=== PATIENT | female | born 1980 | race Two or more races ===

== ENCOUNTER 2020-08-10 14:00 | Outpatient (RCR) | payer MEDICAID, SELFPAY ==
--- NOTE | 2021-05-24 12:17 | MHC.PT.DC ---
[facility] [place] Office [place] Office [place] Office [address] [place] [address] [phone] F: [phone] F: [phone] F: [phone] F: [phone] Physical Therapy Discharge Report Diagnosis: SPONDYLOSIS WITH RADICULOPATHY, LUMBAR REGION, OA OF SPINE Date of Surgery: NA Date of Evaluation: 07/11/20 Date of Discharge: 05/24/21 Treatments to Date: 3 Cancellations to Date: 5 No Shows to Date: 3 Discharge Status: Visit Non-compliance Discharge Summary: Pt SEEN FOR INIT EVAL AND 2 VISITS THEN NO FURTHER APPTS MADE (COMBO OF CANCELS AND NO SHOWS). AT LAST SCHEDULED APPT WITH PASTORA STARKS PT Pt SUBJECTIVELY REPORTED NO SIGNIF CHANGE IN PAIN AND PER ASSESSMENT FROM THAT NOTE: 'pt challenged on rocker board. Issued written program in Khmer.' Electronically signed by: BERNADETTE DIAS PT Please sign and return to therapist. Thank you for your referral.
== END 2021-05-24 12:18 | disposition home or self-care (01) ==
LOC: HO.PT 14:00
PROVIDERS: PCP Internal Medicine; Visit Provider Internal Medicine
DX: M47.26 Other spondylosis with radiculopathy, lumbar region (principal); M46.1 Sacroiliitis, not elsewhere classified
CPT/HCPCS: 97110; 97161

== ENCOUNTER 2020-11-07 11:41 | Emergency (ER) | payer MEDICAID, SELFPAY ==
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
[2020-11-07 11:46] VITALS: BP 139/91; PULSE 82; RESP 18; TEMP 36.8; O2SAT 99; BMI 27.4
[2020-11-07] MEDS: 0.9 % Sodium Chloride 1,000 ML 999 ML IV (12:51)
--- NOTE | 2020-11-07 12:51 | PC.NURSE ---
IV STARTED AND LABS DRAWN. IV 1000ML NS HUNG. MED WOULD NOT SCAN.
[2020-11-07 12:54] LABS: MANUAL DIFF FLAG NO
[2020-11-07 12:56] LABS: Basophils Percent Auto 0.4 % (0-2); Eosinophils Percent Auto 0.3 % (0-4); Hematocrit 40.6 % (37-47); Hemoglobin 13.7 g/dl (12.0-16.0); Imm Gran Abs Auto 0.04 X10*3/uL (0.00-0.03); Imm Gran Pct Auto 0.6 % (0.0-0.4); Lymphocytes Absolute Auto 1.2 X10*3/uL (1.2-4.9); Lymphocytes Percent Auto 17.5 % (20-40); Mean Corpuscular HGB Conc 33.7 g/dl (31.0-35.0); Mean Corpuscular Hemoglobin 31.3 pg (27.0-33.0); Mean Corpuscular Volume 92.7 fL (80-98); Mean Platelet Volume 8.1 fL (9.4-12.3); Monocytes Absolute Auto 0.4 X10*3/uL (0.1-1.2); Monocytes Percent Auto 5.5 % (2-11); Neutrophils Absolute Auto 5.1 X10*3/uL (2.0-8.3); Neutrophils Percent Auto 75.7 % (45-73); Platelet Count 205 X10*3/uL (160-400); Red Blood Count 4.38 X10*6/uL (4.20-5.50); Red Cell Distribution Width 12.2 % (11.0-16.0); White Blood Count 6.8 X10*3/uL (4.8-10.8)
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
[2020-11-07 13:03] LABS: INTERNATIONAL NORM RATIO 0.9 (0.9-1.1); Prothrombin Time 10.9 SEC (10.8-13.0)
[2020-11-07 13:06] LABS: Partial Thromboplastin Time 30.1 SEC (24.1-38.0)
[2020-11-07 13:19] LABS: Alanine Aminotransferase 29 U/L (0-31); Alkaline Phosphatase 76 U/L (39-117); Anion Gap 14 (12-20); Aspartate Amino Transferase 31 U/L (5-31); Bilirubin Total 0.5 mg/dL (0.0-1.0); Blood Urea Nitrogen 9 mg/dL (9-16); Carbon Dioxide 26 mmol/L (22-29); Chloride 105 mmol/L (96-108); Creatinine Clr Calc Pharmacy 94.1; Estimated Glomerular Filt Rate > 60; Glucose Random 94 mg/dL (60-115); Potassium 3.8 mmol/L (3.3-5.1); Sodium 141 mmol/L (135-145); Total Protein 6.5 g/dL (6.5-8.0)
[2020-11-07 13:49] LABS: HCG Quantitative < 2 mIU/mL
[2020-11-07] MEDS: Morphine Sulfate 4 MG/ML CARTRIDGE IVPUSH (14:05)
[2020-11-07 14:11] VITALS: BP 138/87; PULSE 78; RESP 18; O2SAT 98
[2020-11-07] MEDS: iohexoL 350 MG/ML 100 ML INFUS..BTL IV (15:07)
[2020-11-07 15:51] VITALS: BP 125/67; PULSE 60; RESP 18; TEMP 36.4; O2SAT 98
[2020-11-07] MEDS: Ketorolac Tromethamine 30 MG/ML VIAL IVPUSH (16:14)
== END 2020-11-07 17:05 | disposition home or self-care (01) ==
PROVIDERS: Physician Assistant; Emergency Provider Emergency Medicine; PCP Internal Medicine
DX: S36.32XA Contusion of stomach, initial encounter (principal); R10.12 Left upper quadrant pain; Y04.8XXA Assault by other bodily force, initial encounter; Y93.9 Activity, unspecified; Y92.9 Unspecified place or not applicable; Y99.9 Unspecified external cause status; Z79.899 Other long term (current) drug therapy
CPT/HCPCS: 36415; 71046; 71100; 74177; 80053; 84702; 85025; 85610; 85730; 96365; 96375; 99284; 99285; J1885; J2270; Q9967

== ENCOUNTER 2020-11-11 11:54 | Emergency (ER) | payer MEDICAID, SELFPAY ==
[2020-11-11 12:23] VITALS: BP 161/89; PULSE 77; RESP 18; TEMP 37; O2SAT 98; BMI 27.4
== END 2020-11-11 15:20 | disposition left against medical advice (07) ==
PROVIDERS: Emergency Provider Emergency Medicine
DX: S29.9XXA Unspecified injury of thorax, initial encounter (principal); S59.901A Unspecified injury of right elbow, initial encounter; Y04.2XXA Assault by strike against or bumped into by another person, initial encounter; Y93.9 Activity, unspecified; Y92.9 Unspecified place or not applicable; Y99.9 Unspecified external cause status
CPT/HCPCS: 99281; 99282

== ENCOUNTER 2020-12-27 11:14 | Outpatient (REF) | payer MEDICAID, SELFPAY ==
--- NOTE | ~2020-12-27 | XR_ITS ---
EXAMINATION: XR FOOT, LEFT CLINICAL INFORMATION: Left foot pain. COMPARISON: Left lower leg 08/26/2014 TECHNIQUE: AP, lateral, and oblique views of the left foot. FINDINGS: An intramedullary jeremy is seen in the distal tibia. The bones and soft tissues are otherwise normal. No fracture. Alignment is anatomic. Joint spaces are maintained. XR/XR foot LT min 3V IMPRESSION: Normal left foot. Jeremy in distal tibia.
== END 2020-12-27 11:15 | disposition home or self-care (01) ==
LOC: HO.XRAY 11:14
PROVIDERS: PCP Internal Medicine; Visit Provider Internal Medicine
DX: M79.672 Pain in left foot (principal)
CPT/HCPCS: 73630

== ENCOUNTER 2021-11-02 10:10 | Outpatient (REF) | payer MEDICAID, SELFPAY ==
--- NOTE | 2021-11-02 | EMG_ITS ---
Left median and ulnar motor and sensory studies were performed. Left radial sensory study was performed and paraspinal muscles were tested. IMPRESSION: This is an unremarkable study with no evidence of entrapment neuropathy or radiculopathy. MD SAMIRA Jaime/HUDSON / [id number]
== END 2021-11-02 10:11 | disposition home or self-care (01) ==
LOC: HO.NEURO 10:10
PROVIDERS: Visit Provider Internal Medicine
DX: G56.02 Carpal tunnel syndrome, left upper limb (principal)
CPT/HCPCS: 95886; 95910

== ENCOUNTER 2022-02-27 15:40 | Emergency (ER) | payer MEDICAID, SELFPAY ==
--- NOTE | ~2022-02-27 | CT_ITS ---
EXAMINATION: CT ABDOMEN AND PELVIS WITHOUT CONTRAST CLINICAL INFORMATION: Right lower quadrant pain COMPARISON: CT abdomen pelvis 11/07/2020 TECHNIQUE: Multidetector volumetric imaging was performed from the superior aspect of the liver through the pubic symphysis. Sagittal and coronal reformatted images were obtained on the technologist's workstation. This CT examination was performed using dose optimization techniques as appropriate, variously including the following: *Automated exposure control *Adjustment of mA and/or kV according to patient size (this includes techniques or standardized protocols for targeted exams where dose is matched to indication/reason for exam; i.e. extremities or head) *Use of iterative reconstruction technique DLP: 686 mGy-cm FINDINGS: LUNG BASES: The visualized lung bases are unremarkable. LIVER, GALLBLADDER, AND BILIARY TREE: The liver is normal in size, shape, and attenuation. No focal hepatic lesion or biliary ductal dilatation is present. The gallbladder is unremarkable with no evidence of radiopaque gallstones, gallbladder wall thickening, or obvious pericholecystic inflammatory changes. PANCREAS: Unremarkable. SPLEEN: Unremarkable. ADRENAL GLANDS: Unremarkable. KIDNEYS AND URETERS: The kidneys are normal in size, shape, and attenuation. No hydronephrosis, hydroureter, or calculi seen. No perinephric stranding. BLADDER: Unremarkable. GASTROINTESTINAL TRACT: The small and large bowel are unremarkable. Scattered colonic diverticula are present. The appendix is unremarkable. ABDOMINAL WALL: No significant hernia is appreciated. LYMPH NODES: No retroperitoneal lymphadenopathy VASCULAR: Unremarkable. PELVIC VISCERA: Retroflexed uterus is present. An abnormal pelvic mass or free intraperitoneal fluid is not seen. OSSEOUS STRUCTURES: Unremarkable. CT/CT abdomen pelvis wo con IMPRESSION: A cause for the patient's right lower quadrant pain has not been found. The appendix is normal. Fleischner guidelines were followed.
[2022-02-27 17:19] VITALS: BP 129/81; PULSE 58; RESP 16; TEMP 36.6; O2SAT 100; BMI 28.1
[2022-02-27 17:37] LABS: MANUAL DIFF FLAG NO
[2022-02-27 17:44] LABS: Basophils Percent Auto 0.5 % (0-2); Eosinophils Absolute Auto 0.1 X10*3/uL (0.0-0.4); Eosinophils Percent Auto 0.9 % (0-4); Hematocrit 38.8 % (37.0-47.0); Hemoglobin 13.4 g/dl (12.0-16.0); Imm Gran Abs Auto 0.02 X10*3/uL (0.00-0.03); Imm Gran Pct Auto 0.4 % (0.0-0.4); Lymphocytes Absolute Auto 2.7 X10*3/uL (1.2-4.9); Lymphocytes Percent Auto 48.1 % (20-40); Mean Corpuscular HGB Conc 34.5 g/dl (31.0-35.0); Mean Corpuscular Hemoglobin 30.9 pg (27.0-33.0); Mean Corpuscular Volume 89.4 fL (80.0-98.0); Mean Platelet Volume 8.3 fL (9.4-12.3); Monocytes Absolute Auto 0.4 X10*3/uL (0.1-1.2); Neutrophils Absolute Auto 2.4 x10*3/uL (2.0-8.3); Neutrophils Percent Auto 43.1 % (45-73); Platelet Count 195 X10*3/uL (160-400); Red Blood Count 4.34 X10*6/uL (4.20-5.50); Red Cell Distribution Width 12.2 % (11.0-16.0); White Blood Count 5.6 X10*3/uL (4.8-10.8)
[2022-02-27 17:51] LABS: Appearance Urine CLOUDY; Color Urine YELLOW; Glucose Urine UA NEG (NEG); Leukocyte Esterase Urine NEG (NEG); Nitrite Urine NEG (NEG); Urine Blood NEG (NEG); Urine Ketones NEG (NEG); Urine Protein NEG (NEG-TRACE)
[2022-02-27 17:54] LABS: COVID-19 Test Negative (Negative); IDNOW Serial# 16C4AD1C
[2022-02-27 18:01] LABS: Anion Gap 13 (12-20); Blood Urea Nitrogen 5 mg/dL (9-16); Calcium 8.6 mg/dL (8.4-10.2); Carbon Dioxide 26 mmol/L (22-29); Chloride 104 mmol/L (96-108); Creatinine Clr Calc Pharmacy 102.3; Estimated Glomerular Filt Rate > 60; Glucose Random 87 mg/dL (60-115); Potassium 3.6 mmol/L (3.3-5.1); Sodium 139 mmol/L (135-145)
--- NOTE | 2022-02-27 21:39 | ED.ABDPAIN ---
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 Patient's symptoms started since last night after eating ice cream, partner ate the same food but he is not feeling sick. Came in today for persistent of lower abdominal pain mostly on the right lower quadrant and epigastric area, feeling nauseous, no fever or chills, Related Data Previous Rx's Medication Instructions Recorded naproxen 500 mg tablet 500 mg PO BID PRN pain #20 tabs 11/07/20 omeprazole magnesium 20 mg 20 mg PO BID #20 tabs 02/27/22 tablet,delayed release (Prilosec OTC) Allergies Allergy/AdvReac Type Severity Reaction Status Date / Time No Known Allergies Allergy Verified 02/27/22 17:19 Review of Systems Review of Systems All other systems are reviewed and are negative Constitutional: Reports as per HPI and Reports no additional constitutional complaints Eyes: Reports as per HPI and Reports no additional eye complaints Reports system reviewed and no additional complaints, except as documented Cardiovascular: Reports as per HPI and Reports no additional cardiovascular complaints Respiratory: Reports as per HPI and Reports no additional respiratory complaints Gastrointestinal: Reports as per HPI and Reports no additional gastrointestinal complaints Genitourinary: Reports no additional female genitourinary complaints Musculoskeletal: Reports no additional musculoskeletal complaints Skin/Breast: Reports system reviewed and no additional complaints, except as docu Psychiatric: Reports no additional psychiatric complaints Endocrine: Reports no additional endocrine complaints Hematologic/Lymphatic: Reports no additional hematologic/lymphatic complaints Allergic/Immunologic: Reports no additional allergic/immunologic complaints Reports system reviewed and no additional complaints, except as documented and Reports Abnormal speech present [facility] Past Medical History Medical History Anxiety Asthma Chronic back pain Social History Social History Advance Directives: No Advance Directives Information Provided: No Physical Exam ED Vital Signs: Vital Signs - 24 hr 02/27/22 17:19 02/27/22 22:00 02/27/22 22:50 Temperature 97.9 F Pulse Rate 58 59 68 Respiratory Rate 16 18 16 Blood Pressure 129/81 154/74 H Pulse Oximetry 100 99 Oxygen Delivery Method Room Air Room Air 02/27/22 23:30 Temperature Pulse Rate 88 Respiratory Rate 18 Blood Pressure 136/79 Pulse Oximetry 100 Oxygen Delivery Method Room Air BMI result Body Mass Index 28.1 Vital signs have been reviewed as appeared to be correct. Blood pressure normal. Heart rate normal. Respiration rate normal. Temperature normal. Oxygen saturation normal. Appearance: Alert. Oriented X3. No acute distress. Head: Normal external exam. Normocephalic. Atraumatic. No Duke signs noted. No raccoon eyes noted Eyes: PERRLA. EOMI. Conjunctiva and sclera normal. Eyelids normal. ENT: TM's Normal. Pharynx normal. Uvula midline. Moist mucous membranes. No trismus noted. No drooling noted. No muffled voice noted. Neck: Normal inspection. Neck supple. FROM. No adenopathy. Thyroid Normal. No meningeal signs. No neck mass noted. CVS: Normal heart rate and rhythm. Heart sound normal. No murmurs noted. Pulses normal throughout. Respiratory: No respiratory distress. Painless inspiration. Breath sounds normal. Mild diffuse expiratory wheezing with prolonged expiration. Chest nontender. No accessory muscle usage noted or decreased air movement noted. Abdomen: Soft, right lower quadrant tenderness. Bowel sounds normal in all 4 quadrants. No distention noted. No organomegaly noted. No visible injury noted. Back: No CVA tenderness. Full range of motion noted. Skin: Skin warm and dry. Normal skin color. Normal skin turgor. No rashes/lesions/lacerations noted. Extremities: No lower extremity edema. Extremities exhibit normal range of motion. Extremities nontender. Neuro: Oriented X 3. Cranial nerve exam: II-XII are grossly intact No motor deficit. No sensory deficit. Reflexes normal. Course Course Course Narrative: 41-year-old female came in for evaluation of nausea, vomiting, nonbloody watery diarrhea after eating bad food, patient received IV hydration, Maalox, Pepcid in the ED patient now feels better, able to tolerate p.o. intake with no nausea or vomiting, mild epigastric tenderness with no rebound or guarding. Patient is able to tolerate saltine and drink michelle nehemias in the ED. Patient is with known history of of asthma, patient had albuterol in the ED patient now feeling better and repeat lung exam shows no wheezing. MDM - Abdominal Pain Medical Records Attestation: I reviewed the patient's medical records. Lab Data Attestation: I reviewed the patient's lab results. Result diagrams: 02/27/22 17:25 02/27/22 17:25 Labs: Lab Results 02/27/22 02/27/22 02/27/22 Range/Units 17:25 17:25 17:25 WBC 5.6 (4.8-10.8) X10*3/uL RBC 4.34 (4.20-5.50) X10*6/uL Hgb 13.4 (12.0-16.0) g/dl Hct 38.8 (37.0-47.0) % MCV 89.4 (80.0-98.0) fL MCH 30.9 (27.0-33.0) pg MCHC 34.5 (31.0-35.0) g/dl RDW 12.2 (11.0-16.0) % Plt Count 195 (160-400) X10*3/uL MPV 8.3 L (9.4-12.3) fL Immature Gran % (Auto) 0.4 (0.0-0.4) % Neut % (Auto) 43.1 L (45-73) % Lymph % (Auto) 48.1 H (20-40) % [place] % (Auto) 7.0 (2-11) % Eos % (Auto) 0.9 (0-4) % Baso % (Auto) 0.5 (0-2) % Lymph # (Auto) 2.7 (1.2-4.9) X10*3/uL [place] # (Auto) 0.4 (0.1-1.2) X10*3/uL Eos # (Auto) 0.1 (0.0-0.4) X10*3/uL Baso # (Auto) 0.0 (0.0-0.2) X10*3/uL Abs Immat Gran (auto) 0.02 (0.00-0.03) X10*3/uL Absolute Neuts (auto) 2.4 (2.0-8.3) x10*3/uL Absolute Nucleated RBC 0.000 (0.0-0.012) X10*3/uL Nucleated RBC % (auto) 0.0 (0.0-0.2) /100WBC Sodium 139 (135-145) mmol/L Potassium 3.6 (3.3-5.1) mmol/L Chloride 104 (96-108) mmol/L Carbon Dioxide 26 (22-29) mmol/L Anion Gap 13 (12-20) BUN 5 L (9-16) mg/dL Creatinine 0.70 (0.5-1.4) mg/dL Estim Creat Clear Calc 102.3 Estimated GFR > 60 Random Glucose 87 (60-115) mg/dL Calcium 8.6 (8.4-10.2) mg/dL Total Bilirubin 0.3 (0.0-1.0) mg/dL Direct Bilirubin < 0.2 (0.0-0.5) mg/dL AST 20 (5-31) U/L ALT 19 (0-31) U/L Alkaline Phosphatase 83 (39-117) U/L Total Protein 6.8 (6.5-8.0) g/dL Albumin 4.1 (3.5-5.0) g/dL Urine Color Urine Appearance Urine pH (5.0-8.0) Ur Specific [place] (1.005-1.025) Urine Protein (NEG-TRACE) MG/DL Urine Glucose (UA) (NEG) MG/DL Urine Ketones (NEG) MG/DL Urine Blood (NEG) Urine Nitrite (NEG) Ur Leukocyte Esterase (NEG) Urine Test (NEGATIVE) COVID-19 (AKUA) Negative (Negative) COVID-19 Clin Com See Note 02/27/22 02/27/22 Range/Units 17:31 17:31 WBC (4.8-10.8) X10*3/uL RBC (4.20-5.50) X10*6/uL Hgb (12.0-16.0) g/dl Hct (37.0-47.0) % MCV (80.0-98.0) fL MCH (27.0-33.0) pg MCHC (31.0-35.0) g/dl RDW (11.0-16.0) % Plt Count (160-400) X10*3/uL MPV (9.4-12.3) fL Immature Gran % (Auto) (0.0-0.4) % Neut % (Auto) (45-73) % Lymph % (Auto) (20-40) % [place] % (Auto) (2-11) % Eos % (Auto) (0-4) % Baso % (Auto) (0-2) % Lymph # (Auto) (1.2-4.9) X10*3/uL [place] # (Auto) (0.1-1.2) X10*3/uL Eos # (Auto) (0.0-0.4) X10*3/uL Baso # (Auto) (0.0-0.2) X10*3/uL Abs Immat Gran (auto) (0.00-0.03) X10*3/uL Absolute Neuts (auto) (2.0-8.3) x10*3/uL Absolute Nucleated RBC (0.0-0.012) X10*3/uL Nucleated RBC % (auto) (0.0-0.2) /100WBC Sodium (135-145) mmol/L Potassium (3.3-5.1) mmol/L Chloride (96-108) mmol/L Carbon Dioxide (22-29) mmol/L Anion Gap (12-20) BUN (9-16) mg/dL Creatinine (0.5-1.4) mg/dL Estim Creat Clear Calc Estimated GFR Random Glucose (60-115) mg/dL Calcium (8.4-10.2) mg/dL Total Bilirubin (0.0-1.0) mg/dL Direct Bilirubin (0.0-0.5) mg/dL AST (5-31) U/L ALT (0-31) U/L Alkaline Phosphatase (39-117) U/L Total Protein (6.5-8.0) g/dL Albumin (3.5-5.0) g/dL Urine Color YELLOW Urine Appearance CLOUDY Urine pH 6.0 (5.0-8.0) Ur Specific [place] 1.020 (1.005-1.025) Urine Protein NEG (NEG-TRACE) MG/DL Urine Glucose (UA) NEG (NEG) MG/DL Urine Ketones NEG (NEG) MG/DL Urine Blood NEG (NEG) Urine Nitrite NEG (NEG) Ur Leukocyte Esterase NEG (NEG) Urine Test NEGATIVE (NEGATIVE) COVID-19 (AKUA) (Negative) COVID-19 Clin Com Imaging Data CT scan - abdomen: Attestation: I personally reviewed and interpreted this imaging study as follows: Radiologist's impression: A cause for the patient's right lower quadrant pain has not been found. The appendix is normal.? ? Discharge Plan Discharge Clinical Impression: Food poisoning, Gastritis, Acute asthma exacerbation Patient Disposition: Home, Self-Care Instructions: Gastritis (ED), Food Poisoning (ED) Prescriptions: New omeprazole magnesium [Prilosec OTC] 20 mg tablet,delayed release (DR/EC) 20 mg PO BID Qty: 20 0RF No Action naproxen 500 mg tablet 500 mg PO BID PRN (Reason: pain) Qty: 20 0RF Referrals: Rachel Eden MD [Primary Care Provider] -
[2022-02-27] MEDS: 0.9 % Sodium Chloride 1,000 ML 999 ML IV (21:55)
[2022-02-27] MEDS: Magnesium Hydrox/Alum Hydrox 30 ML ORAL.SUSP PO (21:57)
[2022-02-27] MEDS: ondansetron HCL 4 MG/2 ML VIAL IVPUSH (21:57)
[2022-02-27] MEDS: Famotidine/PF 20 MG/2 ML VIAL IVPUSH (21:57)
[2022-02-27 22:00] VITALS: BP 154/74; PULSE 59; RESP 18; O2SAT 99
--- NOTE | 2022-02-27 22:04 | PC.NURSE ---
pt a&ox3, vss, reporting 7/10 abd pain, 20G IV placed left hand, NaCl running, medicated per provider order.
[2022-02-27 22:19] LABS: UPreg QC Valid YES; Urine Pregnancy NEGATIVE (NEGATIVE)
[2022-02-27 22:26] LABS: Alanine Aminotransferase 19 U/L (0-31); Albumin Level 4.1 g/dL (3.5-5.0); Alkaline Phosphatase 83 U/L (39-117); Aspartate Amino Transferase 20 U/L (5-31); Bilirubin Direct < 0.2 mg/dL (0.0-0.5); Bilirubin Total 0.3 mg/dL (0.0-1.0); Total Protein 6.8 g/dL (6.5-8.0)
--- NOTE | 2022-02-27 22:47 | PC.NURSE ---
pt reporting some chest tightness/sob, pt uses albuterol inhaler at night. provider and resp notified.
[2022-02-27] MEDS: Albuterol/Iprat 2.5/0.5MG 3 ML AMPUL.NEB INHALE (22:49)
[2022-02-27] MEDS: Albuterol Sulfate (0.083%) 2.5 MG/3 ML VIAL.NEB INHALE (22:49)
[2022-02-27 22:50] VITALS: PULSE 68; RESP 16; O2SAT 100
[2022-02-27 23:30] VITALS: BP 136/79; PULSE 88; RESP 18; O2SAT 100
--- NOTE | 2022-02-27 23:39 | PC.NURSE ---
pt a&ox3, vss, chest tightness resolved w breathing treatment, pt continues to report 7/10 abd pain, pending CT results.
[2022-02-27 23:56] VITALS: BP 134/83; PULSE 60; RESP 17; TEMP 36.7; O2SAT 100
== END 2022-02-28 00:14 | disposition home or self-care (01) ==
PROVIDERS: Emergency Provider Emergency Medicine; PCP Internal Medicine
DX: A05.9 Bacterial foodborne intoxication, unspecified (principal); K29.70 Gastritis, unspecified, without bleeding; J45.901 Unspecified asthma with (acute) exacerbation; Z20.822 Contact with and (suspected) exposure to COVID-19; R10.9 Unspecified abdominal pain
CPT/HCPCS: 74176; 80048; 80076; 81003; 81025; 85025; 87635; 94640; 96361; 96374; 96375; 99284; J2405

== ENCOUNTER 2022-03-03 11:50 | Emergency (ER) | payer MEDICAID, SELFPAY ==
[2022-03-03 12:17] VITALS: BP 140/86; PULSE 67; RESP 20; TEMP 36.7; O2SAT 100; BMI 28.1
[2022-03-03] MEDS: Ondansetron ODT 4 MG TAB.RAPDIS TRANSLINGU (12:20)
== END 2022-03-03 18:37 | disposition left against medical advice (07) ==
PROVIDERS: Emergency Provider Emergency Medicine; PCP Internal Medicine
DX: R10.9 Unspecified abdominal pain (principal); R11.2 Nausea with vomiting, unspecified
CPT/HCPCS: 99281

== ENCOUNTER 2022-03-05 14:24 | Outpatient (REF) | payer MEDICAID, SELFPAY ==
--- NOTE | ~2022-03-05 | XR_ITS ---
EXAMINATION: XR TIBIA AND FIBULA, LEFT CLINICAL INFORMATION: Fracture COMPARISON: Left lower leg x-ray August 2014 TECHNIQUE: AP and lateral views of the left tibia and fibula were obtained. FINDINGS: There is an intramedullary alisia seen in the tibia. There are old healed left mid tibial and fibular shaft fractures. This is similar to August 2014 exam. The joint spaces are normal. There are soft tissue calcifications or ossifications adjacent to the medial tibial shaft that appear unchanged. XR/XR tibia fibula LT 2V IMPRESSION: Old healed tibial and fibular shaft fractures and intramedullary alisia in the tibia unchanged from previous x-ray August 2014.
== END 2022-03-05 14:25 | disposition home or self-care (01) ==
LOC: HO.HOSX 14:24
PROVIDERS: Visit Provider Orthopaedic Surgery
DX: S82.202A Unspecified fracture of shaft of left tibia, initial encounter for closed fracture (principal); Q79.9 Congenital malformation of musculoskeletal system, unspecified
CPT/HCPCS: 73590; 99202

== ENCOUNTER 2022-03-21 05:50 | Day surgery (SDC) | payer MEDICAID, SELFPAY ==
[2022-03-15 15:43] VITALS: BMI 28.1
--- NOTE | 2022-03-20 13:37 | P.CONAN_ITS ---
Documented by User: Bronwyn Rodríguez NP 03/20/22 13:39 HPI - Anesthesia Eval Consult details Narrative: 41yo F for Left Tibial Ostectomy PMFSH Active Problems Active Problems: All Active Problems (Updated 03/07/22 @ 09:54 by Juvenal Mims MD) Abnormal diaphysis of bone (Acute) Left tibial fracture (Acute) Past Medical History Medical History Anxiety Asthma Chronic back pain Social History Social History Patient Tobacco Use Status: Never used Tobacco Meds Allergies Allergy/AdvReac Type Severity Reaction Status Date / Time No Known Allergies Allergy Verified 02/27/22 17:19 Exam Exam Date and Time: March 20, 2022 1337 Height,Weight and Vital Signs: Height 5 ft 4 in Weight 74.389 kg Pertinent Lab Results Pertinent Lab Results: Laboratory Tests 02/27/22 02/27/22 17:25 17:25 WBC 5.6 Hgb 13.4 Hct 38.8 Plt Count 195 Sodium 139 Potassium 3.6 Chloride 104 Carbon Dioxide 26 BUN 5 L Creatinine 0.70 Assessment and Plan Assessment Anesthesia Assessment: Chart Reviewed Documented by User: Aren Iyer MD 03/21/22 14:48 [facility] Past Medical History Medical History Anxiety Asthma Chronic back pain Functional capacity: independent ambulation Family History Family history of problems with anesthesia: No Surgical History History of Problems with Anesthesia: No Social History Social History Patient Tobacco Use Status: Never used Tobacco Meds Allergies Allergy/AdvReac Type Severity Reaction Status Date / Time No Known Allergies Allergy Verified 02/27/22 17:19 Exam Airway Mallampati Class: III TM Dist: >3cm Neck ROM: Full Loose/Missing/Broken Teeth: Yes (Multiple chipped ) Heart: S1,S2 Lungs: b/l breath sounds Assessment and Plan Assessment Anesthesia Assessment: Anesthesia Plan Discussed Final Anesthetic Review Family History of Problems with Anesthesia: No History of Problems with Anesthesia: No NPO: Yes ASA Class: II Final Preanesthetic Review: Meds/Allgs Chart Reviewed, Consent Obtained/Reviewed and Anes Risks/Benef Reviewed Patient Risk: Intermediate Procedure Risk: Intermediate Anesthetic Plan Anesthetic Plan: MAC: (GA backup ) Disposition: Standard PACU
[2022-03-21] VITALS (7 sets, daily range): BP systolic 114–127; BP diastolic 59–81; PULSE 58–76; RESP 16; TEMP 36.1–36.8; O2SAT 96–100; BMI 29.8
[2022-03-21 06:12] LABS: UPreg QC Valid YES; Urine Pregnancy NEGATIVE (NEGATIVE)
[2022-03-21] MEDS: Lactated Ringers 1,000 ML 100 ML IVCONT (06:36)
--- NOTE | 2022-03-21 08:08 | P.BOP_ITS ---
Brief Operative Note Date of Service: 03/21/22 Pre-op diagnosis: Left tibial bony excrescence Post-op diagnosis: same Procedure: Tibial ostectomy, left Surgeon: Juvenal Mims MD Anesthesia: GETA and local Was an Guest Attendant used for this Procedure?: No Estimated blood loss (mL): 5 IV fluids (mL): 250 Pathology: other Condition: stable Disposition: PACU
--- NOTE | 2022-03-21 08:08 | MHC.SHP ---
Pre-Procedural Eval Section A Date of Service: 03/21/22 The patient is an INPATIENT: No Changes since office visit: Yes Patient answered all questions; No Cold of Flu in the past 2 weeks, No New Medical Problems and No Changes in Medication The History & Physical has been completed within 30 days and I have reviewed it.: Yes Section B Chief Complaint: tibia fx Allergies: Allergies Allergy/AdvReac Type Severity Reaction Status Date / Time No Known Allergies Allergy Verified 02/27/22 17:19 Plan I have reviewed the history and physical and performed a pertinent physical examination on my patient. No changes have occurred unless specified.
--- NOTE | 2022-03-21 12:15 | W.PM.OPN ---
Operative Note Operative Note Date of Service: 03/21/22 Narrative: Date of Service: 03/21/22 Pre-op diagnosis: Left tibial bony excrescence Post-op diagnosis: same Procedure: Tibial ostectomy, left Surgeon: Juvenal Mims MD Anesthesia: GETA and local Was an Special Education Aide used for this Procedure?: No Estimated blood loss (mL): 5 IV fluids (mL): 250 Pathology: other Condition: stable Disposition: PACU Patient was brought to the operating room and placed supine on the surgical table. She was prepped and draped in standard sterile fashion and a time out was called to indentify proper site, proper procedure and IV antibiotics per weight were administered. I began by making 10-12 mm inc over the medial tibial shaft 10 cm proximal to the malleolus. Full thickness flaps were developed the remove the osseus excrescence. This was easily removed with a rongeur. This was sent for pathology and irrigated copiously. It was closed with absorbable suture and skin glue. Sterile dressings were applied. Local anesthetic was administered to the region. She was placed in sterile conditions, extubated and brought to the recovery room in stable condition.
== END 2022-03-21 09:14 | disposition home or self-care (01) ==
PROVIDERS: Nurse Practitioner; PCP Internal Medicine; Visit Provider Orthopaedic Surgery
PROC: (CPT 27705; principal; 2022-03-21 07:30)
DX: M89.8X6 Other specified disorders of bone, lower leg (principal); Q79.9 Congenital malformation of musculoskeletal system, unspecified; G89.29 Other chronic pain; M54.9 Dorsalgia, unspecified; Z96.698 Presence of other orthopedic joint implants; Z87.81 Personal history of (healed) traumatic fracture; F41.1 Generalized anxiety disorder; J45.909 Unspecified asthma, uncomplicated
CPT/HCPCS: 27705; 81025; 88304; 88305; 88311; J0690; J1100; J1170; J2250; J2405; J2795; J3010

== ENCOUNTER 2022-04-02 13:38 | Outpatient (REF) | payer MEDICAID, SELFPAY ==
--- NOTE | ~2022-04-02 | XR_ITS ---
EXAMINATION: XR TIBIA AND FIBULA, LEFT CLINICAL INFORMATION: Congenital malformation COMPARISON: Previous x-ray February 2022 TECHNIQUE: AP and lateral views of the left tibia and fibula were obtained. FINDINGS: There is an intramedullary alisia seen in the left femoral shaft. There are healed midshaft tibial and fibular fractures or osteotomies. No acute fracture or dislocation. No evidence of hardware fracture or loosening. Knee and ankle joint unremarkable. XR/XR tibia fibula LT 2V IMPRESSION: Intramedullary alisia in healing mid tibial and fibular shaft fractures or osteotomies. Appearance is unchanged from old exams.
== END 2022-04-02 13:39 | disposition home or self-care (01) ==
LOC: HO.HOSX 13:38
PROVIDERS: Visit Provider Physician Assistant
DX: Q79.9 Congenital malformation of musculoskeletal system, unspecified (principal); S82.202A Unspecified fracture of shaft of left tibia, initial encounter for closed fracture
CPT/HCPCS: 73590

== ENCOUNTER 2022-05-16 17:08 | Emergency (ER) | payer MEDICAID, SELFPAY ==
--- NOTE | ~2022-05-16 | CT_ITS ---
EXAMINATION: CT head/brain wo IV con CLINICAL INFORMATION: Reason for Exam r/o bleed COMPARISON: None. TECHNIQUE: Contiguous axial imaging was performed from the skull base to vertex without intravenous contrast. Sagittal and coronal reformatted images were obtained. This CT examination was performed using dose optimization techniques as appropriate, variously including the following: * Automated exposure control * Adjustment of mA and/or kV according to patient size (this includes techniques or standardized protocols for targeted exams where dose is matched to indication/reason for exam; i.e. extremities or head) Use of iterative reconstruction technique DLP: 760 mGy-cm FINDINGS: No acute osseous or soft tissue abnormality. The mastoid air cells and visualized portions of the paranasal sinuses are well aerated. There is no evidence of acute intracranial hemorrhage or territorial infarction. No abnormal mass effect or midline shift is seen. Gates to white matter differentiation is well preserved. No extra-axial fluid collections are identified. No hydrocephalus. No significant volume loss. There is no abnormal attenuation within the brain parenchyma. CT/CT head/brain wo IV con IMPRESSION: No acute intracranial abnormality including hemorrhage, mass effect, hydrocephalus, or acute territorial edematous infarction.
--- NOTE | ~2022-05-16 | MR_ITS ---
EXAMINATION: MR BRAIN WITHOUT CONTRAST CLINICAL INFORMATION: Right facial weakness COMPARISON: Same day CT head without contrast TECHNIQUE: Multiplanar multisequence MR imaging of the brain was obtained without intravenous contrast. FINDINGS: Motion degraded examination. There is no acute infarct on diffusion-weighted imaging. There is no intracranial hemorrhage on iron-sensitive imaging. No extra-axial collection or mass effect/herniation. Mild scattered supratentorial white matter T2/flair hyperintensities, predominantly involving the frontal lobes. No hydrocephalus. The ventricles are normal in morphology and size. The major flow voids at the skull base are preserved. Partially empty sella. The cerebellar tonsils are normally positioned. The craniocervical junction is normal. Marrow signal is within normal limits. The visualized soft tissues are without significant abnormality. No signal abnormality within the paranasal sinuses or within the mastoid air cells. MR/MR head/brain wo con IMPRESSION: Motion degraded examination. 1. Within the limitations of motion, no acute infarct or other acute intracranial abnormality. 2. Mild scattered supratentorial white matter T2/FLAIR hyperintensities, predominantly involving the frontal lobes, are nonspecific but can be seen in the setting of migraine headache. 3. Partially empty sella. As an isolated finding, this is nonspecific and may be incidental and of no clinical significance. Correlate for symptoms of idiopathic intracranial hypertension.
[2022-05-16 17:20] VITALS: BP 147/87; PULSE 85; RESP 19; TEMP 36.6; O2SAT 98; BMI 28.8
--- NOTE | 2022-05-16 17:25 | ECG_ITS ---
Test Reason : chest pain Blood Pressure : / mmHG Vent. Rate : 060 BPM Atrial Rate : 060 BPM P-R Int : 136 ms QRS Dur : 088 ms QT Int : 398 ms P-R-T Axes : 044 006 -01 degrees QTc Int : 398 ms Normal sinus rhythm Normal ECG No previous ECGs available Referred By: Generic ED Physician Electronically Signed By:RAMU BILLS MD
[2022-05-16 17:42] LABS: MANUAL DIFF FLAG NO
[2022-05-16 17:44] LABS: Basophils Percent Auto 0.6 % (0-2); Eosinophils Absolute Auto 0.1 X10*3/uL (0.0-0.4); Eosinophils Percent Auto 0.9 % (0-4); Hematocrit 38.9 % (37.0-47.0); Hemoglobin 13.2 g/dl (12.0-16.0); Imm Gran Abs Auto 0.02 X10*3/uL (0.00-0.03); Imm Gran Pct Auto 0.3 % (0.0-0.4); Lymphocytes Absolute Auto 2.3 X10*3/uL (1.2-4.9); Lymphocytes Percent Auto 33.3 % (20-40); Mean Corpuscular HGB Conc 33.9 g/dl (31.0-35.0); Mean Corpuscular Hemoglobin 30.6 pg (27.0-33.0); Mean Corpuscular Volume 90.3 fL (80.0-98.0); Mean Platelet Volume 7.9 fL (9.4-12.3); Monocytes Absolute Auto 0.5 X10*3/uL (0.1-1.2); Monocytes Percent Auto 6.6 % (2-11); Neutrophils Absolute Auto 4.1 x10*3/uL (2.0-8.3); Neutrophils Percent Auto 58.3 % (45-73); Platelet Count 199 X10*3/uL (160-400); Red Blood Count 4.31 X10*6/uL (4.20-5.50); Red Cell Distribution Width 11.9 % (11.0-16.0)
[2022-05-16 17:57] LABS: Appearance Urine Cloudy; Color Urine Yellow; Glucose Urine UA Negative (Negative); Leukocyte Esterase Urine Negative (Negative); Nitrite Urine Negative (Negative); PH 5.5 (5.0-9.0); Specific Gravity - Urine 1.025 (1.005-1.025); UPreg QC Valid YES; Urine Blood Negative (Negative); Urine Ketones Negative (Negative); Urine Pregnancy NEGATIVE (NEGATIVE); Urine Protein Negative (Neg-Trace)
[2022-05-16 18:00] LABS: Anion Gap 14 (12-20); Blood Urea Nitrogen 12 mg/dL (9-16); Calcium 9.3 mg/dL (8.4-10.2); Carbon Dioxide 29 mmol/L (22-29); Chloride 103 mmol/L (96-108); Creatinine Clr Calc Pharmacy 109.8; Estimated Glomerular Filt Rate > 60; Glucose Random 64 mg/dL (60-115); Potassium 4.2 mmol/L (3.3-5.1); Sodium 142 mmol/L (135-145)
[2022-05-16 18:07] LABS: Troponin-I High Sensitivity < 3.5 ng/L (<3.5-17.0)
--- NOTE | 2022-05-16 19:51 | ED.GENADULT ---
HPI - General Adult General Chief complaint: General Medical Stated complaint: possible stroke/chest pains Time Seen by Provider: 05/16/22 19:35 History of Present Illness HPI narrative: Patient is a 41-year-old female presented today with having pain to the right side of her neck. Question droopiness in the face. Patient claims that there is some itchiness in the eye. There is no gross change in vision. Feels that when she smiled is uneven. Patient does not go out in the mus[place]. No history of Lyme disease in the past. No history of diabetes, hypertension, high cholesterol Or previous history of AR in the past. Positive history of smoking in the past. Denies any weakness in the upper or lower extremity. No difficulties with ambulation. No nausea no vomiting. No fever no chills. No no loss of current coordinations in the upper and lower extremity. Patient from home. Related Data Previous Rx's Medication Instructions Recorded omeprazole magnesium 20 mg 20 mg PO BID #20 tabs 02/27/22 tablet,delayed release (Prilosec OTC) cyclobenzaprine 10 mg tablet 10 mg PO TID PRN pain #14 tabs 05/16/22 ibuprofen 400 mg tablet 400 mg PO Q6H PRN pain #20 tabs 05/16/22 Allergies Allergy/AdvReac Type Severity Reaction Status Date / Time No Known Allergies Allergy Verified 04/02/22 13:34 Review of Systems Review of Systems: No P fever no chills no cough no congestion or upper respiratory symptoms. Yes all other systems are reviewed and are negative PMFSH Past Medical History Attestation statement: The following information was validated with the patient. Medical History Anxiety Asthma Chronic back pain Social History Social History Patient Tobacco Use Status: Never used Tobacco Advance Directives: No Advance Directives Information Provided: No Physical Exam ED Vital Signs: Vital Signs - 24 hr 05/16/22 17:20 Temperature 98 F Pulse Rate 85 Respiratory Rate 19 Blood Pressure 147/87 H Pulse Oximetry 98 Oxygen Delivery Method Room Air BMI result Body Mass Index 28.8 Appearance: Alert. Oriented X3. No acute distress. Eyes: Pupils equal, round and reactive to light. ENT: Pharynx normal. Neck: Normal inspection. Neck supple. No lymph nodes noted. No crepitus CVS: Normal heart rate and rhythm. Pulses normal. Normal S1 and S2 Respiratory: No respiratory distress. Breath sounds normal. No Wheezing. No rales Abdomen: Soft and nontender. No rigidity. No distention. good BS x4 Skin: Skin warm and dry. Normal skin color. Normal skin turgor. Extremities: No lower extremity edema. Neurovascular intact to all extremities. No Lacerations. No Rash . Neuro: Oriented X 3. No motor deficit. No sensory deficit. Moving all extermities. No slurred speech . Upper extremity 5/5 bilaterally fine motor movement intact. Ambulates with normal gait. Face seems symmetrical. Cranial nerve 2-12 grossly intact. Patient feels a subjective numbness over the lips. He had no difficulty keeping her eyes closed. Able to wrinkle her forehead without any difficulties. Medical Decision Making MDM Narrative Medical decision making narrative: patient noted to have a questionable numbness to the right face. CT the head was grossly negative. MRI negative for any acute evidence of infarction. Neurologically patient otherwise intact. Able to close her eyes well able to wrinkle her forehead well the smile appears equal. Patient has pain to the shoulder more likely does secondary to torticollis. Electrolytes are unremarkable. Sugar was normal. Aligned was added. Patient is to follow up on an Outpatient basis. Patient's urine showed no signs of infection. She is well appearing. EKG showed a sinus pattern heart rate is 60 NV QRS QT within normal limits there is no acute ST segment elevation noted. Lab Data Lab results reviewed: Yes I reviewed the patient's lab results. Result diagrams: 05/16/22 17:39 05/16/22 17:39 Labs: Lab Results 05/16/22 05/16/22 05/16/22 Range/Units 17:39 17:39 17:39 WBC 7.0 (4.8-10.8) X10*3/uL RBC 4.31 (4.20-5.50) X10*6/uL Hgb 13.2 (12.0-16.0) g/dl Hct 38.9 (37.0-47.0) % MCV 90.3 (80.0-98.0) fL MCH 30.6 (27.0-33.0) pg MCHC 33.9 (31.0-35.0) g/dl RDW 11.9 (11.0-16.0) % Plt Count 199 (160-400) X10*3/uL MPV 7.9 L (9.4-12.3) fL Immature Gran % (Auto) 0.3 (0.0-0.4) % Neut % (Auto) 58.3 (45-73) % Lymph % (Auto) 33.3 (20-40) % [place] % (Auto) 6.6 (2-11) % Eos % (Auto) 0.9 (0-4) % Baso % (Auto) 0.6 (0-2) % Lymph # (Auto) 2.3 (1.2-4.9) X10*3/uL [place] # (Auto) 0.5 (0.1-1.2) X10*3/uL Eos # (Auto) 0.1 (0.0-0.4) X10*3/uL Baso # (Auto) 0.0 (0.0-0.2) X10*3/uL Abs Immat Gran (auto) 0.02 (0.00-0.03) X10*3/uL Absolute Neuts (auto) 4.1 (2.0-8.3) x10*3/uL Absolute Nucleated RBC 0.000 (0.0-0.012) X10*3/uL Nucleated RBC % (auto) 0.0 (0.0-0.2) /100WBC Sodium 142 (135-145) mmol/L Potassium 4.2 (3.3-5.1) mmol/L Chloride 103 (96-108) mmol/L Carbon Dioxide 29 (22-29) mmol/L Anion Gap 14 (12-20) BUN 12 D (9-16) mg/dL Creatinine 0.66 (0.5-1.4) mg/dL Estim Creat Clear Calc 109.8 Estimated GFR > 60 Random Glucose 64 (60-115) mg/dL Calcium 9.3 D (8.4-10.2) mg/dL Troponin I High Sens < 3.5 (<3.5-17.0) ng/L Urine Color Urine Appearance Urine pH (5.0-9.0) Ur Specific [place] (1.005-1.025) Urine Protein (Neg-Trace) mg/dL Urine Glucose (UA) (Negative) mg/dL Urine Ketones (Negative) mg/dL Urine Blood (Negative) Urine Nitrite (Negative) Ur Leukocyte Esterase (Negative) Urine Test (NEGATIVE) 05/16/22 05/16/22 Range/Units 17:43 17:43 WBC (4.8-10.8) X10*3/uL RBC (4.20-5.50) X10*6/uL Hgb (12.0-16.0) g/dl Hct (37.0-47.0) % MCV (80.0-98.0) fL MCH (27.0-33.0) pg MCHC (31.0-35.0) g/dl RDW (11.0-16.0) % Plt Count (160-400) X10*3/uL MPV (9.4-12.3) fL Immature Gran % (Auto) (0.0-0.4) % Neut % (Auto) (45-73) % Lymph % (Auto) (20-40) % [place] % (Auto) (2-11) % Eos % (Auto) (0-4) % Baso % (Auto) (0-2) % Lymph # (Auto) (1.2-4.9) X10*3/uL [place] # (Auto) (0.1-1.2) X10*3/uL Eos # (Auto) (0.0-0.4) X10*3/uL Baso # (Auto) (0.0-0.2) X10*3/uL Abs Immat Gran (auto) (0.00-0.03) X10*3/uL Absolute Neuts (auto) (2.0-8.3) x10*3/uL Absolute Nucleated RBC (0.0-0.012) X10*3/uL Nucleated RBC % (auto) (0.0-0.2) /100WBC Sodium (135-145) mmol/L Potassium (3.3-5.1) mmol/L Chloride (96-108) mmol/L Carbon Dioxide (22-29) mmol/L Anion Gap (12-20) BUN (9-16) mg/dL Creatinine (0.5-1.4) mg/dL Estim Creat Clear Calc Estimated GFR Random Glucose (60-115) mg/dL Calcium (8.4-10.2) mg/dL Troponin I High Sens (<3.5-17.0) ng/L Urine Color Yellow Urine Appearance Cloudy Urine pH 5.5 (5.0-9.0) Ur Specific [place] 1.025 (1.005-1.025) Urine Protein Negative (Neg-Trace) mg/dL Urine Glucose (UA) Negative (Negative) mg/dL Urine Ketones Negative (Negative) mg/dL Urine Blood Negative (Negative) Urine Nitrite Negative (Negative) Ur Leukocyte Esterase Negative (Negative) Urine Test NEGATIVE (NEGATIVE) Discharge Plan Discharge Clinical Impression: Torticollis Patient Disposition: Home, Self-Care Instructions: Neck Pain (ED) Prescriptions: New cyclobenzaprine 10 mg tablet 10 mg PO TID PRN (Reason: pain) Qty: 14 0RF ibuprofen 400 mg tablet 400 mg PO Q6H PRN (Reason: pain) Qty: 20 0RF No Action omeprazole magnesium [Prilosec OTC] 20 mg tablet,delayed release (DR/EC) 20 mg PO BID Qty: 20 0RF Referrals: Rachel Eden MD [Primary Care Provider] -
--- NOTE | 2022-05-16 22:41 | PC.NURSE ---
The patients' sister and HCP fortino Hernandez lives in [place], can be reached at: [phone]
--- NOTE | 2022-05-16 22:43 | PC.NURSE ---
I assumed care of this Melania at 1900. At that time she was sitting upright in bed, at bedside, without complaints - no AG, no anusea or vomiting, no CP or SOB. At that time, with assistance of Ronald marble supervisor, an MRi screening form was completed and the pt was brought to MRI. She was returned from MRI by MRI staff without incident. At that time she used the bathroom in bed 7 independently and voided without difficulty. She was discharged shortly after. The pt and her verbalized an understanding of all DC orders and the pt ambulated out of the ED independently and with steady gait.
[2022-05-19 06:32] LABS: Lyme Abs Screen <0.90 index
== END 2022-05-16 22:45 | disposition home or self-care (01) ==
PROVIDERS: Emergency Provider Emergency Medicine Emergency Medical Services; PCP Internal Medicine
DX: M43.6 Torticollis (principal); R07.89 Other chest pain; M54.2 Cervicalgia; R51.9 Headache, unspecified; Z79.899 Other long term (current) drug therapy; Z87.891 Personal history of nicotine dependence
CPT/HCPCS: 36415; 70450; 70551; 80048; 81003; 81025; 84484; 85025; 86617; 86618; 93005; 99283; 99285

== ENCOUNTER 2022-05-24 12:22 | Outpatient (REF) | payer MEDICAID, SELFPAY ==
--- NOTE | ~2022-05-24 | US_ITS ---
EXAMINATION: US ABDOMEN COMPLETE CLINICAL INFORMATION: Epigastric pain. COMPARISON: CT abdomen pelvis 02/27/2022. TECHNIQUE: Real-time imaging of the abdominal viscera. FINDINGS: PANCREAS: Not well visualized due to bowel gas. ABDOMINAL AORTA: The proximal and mid abdominal aorta is not well visualized. The distal abdominal aorta is normal. INFERIOR VENA CAVA: Visualized portions are normal. LIVER: The liver is normal in size. The liver contour is normal. Liver echotexture is slightly increased. No focal hepatic lesion. There is no intrahepatic biliary duct dilatation seen. GALLBLADDER: Gallbladder is slightly contracted. Patient has recently eaten. No gallstones are seen. The gallbladder wall does not appear thickened. COMMON BILE DUCT: Normal in caliber measuring 0.5 cm in diameter. RIGHT KIDNEY: Normal. No hydronephrosis. No renal calculi or focal parenchymal lesions. The kidney measures 11.5 cm in maximum dimension. LEFT KIDNEY: Normal. No hydronephrosis. No renal calculi or focal parenchymal lesions. The kidney measures 11.2 cm in maximum dimension. SPLEEN: Normal. The spleen measures 10.4 cm in maximum dimension. FREE FLUID: None. US/US abdomen complete IMPRESSION: Slightly echogenic liver. Limited visualization of the proximal and mid abdominal aorta and pancreas.
--- NOTE | ~2022-05-24 | US_ITS ---
EXAMINATION: US PELVIS CLINICAL INFORMATION: Abnormal uterine and vaginal bleeding COMPARISON: Previous CT of the abdomen and pelvis February 2022 TECHNIQUE: Ultrasound of the pelvis is performed using both transabdominal and transvaginal transducers along with Doppler. Transvaginal imaging is performed due to inadequate visualization transabdominally. FINDINGS: The uterus is retroverted and retroflexed and measures 9 x 5.5 x 6.7 cm in dimension. No focal uterine lesion. Endometrial thickness is normal measuring 0.9 cm. There is trace fluid seen in the endometrial cavity. The right ovary measures 3 x 2.5 x 1.7 cm. There is a small echogenic focus in the right ovary questionable for calcification. The left ovary measures 4.1 x 2 x 3.2 cm. There is a 2.3 x 1.8 x 2.1 cm complex left ovarian cyst with thickened wall and septation. There is a small amount of fluid in the pelvis. US/US pelvic and transvaginal IMPRESSION: Normal appearing endometrium. Small 2.3 x 1.8 x 2.1 cm complex left ovarian cyst probably representing a physiologic cyst.
== END 2022-05-24 12:23 | disposition home or self-care (01) ==
LOC: HO.US 12:22
PROVIDERS: Absent Provider Registered Nurse; Visit Provider Advanced Practice Midwife
DX: R10.13 Epigastric pain (principal); N93.9 Abnormal uterine and vaginal bleeding, unspecified
CPT/HCPCS: 76700; 76830; 76856

== ENCOUNTER 2022-08-21 05:55 | Emergency (ER) | payer MEDICAID, SELFPAY ==
--- NOTE | ~2022-08-21 | CT_ITS ---
EXAMINATION: CT ABDOMEN AND PELVIS WITH CONTRAST CLINICAL INFORMATION: Left lower quadrant and lower abdominal pain. Nausea and vomiting. COMPARISON: 02/27/2022 TECHNIQUE: Multidetector volumetric images were obtained from the superior aspect of the liver through the pubic symphysis following administration 85 mL of Omnipaque 350 intravenous contrast. Sagittal and coronal reformatted images were obtained on the technologist's workstation. Oral contrast: No This CT examination was performed using dose optimization techniques as appropriate, variously including the following: *Automated exposure control *Adjustment of mA and/or kV according to patient size (this includes techniques or standardized protocols for targeted exams where dose is matched to indication/reason for exam; i.e. extremities or head) *Use of iterative reconstruction technique DLP: 729 mGy-cm FINDINGS: LUNG BASES: The visualized lung bases are unremarkable. LIVER, GALLBLADDER, AND BILIARY TREE: The liver is normal in size, shape, and attenuation. No focal hepatic lesion or biliary ductal dilatation is present. The gallbladder is unremarkable with no evidence of radiopaque gallstones, gallbladder wall thickening, or obvious pericholecystic inflammatory changes. PANCREAS: Unremarkable. SPLEEN: Unremarkable. ADRENAL GLANDS: Unremarkable. KIDNEYS AND URETERS: The kidneys are normal in size, shape, and attenuation. No hydronephrosis, hydroureter, or calculi seen. No perinephric stranding. BLADDER: Unremarkable. GASTROINTESTINAL TRACT: The small and large bowel are unremarkable. The appendix is unremarkable. ABDOMINAL WALL: No significant hernia is appreciated. LYMPH NODES: Normal. VASCULAR: Unremarkable. PELVIC VISCERA: Uterus and adnexa unremarkable. OSSEOUS STRUCTURES: Unremarkable. CT/CT abdomen pelvis w IV con IMPRESSION: No potential etiology is identified for the patient's symptomatology.
[2022-08-21 06:35] VITALS: BP 134/80; PULSE 76; RESP 16; TEMP 36.6; O2SAT 97
[2022-08-21 07:26] LABS: MANUAL DIFF FLAG NO
[2022-08-21 07:30] LABS: Appearance Urine Clear; Color Urine Yellow; Glucose Urine UA Negative (Negative); Leukocyte Esterase Urine Negative (Negative); Nitrite Urine Negative (Negative); PH 5.5 (5.0-9.0); Specific Gravity - Urine 1.015 (1.005-1.025); Urine Blood Negative (Negative); Urine Ketones Negative (Negative); Urine Protein Negative (Neg-Trace)
[2022-08-21 07:31] LABS: Basophils Percent Auto 0.5 % (0-2); Eosinophils Absolute Auto 0.1 X10*3/uL (0.0-0.4); Eosinophils Percent Auto 1.1 % (0-4); Hematocrit 36.7 % (37.0-47.0); Hemoglobin 12.6 g/dl (12.0-16.0); Imm Gran Abs Auto 0.03 X10*3/uL (0.00-0.03); Imm Gran Pct Auto 0.5 % (0.0-0.4); Lymphocytes Absolute Auto 2.1 X10*3/uL (1.2-4.9); Lymphocytes Percent Auto 37.1 % (20-40); Mean Corpuscular HGB Conc 34.3 g/dl (31.0-35.0); Mean Corpuscular Hemoglobin 30.5 pg (27.0-33.0); Mean Corpuscular Volume 88.9 fL (80.0-98.0); Mean Platelet Volume 7.9 fL (9.4-12.3); Monocytes Absolute Auto 0.5 X10*3/uL (0.1-1.2); Monocytes Percent Auto 8.5 % (2-11); Neutrophils Absolute Auto 2.9 x10*3/uL (2.0-8.3); Neutrophils Percent Auto 52.3 % (45-73); Platelet Count 191 X10*3/uL (160-400); Red Blood Count 4.13 X10*6/uL (4.20-5.50); Red Cell Distribution Width 12.1 % (11.0-16.0); White Blood Count 5.5 X10*3/uL (4.8-10.8)
[2022-08-21 07:31] LABS: UPreg QC Valid YES; Urine Pregnancy NEGATIVE (NEGATIVE)
[2022-08-21 07:42] LABS: Anion Gap 12 (12-20); Blood Urea Nitrogen 9 mg/dL (9-16); Calcium 8.9 mg/dL (8.4-10.2); Carbon Dioxide 28 mmol/L (22-29); Chloride 105 mmol/L (96-108); Creatinine Clr Calc Pharmacy 115.5; Estimated Glomerular Filt Rate > 60; Glucose Random 95 mg/dL (60-115); Sodium 141 mmol/L (135-145)
[2022-08-21 08:00] VITALS: BP 91/59; PULSE 61; RESP 18; TEMP 36.7; O2SAT 100
--- NOTE | 2022-08-21 08:22 | ED.ABDPAIN ---
HPI - Abdominal Pain General Chief Complaint: Abdominal Pain Stated Complaint: abdominal pain Time Seen by Provider: 08/21/22 08:09 Source: patient Mode of arrival: ambulatory Limitations: language barrier ( Maltese-speaking channel marketing coordinator utilized) History of Present Illness HPI narrative: patient is a 41-year-old female who presents to emergency department for evaluation of abdominal pain. She reports onset 3 days ago. With left lower quadrant pain, that is radiating to the mid lower abdomen, but also diffusely across the lower back. Pain has progressively worsened since last night. She reports multiple episodes of vomiting over the past 2 days, has not had any vomiting today, but she also has not had any oral intake. She does endorse nausea at this time. Denies fevers, chills, upper abdominal pain, chest pain, shortness of breath, dysuria, urinary frequency/ urgency / hesitancy, pelvic pain, abnormal vaginal bleeding/vaginal discharge, Diarrhea, constipation, bloody or dark stools. Related Data Previous Rx's Medication Instructions Recorded omeprazole magnesium 20 mg 20 mg PO BID #20 tabs 02/27/22 tablet,delayed release (Prilosec OTC) cyclobenzaprine 10 mg tablet 10 mg PO TID PRN pain #14 tabs 05/16/22 ibuprofen 400 mg tablet 400 mg PO Q6H PRN pain #20 tabs 05/16/22 ondansetron 4 mg disintegrating 4 mg PO Q8H PRN nausea and 08/21/22 tablet vomiting #7 tabs Allergies Allergy/AdvReac Type Severity Reaction Status Date / Time No Known Allergies Allergy Verified 04/02/22 13:34 Review of Systems Review of Systems Constitutional : No Weight loss, No Fever, No Chills ENT/Mouth :? No sore throat, No Rhinorrhea Eyes: No Swelling, No Redness Cardiovascular : No Chest Pain, No SOB, No Edema Respiratory : No Cough, No Sputum, No Wheezing Gastrointestinal : Positive Nausea, Positive Vomiting, No Diarrhea, positive abdominal pain, No Hematochezia, No Melena Genitourinary : No Dysuria, No Urinary Frequency, No Hematuria, No Urgency? Musculoskeletal : No joint pain, No Myalgias, No Joint Swelling Skin : No Skin Lesions, No rash Neuro : No Weakness, No Numbness, No Dizziness, No Headache Psych : No Anxiety/Panic, No Depression Heme/Lymph: No Bruising, No Lymphadenopathy Endocrine : No Polyuria, No Polydipsia Yes all other systems are reviewed and are negative [facility] Past Medical History Attestation statement: The following information was validated with the patient. Source: old records reviewed Medical History Anxiety Asthma Chronic back pain Social History Social History Patient Tobacco Use Status: Never used Tobacco Smoked in Last 30 Days: No Use of substances other than those prescribed or required for medical reasons: No Advance Directives: No Physical Exam ED Vital Signs: Vital Signs - 24 hr 08/21/22 06:35 08/21/22 08:00 08/21/22 11:12 Temperature 97.9 F 98.1 F Pulse Rate 76 61 68 Respiratory Rate 16 18 20 Blood Pressure 134/80 91/59 L 110/76 Pulse Oximetry 97 100 100 Oxygen Delivery Method Room Air Nasal Cannula Room Air BMI result Body Mass Index 30.0 Appearance: Alert.?Oriented to person, place and time. No acute distress.?Normal affect. Eyes: Pupils equal, round and reactive to light.? ENT: Pharynx normal.?? Neck: Normal inspection.? Neck supple.?? CVS: Heart sounds normal. Normal heart rate and rhythm.? Pulses normal.?? Respiratory: No respiratory distress.? Lung sounds clear to auscultation bilaterally?? Abdomen: Soft with left lower quadrant and midline left lower abdominal tenderness upon palpation. No rebound tenderness at McBurney's point, negative Rovsing sign, Negative psoas sign, negative obturator's sign. No rigidity. No guarding. No CVA tenderness.. Normoactive bowel sounds. No pulsatile mass.?? Skin: Skin warm and dry.? Normal skin color.? Extremities: No lower extremity edema.? Neuro: Moves all extremities spontaneously. Sensation intact bilaterally. CN II-XII intact. No focal neuro deficits. Ambulates with normal steady gait. Course Reevaluation(s) Reevaluation #1: CBC reveals no leukocytosis or significant anemia. BMP is unremarkable, lipase within normal limits, mildly elevated AST/ ALT, which may be reactive from nausea and vomiting, and physical examination no right upper quadrant /epigastric tenderness, negative Magdaleno sign, low suspicion for acute hepatic /biliary process. Urinalysis without evidence of infection, or microscopic hematuria. Urine test is negative. CT of the abdomen and pelvis without acute intra-abdominal pathology. PO trial Time: 11:26 Reevaluation #2: Patient able to tolerate oral liquids and solids without complication. At this time, feel that she is stable for discharge home. Advised outpatient follow-up with her primary care provider, prescription for Zofran edwinto patient's pharmacy, advised acetaminophen/ ibuprofen for pain, bland diet, worrisome signs and symptoms that would warrant re-evaluation in the emergency department. Patient verbalizes understanding. Agreeable with plan of care. Time: 12:22 Medical Decision Making Medical Decision Making [facility] Narrative: patient is a 41-year-old female with past medical history of anxiety, asthma, presenting to emergency department for evaluation of abdominal pain as noted in HPI. At the time of examination she is overall well appearing. Afebrile without tachycardia, tachypnea, or hypoxia. abdominal pain with tenderness as noted in physical examination, at this time low suspicion for acute abdomen based on examination. Will obtain CBC to evaluate for leukocytosis/ anemia, CMP and lipase to evaluate for abnormal electrolytes /abnormal renal function/ abnormal hepatic/biliary function, CT abdomen and pelvis, urine and Urinalysis. will trial 1 L normal saline IV fluid, ondansetron IV for nausea, ketorolac IV for pain. Differential Diagnosis Differential Diagnoses: The differential diagnosis associated with the presentation includes ( Appendicitis, diverticulitis, colitis, bowel obstruction, urinary tract infection, pyelonephritis, nephrolithiasis, musculoskeletal pain, ovarian cyst, ovarian torsion, ectopic ) Lab Data [facility] Lab Attestation statement: I reviewed the patient's lab results. 08/21/22 07:15 08/21/22 07:15 Labs: Lab Results 08/21/22 08/21/22 08/21/22 Range/Units 07:15 07:15 07:20 WBC 5.5 (4.8-10.8) X10*3/uL RBC 4.13 L (4.20-5.50) X10*6/uL Hgb 12.6 (12.0-16.0) g/dl Hct 36.7 L (37.0-47.0) % MCV 88.9 (80.0-98.0) fL MCH 30.5 (27.0-33.0) pg MCHC 34.3 (31.0-35.0) g/dl RDW 12.1 (11.0-16.0) % Plt Count 191 (160-400) X10*3/uL MPV 7.9 L (9.4-12.3) fL Immature Gran % (Auto) 0.5 H (0.0-0.4) % Neut % (Auto) 52.3 (45-73) % Lymph % (Auto) 37.1 (20-40) % [place] % (Auto) 8.5 (2-11) % Eos % (Auto) 1.1 (0-4) % Baso % (Auto) 0.5 (0-2) % Lymph # (Auto) 2.1 (1.2-4.9) X10*3/uL [place] # (Auto) 0.5 (0.1-1.2) X10*3/uL Eos # (Auto) 0.1 (0.0-0.4) X10*3/uL Baso # (Auto) 0.0 (0.0-0.2) X10*3/uL Abs Immat Gran (auto) 0.03 (0.00-0.03) X10*3/uL Absolute Neuts (auto) 2.9 (2.0-8.3) x10*3/uL Absolute Nucleated RBC 0.000 (0.0-0.012) X10*3/uL Nucleated RBC % (auto) 0.0 (0.0-0.2) /100WBC Sodium 141 (135-145) mmol/L Potassium 4.0 (3.3-5.1) mmol/L Chloride 105 (96-108) mmol/L Carbon Dioxide 28 (22-29) mmol/L Anion Gap 12 (12-20) BUN 9 (9-16) mg/dL Creatinine 0.64 (0.5-1.4) mg/dL Estim Creat Clear Calc 115.5 Estimated GFR > 60 Random Glucose 95 (60-115) mg/dL Calcium 8.9 (8.4-10.2) mg/dL Total Bilirubin 0.3 (0.0-1.0) mg/dL Direct Bilirubin < 0.2 (0.0-0.5) mg/dL AST 36 H (5-31) U/L ALT 61 H (0-31) U/L Alkaline Phosphatase 70 (39-117) U/L Total Protein 6.0 L (6.5-8.0) g/dL Albumin 3.7 (3.5-5.0) g/dL Lipase 29 (8-78) U/L Urine Color Urine Appearance Urine pH (5.0-9.0) Ur Specific [place] (1.005-1.025) Urine Protein (Neg-Trace) mg/dL Urine Glucose (UA) (Negative) mg/dL Urine Ketones (Negative) mg/dL Urine Blood (Negative) Urine Nitrite (Negative) Ur Leukocyte Esterase (Negative) Urine Test NEGATIVE (NEGATIVE) 08/21/22 Range/Units 07:21 WBC (4.8-10.8) X10*3/uL RBC (4.20-5.50) X10*6/uL Hgb (12.0-16.0) g/dl Hct (37.0-47.0) % MCV (80.0-98.0) fL MCH (27.0-33.0) pg MCHC (31.0-35.0) g/dl RDW (11.0-16.0) % Plt Count (160-400) X10*3/uL MPV (9.4-12.3) fL Immature Gran % (Auto) (0.0-0.4) % Neut % (Auto) (45-73) % Lymph % (Auto) (20-40) % [place] % (Auto) (2-11) % Eos % (Auto) (0-4) % Baso % (Auto) (0-2) % Lymph # (Auto) (1.2-4.9) X10*3/uL [place] # (Auto) (0.1-1.2) X10*3/uL Eos # (Auto) (0.0-0.4) X10*3/uL Baso # (Auto) (0.0-0.2) X10*3/uL Abs Immat Gran (auto) (0.00-0.03) X10*3/uL Absolute Neuts (auto) (2.0-8.3) x10*3/uL Absolute Nucleated RBC (0.0-0.012) X10*3/uL Nucleated RBC % (auto) (0.0-0.2) /100WBC Sodium (135-145) mmol/L Potassium (3.3-5.1) mmol/L Chloride (96-108) mmol/L Carbon Dioxide (22-29) mmol/L Anion Gap (12-20) BUN (9-16) mg/dL Creatinine (0.5-1.4) mg/dL Estim Creat Clear Calc Estimated GFR Random Glucose (60-115) mg/dL Calcium (8.4-10.2) mg/dL Total Bilirubin (0.0-1.0) mg/dL Direct Bilirubin (0.0-0.5) mg/dL AST (5-31) U/L ALT (0-31) U/L Alkaline Phosphatase (39-117) U/L Total Protein (6.5-8.0) g/dL Albumin (3.5-5.0) g/dL Lipase (8-78) U/L Urine Color Yellow Urine Appearance Clear Urine pH 5.5 (5.0-9.0) Ur Specific [place] 1.015 (1.005-1.025) Urine Protein Negative (Neg-Trace) mg/dL Urine Glucose (UA) Negative (Negative) mg/dL Urine Ketones Negative (Negative) mg/dL Urine Blood Negative (Negative) Urine Nitrite Negative (Negative) Ur Leukocyte Esterase Negative (Negative) Urine Test (NEGATIVE) Radiology Impression Discussion of test interpretation with radiology: I have reviewed the radiologist's reading. Radiologist Impression: CT/CT abdomen pelvis w IV con IMPRESSION: No potential etiology is identified for the patient's symptomatology. ? Independent Historian Clinical information obtained from an independent historian. History obtained from or confirmed by: Spouse ( significant other present at bedside who confirms history.) Prescription Management I considered prescription management with: Pain Medication and Other ( Zofran) Medications Administered Discontinued Medications Generic Name Dose Route Start Last Admin Trade Name Freq PRN Reason Stop Dose Admin Sodium Chloride 1,000 mls @ 999 mls/hr 08/21/22 08:15 08/21/22 08:53 Ns IV 08/21/22 09:15 999 mls/hr .Q1H1M RAJIV Administration Iohexol 85 ml 08/21/22 09:33 08/21/22 09:34 Iohexol 350 Mg/Ml 100 Ml Infus..Btl IV 08/21/22 09:34 85 ml ONCE ONE Administration Ketorolac Tromethamine 30 mg 08/21/22 08:08 08/21/22 08:48 Ketorolac Tromethamine 30 Mg/Ml Vial IVPUSH 08/21/22 08:09 30 mg ONCE ONE Administration Ondansetron HCl 4 mg 08/21/22 08:08 08/21/22 08:48 Ondansetron Hcl 4 Mg/2 Ml Vial IVPUSH 08/21/22 08:09 4 mg ONCE ONE Administration Discharge Plan Discharge Clinical Impression: Gastroenteritis, Abdominal pain Patient Disposition: Home, Self-Care Instructions: Gastroenteritis (ED), Abdominal Pain (ED) Additional Instructions: Introduce a bland diet including crackers, bananas, rice, soup, toast, and boiled vegetables. This may progress to plain baked or boiled chicken or turkey. Avoid dairy products or foods high in fat or grease. be sure to stay well hydrated A prescription for Zofran was sent to the pharmacy to use as needed for nausea. You can take ibuprofen 200 mg, 3 tablets (600mg) every 6-8 hours as needed for pain, in addition to Tylenol 500 mg, 2 tablets (1,000mg) every 4-6 hours as needed for pain, but not to exceed 3 doses daily (3,000mg).? Contact your primary care provider and arrange for a follow-up visit within 3 days. You may return back to emergency department any new or worsening symptoms or concerns. Prescriptions: New ondansetron 4 mg tablet,disintegrating 4 mg PO Q8H PRN (Reason: nausea and vomiting) Qty: 7 0RF No Action omeprazole magnesium [Prilosec OTC] 20 mg tablet,delayed release (DR/EC) 20 mg PO BID Qty: 20 0RF cyclobenzaprine 10 mg tablet 10 mg PO TID PRN (Reason: pain) Qty: 14 0RF ibuprofen 400 mg tablet 400 mg PO Q6H PRN (Reason: pain) Qty: 20 0RF Referrals: Rachel Eden MD [Primary Care Provider] - Interventions: ED Discharge Assessment Last Done: 08/21/22 12:57 Discharge Date/Time: 08/21/22 12:58
[2022-08-21 08:42] LABS: Alanine Aminotransferase 61 U/L (0-31); Albumin Level 3.7 g/dL (3.5-5.0); Alkaline Phosphatase 70 U/L (39-117); Aspartate Amino Transferase 36 U/L (5-31); Bilirubin Total 0.3 mg/dL (0.0-1.0); Lipase 29 U/L (8-78)
[2022-08-21 08:44] LABS: Bilirubin Direct < 0.2 mg/dL (0.0-0.5)
[2022-08-21] MEDS: Ketorolac Tromethamine 30 MG/ML VIAL IVPUSH (08:48)
[2022-08-21] MEDS: ondansetron HCL 4 MG/2 ML VIAL IVPUSH (08:48)
[2022-08-21] MEDS: 0.9 % Sodium Chloride 1,000 ML 999 ML IV (08:53)
[2022-08-21] MEDS: iohexoL 350 MG/ML 100 ML INFUS..BTL 85 ML IV (09:34)
[2022-08-21 11:12] VITALS: BP 110/76; PULSE 68; RESP 20; O2SAT 100
== END 2022-08-21 12:58 | disposition home or self-care (01) ==
PROVIDERS: Nurse Practitioner Family; Emergency Provider Emergency Medicine; PCP Internal Medicine
DX: K52.9 Noninfective gastroenteritis and colitis, unspecified (principal); R11.2 Nausea with vomiting, unspecified; R10.32 Left lower quadrant pain; Z79.899 Other long term (current) drug therapy
CPT/HCPCS: 36415; 74177; 80048; 80076; 81003; 81025; 83690; 85025; 96374; 96375; 99284; J1885; J2405; Q9967

== ENCOUNTER 2022-09-06 05:55 | Emergency (ER) | payer MEDICAID, SELFPAY ==
--- NOTE | ~2022-09-06 | CT_ITS ---
EXAMINATION: CT ABDOMEN AND PELVIS WITH CONTRAST CLINICAL INFORMATION: Acute severe generalized abdominal pain. COMPARISON: CT scan of the abdomen and pelvis dated 08/21/2022 as well as dating back to 11/07/2020. Pelvic ultrasound dated 05/24/2022 TECHNIQUE: Multidetector volumetric images were obtained from the superior aspect of the liver through the pubic symphysis following administration 85 mL of Omnipaque 350 intravenous contrast. Sagittal and coronal reformatted images were obtained on the technologist's workstation. Mild respiratory motion artifact limits evaluation. Oral contrast: No This CT examination was performed using dose optimization techniques as appropriate, variously including the following: *Automated exposure control *Adjustment of mA and/or kV according to patient size (this includes techniques or standardized protocols for targeted exams where dose is matched to indication/reason for exam; i.e. extremities or head) *Use of iterative reconstruction technique DLP: 610 mGy-cm FINDINGS: LUNG BASES: The visualized lung bases are unremarkable. LIVER, GALLBLADDER, AND BILIARY TREE: Unremarkable. PANCREAS: Unremarkable. SPLEEN: Unremarkable. ADRENAL GLANDS: Unremarkable. KIDNEYS AND URETERS: The kidneys are normal in size, shape, and attenuation. No hydronephrosis, hydroureter, or calculi seen. No perinephric stranding. BLADDER: Unremarkable. GASTROINTESTINAL TRACT: The stomach, small bowel and appendix are unremarkable. The colon and rectum are unremarkable. ABDOMINAL WALL: No significant hernia is appreciated. LYMPH NODES: Mildly prominent inferior retroperitoneal, pelvic and inguinal lymph nodes are seen. A fraud representative right common iliac lymph node measures 1.2 cm in short axis (image 37, series 4). The right lateral pelvic lymph node measures 1.3 cm (image 41, series 4). A right iliac lymph node measures 1.1 cm in short axis (image 28, series 4). A left external iliac lymph node measures 1.4 cm in short axis (image 31, series 4). VASCULAR: Unremarkable. PELVIC VISCERA: Retroverted/retroflexed uterus with homogeneous low attenuation in the fundus. No adnexal abnormality. OSSEOUS STRUCTURES: Unremarkable. CT/CT abdomen pelvis w IV con IMPRESSION: 1. No acute intra-abdominal/pelvic abnormality to explain the patient's pain. 2. Mildly prominent inferior retroperitoneal, pelvic and inguinal lymph nodes are nonspecific. These could be reactive to an underlying infectious/inflammatory process. A causative abnormality is not identified. Clinical correlation is recommended. If clinically indicated, inguinal lymph node biopsy should be considered.
[2022-09-06 05:59] VITALS: BP 146/93; PULSE 82; RESP 18; TEMP 36.3; O2SAT 100; BMI 30.9
[2022-09-06 06:18] LABS: MANUAL DIFF FLAG NO
[2022-09-06 06:22] LABS: Basophils Percent Auto 0.6 % (0-2); Eosinophils Absolute Auto 0.1 X10*3/uL (0.0-0.4); Eosinophils Percent Auto 1.4 % (0-4); Hematocrit 39.2 % (37.0-47.0); Hemoglobin 13.4 g/dl (12.0-16.0); Imm Gran Abs Auto 0.01 X10*3/uL (0.00-0.03); Imm Gran Pct Auto 0.2 % (0.0-0.4); Lymphocytes Percent Auto 40.6 % (20-40); Mean Corpuscular HGB Conc 34.2 g/dl (31.0-35.0); Mean Corpuscular Hemoglobin 30.5 pg (27.0-33.0); Mean Corpuscular Volume 89.3 fL (80.0-98.0); Mean Platelet Volume 8.1 fL (9.4-12.3); Monocytes Absolute Auto 0.3 X10*3/uL (0.1-1.2); Monocytes Percent Auto 6.9 % (2-11); Neutrophils Absolute Auto 2.5 x10*3/uL (2.0-8.3); Neutrophils Percent Auto 50.3 % (45-73); Platelet Count 236 X10*3/uL (160-400); Red Blood Count 4.39 X10*6/uL (4.20-5.50); Red Cell Distribution Width 12.2 % (11.0-16.0)
[2022-09-06 06:24] LABS: Appearance Urine Clear; Color Urine Yellow; Glucose Urine UA Negative (Negative); Leukocyte Esterase Urine Negative (Negative); Nitrite Urine Negative (Negative); Urine Blood Negative (Negative); Urine Ketones Negative (Negative); Urine Protein Negative (Neg-Trace)
[2022-09-06 06:35] LABS: UPreg QC Valid YES; Urine Pregnancy NEGATIVE (NEGATIVE)
[2022-09-06 06:40] LABS: Alanine Aminotransferase 29 U/L (0-31); Albumin Level 3.9 g/dL (3.5-5.0); Alkaline Phosphatase 78 U/L (39-117); Anion Gap 12 (12-20); Aspartate Amino Transferase 21 U/L (5-31); Bilirubin Total 0.3 mg/dL (0.0-1.0); Blood Urea Nitrogen 9 mg/dL (9-16); Calcium 8.8 mg/dL (8.4-10.2); Carbon Dioxide 24 mmol/L (22-29); Chloride 109 mmol/L (96-108); Creatinine Clr Calc Pharmacy 111.9; Estimated Glomerular Filt Rate > 60; Glucose Random 120 mg/dL (60-115); Potassium 3.9 mmol/L (3.3-5.1); Sodium 141 mmol/L (135-145); Total Protein 6.4 g/dL (6.5-8.0)
[2022-09-06 07:14] VITALS: BP 119/70; PULSE 68; RESP 17; TEMP 36.9; O2SAT 100
--- NOTE | 2022-09-06 07:32 | ED_ITS ---
HPI - Abdominal Pain General Chief Complaint: Abdominal Pain Stated Complaint: abd/stomach pain, n/v, migraine Time Seen by Provider: 09/06/22 07:25 Source: patient Mode of arrival: ambulatory Limitations: no limitations History of Present Illness HPI narrative: 41-year-old female presents with abdominal pain. Patient reports location is in the epigastric area. It occasionally radiates to the lower part of her abdomen. Symptoms started approximately 2-3 weeks ago. The symptoms are intermittent. She describes the pain as crampy and burning in nature. Symptoms are described as severe. There are no clear relieving or exacerbating features. She reports a decreased appetite. She denies any diarrhea or constipation. She has had nausea but no vomiting. She has had no fevers or chills. Symptoms are new in onset reports no previous history of such symptoms. Related Data Previous Rx's Medication Instructions Recorded omeprazole magnesium 20 mg 20 mg PO BID #20 tabs 02/27/22 tablet,delayed release (Prilosec OTC) cyclobenzaprine 10 mg tablet 10 mg PO TID PRN pain #14 tabs 05/16/22 ibuprofen 400 mg tablet 400 mg PO Q6H PRN pain #20 tabs 05/16/22 ondansetron 4 mg disintegrating 4 mg PO Q8H PRN nausea and 08/21/22 tablet vomiting #7 tabs dicyclomine 20 mg tablet 20 mg PO TID PRN abdominal pain 09/06/22 #14 tabs omeprazole 20 mg capsule,delayed 20 mg PO DAILY #20 caps 09/06/22 release ondansetron 4 mg disintegrating 4 mg PO Q8H PRN nausea and 09/06/22 tablet vomiting #14 tabs Allergies Allergy/AdvReac Type Severity Reaction Status Date / Time No Known Allergies Allergy Verified 09/06/22 06:04 Review of Systems Review of Systems CONSTITUTIONAL: Denies weight loss, fever and chills. HEENT: Denies changes in vision and hearing. RESPIRATORY: Denies SOB and cough. CV: Denies palpitations no CP. GI: + abdominal pain, nausea, no vomiting and diarrhea. : Denies dysuria and urinary frequency. MSK: Denies myalgia and joint pain. SKIN: Denies rash and pruritus. NEUROLOGICAL: Denies headache and syncope. PSYCHIATRIC: Denies recent changes in mood. Denies anxiety and depression. All other ROS are negative unless in HPI [facility] Past Medical History Medical History Anxiety Asthma Chronic back pain Social History Social History Patient Tobacco Use Status: Never used Tobacco Advance Directives: No Advance Directives Information Provided: No Physical Exam ED Vital Signs: Vital Signs - 24 hr 09/06/22 05:59 09/06/22 07:14 Temperature 97.4 F 98.4 F Pulse Rate 82 68 Respiratory Rate 18 17 Blood Pressure 146/93 H 119/70 Pulse Oximetry 100 100 Oxygen Delivery Method Room Air Room Air BMI result Body Mass Index 30.9 GEN: Well developed, no acute distress, alert, oriented HEENT: Normocephalic, atraumatic, normal external ears, nose appears normal, no oropharyngeal edema or exudates Eyes: Normal to appearance Neck: Supple, no lymphadenopathy Respiratory: Talks in complete sentences, no respiratory distress, clear to auscultation bilaterally Cardiovascular: Regular rate and rhythm, no murmurs rubs or gallops Abdomen: Soft, generally tender with particular tenderness in the epigastric area left lower quadrant. No pelvic tenderness, no masses no pulsatile masses, no hepatosplenomegaly, negative Magdaleno sign, negative McBurney's point tenderness Back: No CVA tenderness Extremities: No clubbing cyanosis or edema Neurologic: No focal neurologic deficits, cranial nerves 2-12 intact, strength is 5/5 bilaterally, gait normal Skin: No rash Course Course Course Narrative: 41-year-old female presents with abdominal pain. The symptoms seem to be most pronounced in the epigastric area as well as a little bit in the lower abdominal area. There is no rebound or guarding suggesting acute abdomen. Patient's lab work is currently completely occluding his CBC, it comprehensive metabolic panel which showed no abnormalities. I have added on a lipase at this time. Symptoms could be most consistent with pancreatitis, gastritis, GERD. Less likely symptoms are biliary in nature. Doubt AAA or dissection. She has no CVA tenderness no urinary complaints to suggest acute pyelonephritis or urete rolithiasis. Patient will receive IV fluids, antiemetics, H2 gonzalo, imaging studies to further evaluate the etiology of her symptoms. Reevaluation(s) Reevaluation #1: It is almost 10:00 a.m. this morning. The workup is complete. Imaging identified lymphadenopathy of unclear etiology. There is no other indication for the etiology of her symptoms. Lab work denied identify UTI, pancreatitis or other obvious etiology for symptoms. However, she certainly is feeling better at this time. We discussed all results and discharge plan. I recommended follow-up with her primary care provider for her generalized symptoms. I have additionally recommended she follow-up with her communication studies professor regarding her missed period. She is currently not and therefore an ectopic is unlikely to be the cause of her symptoms. Time: 09:57 Medical Decision Making Medical Decision Making [facility] Narrative: 41-year-old female presents with abdominal pain. The symptoms seem to be most pronounced in the epigastric area as well as a little bit in the lower abdominal area. There is no rebound or guarding suggesting acute abdomen. Patient's lab work is currently completely occluding his CBC, it comprehensive metabolic panel which showed no abnormalities. I have added on a lipase at this time. Symptoms could be most consistent with pancreatitis, gastritis, GERD. Less likely symptoms are biliary in nature. Doubt AAA or dissection. She has no CVA tenderness no urinary complaints to suggest acute pyelonephritis or ureterolithiasis. Patient will receive IV fluids, antiemetics, H2 gonzalo, imaging studies to further evaluate the etiology of her symptoms. Differential Diagnosis Differential Diagnoses: The differential diagnosis associated with the presentation includes (Gastritis, GERD, biliary colic, choledocholithiasis, IBS, IBD, diverticulitis, appendicitis, ectopic ) Admission/Observation Consideration of admission/observation: Escalation of care including ad mission/observation considered Lab Data [facility] Lab Attestation statement: I reviewed the patient's lab results. 09/06/22 06:12 09/06/22 06:12 Labs: Lab Results 09/06/22 09/06/22 09/06/22 Range/Units 06:12 06:12 06:12 WBC 5.0 (4.8-10.8) X10*3/uL RBC 4.39 (4.20-5.50) X10*6/uL Hgb 13.4 (12.0-16.0) g/dl Hct 39.2 (37.0-47.0) % MCV 89.3 (80.0-98.0) fL MCH 30.5 (27.0-33.0) pg MCHC 34.2 (31.0-35.0) g/dl RDW 12.2 (11.0-16.0) % Plt Count 236 (160-400) X10*3/uL MPV 8.1 L (9.4-12.3) fL Immature Gran % (Auto) 0.2 (0.0-0.4) % Neut % (Auto) 50.3 (45-73) % Lymph % (Auto) 40.6 H (20-40) % [place] % (Auto) 6.9 (2-11) % Eos % (Auto) 1.4 (0-4) % Baso % (Auto) 0.6 (0-2) % Lymph # (Auto) 2.0 (1.2-4.9) X10*3/uL [place] # (Auto) 0.3 (0.1-1.2) X10*3/uL Eos # (Auto) 0.1 (0.0-0.4) X10*3/uL Baso # (Auto) 0.0 (0.0-0.2) X10*3/uL Abs Immat Gran (auto) 0.01 (0.00-0.03) X10*3/uL Absolute Neuts (auto) 2.5 (2.0-8.3) x10*3/uL Absolute Nucleated RBC 0.000 (0.0-0.012) X10*3/uL Nucleated RBC % (auto) 0.0 (0.0-0.2) /100WBC Sodium 141 (135-145) mmol/L Potassium 3.9 (3.3-5.1) mmol/L Chloride 109 H (96-108) mmol/L Carbon Dioxide 24 (22-29) mmol/L Anion Gap 12 (12-20) BUN 9 (9-16) mg/dL Creatinine 0.67 (0.5-1.4) mg/dL Estim Creat Clear Calc 111.9 Estimated GFR > 60 Random Glucose 120 H (60-115) mg/dL Calcium 8.8 (8.4-10.2) mg/dL Total Bilirubin 0.3 (0.0-1.0) mg/dL AST 21 (5-31) U/L ALT 29 (0-31) U/L Alkaline Phosphatase 78 (39-117) U/L Total Protein 6.4 L (6.5-8.0) g/dL Albumin 3.9 (3.5-5.0) g/dL Urine Color Yellow Urine Appearance Clear Urine pH 5.0 (5.0-9.0) Ur Specific [place] 1.020 (1.005-1.025) Urine Protein Negative (Neg-Trace) mg/dL Urine Glucose (UA) Negative (Negative) mg/dL Urine Ketones Negative (Negative) mg/dL Urine Blood Negative (Negative) Urine Nitrite Negative (Negative) Ur Leukocyte Esterase Negative (Negative) Urine Test (NEGATIVE) 09/06/22 Range/Units 06:12 WBC (4.8-10.8) X10*3/uL RBC (4.20-5.50) X10*6/uL Hgb (12.0-16.0) g/dl Hct (37.0-47.0) % MCV (80.0-98.0) fL MCH (27.0-33.0) pg MCHC (31.0-35.0) g/dl RDW (11.0-16.0) % Plt Count (160-400) X10*3/uL MPV (9.4-12.3) fL Immature Gran % (Auto) (0.0-0.4) % Neut % (Auto) (45-73) % Lymph % (Auto) (20-40) % [place] % (Auto) (2-11) % Eos % (Auto) (0-4) % Baso % (Auto) (0-2) % Lymph # (Auto) (1.2-4.9) X10*3/uL [place] # (Auto) (0.1-1.2) X10*3/uL Eos # (Auto) (0.0-0.4) X10*3/uL Baso # (Auto) (0.0-0.2) X10*3/uL Abs Immat Gran (auto) (0.00-0.03) X10*3/uL Absolute Neuts (auto) (2.0-8.3) x10*3/uL Absolute Nucleated RBC (0.0-0.012) X10*3/uL Nucleated RBC % (auto) (0.0-0.2) /100WBC Sodium (135-145) mmol/L Potassium (3.3-5.1) mmol/L Chloride (96-108) mmol/L Carbon Dioxide (22-29) mmol/L Anion Gap (12-20) BUN (9-16) mg/dL Creatinine (0.5-1.4) mg/dL Estim Creat Clear Calc Estimated GFR Random Glucose (60-115) mg/dL Calcium (8.4-10.2) mg/dL Total Bilirubin (0.0-1.0) mg/dL AST (5-31) U/L ALT (0-31) U/L Alkaline Phosphatase (39-117) U/L Total Protein (6.5-8.0) g/dL Albumin (3.5-5.0) g/dL Urine Color Urine Appearance Urine pH (5.0-9.0) Ur Specific [place] (1.005-1.025) Urine Protein (Neg-Trace) mg/dL Urine Glucose (UA) (Negative) mg/dL Urine Ketones (Negative) mg/dL Urine Blood (Negative) Urine Nitrite (Negative) Ur Leukocyte Esterase (Negative) Urine Test NEGATIVE (NEGATIVE) Independent Interpretation I performed an independent interpretation of an: CT Scan (No acute intra- abdominal process) Radiology Impression Discussion of test interpretation with radiology: I have reviewed the radiologist's reading. (IMPRESSION: 1. No acute intra-abdominal/pelvic abnormality to explain the patient's pain. 2. Mildly prominent inferior retroperitoneal, pelvic and inguinal lymph nodes are nonspecific. These could be reactive to an underlying infectious/inflammatory process. A causative abnormality is not identifi) External Record Review External record reviewed: Other (Orthopedic in Anesthesiology notes) Tests considered The following testing was considered but not selected: Ultrasound Prescription Management I considered prescription management with: Pain Medication Medications Administered Discontinued Medications Generic Name Dose Route Start Last Admin Trade Name Freq PRN Reason Stop Dose Admin Famotidine 20 mg 09/06/22 07:29 09/06/22 07:55 Famotidine/Pf 20 Mg/2 Ml Vial IVPUSH 09/06/22 07:30 20 mg ONCE ONE Administration Sodium Chloride 1,000 mls @ 999 mls/hr 09/06/22 07:30 09/06/22 08:56 Ns IV 02/16/23 08:30 Infused .Q1H1M RAJIV Infusion Iohexol 85 ml 09/06/22 08:13 09/06/22 08:15 Iohexol 350 Mg/Ml 100 Ml Infus..Btl IV 09/06/22 08:14 85 ml ONCE ONE Administration Ondansetron HCl 4 mg 09/06/22 07:29 09/06/22 07:56 Ondansetron Hcl 4 Mg/2 Ml Vial IVPUSH 09/06/22 07:30 4 mg ONCE ONE Administration Discharge Plan Discharge Clinical Impression: Abdominal pain, Missed period Patient Disposition: Home, Self-Care Instructions: Abdominal Pain (ED) Additional Instructions: With and recommend close follow-up with her primary care provider regarding her abdominal discomfort. In the meantime, start a bland diet and advance as tolerated. Regarding your alteration in her periods, I am recommending follow- up with her communication studies professor. For more severe symptoms, please do not hesitate to return to the emergency department for re-evaluation. Prescriptions: New omeprazole 20 mg capsule,delayed release(DR/EC) 20 mg PO DAILY Qty: 20 0RF ondansetron 4 mg tablet,disintegrating 4 mg PO Q8H PRN (Reason: nausea and vomiting) Qty: 14 0RF dicyclomine 20 mg tablet 20 mg PO TID PRN (Reason: abdominal pain) Qty: 14 0RF No Action omeprazole magnesium [Prilosec OTC] 20 mg tablet,delayed release (DR/EC) 20 mg PO BID Qty: 20 0RF cyclobenzaprine 10 mg tablet 10 mg PO TID PRN (Reason: pain) Qty: 14 0RF ibuprofen 400 mg tablet 400 mg PO Q6H PRN (Reason: pain) Qty: 20 0RF ondansetron 4 mg tablet,disintegrating 4 mg PO Q8H PRN (Reason: nausea and vomiting) Qty: 7 0RF Referrals: Rachel Eden MD [Primary Care Provider] - 3 days
[2022-09-06] MEDS: Famotidine/PF 20 MG/2 ML VIAL IVPUSH (07:55)
[2022-09-06] MEDS: 0.9 % Sodium Chloride 1,000 ML 999 ML IV (07:55)
[2022-09-06] MEDS: ondansetron HCL 4 MG/2 ML VIAL IVPUSH (07:56)
[2022-09-06] MEDS: iohexoL 350 MG/ML 100 ML INFUS..BTL 85 ML IV (08:15)
== END 2022-09-06 10:13 | disposition home or self-care (01) ==
PROVIDERS: Emergency Provider Emergency Medicine; PCP Internal Medicine
DX: G43.909 Migraine, unspecified, not intractable, without status migrainosus (principal); R10.2 Pelvic and perineal pain; N92.6 Irregular menstruation, unspecified; Z79.899 Other long term (current) drug therapy
CPT/HCPCS: 36415; 74177; 80053; 81003; 81025; 85025; 96361; 96374; 96375; 99283; 99284; J2405; Q9967

== ENCOUNTER 2023-04-16 18:23 | Emergency (ER) | payer MEDICAID, SELFPAY ==
[2023-04-16 18:36] VITALS: BP 147/88; PULSE 110; RESP 18; TEMP 36.7; O2SAT 98; BMI 32.6
--- NOTE | 2023-04-16 18:36 | ED.GENADULT ---
HPI - General Adult General Chief complaint: Upper Respiratory Symptoms Stated complaint: back pain/ congestion Time Seen by Provider: 04/16/23 21:26 Source: patient Mode of arrival: ambulatory Limitations: no limitations History of Present Illness HPI narrative: Patient is a 42-year-old female who presents emergency department for evaluation of body aches, diffuse lower back pain, nasal congestion and cough. She reports multiple family members who have tested COVID-19 positive. She has taken 2 at home test both of which were negative. Her symptoms began today. The currently she denies known fever, chest pain, shortness of breath, nausea, vomiting, abdominal pain, genitourinary symptoms, numbness or tingling of the extremities. Related Data Previous Rx's Medication Instructions Recorded omeprazole magnesium 20 mg 20 mg PO BID #20 tabs 02/27/22 tablet,delayed release (Prilosec OTC) cyclobenzaprine 10 mg tablet 10 mg PO TID PRN pain #14 tabs 05/16/22 ibuprofen 400 mg tablet 400 mg PO Q6H PRN pain #20 tabs 05/16/22 ondansetron 4 mg disintegrating 4 mg PO Q8H PRN nausea and 08/21/22 tablet vomiting #7 tabs dicyclomine 20 mg tablet 20 mg PO TID PRN abdominal pain 09/06/22 #14 tabs omeprazole 20 mg capsule,delayed 20 mg PO DAILY #20 caps 09/06/22 release ondansetron 4 mg disintegrating 4 mg PO Q8H PRN nausea and 09/06/22 tablet vomiting #14 tabs Allergies Allergy/AdvReac Type Severity Reaction Status Date / Time No Known Allergies Allergy Verified 09/06/22 06:04 Review of Systems Review of Systems: Yes all other systems are reviewed and are negative [facility] Past Medical History Attestation statement: The following information was validated with the patient. Source: old records reviewed Medical History Anxiety Chronic back pain Asthma Social History Social History Patient Tobacco Use Status: Never used Tobacco Advance Directives: No Advance Directives Information Provided: No Physical Exam ED Vital Signs: Vital Signs - 24 hr 04/16/23 18:36 Temperature 98.1 F Pulse Rate 110 H Respiratory Rate 18 Blood Pressure 147/88 H Pulse Oximetry 98 Oxygen Delivery Method Room Air BMI result Body Mass Index 32.6 Appearance: Alert.?Oriented to person, place and time. No acute distress.?Normal affect. Eyes: Pupils equal, round and reactive to light.? ENT: Pharynx normal.?? Neck: Normal inspection.? Neck supple.?? CVS: Heart sounds normal. Normal heart rate and rhythm.? Pulses normal.?? Respiratory: No respiratory distress.? Lung sounds clear to auscultation bilaterally?? Abdomen: Soft and non-tender. Normoactive bowel sounds. Skin: Skin warm and dry.? Normal skin color.? Extremities: No lower extremity edema.? No calf ttp? Neuro: Moves all extremities spontaneously. Sensation intact bilaterally. No focal neuro deficits. Ambulates with normal steady gait. Course Course Course Narrative: This is an RME: Additional HPI, ROS, PE not included below will be deferred to primary provider. 42 y o female presenting for evaluation of headache, congestion and back pain x2 days. Radiating pain to legs b/l. Tested covid negative x2 yesterday and today but positive sick contacts. Denies fever, chills, chest pain, shortness of breath, abdominal pain, nausea and vomiting. Plan -- viral testing Medical Decision Making Medical Decision Making [facility] Narrative: Patient is a 42-year-old female who presents to the emergency department for viral type symptoms. Her COVID-19 testing today is positive, in the setting of recent sick contacts. She appears uncomfortable at the time of my examination however she is afebrile without hypoxia or tachypnea. She is mildly tachycardic, although I suspect this is secondary to pain. She has a history of chronic back pain, likely exacerbated during COVID-19 illness. She denies any genitourinary symptoms, less likely to be attributed to urinary tract infection/pyelonephritis. Discussed indications for Paxlovid, side effects, possible medication reactions and used shared decision making, at this time declined treatment with Paxlovid. She is stable for discharge home, conservative treatment as discussed, and outpatient follow-up with primary care provider. Reviewed strict return precautions. All questions answered. Differential Diagnosis Differential Diagnoses: The differential diagnosis associated with the presentation includes (As noted above) Lab Data [facility] Lab Attestation statement: I reviewed the patient's lab results. (As noted above) Labs: Lab Results 04/16/23 Range/Units 19:10 COVID-19 (AKUA) Positive A (Negative) COVID-19 Clin Com See Note Independent Historian Clinical information obtained from an independent historian. History obtained from or confirmed by: Spouse (Present at bedside who confirms history) External Record Review External record reviewed: Prior outpatient labs Prescription Management I considered prescription management with: Pain Medication (Acetaminophen/ibuprofen) and Antiviral (As noted above) Discharge Plan Discharge Clinical Impression: COVID-19 Patient Disposition: Home, Self-Care Instructions: COVID-19 (Coronavirus Disease 2019) (ED) Additional Instructions: Be sure to rest, stay well hydrated drinking plenty of fluids, eat small frequent meals. You can take ibuprofen 200 mg, 3 tablets (600mg) every 6-8 hours as needed for pain, in addition to Tylenol 500 mg, 2 tablets (1,000mg) every 4-6 hours as needed for pain, but not to exceed 3 doses daily (3,000mg).? [id number] cold medications may be helpful as well for symptoms. Saline nasal spray, humidifier may be helpful for nasal congestion. You may return to the emergency department with any new or worsening symptoms or concerns. Follow-up with your primary care provider as needed. Per the CDC you may end your isolation is Saturday given that you are having improvement in your symptoms, have been without a fever for 24 hours without the use of Tylenol/ibuprofen. Prescriptions: No Action omeprazole magnesium [Prilosec OTC] 20 mg tablet,delayed release (DR/EC) 20 mg PO BID Qty: 20 0RF cyclobenzaprine 10 mg tablet 10 mg PO TID PRN (Reason: pain) Qty: 14 0RF ibuprofen 400 mg tablet 400 mg PO Q6H PRN (Reason: pain) Qty: 20 0RF ondansetron 4 mg tablet,disintegrating 4 mg PO Q8H PRN (Reason: nausea and vomiting) Qty: 7 0RF omeprazole 20 mg capsule,delayed release(DR/EC) 20 mg PO DAILY Qty: 20 0RF ondansetron 4 mg tablet,disintegrating 4 mg PO Q8H PRN (Reason: nausea and vomiting) Qty: 14 0RF dicyclomine 20 mg tablet 20 mg PO TID PRN (Reason: abdominal pain) Qty: 14 0RF Referrals: Rachel Eden MD [Primary Care Provider] - Print Language: Yakut
[2023-04-16 19:44] LABS: COVID-19 Test Positive (Negative); IDNOW Serial# BCCEAD1C
== END 2023-04-16 22:30 | disposition home or self-care (01) ==
PROVIDERS: Emergency Provider Emergency Medicine Emergency Medical Services; PCP Internal Medicine
DX: U07.1 COVID-19 (principal); M54.50 Low back pain, unspecified; M79.10 Myalgia, unspecified site
CPT/HCPCS: 87635; 99282; 99283

== ENCOUNTER 2023-05-08 14:35 | Outpatient (REF) | payer MEDICAID, SELFPAY ==
--- NOTE | ~2023-05-08 | MM_ITS ---
EXAMINATION: MM SCREENING DIGITAL BREAST TOMOSYNTHESIS, BILATERAL CLINICAL INFORMATION: Screening. Asymptomatic. COMPARISON: Mammography: This study is compared with prior exams dating back to 2016. TECHNIQUE: Digital breast tomosynthesis is performed in both the craniocaudal and mediolateral oblique views along with computer-aided detection (CAD). Synthesized 2D images are generated from the tomosynthesis. FINDINGS: The breasts are heterogeneously dense, which may obscure small masses (ACR BI-RADS breast composition Category c). There are no significant masses, abnormal calcifications, or other abnormalities. MM/MM tomosynthesis screening BI IMPRESSION: No mammographic evidence of malignancy. ASSESSMENT: BI-RADS BI-RADS 1 - Negative RECOMMENDATION: Routine annual mammography screening. 1 year F/U This examination should not preclude the clinical evaluation of a suspicious palpable abnormality. This patient's information was entered into a reminder system with a target due date for their next mammogram.
== END 2023-05-08 14:36 | disposition home or self-care (01) ==
LOC: HO.MAMMO 14:35
PROVIDERS: PCP Internal Medicine; Visit Provider Internal Medicine
DX: Z12.31 Encounter for screening mammogram for malignant neoplasm of breast (principal)
CPT/HCPCS: 77063; 77067

== ENCOUNTER → 2023-05-08 14:45 | Outpatient (BNV) | payer MEDICAID, SELFPAY | PROVIDERS: PCP Internal Medicine; Visit Provider Radiology Diagnostic Radiology | DX: Z12.31 Encounter for screening mammogram for malignant neoplasm of breast (principal) | CPT/HCPCS: 77063; 77067 ==

== ENCOUNTER 2023-05-16 16:13 | Outpatient (REF) | payer MEDICAID, SELFPAY ==
[2023-05-21 18:18] LABS: HPV mRNA E6/E7 rflx Not Detected (Not Detected)
== END 2023-05-16 16:14 | disposition home or self-care (01) ==
LOC: HO.HHCLNP 16:13
PROVIDERS: Visit Provider Advanced Practice Midwife
DX: Z12.4 Encounter for screening for malignant neoplasm of cervix (principal); Z11.51 Encounter for screening for human papillomavirus (HPV)
CPT/HCPCS: 87624; 88142

== ENCOUNTER 2023-05-24 10:27 | Outpatient (REF) | payer MEDICAID, SELFPAY ==
[2023-05-24 13:36] LABS: Estimated Average Glucose 88 mg/dL; Hemoglobin A1c % 4.7 % (<6.0)
[2023-05-24 13:51] LABS: Cholesterol 168 mg/dL (<200); HDL Cholesterol 55 mg/dL (>40); LDL Cholesterol Calculated 80 mg/dL (<100); Triglycerides 165 mg/dL (<150)
[2023-05-24 14:48] LABS: Reflex LDLD? No
[2023-05-24 18:18] LABS: Alanine Aminotransferase 63 U/L (0-31); Albumin Level 4.4 g/dL (3.5-5.0); Alkaline Phosphatase 79 U/L (39-117); Anion Gap 13 (12-20); Aspartate Amino Transferase 39 U/L (5-31); Bilirubin Total 0.4 mg/dL (0.0-1.0); Blood Urea Nitrogen 8 mg/dL (9-16); Calcium 9.5 mg/dL (8.4-10.2); Carbon Dioxide 28 mmol/L (22-29); Chloride 103 mmol/L (96-108); Estimated Glomerular Filt Rate > 60; Glucose Random 95 mg/dL (60-115); Potassium 4.4 mmol/L (3.3-5.1); Sodium 140 mmol/L (135-145); Total Protein 7.2 g/dL (6.5-8.0)
[2023-05-24 18:32] LABS: TSH reflex Free T4 3.12 uIU/mL (0.32-4.0)
[2023-05-26 18:18] LABS: TS Negative Control Passed; TS Panel A 1; TS Panel B 0; TS Positive Control Passed; TSpotTB Negative (Negative)
[2023-05-27 04:05] LABS: Syphilis Screen Nonreactive (Nonreactive)
[2023-05-27 05:45] LABS: HBc Num1 0.04 S/CO (0.00-0.79); HBsAGNum1 0.32 S/CO (0.00-0.99); HIV AB/AG Nonreactive (Nonreactive); HIV Num 1 0.05 S/CO (0.00-0.99); Hepatitis A Antibody IgM 0.24 Index (0-0.79); Hepatitis B Core Antibody Nonreactive (Nonreactive); Hepatitis B Surface Antigen Negative (Negative); ~HepC Num1 0.06 S/CO (0.00-0.79); ~Hepatitis A Antibody IgM Nonreactive (Nonreactive); ~Hepatitis B Surface Antibody NONREACTIVE (Nonreactive); ~Hepatitis C Antibody Nonreactive (Nonreactive)
== END 2023-05-24 10:28 | disposition home or self-care (01) ==
LOC: HO.HHCL 10:27
PROVIDERS: Visit Provider Internal Medicine
DX: Z00.00 Encounter for general adult medical examination without abnormal findings (principal); Z11.4 Encounter for screening for human immunodeficiency virus [HIV]; Z11.1 Encounter for screening for respiratory tuberculosis; R73.01 Impaired fasting glucose; R74.01 Elevation of levels of liver transaminase levels
CPT/HCPCS: 36415; 80053; 80061; 83036; 84443; 86481; 86704; 86706; 86709; 86780; 86803; 87340; 87389

== ENCOUNTER 2023-10-09 11:41 | Outpatient (REF) | payer MEDICAID, SELFPAY ==
--- NOTE | ~2023-10-09 | XR_ITS ---
EXAMINATION: XR LUMBAR SPINE XR LEFT HIP XR LEFT KNEE CLINICAL INFORMATION: Order states: Low back pain radiating to left lower extremity, left hip pain and left knee pain. Patient states knee pain for years, hip pain for months. Patient states she has sciatica . COMPARISON: CT abdomen and pelvis 09/06/2022, lumbar spine radiographs 03/11/2020, left knee 08/26/2014. TECHNIQUE: 3 views lumbosacral spine, 2 views left hip, 3 views left knee. FINDINGS: LUMBAR SPINE: Again seen are very mild degenerative changes in the lumbar spine with mild endplate changes and some minimal disc space narrowing, most marked at L4-L5. No bony destructive lesions are seen. Some mild degenerative changes are also seen in the lower thoracic spine. LEFT HIP: No significant bone, joint or soft tissue abnormalities seen surrounding the left hip. LEFT KNEE: Left knee shows mild tricompartmental narrowing, most marked medially. Some small tibial plateau osteophytes are present. There is some mild irregularity of the superoposterior surface of the patella. No joint effusion is seen. An intramedullary alisia is present throughout the tibia with old healed mid diaphyseal tibial and fibular fractures. XR/XR lumbar spine 2-3V IMPRESSION: 1. Mild degenerative changes in the lumbar spine, most marked at L4/L5. 2. No significant abnormality in the left hip. 3. Mild tricompartmental degenerative changes in the left knee. 4. Intramedullary alisia through the tibia with old healed fractures as described above.
--- NOTE | ~2023-10-09 | XR_ITS ---
EXAMINATION: XR LUMBAR SPINE XR LEFT HIP XR LEFT KNEE CLINICAL INFORMATION: Order states: Low back pain radiating to left lower extremity, left hip pain and left knee pain. Patient states knee pain for years, hip pain for months. Patient states she has sciatica . COMPARISON: CT abdomen and pelvis 09/06/2022, lumbar spine radiographs 03/11/2020, left knee 08/26/2014. TECHNIQUE: 3 views lumbosacral spine, 2 views left hip, 3 views left knee. FINDINGS: LUMBAR SPINE: Again seen are very mild degenerative changes in the lumbar spine with mild endplate changes and some minimal disc space narrowing, most marked at L4-L5. No bony destructive lesions are seen. Some mild degenerative changes are also seen in the lower thoracic spine. LEFT HIP: No significant bone, joint or soft tissue abnormalities seen surrounding the left hip. LEFT KNEE: Left knee shows mild tricompartmental narrowing, most marked medially. Some small tibial plateau osteophytes are present. There is some mild irregularity of the superoposterior surface of the patella. No joint effusion is seen. An intramedullary alisia is present throughout the tibia with old healed mid diaphyseal tibial and fibular fractures. XR/XR knee LT 2V IMPRESSION: 1. Mild degenerative changes in the lumbar spine, most marked at L4/L5. 2. No significant abnormality in the left hip. 3. Mild tricompartmental degenerative changes in the left knee. 4. Intramedullary alisia through the tibia with old healed fractures as described above.
--- NOTE | ~2023-10-09 | XR_ITS ---
EXAMINATION: XR LUMBAR SPINE XR LEFT HIP XR LEFT KNEE CLINICAL INFORMATION: Order states: Low back pain radiating to left lower extremity, left hip pain and left knee pain. Patient states knee pain for years, hip pain for months. Patient states she has sciatica . COMPARISON: CT abdomen and pelvis 09/06/2022, lumbar spine radiographs 03/11/2020, left knee 08/26/2014. TECHNIQUE: 3 views lumbosacral spine, 2 views left hip, 3 views left knee. FINDINGS: LUMBAR SPINE: Again seen are very mild degenerative changes in the lumbar spine with mild endplate changes and some minimal disc space narrowing, most marked at L4-L5. No bony destructive lesions are seen. Some mild degenerative changes are also seen in the lower thoracic spine. LEFT HIP: No significant bone, joint or soft tissue abnormalities seen surrounding the left hip. LEFT KNEE: Left knee shows mild tricompartmental narrowing, most marked medially. Some small tibial plateau osteophytes are present. There is some mild irregularity of the superoposterior surface of the patella. No joint effusion is seen. An intramedullary alisia is present throughout the tibia with old healed mid diaphyseal tibial and fibular fractures. XR/XR hip LT min 2V IMPRESSION: 1. Mild degenerative changes in the lumbar spine, most marked at L4/L5. 2. No significant abnormality in the left hip. 3. Mild tricompartmental degenerative changes in the left knee. 4. Intramedullary alisia through the tibia with old healed fractures as described above.
== END 2023-10-09 11:42 | disposition home or self-care (01) ==
LOC: HO.HHCX 11:41
PROVIDERS: Visit Provider Internal Medicine
DX: M54.50 Low back pain, unspecified (principal); M79.605 Pain in left leg
CPT/HCPCS: 72100; 73502; 73560

== ENCOUNTER 2023-12-03 09:59 | Outpatient (REF) | payer MEDICAID, SELFPAY ==
--- NOTE | ~2023-12-03 | US_ITS ---
EXAMINATION: US ABDOMEN COMPLETE CLINICAL INFORMATION: Elevated LFTs. COMPARISON: CT abdomen and pelvis 09/06/2022. Ultrasound abdomen complete 05/24/2022. TECHNIQUE: Real-time imaging of the abdominal viscera. Limited visualization due to bowel gas. FINDINGS: PANCREAS: Limited visualization of pancreatic tail and head. Imaged portion of pancreatic body is unremarkable. ABDOMINAL AORTA: Limited visualization. INFERIOR VENA CAVA: Visualized portions are normal. LIVER: Hepatomegaly, 22.1 cm. Increased hepatic parenchymal heterogeneity and echogenicity could be associated with hepatocellular disease/hepatic steatosis and severely limits visualization. Correlation with liver function tests and clinical exam recommended to determine further management. GALLBLADDER: Borderline gallbladder wall thickening of 3 mm, gallbladder wall difficult to visualize. No gallstones. COMMON BILE DUCT: Normal in caliber measuring 0.3 cm in diameter. RIGHT KIDNEY: No hydronephrosis. No renal calculi. Limited visualization. The kidney measures 10.1 cm in maximum dimension. LEFT KIDNEY: No hydronephrosis. No renal calculi. Limited visualization. The kidney measures 11.7 cm in maximum dimension. SPLEEN: Normal. The spleen measures 11.7 cm in maximum dimension. FREE FLUID: None. US/US abdomen complete IMPRESSION: 1. Hepatomegaly, 22.1 cm. Increased hepatic parenchymal heterogeneity and echogenicity could be associated with hepatocellular disease/hepatic steatosis and severely limits visualization. Correlation with liver function tests and clinical exam recommended to determine further management. 2. Borderline gallbladder wall thickening of 3 mm, common gallbladder wall difficult to visualize. No gallstones.
--- NOTE | ~2023-12-03 | US_ITS ---
EXAMINATION: US PELVIS CLINICAL INFORMATION: Abnormal uterine bleeding, last menstrual period 2 months ago. COMPARISON: None available. TECHNIQUE: Ultrasound of the pelvis is performed using both transabdominal and transvaginal transducers along with Doppler. Transvaginal imaging is performed due to inadequate visualization transabdominally. FINDINGS: The uterus is retroverted and measures 8.9 x 4.9 x 7.5 cm. No significant free fluid. Right ovary measures 2.8 x 1.8 x 1.2 cm, volume 3.2 mL and is unremarkable. Left ovary measures 4.6 x 3.6 x 3.8 cm, volume 33.0 mL. Endometrium appears abnormal and is echogenic and heterogeneous with small cystic spaces and thickness of 24 mm. Small amount of fluid within the endometrial cavity. A 3.5 x 3.0 x 3.1 cm left ovarian cyst appears simple. There is no specific indication for additional imaging at this time. US/US pelvic and transvaginal IMPRESSION: Abnormal appearing endometrium with thickness of 24 mm. Correlation with clinical exam and gynecologic consultation recommended to determine further management including possible biopsy. Endometrial thickness was 9 mm on ultrasound of 05/24/2022.
== END 2023-12-03 10:00 | disposition home or self-care (01) ==
LOC: HO.US 09:59
PROVIDERS: PCP Internal Medicine; Visit Provider Advanced Practice Midwife
DX: R74.01 Elevation of levels of liver transaminase levels (principal); N93.9 Abnormal uterine and vaginal bleeding, unspecified
CPT/HCPCS: 76700; 76830; 76856

== ENCOUNTER 2023-12-07 16:05 | Emergency (ER) | payer MEDICAID, SELFPAY ==
[2023-12-07 16:15] VITALS: BP 157/90; PULSE 77; RESP 18; TEMP 36.1; O2SAT 100; BMI 32.7
--- NOTE | 2023-12-07 16:16 | ED.GENADULT ---
HPI - General Adult General Chief complaint: Extremity Injury, Lower Stated complaint: Bilateral leg swelling/pain Time Seen by Provider: 12/07/23 18:32 Source: patient and interpreter and translator Mode of arrival: ambulatory Limitations: language barrier History of Present Illness ED Provider: Garry HERNANDEZ narrative: 43 y female with history of asthma here with bilateral lower extremity swelling x 3 months with pain. Reports she has seen her PCP who did blood work and referred her for PT but she does not feel this is helpful. Also reports rash to LE. Patient reports pain in her hips, knees, ankles and feet. She denies any muscle pain. She denies any redness or warmth. No fevers or chills. No numbness or tingling. No injury or trauma. No shortness of breath or chest pain. No recent travel, recent surgeries, OCP use. Related Data Previous Rx's ?Medication ?Instructions ?Recorded omeprazole magnesium 20 mg 20 mg PO BID #20 tabs 02/27/22 tablet,delayed release (Prilosec OTC) cyclobenzaprine 10 mg tablet 10 mg PO TID PRN pain #14 tabs 05/16/22 ibuprofen 400 mg tablet 400 mg PO Q6H PRN pain #20 tabs 05/16/22 ondansetron 4 mg disintegrating 4 mg PO Q8H PRN nausea and 08/21/22 tablet vomiting #7 tabs dicyclomine 20 mg tablet 20 mg PO TID PRN abdominal pain 09/06/22 #14 tabs omeprazole 20 mg capsule,delayed 20 mg PO DAILY #20 caps 09/06/22 release ondansetron 4 mg disintegrating 4 mg PO Q8H PRN nausea and 09/06/22 tablet vomiting #14 tabs cyclobenzaprine 10 mg tablet 10 mg PO TID PRN muscle spasm #15 12/07/23 tabs diclofenac sodium 1 % topical gel 2 g topical QID #100 grams 12/07/23 (Voltaren Arthritis Pain) naproxen 500 mg tablet 500 mg PO BID PRN pain #30 tabs 12/07/23 prednisone 20 mg tablet 40 mg (2 x 20 mg) PO DAILY #10 tabs 12/07/23 Allergies Allergy/AdvReac Type Severity Reaction Status Date / Time No Known Allergies Allergy Verified 12/07/23 16:18 Review of Systems Review of Systems: Yes all other systems are reviewed and are negative Constitutional: Constitutional: Reports no additional constitutional complaints, Denies body ache(s), Denies chills, Denies fever(s), Denies headache(s) and Denies weakness Eyes: Eyes: Reports no additional eye complaints and Denies change in vision ENT: Reports system reviewed and no additional complaints, except as documented, Denies dizziness, Denies headache(s), Denies nasal congestion, Denies nasal discharge and Denies neck pain Cardiovascular: Cardiovascular: Reports no additional cardiovascular complaints, Denies chest pain, Denies leg edema and Denies dyspnea Respiratory: Respiratory: Reports no additional respiratory complaints, Denies cough and Denies dyspnea Gastrointestinal: Gastrointestinal: Reports no additional gastrointestinal complaints, Denies abdominal pain, Denies diarrhea, Denies nausea and Denies vomiting Genitourinary: Genitourinary: Reports no additional female genitourinary complaints and Denies urinary incontinence Musculoskeletal: Musculoskeletal: Reports no additional musculoskeletal complaints, Denies back pain, Reports arthralgias, Denies joint swelling, Denies neck pain, Denies numbness and Denies tingling Integumentary/Breasts: Skin/Breast: Reports system reviewed and no additional complaints, except as docu and Denies rash Neurologic: Reports system reviewed and no additional complaints, except as documented, Denies Abnormal speech present, Denies dizziness, Denies headache(s), Denies numbness, Denies tingling and Denies weakness PMFSH Past Medical History Attestation statement: The following information was validated with the patient. Source: old records reviewed and nursing notes reviewed Medical History Anxiety Chronic back pain Asthma Social History Social History Patient Tobacco Use Status: Never used Tobacco Advance Directives: No Advance Directives Information Provided: No Do you have a plan to hurt others: No Plan Physical Exam ED Vital Signs: Vital Signs - 24 hr 12/07/23 16:15 Temperature 96.9 F Pulse Rate 77 Respiratory Rate 18 Blood Pressure 157/90 H Pulse Oximetry 100 Oxygen Delivery Method Room Air BMI result Body Mass Index 32.7 Const General: cooperative, healthy appearing, comfortable and no acute distress Orientation/consciousness: patient oriented x3 Limitations: no limitations HENMT Head: Yes normal to inspection Ears: hearing grossly normal bilaterally General nose exam: Normal external nose present Face and sinus: Yes normal facial exam Mouth: Normal oral and palatal mucosa present Throat: Yes posterior oropharynx normal Eyes General: appearance normal, both eyes and all related structures Pupils: Equal, round and reactive pupils present Neck Neck: Yes normal visual inspection Chest Chest palpation & inspection: normal inspection of the chest Resp Effort & Inspection: normal respiratory effort Auscultation: clear to auscultation bilaterally Cardio Rate: regular rate Rhythm: regular rhythm Peripheral pulses: Peripheral pulses 2+ throughout GI Inspection: Yes normal to inspection Palpation (GI): Soft to palpation and nontender Auscultation: normal bowel sounds Back/Spine/Pelvis Thoracic/Lumbar Spine: thoracic and lumbar spine normal to inspection Skin Other: There is a very fine petechial rash noted over the lower extremities. General skin exam: no rashes or lesions noted Neuro General: patient oriented x3, no focal motor deficits and normal sensation to monofilament Cranial nerves: Yes Equal, round and reactive pupils present Cognition (Neuro): normal cognition Speech: No Abnormal speech present Gait exam (Neuro): Normal gait present Motor exam (neuro): 5/5 motor strength present throughout Extrem Other: There is no calf swelling or tenderness. There is no appreciable warmth or redness. There are normal DP and PT pulses distally. Normal distal sensation. There is full active and passive range of motion of all lower extremity joints with no difficulty. There is some pain during passive range of motion of the bilateral ankles, knees and hips but patient is able. General: Yes normal to inspection, Yes no pedal edema and Yes no calf tenderness Course Course Course Narrative: This is a rapid medical exam. deferred additional HPI, ROS and PE to primary provider. 43 y female with history of asthma here with bilateral lower extremity swelling x 3 months with pain. Reports she has seen her PCP who did blood work and referred her for PT but she does not feel this is helpful. Will obtain labs JANIA Castañeda APRN Reevaluation(s) Reevaluation #1: Labs are unremarkable. Patient reports she takes Percocet 5 mg twice daily for pain. I will add prednisone, naproxen, Voltaren topical and Flexeril for pain at home. Patient may have underlying inflammatory condition and so I do recommend that she follow-up with her primary care doctor and she may even requested rheumatology referral. Reviewed worrisome signs and symptoms when to return to the emergency room. Comfortable plan for discharge home Medical Decision Making Medical Decision Making [facility] Narrative: 43 y female with history of asthma here with bilateral lower extremity swelling x 3 months with pain. Reports she has seen her PCP who did blood work and referred her for PT but she does not feel this is helpful. Also reports rash to LE. Patient reports pain in her hips, knees, ankles and feet. She denies any muscle pain. She denies any redness or warmth. No fevers or chills. No numbness or tingling. No injury or trauma. No shortness of breath or chest pain. No recent travel, recent surgeries, OCP use. There is no calf swelling or tenderness. There is no appreciable warmth or redness. There are normal DP and PT pulses distally. Normal distal sensation. There is full active and passive range of motion of all lower extremity joints with no difficulty. There is some pain during passive range of motion of the bilateral ankles, knees and hips but patient is able. Patient here with complaints of multiple joint pain. No reports of injury or trauma to suggest need for x-ray imaging. There is no swelling, redness, fevers or chills concerning for septic joint. There is a very fine petechial rash noted over the lower extremities. The rash is blanchable and is not sloughing. There is no calf pain or swelling or risk factors for DVT requiring imaging Will obtain labs, provide analgesia Differential Diagnosis Differential Diagnoses: The differential diagnosis associated with the presentation includes Arthralgia See discussion above Admission/Observation Consideration of admission/observation: Escalation of care including admission/observation considered See discussion above Lab Data [facility] Lab Attestation statement: I reviewed the patient's lab results. 12/07/23 16:56 12/07/23 16:56 Labs: Lab Results 12/07/23 Range/Units 16:56 WBC 5.5 (4.8-10.8) X10*3/uL RBC 4.04 L (4.20-5.50) X10*6/uL Hgb 12.4 (12.0-16.0) g/dl Hct 35.4 L (37.0-47.0) % MCV 87.6 (80.0-98.0) fL MCH 30.7 (27.0-33.0) pg MCHC 35.0 (31.0-35.0) g/dl RDW 12.8 (11.0-16.0) % Plt Count 166 D (160-400) X10*3/uL MPV 7.9 L (9.4-12.3) fL Immature Gran % (Auto) 0.4 (0.0-0.4) % Neut % (Auto) 60.7 (45-73) % Lymph % (Auto) 29.7 (20-40) % [place] % (Auto) 8.0 (2-11) % Eos % (Auto) 0.7 (0-4) % Baso % (Auto) 0.5 (0-2) % Lymph # (Auto) 1.6 (1.2-4.9) X10*3/uL [place] # (Auto) 0.4 (0.1-1.2) X10*3/uL Eos # (Auto) 0.0 (0.0-0.4) X10*3/uL Baso # (Auto) 0.0 (0.0-0.2) X10*3/uL Abs Immat Gran (auto) 0.02 (0.00-0.03) X10*3/uL Absolute Neuts (auto) 3.3 (2.0-8.3) x10*3/uL Absolute Nucleated RBC 0.000 (0.0-0.012) X10*3/uL Nucleated RBC % (auto) 0.0 (0.0-0.2) /100WBC Sodium 139 (135-145) mmol/L Potassium 3.9 (3.3-5.1) mmol/L Chloride 104 (96-108) mmol/L Carbon Dioxide 27 (22-29) mmol/L Anion Gap 12 (12-20) BUN 13 (9-16) mg/dL Creatinine 0.77 (0.5-1.4) mg/dL Estim Creat Clear Calc 112.6 Estimated GFR > 60 Random Glucose 106 (60-115) mg/dL Calcium 9.1 (8.4-10.2) mg/dL Magnesium 1.7 (1.6-2.6) mg/dL Total Bilirubin 0.3 (0.0-1.0) mg/dL Direct Bilirubin 0.1 (0.0-0.5) mg/dL AST 50 H (5-31) U/L ALT 60 H (0-31) U/L Alkaline Phosphatase 79 (39-117) U/L Total Creatine Kinase 60 (26-140) U/L B-Natriuretic Peptide 40 (<100) pg/mL Total Protein 6.9 (6.5-8.0) g/dL Albumin 3.9 (3.5-5.0) g/dL Tests considered The following testing was considered but not selected: See discussion above Prescription Management I considered prescription management with: Pain Medication Discharge Plan Discharge Clinical Impression: Arthralgia Patient Disposition: Home, Self-Care Instructions: Arthralgia (ED) Additional Instructions: Your blood work is reassuring. Due to your complaints of multiple joint pain which has been ongoing I do recommend that you speak to your primary care doctor about getting a rheumatology referral to be seen and worked up for underlying rheumatology conditions. You did receive an anti-inflammatory injection while here in the emergency room. We are discharging home with medications for pain. Please return for any worsening symptoms. Apply heat or ice to the area, apply gentle massage Prescriptions: New prednisone 20 mg tablet 40 mg PO DAILY Qty: 10 0RF cyclobenzaprine 10 mg tablet 10 mg PO TID PRN (Reason: muscle spasm) Qty: 15 0RF diclofenac sodium [Voltaren Arthritis Pain] 1 % gel 2 g topical QID Qty: 100 0RF Rx Instructions: apply to single elbow, wrist or hand; for hand includes palm/fingers/back of hand naproxen 500 mg tablet 500 mg PO BID PRN (Reason: pain) Qty: 30 0RF No Action omeprazole magnesium [Prilosec OTC] 20 mg tablet,delayed release (DR/EC) 20 mg PO BID Qty: 20 0RF cyclobenzaprine 10 mg tablet 10 mg PO TID PRN (Reason: pain) Qty: 14 0RF ibuprofen 400 mg tablet 400 mg PO Q6H PRN (Reason: pain) Qty: 20 0RF ondansetron 4 mg tablet,disintegrating 4 mg PO Q8H PRN (Reason: nausea and vomiting) Qty: 7 0RF omeprazole 20 mg capsule,delayed release(DR/EC) 20 mg PO DAILY Qty: 20 0RF ondansetron 4 mg tablet,disintegrating 4 mg PO Q8H PRN (Reason: nausea and vomiting) Qty: 14 0RF dicyclomine 20 mg tablet 20 mg PO TID PRN (Reason: abdominal pain) Qty: 14 0RF Referrals: Rachel Eden MD [Primary Care Provider] - 1 week Print Language: Mauritian
[2023-12-07 17:01] LABS: MANUAL DIFF FLAG NO
[2023-12-07 17:12] LABS: Basophils Percent Auto 0.5 % (0-2); Eosinophils Percent Auto 0.7 % (0-4); Hematocrit 35.4 % (37.0-47.0); Hemoglobin 12.4 g/dl (12.0-16.0); Imm Gran Abs Auto 0.02 X10*3/uL (0.00-0.03); Imm Gran Pct Auto 0.4 % (0.0-0.4); Lymphocytes Absolute Auto 1.6 X10*3/uL (1.2-4.9); Lymphocytes Percent Auto 29.7 % (20-40); Mean Corpuscular Hemoglobin 30.7 pg (27.0-33.0); Mean Corpuscular Volume 87.6 fL (80.0-98.0); Mean Platelet Volume 7.9 fL (9.4-12.3); Monocytes Absolute Auto 0.4 X10*3/uL (0.1-1.2); Neutrophils Absolute Auto 3.3 x10*3/uL (2.0-8.3); Neutrophils Percent Auto 60.7 % (45-73); Platelet Count 166 X10*3/uL (160-400); Red Blood Count 4.04 X10*6/uL (4.20-5.50); Red Cell Distribution Width 12.8 % (11.0-16.0); White Blood Count 5.5 X10*3/uL (4.8-10.8)
[2023-12-07 17:21] LABS: Alanine Aminotransferase 60 U/L (0-31); Albumin Level 3.9 g/dL (3.5-5.0); Alkaline Phosphatase 79 U/L (39-117); Anion Gap 12 (12-20); Aspartate Amino Transferase 50 U/L (5-31); Bilirubin Direct 0.1 mg/dL (0.0-0.5); Bilirubin Total 0.3 mg/dL (0.0-1.0); Blood Urea Nitrogen 13 mg/dL (9-16); Calcium 9.1 mg/dL (8.4-10.2); Carbon Dioxide 27 mmol/L (22-29); Chloride 104 mmol/L (96-108); Creatinine Clr Calc Pharmacy 112.6; Estimated Glomerular Filt Rate > 60; Glucose Random 106 mg/dL (60-115); Magnesium 1.7 mg/dL (1.6-2.6); Potassium 3.9 mmol/L (3.3-5.1); Sodium 139 mmol/L (135-145); Total Protein 6.9 g/dL (6.5-8.0)
[2023-12-07 17:24] LABS: B Type Natriuretic Peptide 40 pg/mL (<100)
[2023-12-07] MEDS: Ketorolac Tromethamine 60 MG/2 ML VIAL IM (19:46)
[2023-12-07 19:48] VITALS: BP 148/90; PULSE 80; RESP 18; TEMP 36.9; O2SAT 100
== END 2023-12-07 19:50 | disposition home or self-care (01) ==
PROVIDERS: Nurse Practitioner Family; Emergency Provider Internal Medicine; PCP Internal Medicine
DX: M25.50 Pain in unspecified joint (principal); M79.605 Pain in left leg; M79.604 Pain in right leg; J45.909 Unspecified asthma, uncomplicated
CPT/HCPCS: 36415; 80048; 80076; 82550; 83735; 83880; 85025; 96372; 99283; 99284; J1885

== ENCOUNTER 2023-12-09 13:30 | Outpatient (REF) | payer MEDICAID, SELFPAY ==
[2023-12-09 15:24] LABS: Hematocrit 36.2 % (37.0-47.0); Mean Corpuscular HGB Conc 35.9 g/dl (31.0-35.0); Mean Corpuscular Volume 86.4 fL (80.0-98.0); Mean Platelet Volume 8.1 fL (9.4-12.3); Platelet Count 215 X10*3/uL (160-400); Red Blood Count 4.19 X10*6/uL (4.20-5.50); Red Cell Distribution Width 12.7 % (11.0-16.0); White Blood Count 7.2 X10*3/uL (4.8-10.8)
[2023-12-09 15:31] LABS: INTERNATIONAL NORM RATIO 0.8 (0.9-1.1)
[2023-12-09 16:22] LABS: Alanine Aminotransferase 52 U/L (0-31); Alkaline Phosphatase 82 U/L (39-117); Anion Gap 15 (12-20); Aspartate Amino Transferase 36 U/L (5-31); Bilirubin Total 0.2 mg/dL (0.0-1.0); Blood Urea Nitrogen 12 mg/dL (9-16); Calcium 9.4 mg/dL (8.4-10.2); Carbon Dioxide 23 mmol/L (22-29); Chloride 105 mmol/L (96-108); Estimated Glomerular Filt Rate > 60; Glucose Random 112 mg/dL (60-115); Potassium 3.6 mmol/L (3.3-5.1); Sodium 139 mmol/L (135-145); Total Protein 7.3 g/dL (6.5-8.0)
[2023-12-09 16:37] LABS: Ferritin 22 ng/mL (10-250)
[2023-12-10 11:58] LABS: Alpha 1 Anti-trypsin 192 mg/dL (83-199); Ceruloplasmin 42 mg/dL (14-48)
[2023-12-10 14:54] LABS: Immunoglobulin A 273 mg/dL (47-310); Immunoglobulin G 976 mg/dL (600-1640)
[2023-12-10 16:58] LABS: Transglutaminase IgA <1.0 U/mL
[2023-12-12 13:39] LABS: Mitochondrial Antibodies NEGATIVE (NEGATIVE)
[2023-12-12 14:33] LABS: Smooth Muscle Antibody <20 U (<20)
[2023-12-12 16:08] LABS: Anti Nuclear Antibody Screen NEGATIVE (NEGATIVE)
== END 2023-12-09 13:31 | disposition home or self-care (01) ==
LOC: HO.LAB 13:30
PROVIDERS: PCP Internal Medicine; Visit Provider Internal Medicine
DX: K21.9 Gastro-esophageal reflux disease without esophagitis (principal); K76.0 Fatty (change of) liver, not elsewhere classified; K29.70 Gastritis, unspecified, without bleeding; R79.89 Other specified abnormal findings of blood chemistry; R10.13 Epigastric pain; R11.2 Nausea with vomiting, unspecified; R16.0 Hepatomegaly, not elsewhere classified
CPT/HCPCS: 36415; 80053; 82103; 82390; 82728; 82784; 85027; 85610; 86015; 86038; 86364; 86381; 99202

== ENCOUNTER 2023-12-09 13:30 | Outpatient (AMB) | payer MEDICAID, SELFPAY ==
[2023-12-09 13:31] VITALS: BP 138/52; PULSE 86; BMI 32.0
--- NOTE | 2023-12-09 13:31 | A.OFFVIS_ITS ---
Vital Signs 12/09/23 13:31 Height 5 ft 8 in Weight 210 lb 5.136 oz BMI 32.0 BP 138/52 L Blood Pressure Location Rt brachial Position Sitting Pulse 86 Intake Visit Reasons: Elevated LFTs Intake Note: Melania presents to in office visit today for elevated LFTs. CC: Patient c/o epigastric pain, nausea, vomiting about 4-5 times, heartburn, and acid reflux. She states she takes Prilosec and that helps with symptoms. 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 Reports found out about elevated lfts almost a year ago. At that time was also having upper GI sx. Reports significant heartburn with retrosternal chest pain and nausea. Frequently eats fried and spicy foods. Also goes to bed within 1-2 hours of eating her meals. Takes naproxen occasionally. Does not smoke. Alcohol use rarely. Recent labs and ultrasound reviewed. Has hepatomegaly with the liver measuring almost 21 cm. FORMERLY [facility], [facility] Medical History (Updated 12/09/23 @ 14:39 by Madison Hyatt MD) Anxiety Chronic back pain Asthma Surgical History (Updated 12/09/23 @ 13:39 by ELYSE Menchaca) History of surgery on arm History of surgery on lower extremity Family History (Updated 12/09/23 @ 13:40 by ELYSE Menchaca) Mother HTN (hypertension) Maternal Grandmother Diabetes Social History (Updated 12/09/23 @ 13:42 by ELYSE Menchaca) Alcohol intake: former Patient Tobacco Use Status: Former Tobacco user Quit Date: 2021 Use of substances other than those prescribed or required for medical reasons: No Review of Systems Const All systems reviewed & are unremarkable except as noted in HPI and below Physical Exam Vital Signs: Last Vital Signs Pulse 86 12/09/23 13:31 BP 138/52 L 12/09/23 13:31 BMI result Body Mass Index 32.0 No acute distress Nonicteric Abdomen soft, nontender, palpable hepatomegaly Alert and oriented x3, normal gait Assessment & Plan Assessment & Plan (1) GERD (gastroesophageal reflux disease): Code(s): K21.9 - Gastro-esophageal reflux disease without esophagitis Category: Medical (2) Elevated LFTs: Code(s): R79.89 - Other specified abnormal findings of blood chemistry Category: Medical (3) Hepatomegaly: Code(s): R16.0 - Hepatomegaly, not elsewhere classified Category: Medical (4) Fatty liver: Code(s): K76.0 - Fatty (change of) liver, not elsewhere classified Category: Medical (5) Encounter for colorectal cancer screening: Code(s): Z12.11 - Encounter for screening for malignant neoplasm of colon; Z12.12 - Enc ounter for screening for malignant neoplasm of rectum Category: Medical Plan 1. Elevated transaminases Pattern and ultrasound imaging suggestive of fatty liver, likely nonalcoholic. Will check for other causes of chronic liver disease, labs ordered as below. Fib 4 is 1.75 i.e in adams zone for advanced fibrosis and therefore an elastography will also be ordered. 2. GERD Advise lifestyle and dietary changes for GERD. Patient understands to avoid food triggers as well as NSAIDs. Okay to take Tylenol for pain management. She was also educated on proper way of taking omeprazole, i.e on empty stomach. This is also being refilled today. Barium swallow EGD for luminal evaluation and for biopsies to rule out EoE. 3. Screening At average risk. Prefers colonoscopy. This will be booked at the same time as an upper endoscopy. PEG prep instructions reviewed with the patient and Rx sent to the pharmacy. Not on blood thinners or diabetes medications. No med clearance needed based on current review of PMH. Follow-up after endoscopic procedures. Orders: Orders Comprehensive Met. Panel Today R7. - Other specified abnormal findings of blood chemistry Ceruloplasmin Today R7.89 - Other specified abnormal findings of blood chemistry Transglutaminase IgA Today R79.89 - Other specified abnormal findings of blood chemistry Mitochondrial Antibody Today R79.89 - Other specified abnormal findings of blood chemistry Smooth Muscle Antibody Today R79.89 - Other specified abnormal findings of blood chemistry US abdomen michael w elastography Today R79.89 - Other specified abnormal findings of blood chemistry Complete Blood Count no Diff Today R7.89 - Other specified abnormal findings of blood chemistry Prothrombin Time INR Today R79.89 - Other specified abnormal findings of blood chemistry ANDRAE Reflex Titer and Pattern Today R79.89 - Other specified abnormal findings of blood chemistry Ferritin Today R79.89 - Other specified abnormal findings of blood chemistry Alpha 1 Anti-trypsin Today R79.89 - Other specified abnormal findings of blood chemistry Immunoglobulin A Today R79.89 - Other specified abnormal findings of blood chemistry Immunoglobulin G Today R79.89 - Other specified abnormal findings of blood chemistry FL barium swallow Today K21.9 - Gastro-esophageal reflux disease without esophagitis Medications: New peg 3350-electrolytes 236-22.74-6.74 -5.86 gram (Golytely) as per split prep instructions, until fecal effluent is clear 240 mL PO Q10M 4,000 mL 0RF colonoscopy omeprazole 20 mg PO BID 90 days 180 caps 0RF K29.70 - Gastritis, unspecified, without bleeding Coding Level of Care Code New Pt Level 5 (96045) Diagnoses GERD (gastroesophageal reflux disease) K21.9 Elevated LFTs R79.89 Hepatomegaly R16.0 Fatty liver K76.0 Encounter for colorectal cancer screening Z12.11; Z12.12
== END 2023-12-09 15:16 | disposition home or self-care (01) ==
PROVIDERS: PCP Internal Medicine; Visit Provider Internal Medicine
DX: K21.9 Gastro-esophageal reflux disease without esophagitis (principal); R74.01 Elevation of levels of liver transaminase levels; R16.0 Hepatomegaly, not elsewhere classified; K76.0 Fatty (change of) liver, not elsewhere classified
CPT/HCPCS: 99204

== ENCOUNTER 2023-12-20 11:53 | Outpatient (REF) | payer MEDICAID, SELFPAY ==
[2023-12-20 14:17] LABS: C Reactive Protein 0.97 mg/dL (< or = 0.50)
[2023-12-20 14:22] LABS: Vitamin D 25-OH Total 23.4 ng/mL (>30)
[2023-12-20 14:39] LABS: Erythrocyte Sedimentation Rate 5 MM/HR (0-20)
== END 2023-12-20 11:54 | disposition home or self-care (01) ==
LOC: HO.HHCL 11:53
PROVIDERS: Visit Provider Internal Medicine
DX: M25.571 Pain in right ankle and joints of right foot (principal); M25.572 Pain in left ankle and joints of left foot; G89.29 Other chronic pain
CPT/HCPCS: 36415; 82306; 85652; 86140

== ENCOUNTER → 2024-01-06 19:30 | Outpatient (REF) | payer MEDICAID, SELFPAY | LOC: HO.SL 19:30 | PROVIDERS: PCP Internal Medicine; Visit Provider Internal Medicine | DX: G47.33 Obstructive sleep apnea (adult) (pediatric) (principal); G25.9 Extrapyramidal and movement disorder, unspecified | CPT/HCPCS: 95810 ==

== ENCOUNTER → 2024-01-06 19:30 | Outpatient (BNV) | payer MEDICAID, SELFPAY | PROVIDERS: PCP Internal Medicine; Visit Provider Psychiatry & Neurology Neurology | DX: G47.33 Obstructive sleep apnea (adult) (pediatric) (principal) | CPT/HCPCS: 95810 ==

== ENCOUNTER 2024-01-09 16:01 | Outpatient (REF) | payer MEDICAID, SELFPAY ==
[2024-01-09 17:43] LABS: Bacterial Vaginosis PCR NEGATIVE (Negative); Candida Group PCR NOT DETECTED (Not Detect); Candida glab krusei PCR NOT DETECTED (Not Detect); Trichomonas vaginalis PCR NOT DETECTED (Not Detect)
[2024-01-09 18:38] LABS: CT PCR NOT DETECTED (Not Detect.); NG PCR NOT DETECTED (Not Detect.)
== END 2024-01-09 16:02 | disposition home or self-care (01) ==
LOC: HO.HHCLNP 16:01
PROVIDERS: Visit Provider Internal Medicine
DX: N93.8 Other specified abnormal uterine and vaginal bleeding (principal)
CPT/HCPCS: 0352U; 0353U

== ENCOUNTER 2024-03-20 08:21 | Outpatient (REF) | payer MEDICAID, SELFPAY ==
--- NOTE | ~2024-03-20 | FL_ITS ---
EXAMINATION: XR FLUOROSCOPY UPPER GI WITH AIR CLINICAL INFORMATION: Reflux COMPARISON: None TECHNIQUE: Fluoroscopic air contrast upper GI examination was performed utilizing standard techniques with thin and thick barium and effervescent granules. Numerous spot images were obtained. FINDINGS: Dual and single contrast images of the esophagus demonstrate normal caliber, contour, and mucosal pattern. No evidence of stricture, mass, or ulcerations identified. Esophageal peristalsis was normal. No evidence of hiatus hernia identified. Gastroesophageal reflux is seen up to the thoracic inlet. Dual contrast and single contrast images of the stomach demonstrated a normal contour. Normal mucosal pattern. No masses or ulcerations are seen. Contrast freely passed into the gastric antrum and duodenal bulb without delay. Single and air-contrast images of the duodenal bulb demonstrate no abnormality. The duodenal sweep has a normal appearance, course, and mucosal fold appearance. The imaged proximal jejunum has a normal fold pattern and caliber. FLUOROSCOPY TIME: 3 minutes 25 seconds Number of Spot Images: 12 Number of Cine: 13 DOSE AREA PRODUCT: 2384 uGy-m2 (microgray-meter squared) FL/FL barium swallow with air IMPRESSION: 1. Moderate to severe gastroesophageal reflux. 2. Otherwise normal exam. This procedure was performed by Aguila Cornell PA-C, and supervised by Dr. Anne Electronically signed by: Sarbjit Anne MD 03/20/2024 03:49 PM EDT
== END 2024-03-20 08:22 | disposition home or self-care (01) ==
LOC: HO.XRAY 08:21
PROVIDERS: Visit Provider Internal Medicine
DX: K21.9 Gastro-esophageal reflux disease without esophagitis (principal)
CPT/HCPCS: 74221

== ENCOUNTER → 2024-03-20 08:22 | Outpatient (BNV) | payer MEDICAID, SELFPAY | PROVIDERS: Visit Provider Radiology Diagnostic Radiology | DX: K21.9 Gastro-esophageal reflux disease without esophagitis (principal) | CPT/HCPCS: 74221 ==

== ENCOUNTER 2024-04-16 11:18 | Outpatient (AMB) | payer MEDICAID, SELFPAY ==
--- NOTE | 2024-04-16 11:19 | A.OFFVIS_ITS ---
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 No significant free fluid. Right ovary measures 2.8 x 1.8 x 1.2 cm, volume 3.2 mL and is unremarkable. Left ovary measures 4.6 x 3.6 x 3.8 cm, volume 33.0 mL. Endometrium appears abnormal and is echogenic and heterogeneous with small cystic spaces and thickness of 24 mm. Small amount of fluid within the endometrial cavity. A 3.5 x 3.0 x 3.1 cm left ovarian cyst appears simple. There is no specific indication for additional imaging at this time [facility] Medical History Anxiety Chronic back pain Asthma Surgical History Hx of tubal ligation History of surgery on arm History of surgery on lower extremity Family History Mother HTN (hypertension) Maternal Grandmother Diabetes Social History Household Members: Spouse and Children Housing: Apartment Alcohol intake: former Patient Tobacco Use Status: Former Tobacco user Years Smoked: 8 years Current occupational status: disabled Sexual orientation: Straight/Heterosexual Gender identity: Female Female Reproductive History Menstrual Date of last menstrual period: 03/17/24 Total pregnancies: 4 Full term: 4 Number of Living Children: 4 Date of last pap smear: 05/17/23 History of abnormal pap smear: No Date of Mammogram: 05/08/23 Review of Systems Const All systems reviewed & are unremarkable except as noted in HPI and below Card Reports as per HPI Resp Reports as per HPI GI Reports as per HPI and Reports no additional complaints Reports as per HPI Physical Exam Vital Signs: Last Vital Signs BP 126/80 04/16/24 11:20 BMI result Body Mass Index 31.9 Const General: cooperative, healthy appearing and comfortable Chest Chest palpation & inspection: normal inspection of the chest and normal palpation of entire chest wall Breast/axilla inspection: normal inspection of the breasts and normal inspection of the axillae Breast/axilla palpation: normal palpation of the breasts, normal palpation of the axillae and no axillary lymphadenopathy Resp Effort & Inspection: normal respiratory effort Auscultation: clear to auscultation bilaterally Percussion: percussion normal Cardio Palpation: normal PMI Rate: regular rate Rhythm: regular rhythm Heart sounds: no murmurs and no rubs Peripheral pulses: Peripheral pulses 2+ throughout GI Inspection: Yes normal to inspection Palpation (GI): Soft to palpation, nontender, no guarding, not rigid and No hepatosplenomegaly present Percussion: Yes normal to percussion Auscultation: normal bowel sounds Rectal Exam - Female: deferred General: Yes bladder normal to palpation External Female Exam: No lesion Speculum Exam - Vagina: normal appearance of the vagina, normal palpation, normal vaginal discharge and not erythematous Speculum Exam - Cervix: normal appearance of the cervix and normal palpation Bimanual exam- vagina & uterus: normal bimanual exam, normal palpation, uterine size normal, bladder normal to palpation, consistency normal and normal palpation Bimanual Exam- Adnexa, other: normal adnexae, no masses and no tenderness Assessment & Plan Assessment & Plan (1) Abnormal uterine bleeding (AUB): Comment: Abnormal endometrium by ultrasound Code(s): N93.9 - Abnormal uterine and vaginal bleeding, unspecified Category: Medical Plan: Co testing up-to-date, GC and chlamydia taken , pelvic ultrasound done in 12/12 CBC, TSH, prolactin, HCG, aordered. Discussed with the patient the different causes of abnormal bleeding including thyroid disorders, uterine and ovarian pathology, endometrial hyperplasia, carcinoma and other potential causes. Discussed with the patient the work up including CBC (to r/o anemia), TSH, prolactin, pelvic Ultrasound, endometrial sampling to r/o endometrial pathology. Recommended to the patient that the next step is an endometrial sampling via hysteroscopy D&C possible polypectomy versus endometrial biopsy to r/o endometrial pathology including hyperplasia or cancer. All the pros and cons risks and benefits of each approach were discussed with the patient, endometrial biopsy being less invasive, office procedure with less sensitivity and inability diagnose a polyp and removal versus hysteroscopy done under anesthesia more invasive more sensitive to endometrial cancer and possibility of diagnosing and endometrial polyp with the possibility of polypectomy. All questions were answered pt verbalized understanding and decided to proceed with hysteroscopy D&C possible polypectomy/myomectomy. Discussed with the patient the procedure , all benefits and risks including but not limited to inability to complete the procedure , insufficient endometrial tissue for a complete evaluation of the endometrial cavity , bleeding, infection, possible need for blood transfusion with all its risk ( HIV,syphilis, Hepatitis, anaphylaxis shock, others..), injury to bladder, rectum, possible need for laparoscopy/laparotomy or hysterectomy. The patient verbalized understanding and signed the consent. Instructions given the patient to stay NPO after midnight the day prior to the procedure and to take only the specific medication (s) discussed the morning of the surgical procedure and to schedule a 2 week postoperative appointment Orders: Orders TSH reflex Free T4 Today N93.9 - Abnormal uterine and vaginal bleeding, unspecified HCG Quantitative Today N93.9 - Abnormal uterine and vaginal bleeding, unspecified Prolactin Today N93.9 - Abnormal uterine and vaginal bleeding, unspecified Follicle Stimulating Hormone Today N93.9 - Abnormal uterine and vaginal bleeding, unspecified Complete Blood Count no Diff Today N93.9 - Abnormal uterine and vaginal bleeding, unspecified Lutenizing Hormone Today N93.9 - Abnormal uterine and vaginal bleeding, unspecified Coding Level of Care Code New Pt Level 3 (13794) Diagnoses Abnormal uterine bleeding (AUB) N93.9
[2024-04-16 11:20] VITALS: BP 126/80; BMI 31.9
== END 2024-04-16 13:04 | disposition home or self-care (01) ==
PROVIDERS: PCP Internal Medicine; Visit Provider Obstetrics & Gynecology
DX: N93.9 Abnormal uterine and vaginal bleeding, unspecified (principal)
CPT/HCPCS: 99203

== ENCOUNTER 2024-04-16 11:18 | Outpatient (REF) | payer MEDICAID, SELFPAY | END 2024-04-16 11:19 | disposition home or self-care (01) | LOC: HO.LNP 11:18 | PROVIDERS: PCP Internal Medicine; Visit Provider Obstetrics & Gynecology | DX: N93.9 Abnormal uterine and vaginal bleeding, unspecified (principal) | CPT/HCPCS: 99202 ==

== ENCOUNTER 2024-04-16 12:09 | Outpatient (REF) | payer MEDICAID, SELFPAY ==
[2024-04-16 14:00] LABS: Hematocrit 38.5 % (37.0-47.0); Hemoglobin 12.8 g/dl (12.0-16.0); Mean Corpuscular HGB Conc 33.2 g/dl (31.0-35.0); Mean Corpuscular Hemoglobin 28.1 pg (27.0-33.0); Mean Corpuscular Volume 84.6 fL (80.0-98.0); Mean Platelet Volume 8.2 fL (9.4-12.3); Platelet Count 206 X10*3/uL (160-400); Red Blood Count 4.55 X10*6/uL (4.20-5.50); Red Cell Distribution Width 13.5 % (11.0-16.0)
[2024-04-16 14:55] LABS: HCG Quantitative < 2 mIU/mL; TSH reflex Free T4 1.84 uIU/mL (0.32-4.0)
[2024-04-17 05:45] LABS: CT PCR NOT DETECTED (Not Detect.); NG PCR NOT DETECTED (Not Detect.)
[2024-04-17 07:18] LABS: Follicle Stimulating Hormone 12.1 mIU/mL; Lutenizing Hormone 16.3 mIU/mL; Prolactin 19.6 ng/mL
== END 2024-04-16 12:10 | disposition home or self-care (01) ==
LOC: HO.LAB 12:09
PROVIDERS: PCP Internal Medicine; Visit Provider Obstetrics & Gynecology
DX: N93.9 Abnormal uterine and vaginal bleeding, unspecified (principal)
CPT/HCPCS: 83001; 83002; 84146; 84443; 84702; 85027; 87491; 87591; 99202

== ENCOUNTER 2024-04-23 14:04 | Outpatient (AMB) | payer MEDICAID, SELFPAY ==
[2024-04-23 14:22] VITALS: BP 155/68; PULSE 75; O2SAT 96
--- NOTE | 2024-04-23 14:22 | MHC.OFFVIS ---
Vital Signs 04/23/24 14:22 BP 155/68 H Blood Pressure Location Lt brachial Position Sitting Pulse 75 Pulse Source Pulse Oximeter Pulse Oximetry (%) 96 Oxygen Delivery Method Room Air Intake Visit Reasons: Low back pain left side Allergies No Known Allergies Allergy (Verified 04/23/24 14:22) Medication List - Last Reconciled 04/23/24 by Ivette Fritz albuterol sulfate 90 mcg/actuation (Ventolin HFA) 2 puffs inhalation Q4-6H PRN duloxetine 60 mg PO DAILY ergocalciferol (vitamin D2) 1,250 mcg PO QWEEK fluticasone furoate 100 mcg/actuation (Arnuity Ellipta) 1 inh inhalation DAILY loratadine 10 mg PO QAM magnesium oxide 400 mg PO DAILY naproxen 500 mg PO BID PRN omeprazole 20 mg PO BID oxycodone-acetaminophen 5-325 mg 1 tab PO Q12H PRN peg 3350-electrolytes 236-22.74-6.74 -5.86 gram (Golytely) 240 mL PO Q10M HPI Comments Details: Melania is a very pleasant 43-year-old female who presents to the office today for evaluation and management of her chronic lower back pain. Patient states she has been suffering with this approximately 4 years, has been worse over the last 6-8 months Pain started after a fall 4 years ago. She is unsure why it suddenly became worse over the last 8 months Endorses midline lower back pain with radiation down the right leg to the foot; worse with activity, standing, bending, twisting, lifting Also endorses pain over bilateral PSIS worse with sitting, standing a long time, climbing stairs. Pain today is rated it as 10, constant worse in the night Denies red flag symptoms including new loss of bowel, bladder or saddle anesthesia. Patient has not attempted physical therapy, chiropractor, acupuncture, massage or injections Currently taking duloxetine, naproxen, oxycodone with minimal improvement. She was taking gabapentin but they recently stopped in his it was not helping. Recent x-ray reviewed, results as per below In terms damage condition is described as stabbing, tingling, pinching, dull, sore, cramping, crushing, hurting, aching Pain is negatively impacting patient's enjoyment of life, general activity sleep social activities, ability to perform activities of daily living Denies implantable devices, pacemaker or defibrillator Denies current use of nicotine, tobacco, alcohol or illicit substances PFSH Medical History Anxiety Chronic back pain Asthma Surgical History Hx of tubal ligation History of surgery on arm History of surgery on lower extremity Family History Mother HTN (hypertension) Maternal Grandmother Diabetes Social History Household Members: Spouse and Children Housing: Apartment Alcohol intake: former Patient Tobacco Use Status: Former Tobacco user Years Smoked: 8 years Current occupational status: disabled Sexual orientation: Straight/Heterosexual Gender identity: Female Review of Systems Const All systems reviewed & are unremarkable except as noted in HPI and below Physical Exam Vital Signs: Last Vital Signs Pulse 75 04/23/24 14:22 BP 155/68 H 04/23/24 14:22 Pulse Ox 96 04/23/24 14:22 Oxygen Delivery Method Room Air 04/23/24 14:22 General: awake, alert, oriented. Answers questions appropriately. Fully engaged in examination. Skin: warm, dry, intact HEENT: Normocephalic. Hearing intact. Cardiac: External chest normal in appearance. Respiratory: No cough, audible wheezing or stridor. Abdomen: without gross distension. MS: No obvious swelling or deformities. Able to stand on bilateral tiptoes and bilateral heels.? Able to transition from sit to stand unassisted. Ambulates with bilaterally normal heel strike and toe off Bilateral lower extremity strength 5/5 Tender to midline lumbar vertebrae and lumbar paraspinal muscle SLR positive on the right Tenderness over bilateral PSIS Thigh thrust positive bilaterally Gaenslen positive bilaterally SI compression positive bilaterally Facet loading positive bilaterally Neurological: Oriented to person, place, time and situation. Thought process intact. No gait abnormalities appreciated. Psychiatric: Appropriate mood and affect. Good judgment and insight. Results Reviewed Results Reviewed: 10/09/23 XR/XR lumbar spine 2-3V IMPRESSION: 1. Mild degenerative changes in the lumbar spine, most marked at L4/L5. 2. No significant abnormality in the left hip. 3. Mild tricompartmental degenerative changes in the left knee. 4. Intramedullary alisia through the tibia with old healed fractures as described above. Assessment & Plan Assessment & Plan (1) Sacroiliac joint dysfunction of both sides: Code(s): M53.3 - Sacrococcygeal disorders, not elsewhere classified Category: Medical (2) Lumbar radiculopathy: Code(s): M54.16 - Radiculopathy, lumbar region Category: Medical (3) Lumbar spondylosis: Code(s): M47.816 - Spondylosis without myelopathy or radiculopathy, lumbar region Category: Medical Plan Patient presented to the office today for evaluation and management of her chronic lower back pain. History, physical exam and provocative testing consistent with right lumbar radiculopathy, lumbar spondylosis and bilateral sacroiliac joint dysfunction MRI lumbar spine ordered to evaluate for neural integrity. Order placed for PT eval and treat for bilateral sacroiliac joint dysfunction Prescriptions for amitriptyline 10 mg p.o. daily at bedtime, after one-week may increase to 20 mg daily at bedtime All questions and concerns were answered, patient agrees with the plan. Follow up after MRI/PT, sooner if needed Medications: New amitriptyline 10 mg daily at bedtime for 1 week, then may increase to 20 mg daily at bedtime 20 mg (2 x 10 mg) PO BEDTIME 60 tabs 0RF Coding Level of Care Code New Pt Level 4 (52321) Complex EM visit Add On G2211 Diagnoses Sacroiliac joint dysfunction of both sides M53.3 Lumbar radiculopathy M54.16 Lumbar spondylosis M47.816
== END 2024-04-23 15:05 | disposition home or self-care (01) ==
PROVIDERS: PCP Internal Medicine; Visit Provider Registered Nurse Emergency
DX: M53.3 Sacrococcygeal disorders, not elsewhere classified (principal); M54.16 Radiculopathy, lumbar region; M47.816 Spondylosis without myelopathy or radiculopathy, lumbar region
CPT/HCPCS: 99204

== ENCOUNTER → 2024-04-23 14:04 | Outpatient (BNVA) | payer MEDICAID, SELFPAY | PROVIDERS: PCP Internal Medicine; Visit Provider Registered Nurse Emergency | DX: M53.3 Sacrococcygeal disorders, not elsewhere classified (principal); M47.26 Other spondylosis with radiculopathy, lumbar region | CPT/HCPCS: 99212 ==

== ENCOUNTER 2024-05-05 08:51 | Day surgery (SDC) | payer MEDICAID, SELFPAY ==
--- NOTE | 2024-04-30 13:44 | P.CONAN_ITS ---
HPI - Anesthesia Eval Consult details Narrative: 43yo F for Upper Endoscopy and Colonoscopy PMF Active Problems Active Problems: All Active Problems Lumbar spondylosis (Acute) Lumbar radiculopathy (Acute) Sacroiliac joint dysfunction of both sides (Acute) Abnormal uterine bleeding (AUB) (Acute) Fatty liver (Acute) Hepatomegaly (Acute) Encounter for colorectal cancer screening (Acute) GERD (gastroesophageal reflux disease) (Acute) Elevated LFTs (Acute) COVID-19 (Acute) Abnormal diaphysis of bone (Acute) Left tibial fracture (Acute) Past Medical History Medical History GERD (gastroesophageal reflux disease) Fatty liver Anxiety Chronic back pain Asthma Family History Family History Mother HTN (hypertension) Maternal Grandmother Diabetes Family history of problems with anesthesia: No Surgical History Surgical History History of esophagogastroduodenoscopy (EGD) H/O colonoscopy Hx of tubal ligation History of surgery on arm History of surgery on lower extremity History of Problems with Anesthesia: No Social History Social History Household Members: Spouse and Children Household Members Other:: and grandchild Housing: Apartment Are you a primary career based intervention coordinator to a significant other at home: No Do you presently have visiting nurse or other home services: No Alcohol intake: former Patient Tobacco Use Status: Former Tobacco user Years Smoked: 8 years Current occupational status: disabled Sexual orientation: Straight/Heterosexual Gender identity: Female Meds Allergies Allergy/AdvReac Type Severity Reaction Status Date / Time No Known Allergies Allergy Verified 05/05/24 09:26 Home Medications ?Medication ?Instructions ?Recorded ?Confirmed ?Last Taken ?Type albuterol sulfate 90 mcg/actuation 2 puff inhalation Q4-6H PRN 12/09/23 05/13/24 Unknown History aerosol inhaler (Ventolin HFA) Respiratory Distress duloxetine 60 mg capsule,delayed 60 mg PO DAILY 12/09/23 05/13/24 Unknown History release fluticasone furoate 100 1 inh inhalation DAILY 12/09/23 05/13/24 Unknown History mcg/actuation blister powder for inhalation (Arnuity Ellipta) loratadine 10 mg tablet 10 mg PO QAM 12/09/23 05/13/24 Unknown History oxycodone-acetaminophen 5 mg-325 1 tab PO Q12H PRN severe pain 12/09/23 05/05/24 Unknown History mg tablet ergocalciferol (vitamin D2) 1,250 1,250 mcg PO QWEEK 04/16/24 05/13/24 Unknown History mcg (50,000 unit) capsule magnesium oxide 400 mg (241.3 mg 400 mg PO DAILY 04/16/24 05/13/24 Unknown History magnesium) tablet Assessment and Plan Assessment Anesthesia Assessment: Chart Reviewed Final Anesthetic Review Family History of Problems with Anesthesia: No History of Problems with Anesthesia: No
--- NOTE | 2024-05-05 08:55 | MHC.SHP ---
Pre-Procedural Eval Section A - 24 Hr Update-Section A only Date of Service: 05/05/24 Section B - Complete if H&P > 30 days Chief Complaint: gerd,screening Details of Present Illness: Anxiety Chronic back pain Asthma Surgical History (Updated 12/09/23 @ 13:39 by Beck Lee [facility] History of surgery on arm History of surgery on lower extremity Present Medications: see Short Stay Collaborative assessment Allergies: Allergies Allergy/AdvReac Type Severity Reaction Status Date / Time No Known Allergies Allergy Verified 04/23/24 14:22 Review of Systems Review of Systems Comment: Ten point ROS negative Exam Exam Comment: Gen appear: No acute distress HEENT: no icterus Chest: No overt resp distress Abd: soft, nontender, nondistended Psych: Stable affect, answering questions appropriately Neuro: A/Ox3 noted to move all extremities spontaneously Ext: no peripheral edema Plan Diagnosis/Plan: Unchanged I have reviewed the history and physical and performed a pertinent physical examination on my patient. No changes have occurred unless specified. Time Spent With Patient Time: Total time managing care of this patient today ____ minutes.
[2024-05-05] MEDS: Lactated Ringers 1,000 ML 100 ML IVCONT (09:13)
[2024-05-05 09:22] VITALS: BP 136/83; PULSE 74; RESP 18; TEMP 36.7; O2SAT 97
[2024-05-05 09:23] VITALS: BMI 35.2
--- NOTE | 2024-05-05 09:31 | HO.ANESPROP2 ---
FORM[facility]LY [facility], LATER [facility] Active Problems Active Problems: All Active Problems Lumbar spondylosis (Acute) Lumbar radiculopathy (Acute) Sacroiliac joint dysfunction of both sides (Acute) Abnormal uterine bleeding (AUB) (Acute) Fatty liver (Acute) Hepatomegaly (Acute) Encounter for colorectal cancer screening (Acute) GERD (gastroesophageal reflux disease) (Acute) Elevated LFTs (Acute) COVID-19 (Acute) Abnormal diaphysis of bone (Acute) Left tibial fracture (Acute) Past Medical History Medical History Anxiety Chronic back pain Asthma Functional capacity: independent ambulation Patient : No Family History Family History Mother HTN (hypertension) Maternal Grandmother Diabetes Family history of problems with anesthesia: No Surgical History Surgical History Hx of tubal ligation History of surgery on arm History of surgery on lower extremity History of Problems with Anesthesia: No Social History Social History Household Members: Spouse and Children Household Members Other:: and grandchild Housing: Apartment Are you a primary primary health care nurse to a significant other at home: No Do you presently have visiting nurse or other home services: No Alcohol intake: former Patient Tobacco Use Status: Former Tobacco user Years Smoked: 8 years Have you been hit, kicked, punched, or otherwise hurt by someone within the past year? If so, by whom?: No Are you DNR?: No Advance Directives: No Advance Directives Information Provided: Yes Recently lost weight without trying: No Nutrition Risks: No Nutritional Risk Current occupational status: disabled Sexual orientation: Straight/Heterosexual Gender identity: Female Meds Allergies Allergy/AdvReac Type Severity Reaction Status Date / Time No Known Allergies Allergy Verified 05/05/24 09:26 Active Medications: Current Medications Albuterol Sulfate (Albuterol Sulfate (0.083%) 2.5 Mg/3 Ml Vial.Neb) 2.5 mg INHALE ONCE PRN PRN Reason: Shortness of Breath/Wheezing Lactated Ringer's (Lr) 1,000 mls @ 100 mls/hr IVCONT .Q10H RAJIV Last Admin: 05/05/24 09:13 Dose: 100 mls/hr Home Medications ?Medication ?Instructions ?Recorded ?Confirmed ?Last Taken ?Type albuterol sulfate 90 mcg/actuation 2 puff inhalation Q4-6H PRN 12/09/23 05/05/24 Unknown History aerosol inhaler (Ventolin HFA) Respiratory Distress duloxetine 60 mg capsule,delayed 60 mg PO DAILY 12/09/23 05/05/24 Unknown History release fluticasone furoate 100 1 inh inhalation DAILY 12/09/23 05/05/24 Unknown History mcg/actuation blister powder for inhalation (Arnuity Ellipta) loratadine 10 mg tablet 10 mg PO QAM 12/09/23 05/05/24 Unknown History oxycodone-acetaminophen 5 mg-325 1 tab PO Q12H PRN severe pain 12/09/23 05/05/24 Unknown History mg tablet ergocalciferol (vitamin D2) 1,250 1,250 mcg PO QWEEK 04/16/24 05/05/24 Unknown History mcg (50,000 unit) capsule magnesium oxide 400 mg (241.3 mg 400 mg PO DAILY 04/16/24 05/05/24 Unknown History magnesium) tablet Exam Height,Weight and Vital Signs: Height 5 ft 4 in Weight 92.986 kg Last Vital Signs Temp 98.1 F 05/05/24 09:22 Pulse 74 05/05/24 09:22 Resp 18 05/05/24 09:22 BP 136/83 05/05/24 09:22 Pulse Ox 97 05/05/24 09:22 O2 Del Method Room Air 05/05/24 09:22 Airway Mallampati Class: II TM Dist: >3cm Neck ROM: Full Heart: RRR Lungs: CTA Assessment and Plan Assessment Anesthesia Assessment: Anesthesia Plan Discussed and Chart Reviewed Final Anesthetic Review Family History of Problems with Anesthesia: No History of Problems with Anesthesia: No NPO: Yes ASA Class: II Final Preanesthetic Review: Meds/Allgs Chart Reviewed, Consent Obtained/Reviewed and Anes Risks/Benef Reviewed Patient Risk: Intermediate Procedure Risk: Low Anesthetic Plan Anesthetic Plan: MAC: Disposition: Standard PACU
--- NOTE | 2024-05-05 09:57 | P.OPN-COLO_ITS ---
Colonoscopy Operative Note Operative Note Date of Service: 05/05/24 Narrative: Procedure: Upper endoscopy and colonoscopy Indication: GERD, screening Endoscopist: Madison Hyatt MD Anesthesia Provider: Dr Galilea Camarillo Anesthesia type: MAC Instrument: [id number] and [id number] EGD Procedure:?? The procedure, indications, preparation and potential complications were reviewed with the patient, who indicated understanding and gave written informed consent to proceed. The endoscope was introduced through the mouth, and advanced to the 2nd part of the duodenum. The mucosa was carefully examined on slow withdrawal of the endoscope. The patient tolerated the procedure well. There were no immediate complications.? EGD Findings:? * Esophagus:? Normal esophageal mucosa was noted. The Z-line was at 32 cm. There was a moderate sized hiatal hernia with the diaphragmatic pinch at 36 cm. Cold forceps biopsies were taken from lower and middle esophagus to rule out EoE * Stomach:? Erythema and erosions in the antrum with scant heme. Retroflexion was performed in the cardia that showed Hill Grade III hiatal hernia. Random cold forceps biopsies were taken from the stomach. * Duodenum:? Erythema and edema of the duodenum. Cold forceps biopsies were taken from the duodenal bulb and 2nd portion of the duodenum to rule out celiac sprue. Colonoscopy Procedure:? The patient was then turned for the colonoscopy. A digital rectal exam was performed which was normal.? A distal attachment cap was affixed to the tip of the scope and the colonoscope was then inserted through the anus and advanced through the colon and advanced to the cecum at 70 cm and terminal ileum.? Appendiceal orifice and ileocecal valve were identified. Mucosa was carefully examined under high definition white light as the instrument was slowly withdrawn in a retrograde panoramic fashion. Retroflexion was performed in ascending colon and rectum. The procedure was not difficult. The quality of the prep was BBPS: 2+3+2 = adequate Withdrawal time 7 minutes Limitations: No limitations Findings: Mucosa: Patchy erythema in the sigmoid colon at 30-35 cm from anal verge consistent with acute injury from prep. Cold forceps biopsies were taken for histology. Remaining mucosa was normal to cecum and terminal ileum. Protruding lesions: * Small internal hemorrhoids without stigmata of recent bleeding. Impression: 1. Normal esophagus (biopsy) 2. Hiatal hernia 3. Gastritis (biopsy) 4. Duodenitis (biopsy) 5. Abnormal sigmoid mucosa likely prep artifact (biopsy) 5. Internal hemorrhoids Recommendations:?? * Follow-up path results * Avoid NSAIDs * H Pylori treatment if biopsies + * Repeat colonoscopy for CRC screening in 10 years.
[2024-05-05 10:29] VITALS: BP 139/87; PULSE 86; RESP 16; TEMP 36.1; O2SAT 100
[2024-05-05 10:44] VITALS: BP 145/94; PULSE 81; RESP 16; TEMP 36.3; O2SAT 95
== END 2024-05-05 10:51 | disposition home or self-care (01) ==
PROVIDERS: PCP Internal Medicine; Visit Provider Internal Medicine
PROC: (CPT 45380; principal; 2024-05-05 10:10)
DX: Z12.11 Encounter for screening for malignant neoplasm of colon (principal); K64.8 Other hemorrhoids; K63.89 Other specified diseases of intestine; K21.9 Gastro-esophageal reflux disease without esophagitis; K29.50 Unspecified chronic gastritis without bleeding; K29.70 Gastritis, unspecified, without bleeding; K44.9 Diaphragmatic hernia without obstruction or gangrene; K29.80 Duodenitis without bleeding; K76.0 Fatty (change of) liver, not elsewhere classified; J45.909 Unspecified asthma, uncomplicated; G89.29 Other chronic pain; M54.9 Dorsalgia, unspecified; F41.9 Anxiety disorder, unspecified; R79.89 Other specified abnormal findings of blood chemistry; Z98.890 Other specified postprocedural states; Z87.891 Personal history of nicotine dependence
CPT/HCPCS: 45380; 43239; 88305; 88313; 88342; J2003; J2704

== ENCOUNTER → 2024-05-05 08:51 | Outpatient (BNV) | payer MEDICAID, SELFPAY | PROVIDERS: PCP Internal Medicine; Visit Provider Internal Medicine | DX: Z12.11 Encounter for screening for malignant neoplasm of colon (principal); K64.0 First degree hemorrhoids; K63.89 Other specified diseases of intestine; K21.00 Gastro-esophageal reflux disease with esophagitis, without bleeding; K29.70 Gastritis, unspecified, without bleeding; K29.80 Duodenitis without bleeding | CPT/HCPCS: 43239; 45380 ==

== ENCOUNTER 2024-05-12 14:06 | Outpatient (REF) | payer MEDICAID, SELFPAY ==
--- NOTE | ~2024-05-12 | MM_ITS ---
EXAMINATION: MM SCREENING DIGITAL BREAST TOMOSYNTHESIS, BILATERAL CLINICAL INFORMATION: Screening. Asymptomatic. COMPARISON: Mammography: Comparison is made with available priors TECHNIQUE: Digital breast mammography with tomosynthesis is performed in both the craniocaudal and mediolateral oblique views along with computer-aided detection (CAD). FINDINGS: The breasts are heterogeneously dense, which may obscure small masses (ACR BI-RADS breast composition Category c). There are no significant masses, abnormal calcifications, or other abnormalities. MM/MM tomosynthesis screening BI IMPRESSION: No mammographic evidence of malignancy. ASSESSMENT: BI-RADS BI-RADS 1 - Negative RECOMMENDATION: Routine annual mammography screening. 1 year F/U This examination should not preclude the clinical evaluation of a suspicious palpable abnormality. This patient's information was entered into a reminder system with a target due date for their next mammogram. Electronically signed by: Funmilayo Diallo DO 05/25/2024 03:46 PM ASHLIE
== END 2024-05-12 14:07 | disposition home or self-care (01) ==
LOC: HO.MAMMO 14:06
PROVIDERS: PCP Internal Medicine; Visit Provider Internal Medicine
DX: Z12.31 Encounter for screening mammogram for malignant neoplasm of breast (principal)
CPT/HCPCS: 77063; 77067

== ENCOUNTER → 2024-05-12 14:30 | Outpatient (BNV) | payer MEDICAID, SELFPAY | PROVIDERS: PCP Internal Medicine; Visit Provider Internal Medicine | DX: Z12.31 Encounter for screening mammogram for malignant neoplasm of breast (principal) | CPT/HCPCS: 77063; 77067 ==

== ENCOUNTER 2024-05-15 07:24 | Day surgery (SDC) | payer MEDICAID, SELFPAY ==
[2024-05-13 09:24] VITALS: BMI 35.2
--- NOTE | 2024-05-14 10:11 | P.CONAN_ITS ---
Documented by User: Bronwyn Rodríguez NP 05/14/24 10:11 HPI - Anesthesia Eval Consult details Narrative: 43yo F for D&C Hysteroscopy,possible myomectomy,possible polypectomy PMFSH Active Problems Active Problems: All Active Problems Gastritis and duodenitis (Acute) Lumbar spondylosis (Acute) Lumbar radiculopathy (Acute) Sacroiliac joint dysfunction of both sides (Acute) Abnormal uterine bleeding (AUB) (Acute) Fatty liver (Acute) Hepatomegaly (Acute) Encounter for colorectal cancer screening (Acute) GERD (gastroesophageal reflux disease) (Acute) Elevated LFTs (Acute) COVID-19 (Acute) Abnormal diaphysis of bone (Acute) Left tibial fracture (Acute) Past Medical History Medical History GERD (gastroesophageal reflux disease) Fatty liver Anxiety Chronic back pain Asthma Family History Family History Mother HTN (hypertension) Maternal Grandmother Diabetes Family history of problems with anesthesia: No Surgical History Surgical History History of esophagogastroduodenoscopy (EGD) H/O colonoscopy Hx of tubal ligation History of surgery on arm History of surgery on lower extremity History of Problems with Anesthesia: No Social History Social History Household Members: Spouse and Children Household Members Other:: and grandchild Housing: Apartment Are you a primary care administrative tech to a significant other at home: No Do you presently have visiting nurse or other home services: No Alcohol intake: former Patient Tobacco Use Status: Former Tobacco user Years Smoked: 8 years Use of substances other than those prescribed or required for medical reasons: No Advance Directives: No Advance Directives Information Provided: Yes Current occupational status: disabled Sexual orientation: Straight/Heterosexual Gender identity: Female Meds Allergies Allergy/AdvReac Type Severity Reaction Status Date / Time No Known Allergies Allergy Verified 05/05/24 09:26 Home Medications ?Medication ?Instructions ?Recorded ?Confirmed ?Last Taken ?Type albuterol sulfate 90 mcg/actuation 2 puff inhalation Q4-6H PRN 12/09/23 05/13/24 Unknown History aerosol inhaler (Ventolin HFA) Respiratory Distress duloxetine 60 mg capsule,delayed 60 mg PO DAILY 12/09/23 05/13/24 Unknown History release fluticasone furoate 100 1 inh inhalation DAILY 12/09/23 05/13/24 Unknown History mcg/actuation blister powder for inhalation (Arnuity Ellipta) loratadine 10 mg tablet 10 mg PO QAM 12/09/23 05/13/24 Unknown History oxycodone-acetaminophen 5 mg-325 1 tab PO Q12H PRN severe pain 12/09/23 05/05/24 Unknown History mg tablet ergocalciferol (vitamin D2) 1,250 1,250 mcg PO QWEEK 04/16/24 05/13/24 Unknown History mcg (50,000 unit) capsule magnesium oxide 400 mg (241.3 mg 400 mg PO DAILY 04/16/24 05/13/24 Unknown History magnesium) tablet Exam Height,Weight and Vital Signs: Height 5 ft 4 in Weight 92.986 kg Assessment and Plan Assessment Anesthesia Assessment: Chart Reviewed Final Anesthetic Review Family History of Problems with Anesthesia: No History of Problems with Anesthesia: No Documented by User: More Barker MD 05/15/24 08:34 PMFSH Active Problems Active Problems: All Active Problems Gastritis and duodenitis (Acute) Lumbar spondylosis (Acute) Lumbar radiculopathy (Acute) Sacroiliac joint dysfunction of both sides (Acute) Abnormal uterine bleeding (AUB) (Acute) Fatty liver (Acute) Hepatomegaly (Acute) Encounter for colorectal cancer screening (Acute) GERD (gastroesophageal reflux disease) (Acute) Elevated LFTs (Acute) COVID-19 (Acute) Abnormal diaphysis of bone (Acute) Left tibial fracture (Acute) Increased BMI Asthma - controlled. Inhaler prn Past Medical History Medical History GERD (gastroesophageal reflux disease) Fatty liver Anxiety Chronic back pain Asthma Family History Family History Mother HTN (hypertension) Maternal Grandmother Diabetes Family history of problems with anesthesia: No Surgical History Surgical History History of esophagogastroduodenoscopy (EGD) H/O colonoscopy Hx of tubal ligation History of surgery on arm History of surgery on lower extremity History of Problems with Anesthesia: No Social History Social History Household Members: Spouse and Children Household Members Other:: and grandchild Housing: Apartment Are you a primary care administrative tech to a significant other at home: No Do you presently have visiting nurse or other home services: No Alcohol intake: former Patient Tobacco Use Status: Former Tobacco user Years Smoked: 8 years Use of substances other than those prescribed or required for medical reasons: No Advance Directives: No Advance Directives Information Provided: Yes Current occupational status: disabled Sexual orientation: Straight/Heterosexual Gender identity: Female Meds Allergies Allergy/AdvReac Type Severity Reaction Status Date / Time No Known Allergies Allergy Verified 05/05/24 09:26 Home Medications ?Medication ?Instructions ?Recorded ?Confirmed ?Last Taken ?Type albuterol sulfate 90 mcg/actuation 2 puff inhalation Q4-6H PRN 12/09/23 05/13/24 Unknown History aerosol inhaler (Ventolin HFA) Respiratory Distress duloxetine 60 mg capsule,delayed 60 mg PO DAILY 12/09/23 05/13/24 Unknown History release fluticasone furoate 100 1 inh inhalation DAILY 12/09/23 05/13/24 Unknown History mcg/actuation blister powder for inhalation (Arnuity Ellipta) loratadine 10 mg tablet 10 mg PO QAM 12/09/23 05/13/24 Unknown History oxycodone-acetaminophen 5 mg-325 1 tab PO Q12H PRN severe pain 12/09/23 05/05/24 Unknown History mg tablet ergocalciferol (vitamin D2) 1,250 1,250 mcg PO QWEEK 04/16/24 05/13/24 Unknown History mcg (50,000 unit) capsule magnesium oxide 400 mg (241.3 mg 400 mg PO DAILY 04/16/24 05/13/24 Unknown History magnesium) tablet Exam Height,Weight and Vital Signs: Height 5 ft 4 in Weight 92.986 kg Vital Signs Temp Pulse Resp BP Pulse Ox O2 Del Method 05/15/24 08:03 98.2 F 72 16 135/84 98 Room Air Pertinent Lab Results Pertinent Lab Results: Lab Results 05/15/24 Range/Units 07:33 Urine Test NEGATIVE (NEGATIVE) Airway Mallampati Class: II TM Dist: >3cm Neck ROM: Full Loose/Missing/Broken Teeth: No Heart: RRR Lungs: CTAB Assessment and Plan Assessment Anesthesia Assessment: Anesthesia Plan Discussed and Chart Reviewed Final Anesthetic Review Family History of Problems with Anesthesia: No History of Problems with Anesthesia: No NPO: Yes ASA Class: II Final Preanesthetic Review: No Changes in Pt Med Stat, Meds/Allgs Chart Reviewed, Consent Obtained/Reviewed and Anes Risks/Benef Reviewed Patient Risk: Low Procedure Risk: Low Assessment/Block/Sedation in SS: Assess/Block/Sedation-SS Anesthetic Plan Anesthetic Plan: GA Disposition: Standard PACU
[2024-05-15 07:36] VITALS: BMI 34.7
[2024-05-15 08:03] VITALS: BP 135/84; PULSE 72; RESP 16; TEMP 36.8; O2SAT 98
[2024-05-15] MEDS: Lactated Ringers 1,000 ML 100 ML IVCONT (08:04)
[2024-05-15 08:11] LABS: UPreg QC Valid YES
[2024-05-15 08:12] LABS: Urine Pregnancy NEGATIVE (NEGATIVE)
--- NOTE | 2024-05-15 08:55 | MHC.SHP ---
Pre-Procedural Eval Section A - 24 Hr Update-Section A only Date of Service: 05/15/24 The patient is an INPATIENT: No Changes since office visit: No Cold of Flu in the past 2 weeks, No New Medical Problems, No Changes in Medication and No Patient answered all questions The patient has been examined within 24 hours of the surgical procedure. The History & Physical has been completed within 30 days and I have reviewed it.: Yes Section B - Complete if H&P > 30 days Chief Complaint: Abnormal uterine and vaginal bleeding, unspecified Allergies: Allergies Allergy/AdvReac Type Severity Reaction Status Date / Time No Known Allergies Allergy Verified 05/05/24 09:26 Plan Diagnosis/Plan: Unchanged I have reviewed the history and physical and performed a pertinent physical examination on my patient. No changes have occurred unless specified. Time Spent With Patient Time: Total time managing care of this patient today ____ minutes.
--- NOTE | 2024-05-15 09:47 | PM.OP ---
Brief Operative Note Date of Service: 05/15/24 Pre-op diagnosis: Abnormal uterine bleeding, abnormal endometrium by ultrasound Post-op diagnosis: same (Normal endometrial cavity) Procedure: Hysteroscopy D&C Surgeon: Medardo Beckman MD Anesthesia: GLMA Was an Retail Supervisor used for this Procedure?: No Estimated blood loss (mL): 0 Pathology: other (Endometrial Scrapping.) Condition: stable Disposition: PACU
--- NOTE | 2024-05-15 09:48 | P.OP_ITS ---
Operative Note Operative Note Date of Service: 05/15/24 Narrative: Preop Diagnosis: Abnormal uterine bleeding, abnormal endometrium by ultrasound Operation: Diagnostic Hysteroscopy, Dilataion & Curettage Post Op Diagnosis: Normal endometrial and endocervical cavity, no evidence of pathology QBL: Minimal Anesthesia: GLMA Surgeon: Medardo Beckman MD Monument Mason: None Complication: None Pathology: Endometrial Scrapings Procedure: The patient was put in the dorsal lithotomy position, scrubbed, and draped in the usual manner. A sterile speculum was inserted in the patient's vagina. The anterior lip of the cervix was grasped with a single tooth tenaculum. The cervix was dilated up to 5 mm, then the scope was inserted in the patient's uterus. Inspection revealed normal endocervical & endometrial cavity with no evidence of pathology. The scope was taken out of the uterine cavity , then sharp curetting was carried on with no complications. At the end of the procedure, all instruments were taken out of the patient uterine and vaginal cavity. The single tooth tenaculum was removed and homeostasis was assured using pressure. The patient tolerated the procedure well and was transferred to the PACU in a stable condition.
[2024-05-15 10:02] VITALS: BP 120/73; PULSE 79; RESP 16; TEMP 36.6; O2SAT 100
[2024-05-15 10:07] VITALS: BP 129/74; PULSE 76; RESP 16; O2SAT 96
[2024-05-15] MEDS: oxyCODONE HCl Immed Release 5 MG TABLET PO (10:10)
[2024-05-15 10:12] VITALS: BP 127/70; PULSE 79; RESP 16; O2SAT 97
[2024-05-15 10:17] VITALS: BP 114/77; PULSE 74; RESP 16; O2SAT 97
[2024-05-15 10:32] VITALS: BP 126/73; PULSE 75; RESP 16; TEMP 36.6; O2SAT 98
== END 2024-05-15 10:57 | disposition home or self-care (01) ==
PROVIDERS: PCP Internal Medicine; Visit Provider Obstetrics & Gynecology
PROC: 0UDB8ZZ Extraction of Endometrium, Via Natural or Artificial Opening Endoscopic (ICD-10-PCS; CPT 58558; principal; 2024-05-15 09:50)
DX: N93.9 Abnormal uterine and vaginal bleeding, unspecified (principal); F41.9 Anxiety disorder, unspecified; J45.909 Unspecified asthma, uncomplicated; M54.9 Dorsalgia, unspecified; G89.29 Other chronic pain; Z98.51 Tubal ligation status; Z87.891 Personal history of nicotine dependence
CPT/HCPCS: 58558; 81025; 88305; J0131; J1100; J1885; J2003; J2250; J2310; J2405; J2704; J3010

== ENCOUNTER → 2024-05-15 07:24 | Outpatient (BNV) | payer MEDICAID, SELFPAY | PROVIDERS: PCP Internal Medicine; Visit Provider Obstetrics & Gynecology | DX: N93.9 Abnormal uterine and vaginal bleeding, unspecified (principal) | CPT/HCPCS: 58558 ==

== ENCOUNTER 2024-05-29 14:14 | Outpatient (AMB) | payer MEDICAID, SELFPAY ==
--- NOTE | 2024-05-29 14:16 | A.OFFVIS_ITS ---
Vital Signs 05/29/24 14:44 Height 5 ft 4 in Weight 211 lb 10.3 oz BMI 36.3 BP 116/67 Blood Pressure Location Lt brachial Position Sitting Pulse 81 Intake Visit Reasons: f/u BS results Intake Note: Melania presents in the office as a BA Swallow results. CC: She states that she is here today for the results of the testing. No other concerns today. Scrap Drop Engineer Required: Yes Scrap Drop Engineer Name: [id number] Allergies No Known Allergies Allergy (Verified 05/29/24 14:17) HPI Comments Details: 43 y.o F who is here for elevated lfts. Reports found out about elevated lfts almost a year ago. At that time was also having upper GI sx. Reports significant heartburn with retrosternal chest pain and nausea. Frequently eats fried and spicy foods. Also goes to bed within 1-2 hours of eating her meals. Takes naproxen occasionally. Does not smoke. Alcohol use rarely. Recent labs and ultrasound reviewed. Has hepatomegaly with the liver measuring almost 21 cm. Barium Swallow 1. Moderate to severe gastroesophageal reflux. 2. Otherwise normal exam. 05/05/24: EGD/colo 1. Normal esophagus (biopsy) 2. Hiatal hernia 3. Gastritis (biopsy) 4. Duodenitis (biopsy) 5. Abnormal sigmoid mucosa likely prep artifact (biopsy) 5. Internal hemorrhoids Recommendations:?? * Follow-up path results * Avoid NSAIDs * H Pylori treatment if biopsies + * Repeat colonoscopy for CRC screening in 10 years. Path: A. Duodenum, biopsy: Duodenal mucosa within normal limits. B. Stomach, random, biopsy: Antral-type and oxyntic mucosa with mild chronic inactive inflammation; no Helicobacter organisms seen. C. Esophagus, lower, biopsy: - Cardiac-type mucosa with moderate chronic inactive inflammation; no intestinal metaplasia seen. - Squamous mucosa within normal limits. D. Esophagus, middle, biopsy: Squamous epithelium within normal limits; no inflammation seen. E. Colon, sigmoid, biopsy: Colonic mucosa with mild lamina propria congestion; otherwise within normal limits 05/29/24: Here for postprocedure follow-up. As results of the procedure reviewed. Has good response to Nexium, as evidenced by her clinical symptoms as well as histological response on biopsies. Reviewed with the patient that will likely need lifelong due to hiatal hernia related reflux. No H pylori on biopsies. In terms of fatty liver, this appears to be a combination of alcohol use in the past, as well as ongoing metabolic steatohepatitis. Reviewed with the patient that we will screen her for diabetes and hyperlipidemia. She was also counseled on weight loss of at least 10% over the next 6 months. Other chronic liver disease workup thus far negative. [facility] Medical History GERD (gastroesophageal reflux disease) Fatty liver Anxiety Chronic back pain Asthma Surgical History History of esophagogastroduodenoscopy (EGD) H/O colonoscopy Hx of tubal ligation History of surgery on arm History of surgery on lower extremity Family History Mother HTN (hypertension) Maternal Grandmother Diabetes Social History Household Members: Spouse and Children Household Members Other:: and grandchild Housing: Apartment Are you a primary home visit field care manager to a significant other at home: No Do you presently have visiting nurse or other home services: No Alcohol intake: former Patient Tobacco Use Status: Former Tobacco user Years Smoked: 8 years Current occupational status: disabled Sexual orientation: Straight/Heterosexual Gender identity: Female Review of Systems Const All systems reviewed & are unremarkable except as noted in HPI and below Physical Exam Vital Signs: Last Vital Signs Pulse 81 05/29/24 14:44 BP 116/67 05/29/24 14:44 BMI result Body Mass Index 36.3 No apparent distress Nonicteric Abdomen soft, nondistended Alert and oriented x3, normal gait Assessment & Plan Assessment & Plan (1) Fatty liver: Code(s): K76.0 - Fatty (change of) liver, not elsewhere classified Category: Medical Plan: From [facility]. Hx of heavy etOH use >3y ago. BMI 36. A1c normal 2022. Will recheck. Evolution prognosis of metALD reviewed with the patient. Based on fib 4 score of 1.04, no advanced fibrosis. If lipid profile and A1c normal, will be discharged back to PCP's care. Plan: - Updated CBC, CMP and INR - Lipid profile, A1c - Ice Cream Vault Worker referral - Weight loss of 10% of TBW in 6 months (2) Hiatal hernia with gastroesophageal reflux: Code(s): K44.9 - Diaphragmatic hernia without obstruction or gangrene; K21.9 - Gastro- esophageal reflux disease without esophagitis Category: Medical Plan: Patient is aware that she needs to continue PPI therapy lifelong. Reviewed that weight loss and normal BMI will also help with regaining physiological anti-reflux mechanics. Plan Follow up 6 months Orders: Orders Hemoglobin A1c Today K76.0 - Fatty (change of) liver, not elsewhere classified Lipid Panel Today K76.0 - Fatty (change of) liver, not elsewhere classified Complete Blood Count no Diff Today K76.0 - Fatty (change of) liver, not elsewhere classified Comprehensive Met. Panel Today K76.0 - Fatty (change of) liver, not elsewhere classified Prothrombin Time INR Today K76.0 - Fatty (change of) liver, not elsewhere classified Referrals State Wildlife Officer Nutrition Referral E66.9 - Obesity, unspecified, K76.0 - Fatty (change of) liver, not elsewhere classified Coding Level of Care Code Est Pt Level 4 (43530) Complex EM visit Add On G2211 Diagnoses Fatty liver K76.0 Hiatal hernia with gastroesophageal reflux K44.9; K21.9
[2024-05-29 14:44] VITALS: BP 116/67; PULSE 81; BMI 36.3
== END 2024-05-29 15:12 | disposition home or self-care (01) ==
PROVIDERS: PCP Internal Medicine; Visit Provider Internal Medicine
DX: K76.0 Fatty (change of) liver, not elsewhere classified (principal); K44.9 Diaphragmatic hernia without obstruction or gangrene; K21.9 Gastro-esophageal reflux disease without esophagitis
CPT/HCPCS: 99214

== ENCOUNTER 2024-05-29 14:14 | Outpatient (REF) | payer MEDICAID, SELFPAY ==
[2024-05-29 17:13] LABS: Hematocrit 35.2 % (37.0-47.0); Hemoglobin 12.1 g/dl (12.0-16.0); Mean Corpuscular HGB Conc 34.4 g/dl (31.0-35.0); Mean Corpuscular Hemoglobin 28.7 pg (27.0-33.0); Mean Corpuscular Volume 83.6 fL (80.0-98.0); Mean Platelet Volume 8.5 fL (9.4-12.3); Platelet Count 201 X10*3/uL (160-400); Red Blood Count 4.21 X10*6/uL (4.20-5.50); White Blood Count 7.2 X10*3/uL (4.8-10.8)
[2024-05-29 17:25] LABS: INTERNATIONAL NORM RATIO 0.9 (0.9-1.1); Prothrombin Time 10.3 SEC (10.9-12.4)
[2024-05-29 17:36] LABS: Alanine Aminotransferase 71 U/L (0-31); Albumin Level 4.1 g/dL (3.5-5.0); Alkaline Phosphatase 73 U/L (39-117); Anion Gap 13 (12-20); Aspartate Amino Transferase 56 U/L (5-31); Bilirubin Total 0.3 mg/dL (0.0-1.0); Blood Urea Nitrogen 12 mg/dL (9-16); Calcium 9.1 mg/dL (8.4-10.2); Carbon Dioxide 24 mmol/L (22-29); Chloride 107 mmol/L (96-108); Cholesterol 188 mg/dL (<200); Estimated Glomerular Filt Rate > 60; Glucose Random 110 mg/dL (60-115); HDL Cholesterol 55 mg/dL (>40); LDL Cholesterol Calculated 90 mg/dL (<100); Sodium 140 mmol/L (135-145); Total Protein 7.1 g/dL (6.5-8.0); Triglycerides 216 mg/dL (<150)
[2024-05-30 03:20] LABS: Estimated Average Glucose 100 mg/dL; Hemoglobin A1C 104.3248 umol/L; Hemoglobin A1c % 5.1 % (<6.0); Total Hemoglobin (HGBA1C) 3242.0412 umol/L
== END 2024-05-29 14:15 | disposition home or self-care (01) ==
LOC: HO.LAB 14:14
PROVIDERS: PCP Internal Medicine; Visit Provider Internal Medicine
DX: K76.0 Fatty (change of) liver, not elsewhere classified (principal); K44.9 Diaphragmatic hernia without obstruction or gangrene; K21.9 Gastro-esophageal reflux disease without esophagitis
CPT/HCPCS: 36415; 80053; 80061; 83036; 85027; 85610; 99212

== ENCOUNTER 2024-06-04 11:17 | Outpatient (AMB) | payer MEDICAID, SELFPAY ==
--- NOTE | 2024-06-04 11:20 | MHC.OFFVIS ---
Vital Signs 06/04/24 11:22 Height 5 ft 4 in Weight 211 lb BMI 36.2 BP 118/74 Intake Visit Reasons: post op Car Retarder Operator Required: Yes Car Retarder Operator Language: Training Development Specialist Services: Car Retarder Operator Present (In person) Car Retarder Operator Name: DEVI Webb Information Interpreted: non-clinical & clinical Rn Post Partum: Rn Post Partum Present (Caryl MilliganGrace) Accompanied by: Spouse Allergies No Known Allergies Allergy (Verified 06/04/24 11:25) HPI Comments Details: The patient is presenting post hysteroscopy D&C no complaints minimal vaginal bleeding no feverishness chills or abdominal pain. Intraoperative finding: Normal endometrial cavity with no evidence of abnormality The pathology showed the following: Disordered weakly proliferative endometrium; no atypia or hyperplasia identified The following workup was done.: H&H= 12.1/35.2 TSH, prolactin, hCG, GC and chlamydia were negative. 05/13 Co testing was done was negative. 05/14 Mammogram was BI-RADS 1. Pelvic ultrasound showed the following: IMPRESSION: Abnormal appearing endometrium with thickness of 24 mm. Correlation with clinical exam and gynecologic consultation recommended to determine further management including possible biopsy. Endometrial thickness was 9 mm on ultrasound of 05/24/2022 [facility] Medical History GERD (gastroesophageal reflux disease) Fatty liver Anxiety Chronic back pain Asthma Surgical History History of esophagogastroduodenoscopy (EGD) H/O colonoscopy Hx of tubal ligation History of surgery on arm History of surgery on lower extremity Family History Mother HTN (hypertension) Maternal Grandmother Diabetes Social History Household Members: Spouse and Children Household Members Other:: and grandchild Housing: Apartment Are you a primary child day care center worker to a significant other at home: No Do you presently have visiting nurse or other home services: No Alcohol intake: former Patient Tobacco Use Status: Former Tobacco user Years Smoked: 8 years Current occupational status: disabled Sexual orientation: Straight/Heterosexual Gender identity: Female Review of Systems Const All systems reviewed & are unremarkable except as noted in HPI and below Reports as per HPI and Reports no additional complaints GI Reports no additional complaints Reports no additional complaints Physical Exam Vital Signs: Last Vital Signs BP 118/74 06/04/24 11:22 BMI result Body Mass Index 36.2 Assessment & Plan Assessment & Plan (1) Abnormal uterine bleeding (AUB): Comment: Abnormal endometrium by ultrasound Code(s): N93.9 - Abnormal uterine and vaginal bleeding, unspecified Category: Medical Plan: Discussed with the patient the results of the work up done and options of treatment including but not limited to BCP's, cyclic Progesterone, Mirena IUD, endometrial ablation and hysterectomy. All pros, cons, risks and benefits of each option were discussed with the patient and the patient decided to go ahead with cyclic Provera, so a more detailed discussion re: Progesterone treatment including mechanism of action, benefits (regular menses, endometrial protection form unopposed estrogen and reduction in the risk of endometrial hyperplasia and/or cancer ...), risks (Thrombosis, mood changes, weight gain, breast soreness, ? increased breast ca, others). Instructions were given to use a back- up method for contraception since this is not a method control, take the medication 1 tablet daily starting day 15-24 and to schedule a 3 months follow-up appointment; patient verbalized understanding and agreed with the plan. Medications: New medroxyprogesterone (Provera) start Provera 1 tablet daily from day 15-24 cyclically every months, day 1 being 1st day of menses 10 mg PO DAILY 30 tabs 0RF 10 days Coding Level of Care Code Est Pt Level 3 (16821) Diagnoses Abnormal uterine bleeding (AUB) N93.9
[2024-06-04 11:22] VITALS: BP 118/74; BMI 36.2
== END 2024-06-04 11:51 | disposition home or self-care (01) ==
LOC: HO.HWS 11:17
PROVIDERS: PCP Internal Medicine; Visit Provider Obstetrics & Gynecology
DX: N93.9 Abnormal uterine and vaginal bleeding, unspecified (principal)
CPT/HCPCS: 99213

== ENCOUNTER → 2024-06-04 11:17 | Outpatient (BNVA) | payer MEDICAID, SELFPAY | PROVIDERS: PCP Internal Medicine; Visit Provider Obstetrics & Gynecology | DX: N93.9 Abnormal uterine and vaginal bleeding, unspecified (principal); Z98.51 Tubal ligation status | CPT/HCPCS: 99212 ==

== ENCOUNTER 2024-06-26 11:36 | Outpatient (AMB) | payer MEDICAID, SELFPAY ==
[2024-06-26 11:52] VITALS: BMI 35.5
--- NOTE | 2024-06-26 11:52 | A.OFFVIS_ITS ---
Vital Signs 06/26/24 11:52 Height 5 ft 4 in Weight 207 lb BMI 35.5 Intake Visit Reasons: vaginal bleeding Traffic Control Flagger Required: Yes Traffic Control Flagger Language: Weigher Bulker Services: Traffic Control Flagger Present (in person) Information Interpreted: non-clinical & clinical Insurance Actuary: Insurance Actuary Present (Caryl QUINONEZ) Accompanied by: Spouse Allergies No Known Allergies Allergy (Verified 06/26/24 11:53) HPI Comments Details: Presenting complaining of irregular menstrual cycles. The patient had a recent hysteroscopy D&C Intraoperative finding: Normal endometrial cavity with no evidence of abno rmality The pathology showed the following: Disordered weakly proliferative endometrium; no atypia or hyperplasia identified The following workup was done.: H&H= 12.1/35.2 TSH, prolactin, hCG, GC and chlamydia were negative. 05/13 Co testing was done was negative. 05/14 Mammogram was BI-RADS 1. Pelvic ultrasound showed the following: IMPRESSION: Abnormal appearing endometrium with thickness of 24 mm. Correlation with clinical exam and gynecologic consultation recommended to determine further management including possible biopsy. Endometrial thickness was 9 mm on ultrasound of 05/24/2022 The patient was recently counseled about options of treatment and was prescribed cyclic Provera 10 mg p.o. q.d. day 15-24, after 2-3 months of amenorrhea, the Provera was started for 10 days the patient had a menstrual cycle 3 days after her last menstrual cycle, she was concerned about whether this was normal . [facility] Medical History GERD (gastroesophageal reflux disease) Fatty liver Anxiety Chronic back pain Asthma Surgical History History of esophagogastroduodenoscopy (EGD) H/O colonoscopy Hx of tubal ligation History of surgery on arm History of surgery on lower extremity Family History Mother HTN (hypertension) Maternal Grandmother Diabetes Social History Household Members: Spouse and Children Household Members Other:: and grandchild Housing: Apartment Are you a primary day care provider to a significant other at home: No Do you presently have visiting nurse or other home services: No Alcohol intake: former Patient Tobacco Use Status: Former Tobacco user Years Smoked: 8 years Current occupational status: disabled Sexual orientation: Straight/Heterosexual Gender identity: Female Review of Systems Const All systems reviewed & are unremarkable except as noted in HPI and below Physical Exam Vital Signs: BMI result Body Mass Index 35.5 General: Yes no CVA tenderness External Female Exam: normal external appearance and normal appearance of the urethra Speculum Exam - Vagina: normal appearance of the vagina, normal palpation, no lesions and no masses Speculum Exam - Cervix: normal appearance of the cervix, normal palpation, no lesions, no masses and nontender Bimanual exam- vagina & uterus: normal bimanual exam, normal palpation, uterine size normal, normal palpation, uterine shape normal, No Cervical tenderness present and non-tender Bimanual Exam- Adnexa, other: normal adnexae Back/Spine/Pelvis Back: no CVA tenderness Results AMB Test Urine AMB Test Urine Negative Last Edit by Caryl Milligan CMA on 11:57 Results Reviewed Results Reviewed: Laboratory Last Values Tst Clinic Negative 06/26/24 11:57 Assessment & Plan Assessment & Plan (1) Abnormal uterine bleeding (AUB): Code(s): N93.9 - Abnormal uterine and vaginal bleeding, unspecified Category: Medical Plan: Urine test done was negative. Recommended to continue cyclic Provera 10 mg p.o. q.d. day 15-24 to call with any abnormal bleeding or any other concerns. All questions answered, the patient verbalized understood Orders: Orders AMB HCG Urine Test Today Z32.02 - Encounter for test, result negative Coding Level of Care Code Est Pt Level 3 (69103) Diagnoses Abnormal uterine bleeding (AUB) N93.9
== END 2024-06-26 12:20 | disposition home or self-care (01) ==
LOC: HO.HWS 11:36
PROVIDERS: PCP Internal Medicine; Visit Provider Obstetrics & Gynecology
DX: N93.9 Abnormal uterine and vaginal bleeding, unspecified (principal); Z32.02 Encounter for pregnancy test, result negative
CPT/HCPCS: 99213

== ENCOUNTER → 2024-06-26 11:36 | Outpatient (BNVA) | payer MEDICAID, SELFPAY | PROVIDERS: PCP Internal Medicine; Visit Provider Obstetrics & Gynecology | DX: N93.9 Abnormal uterine and vaginal bleeding, unspecified (principal) | CPT/HCPCS: 81025; 99212 ==

== ENCOUNTER 2024-08-14 16:27 | Outpatient (REF) | payer MEDICAID, SELFPAY ==
--- NOTE | ~2024-08-14 | MR_ITS ---
EXAMINATION: MR LUMBAR SPINE WITHOUT IV CONTRAST History: M54.16 - Radiculopathy, lumbar region Technique: Sagittal T1, T2 and STIR, and axial T1 and T2 weighted images of the lumbar spine were obtained per departmental protocol. Comparison: Correlation is made to plain films of the lumbar spine dated 10/09/2023. Findings: The examination is limited by patient motion. The vertebral bodies maintain normal height, alignment, and marrow signal intensity. There is mild degenerative change at the L3-4 and L4-5 levels with disc desiccation and slight loss of disc height. At T12-L1,there is no evidence of disc herniation, central spinal stenosis, or neural foraminal narrowing. At L1-2, there is no evidence of disc herniation, central spinal stenosis, or neural foraminal narrowing. At L2-3, there is no evidence of disc herniation, central spinal stenosis, or neural foraminal narrowing. At L3-4, there is no evidence of disc herniation, central spinal stenosis, or neural foraminal narrowing. At L4-5, there is no evidence of disc herniation, central spinal stenosis, or neural foraminal narrowing. At L5-S1, there is no evidence of disc herniation, central spinal stenosis, or neural foraminal narrowing. The conus terminates at the T12-L1 level and demonstrates normal signal intensity. Evaluation of the paraspinal soft tissues demonstrates enlarged common iliac lymph nodes measuring up to 1.5 cm on the right and 1.8 cm on the left. Enlarged external iliac lymph nodes measure up to 3.2 cm on the right and 1.9 cm on the left. MR/MR lumbar spine wo con Impression: 1. Minimal degenerative changes at L3-4 and L4-5. 2. Bilateral common and external iliac lymphadenopathy as described. Clinical correlation is recommended. CT of the abdomen and pelvis should be considered. Electronically signed by: Jaden Torres MD 08/17/2024 10:17 AM ASHLIE
--- OUTSIDE RECORDS SUMMARY | 2024-08-14 16:45 | XMS_ITS | Encounter Summary ---
Author Organization [employer] Address [address] [facility] [address] [place] [address] Care Team Providers Care County Commissioner Name Role Phone Rachel Eden MD Primary Care Provider + Encounter Details Date Type Department Care Team ([facility] st Contact Info) Description 08/04/2024 11:00 AM EST Office Visit [facility] [address] [place] [address] Fiona Church, LESVIA [address] [place] [address] Chronic low back pain with right-sided sciatica, unspecified back pain laterality (Primary Dx); jail current use of opiate analgesic Social History Tobacco Use Types Packs/Day Years Used Date Smoking Tobacco: Former Cigarettes Q uit: 01/03/2022 Passive Smoke Exposure: Past Smokeless Tobacco: Never Alcohol Use Standard Drinks/Week Comments Never 0 (1 standard drink = 0.6 oz pur e alcohol) Alcohol Answer Date Recorded Frequency of Alcohol Consumption Not on file 04/11/2023 Average Number of Drinks Not on file 023 Frequency of Binge Drinking Not on file 03/23 Score 0 04/11/2023 Depression Answer Date Recorded Patient Health Questionnaire-9 Score 6 04/11/2023 Housing Stability Answer Date Recorded What is your housing situation today? I have housing today, but I am worried about losing housing in the future 12/12/[address] you li ve. Do you have problems with any of the following? Mold 12/12/2023 Food Insecurity Answer Date Recorded Within the past 12 months, y ou worried that your food would run out before you got money to buy more: Sometimes True 2023 Within the past 12 months,th e food you bought just didn't last and you didn't have enough money to get more: Sometimes True 12/12/2023 Transportation Answer Date Recorded In the past 12 months, has l ack of transportation kept you from medical appts, meetings, work or from getting things needed for daily living? No 12/12/2023 Utilities Answer Date Recorded In the past 12 months, has t he [employer], gas, oil or water company threatened to shut off services in your home? Yes 12/12/2023 Depression Answer Date Recorded Patient Health Questionnaire-2 Score 2 04/11/2023 Comments No Sex and Gender Information Value Date Recorded Sex Assigned at Female 05/21/2022 10:29 AM EDT Legal Sex Female 10:29 AM EDT Gender Identity Female 05/21/2022 10:29 AM EDT Sexual Orientation Straight 05/21/2022 10 :29 AM EDT documented as of this encounter Progress Notes * Fiona Church, FILLER ROOM ATTENDANT - 08/04/2024 11:00 AM EST Subjective: Melania Villalpando is a 43 y.o. female w/ PMH mod persistent asthma, ZACKERY, chronic low back pain, and adjustment disorder, who presents to the office for - Chronic Pain Clinic Group visits. Initial Group visit: 12/17/23 Group Visit Number: 6 Last PCP visit: Dr. Eden, 04/01/24 Group Confidentiality last signed: 12/17/23 Group Topic: Functional Goal Setting Chronic Pain History: Associated Diagnosis: Chronic ankle pain, neck pain, carpal tunnel syndrome Relevant Imaging: XR Lumbar spine, left hip, left knee in September 2023: IMPRESSION: 1. Mild degenerative changes in the lumbar spine, most marked at L4/L5. 2. No significant abnormality in the left hip. 3. Mild tricompartmental degenerative changes in the left knee. 4. Intramedullary alisia through the tibia with old healed fractures as described above. Current pharm tx: Percocet 5-325 Q12H PRN, Duloxetine 60mg daily Medication: States taking medication as prescribed. Non-pharm tx: topical treatments, purchases OTC lidocaine patches Related Specialists: Referred to Pain Medicine on 04/07/24 [facility] -referred November 2023 Physical therapy Other substance use: Tobacco: quit 2021 Marijuana: denies Alcohol: denies Illicit substances: denies Review of Systems Constitutional: Negative. Respiratory: Negative. Cardiovascular: Negative. Gastrointestinal: Negative. Musculoskeletal: Positive for arthralgias. Psychiatric/Behavioral: Negative. Physical Exam Constitutional: Appearance: Normal appearance. Pulmonary: Effort: Pulmonary effort is normal. Neurological: Mental Status: She is alert and oriented to person, place, and time. Psychiatric: Mood and Affect: Mood normal. Behavior: Behavior normal. 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 No bony destructive lesions are seen. Some mild degenerative changes are also seen in the lower thoracic spine. Current Assessment & Plan -Good engagement and participation with Group Medical Visit model -Encouraged multifactorial approach to pain control including pharm and non- pharm modalities Relevant Orders POCT PARAMJIT-14 Urine Drug Screen (Completed) Follow up: 1-3 months for Group Chronic Pain Clinic. Follow up as scheduled with PCP, sooner as needed. * Malgorzata Thomas RN - 08/04/2024 11:00 AM EST .DISTANCE LEARNING TECHNICIAN technician automatic: PDMP reviewed today. Last fill date: 07/08/24 (Percocet 5-325mg bid) count was (2), anticipated (1) to be remaining. .UTOX completed. Positive for (OXY, TCA, THC), Negative for AMP, BAR, BUP, BZO, MARGARITO, FTY, MDMA, MET, MOP, MTD, PCP. UTOX as expected. documented in this encounter Miscellaneous Notes * Assessment & Plan Note - LESVIA Jeffrey - 08/04/2024 6:24 PM ESTAssociated Problem(s): jail current use of opiate analgesic Timeline: - 08/04/24: Group - utox/pill count as expected * Assessment & Plan Note - LESVIA Jeffrey - 08/04/2024 6:23 PM ESTAssociated Problem(s): Chronic back pain -Good engagement and participation with Group Medical Visit model -Encouraged multifactorial approach to pain control including pharm and non- pharm modalities documented in this encounter Plan of Treatment Upcoming Encounters Date Type Department Care Team (Late st Contact Info) Description 08/20/2024 2:00 PM EST Office Visit [facility] [address] [place] [address] Larry, Gloria, OD [address] [place] [address] 09/04/2024 10:00 AM EST Office Visit [facility] [address] [place] [address] Rachel Eden MD [address] [place] [address] 09/29/2024 11:00 AM EDT Office Visit [facility] [address] [place] [address] documented as of this encounter Procedures Procedure Name Priority Date/Time Associated Diagnosis Comments POCT PARAMJIT-14 URINE DRUG SCREEN Routine 08/04/2024 1:37 PM EST Chronic low back pain with right-sided sciatica, unspecified back pain laterality director 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 care current use of opiate analgesic documented in this encounter Results * POCT PARAMJIT-14 Urine Drug Screen (08/04/2024 1:37 PM EST) THC Positive TCA, Urine Positive Oxycodone Screen, Urine Positive Urine Urine specimen obtained by clean catch procedure / Unknown 08/04/2024 1:37 PM EST Fiona Church FILLER ROOM ATTENDANT POINT OF CARE TEST ENTER/EDIT ORDERABLES Final Result documented in this encounter Visit Diagnoses Diagnosis Chronic low back pain with right-sided sciatica, unspecified back pain laterality- Primary director long term care current use of opiate analgesic documented in this encounter Additional Health Concerns Assessment Noted Time PHQ-9 Depression Total Score: 6 04/11/20 23 9:59 AM EDT documented as of this encounter Care Teams County Commissioner Relationship Specialty Start Date End Date Rachel Eden MD [address] [place] [address] PCP - General Family Medicine 02/10/20 Jurgen Graham Department Store General ManagerPolice Liaison 04/16/24 documented as of this encounter
--- OUTSIDE RECORDS SUMMARY | 2024-08-14 16:45 | XMS_ITS | Encounter Summary ---
Author Organization [employer] Address [address] [facility] 7[address] [place] [address] Care Team Providers Care Eligibility Services Representative Name Role Phone Rachel Eden MD Primary Care Provider + Reason for Visit * Reason Onset Date Comments Durable Medical Equipment 07/24/2024 Encounter Details Date Type Department Care Team ([facility] st Contact Info) Description 07/24/2024 Telephone [facility] [address] [place] [address] Rachel Eden MD [address] [place] [address] Durable Medical Equipment Social History Tobacco Use Types Packs/Day Years [...] the past 12 months, has t he electric, gas, oil or water company threatened to [...] AM EDT documented as of this encounter Miscellaneous Notes * Telephone Encounter - Melissa Ortiz MA - 07/24/2024 9:57 AM EST Script for CPAP machine submitted through [employer] for processing. Supplier should contact patient. documented in this encounter Plan of Treatment Upcoming Encounters Date Type Department Care Team ([facility] st Contact Info) Description 08/20/2024 2:00 PM EST Office Visit [facility] [address] [place] [address] Gloria Juarez, OD [address] [place] [address] 09/04/2024 10:00 AM EST Office Visit [facility] [address] [place] [address] Rachel Eden MD [address] [place] [address] 09/29/2024 11:00 AM EDT Office Visit [facility] [address] [place] [phone] documented as of this encounter Visit Diagnoses Not on filedocumented in this encounter Additional Health Concerns Assessment Noted Time PHQ-9 Depression Total Score: 6 04/11/20 23 9:59 AM EDT documented as of this encounter Care Teams Eligibility Services Representative Relationship Specialty Start Date End Date Rachel Eden MD [address] [place] [id number] PCP - General Family Medicine 02/10/20 Jurgen Graham Supply Chain AssistantFilm Archivist 04/16/24 documented as of this encounter
--- OUTSIDE RECORDS SUMMARY | 2024-08-14 16:45 | XMS_ITS | Encounter Summary ---
Author Organization [employer] Address [address] [address] [place] [address] Care Team Providers Care Kicking Machine Operator Name Role Phone Rachel Eden MD Primary Care Provider + Reason for Visit * Reason Onset Date Comments Durable Medical Equipment 05/11/2024 Encounter Details Date Type Department Care Team ([facility] st Contact Info) Description 05/11/2024 Telephone [facility] [address] [place] [address] Rachel Eden MD [address] [place] [address] Durable Medical Equipment Social History Tobacco Use [...] encounter Miscellaneous Notes * Telephone Encounter - Ashutosh Douglas - 05/11/2024 4:16 PM EDT TC from pt requesting Cpap machine to be sent to [facility] [place] . [facility] also requesting sleep study notes documented in this encounter Plan of Treatment Upcoming Encounters Date Type Department Care Team (Late st Contact Info) Description 08/20/2024 2:00 PM EST Office Visit [facility] OPT[facility] [address] [place] [address] Gloria Juarez, OD [address] [place] [address] 09/04/2024 10:00 AM EST Office Visit [facility] [address] [place] [address] Rachel Eden MD [address] [place] [address] 09/29/2024 11:00 AM EDT Office Visit [facility] [address] [place] [phone] documented as of this encounter Visit Diagnoses Not on filedocumented in this encounter Additional Health Concerns Assessment Noted Time PHQ-9 Depression Total Score: 6 04/11/20 23 9:59 AM EDT documented as of this encounter Care Teams Kicking Machine Operator Relationship Specialty Start Date End Date Rachel Eden MD [address] [place] [phone] PCP - General Family Medicine 02/10/20 Jurgen Graham Retail Shift ManagerMechanical Manufacturing Technician 04/16/24 documented as of this encounter
--- OUTSIDE RECORDS SUMMARY | 2024-08-14 16:45 | XMS_ITS | Encounter Summary ---
Author Organization [employer] Address [address] [facility] [address] [place] [address] Care Team Providers Care Career Development Coordinator/Teacher Name Role Phone Rachel Eden MD Primary Care Provider + Bela Pugh Unavailable Unavailable Rebeka Schultz RN Unavailable [phone] Reason for Visit * Reason Onset Date Comments Med Refill 01/22/2024 Encounter Details Date Type Department Care Team (Late st Contact Info) Description 01/22/2024 Telephone [facility] [address] [place] [address] Rachel Eden MD [address] [place] [address] Med Refill Social History Tobacco Use Types Packs/Day Years [...] encounter Miscellaneous Notes * Telephone Encounter - Yazmin Naranjo - 01/22/2024 10:16 AM EDT TC from pt requesting medication refill. Medications needing refill : oxyCODONE-acetaminophen (Percocet) 5-325 MG tablet To be sent to: [facility] - [place], [place] - [address] [place] [address] documented in this encounter Plan of Treatment Upcoming Encounters Date Type Department Care Team (Late st Contact Info) Description 08/20/2024 2:00 PM EST Office Visit [facility] OPT[facility] [address] [place] [address] Gloria Juarez OD [address] [place] [address] 09/04/2024 10:00 AM EST Office Visit [facility] [address] [place] [address] Rachel Eden MD [address] [place] [address] 09/29/2024 11:00 AM EDT Office Visit [facility] [address] [facility] [place] [address] documented as of this encounter Visit Diagnoses Not on filedocumented in this encounter Additional Health Concerns Assessment Noted Time PHQ-9 Depression Total Score: 6 04/11/20 23 9:59 AM EDT documented as of this encounter Care Teams Career Development Coordinator/Teacher Relationship Specialty Start Date End Date Rachel Eden MD [address] [facility] [place] [address] PCP - General Family Medicine 02/10/20 Bela Pugh Community Health Worker 12/12/23 02/17/24 Rebeka Schultz, SHASHA [address] [place] [address] Gas Producer 12/24/23 02/17/24 Jurgen Graham Design CoordinatorSpecification Consultant 04/16/24 documented as of this encounter
--- OUTSIDE RECORDS SUMMARY | 2024-08-14 16:45 | XMS_ITS | Encounter Summary ---
Author Organization [facility] Address [address] [place] [address] 7t [place] [address] Care Team Providers Care Mechanic General Operational Test Name Role Phone Rachel Eden MD Primary Care Provider + Bela Pugh Unavailable Unavailable Rebeka Schultz RN Unavailable [phone] Reason for Visit * Reason Comments Med Refill Encounter Details Date Type Department Care Team ([facility] Contact Info) Description 11/27/2022 Refill [facility] MEDICINE [address] [place] [address] Rachel Eden MD [address] [place] [address] Pain in left foot Social History Tobacco Use Types Packs/Day Years Used Date Smoking Tobacco: Never Smokeless Tobacco: Never Alcohol Use Standard Drinks/Week Comments Never 0 (1 standard drink = 0.6 oz pur e alcohol) Comments Unknown Sex and Gender Information Value Date Recorded Sex Assigned at Female 05/21/2022 10:29 AM EDT Legal Sex Female 10:29 AM EDT Gender Identity Female 05/21/2022 10:29 AM EDT Sexual Orientation Straight 05/21/2022 10 :29 AM EDT COVID-19 Exposure Response Date Recorded In the last 10 days, have yo u been in contact with someone who was confirmed or suspected to have Coronavirus/COVID-19? No / Unsure 11/23/2022 11:07 AM EDT documented as of this encounter Plan of Treatment Upcoming Encounters Date Type Department Care Team ([facility] Contact Info) Description 08/20/2024 2:00 PM EST Office Visit [facility] OPTOMETRY [address] [place] [address] Larry, Gloria OD [address] [place] [address] 09/04/2024 10:00 AM EST Office Visit [facility] MEDICINE [address] [place] [address] Rachel Eden MD [address] [place] [address] 09/29/2024 11:00 AM EDT Office Visit [facility] MEDICINE [address] [place] [address] documented as of this encounter Visit Diagnoses Diagnosis Pain in left foot Pain in soft tissues of limb documented in this encounter Care Teams Mechanic General Operational Test Relationship Specialty Start Date End Date Rachel Eden MD [address] [place] [address] PCP - General Family Medicine 02/10/20 Bela Pugh Community Health Worker 12/12/23 02/17/24 Rebeka Schultz, SHASHA [address] [place] [phone] Commercial Account Executive 12/24/23 02/17/24 Jurgen Graham Branch Lending OfficerDirector Ship 04/16/24 documented as of this encounter
--- OUTSIDE RECORDS SUMMARY | 2024-08-14 16:45 | XMS_ITS | Encounter Summary ---
Author Organization [employer] Address [address] [facility] 7t [place] [address] Care Team Providers Care Brakeshoe Repairer Name Role Phone Rachel Eden MD Primary Care Provider + Reason for Visit * Reason Comments Med Refill Encounter Details Date Type Department Care Team ([facility] st Contact Info) Description 07/29/2024 Refill [facility]INE [address] [place] [address] Rachel Eden MD [address] [place] [address] Social History Tobacco Use Types Packs/Day Years [...] Description 08/20/2024 2:00 PM EST Office Visit [facility] OPTOMETRY [address] [place] [address] Larry, Gloria, OD [address] [place] [address] 09/04/2024 10:00 AM EST Office Visit [facility] MEDICINE [address] [place] [address] Rachel Eden MD [address] [place] [address] 09/29/2024 11:00 AM EDT Office Visit [facility] [address] [place] [address] documented as of this encounter Visit Diagnoses Not on filedocumented in this encounter Additional Health Concerns Assessment Noted Time PHQ-9 Depression Total Score: 6 04/11/20 23 9:59 AM EDT documented as of this encounter Care Teams Brakeshoe Repairer Relationship Specialty Start Date End Date Rachel Eden MD [address] [place] [phone] PCP - General Family Medicine 02/10/20 Jurgen Graham Electrical Hardware EngineerOil Field Pumper 04/16/24 documented as of this encounter
--- OUTSIDE RECORDS SUMMARY | 2024-08-14 16:45 | XMS_ITS | Encounter Summary ---
Demographics Address [address] [facility] [place] [address] [place] [address] Home Phone Work Phone Mobile Phone Email Address Preferred Language es Marital Status Unknown Restorationist Affiliation Unknown Race White Ethnic Group or Author Organization [employer] Address [address] [facility] 7t [place] [address] Care Team Providers Care Lithograph Press Operator Name Role Phone Rachel Eden MD Primary Care Provider + Bela Pugh Unavailable Unavailable Rebeka Schultz RN Unavailable [phone] Reason for Visit * Reason Comments Med Refill Encounter Details Date Type Department Care Team (Late st Contact Info) Description 06/11/2023 Refill [facility]ED[facility] [address] [place] [address] Rachel Eden MD [address] [place] [address] Pain in left foot Social History Tobacco Use Types Packs/Day Years Used Date Smoking Tobacco: Former Cigarettes Q uit: 01/03/2022 Smokeless Tobacco: Never Alcohol Use Standard Drinks/Week [...] is your housing situation today? I have shamir melton 05/08/[address] you li ve. Do you have problems with any of the following? None of the above 05/08/2023 Food Insecurity Answer Date Recorded Within the past 12 months, y ou worried that your food would run out before you got money to buy more: Never True 05/08/2023 Within the past 12 months,th e food you bought just didn't last and you didn't have enough money to get more: Never True Transportation Answer Date Recorded In the past 12 months, has l ack of transportation kept you from medical appts, meetings, work or from getting things needed for daily living? Yes, it has kept me from medical appointments or getting medications. 05/02/2023 Utilities Answer Date Recorded In the past 12 months, has t he electric, gas, oil or water company threatened to shut off services in your home? No 05/08/2023 Depression Answer Date Recorded Patient Health Questionnaire-2 [...] Description 08/20/2024 2:00 PM EST Office Visit [facility] OPTOMETRY [address] [place] [address] Gloria Juarez, OD [address] [place] [address] 09/04/2024 10:00 AM EST Office Visit [facility] MEDICINE [address] [place] [phone] Rachel Eden MD [address] [place] [address] 09/29/2024 11:00 AM EDT Office Visit [facility] MED[facility]INE [address] [place] [address] documented as of this encounter Visit Diagnoses Diagnosis Pain in left foot Pain in soft tissues of limb documented in this encounter Additional Health Concerns Assessment Noted Time PHQ-9 Depression Total Score: 6 04/11/20 23 9:59 AM EDT documented as of this encounter Care Teams Lithograph Press Operator Relationship Specialty Start Date End Date Rachel Eden MD [address] [place] [address] PCP - General Family Medicine 02/10/20 Bela Pugh Community Health Worker 12/12/23 02/17/24 Rebeka Schultz RN [address] [place] [phone] Statue Maker 12/24/23 02/17/24 Jurgen Graham Slicing Machine OperatorForeign Exchange Student Coordinator 04/16/24 documented as of this encounter
--- OUTSIDE RECORDS SUMMARY | 2024-08-14 16:45 | XMS_ITS | Encounter Summary ---
Author Organization [employer] Address [address] [place] [address] [address] [place] [address] Care Team Providers Care Nurseryman Assistant Name Role Phone Rachel Eden MD Primary Care Provider + Bela Pugh Unavailable Unavailable Rebeka Schultz RN Unavailable [phone] Encounter Details Date Type Department Care Team (Late Contact Info) Description 08/01/2022 Orders Only [facility] [address] [place] [address] Poppy Pendleton LPN Social History Tobacco Use Types Packs/Day Years Used Date Smoking Tobacco: Never Assessed Comments Unknown Sex and Gender Information Value Date Recorded Sex Assigned at Female 05/21/2022 10:29 AM EDT Legal Sex Female 10:29 AM EDT Gender Identity Female 05/21/2022 10:29 AM EDT Sexual Orientation Straight 05/21/2022 10 :29 AM EDT documented as of this encounter Miscellaneous Notes * Result Encounter Note - Raquel Whelan CNM - 08/01/2022 1:21 PM EST Please let Melania know her pap was normal. HPV neg. Repeat 3y. Thanks! documented in this encounter Plan of Treatment Upcoming Encounters Date Type Department Care Team (Late Contact Info) Description 08/20/2024 2:00 PM EST Office Visit [facility] OPT[facility]ET[facility] [address] [place], [place] [phone] Gloria Juarez OD [address] [place] [address] 09/04/2024 10:00 AM EST Office Visit [facility] MED[facility] [address] [place] [phone] Rachel Eden MD [address] [place], [place] [phone] 09/29/2024 11:00 AM EDT Office Visit [facility] [address] [place] [phone] documented as of this encounter Procedures Procedure Name Priority Date/Time Associated Diagnosis Comments SYPHILIS SCREEN Routine 05/24/2023 10:30 AM EDT HPV MRNA E6/E7 REFLEX TO HPV 16, 18/45 Routine 05/16/2023 10:48 AM EDT PAP SMEAR Routine 05/16/2023 10:48 AM EDT COVID-19 ID NOW (RUIZ) Routine 04/16/2023 7:10 PM EDT URINALYSIS WITH REFLEX MICROSCOPIC Routine 08/21/2022 7:21 AM EST HCG, QL, URINE Routine 08/21/2022 7:20 AM EST CBC WITH AUTO DIFFERENTIAL Routine 08/21/2022 7:15 AM EST LIPASE Routine 08/21/2022 7:15 AM EST HEPATIC FUNCTION PANEL Routine 08/21/2022 7:15 AM EST BASIC METABOLIC PANEL Routine 08/21/2022 7:15 AM EST documented in this encounter Results * Syphilis Screen (05/24/2023 10:30 AM EDT) Syphilis Screen Nonreactive Nonreactive [facility] 05/24/2023 10:3 0 AM EDT 05/24/2023 1:03 PM EDT us Rachel Eden MD LAB BLOOD ORDERABLES Fin al Result [facility] [address] [place] [phone] * Pap Smear (05/16/2023 10:48 AM EDT) 05/16/2023 10:4 8 AM EDT 05/17/2023 6:30 AM EDT Narrative [facility] - 05/22/2023 12:50 PM EDT ----- ------- Name: Melania Ryan ?Age/Sex: 42/F ? : 1980 Unit#: [id number] ?? Attend Dr: RAQUEL WHELAN CNM ?Re05/16/23 ?Status: DEP REF ? Location: HO.HHCLNP ? Disch: ? ----- ------- SPEC : [id number] ?RECD: 05/17/23 ? STATUS: ??SOUT ? REQ NUM: [id number] ? CHRISTOPHER: 05/16/23 ? SUBM DR: RAQUEL WHELAN CNBetzy ? ENTERED: ??05/17/23 ?SP TYPE: Pap Smr ?OTHR DR: ? ORDERED: ??Pap Smear ? Interpretation ?? Satisfactory for evaluation. ?? Negative for intraepithelial lesion or malignancy. ?HPV mRNA E6/E7: ?NOT DETECTED ? This assay detects E6/E7 viral messenger RNA (mRNA) from 14 high-risk HPV types (16, 18, ?? 31, 33, 35, 39, 45, 51, 52, 56, 58, 59, 66, 68) ?? HPV testing performed by [facility], [place], [place]. ??See reference laboratory ?? pion of the EMR for entire report. ?Clinical Information LMP: Unknown date Previous PAP test: Unknown date, WNL Other history: Previous pap preceded by ASCUS/HPV positive ? Material Received ?? ThinPrep-Cervical ----- ------- Signed (signature on file) JOVITA Huff (ASC) 05/22/23 1250 ? ----- ------- ? END OF REPORT ? Raquel Whelan [facility] CYTOLOGY ORDERABLES F inal Result [facility] [address] [place] [phone] * HPV mRNA E6/E7 w/Reflex to HPV Genotypes 16, 18/45 (05/16/2023 10:48 AM EDT) HPV nRNA E6/E7 Not Detected Not Detected [facility] Comment:Methodology: Transcr iption-Mediated AmplificationThis assay detects E6/E7 viral messenger RNA (mRNA) from 14high-risk HPV types (16,18,31,33,35,39,45,51,52,56,58,59,66,68).Cervical sources are required for HPV testing.If a vaginal source from a patient who has had atotal hysterectomy with removal of cervix wassubmitted, please contact the testing laboratoryfor alternative testing options.For additional information, please refer tohttp://education.Glomera/faq/KKK430l9(This link if provided for information/educational purposes only.)THIS TEST WAS PERFORMED AT:[employer] [place] [phone] ARROYO MD HPV mRNA E6/E7 TNP [facility] HPV 16 RNA TNP [facility] HPV 18/45 RNA TNP [facility] 05/16/2023 10:4 8 AM EDT 05/17/2023 6:30 AM EDT Raquel Whelan [facility] CYTOLOGY ORDERABLES F inal Result [facility] [address] [place] [address] [phone] * (ABNORMAL) COVID-19 ID NOW ([employer]) (04/16/2023 7:10 PM EDT) IDNOW SERIAL# [id number] [facility] COVID-19 TEST Positive (A) Negative [facility] COVID-19 NOTE See Note [facility] Comment: Results are for the identification of SARS-CoV2 RNA. TheSARS-CoV2 RNA is generally detectable in respiratory samplesduring the acute phase of infection. Positive results areindicative of the presence of SARS-CoV-2 RNA; clinicalcorrelation with patient history and other diagnosticinformation is necessary to determine patient infectionstatus. Positive results do not rule out bacterial infectionor co- infection with other viruses.Testing facilities within the [facility] and [facility] are required to report all positive results tothe appropriate public health authorities.Negative results should be treated as presumptive and, ifinconsistent with clinical signs and symptoms or necessaryfor patient management, should be tested with differentauthorized or cleared molecular tests. Negative results donot preclude SARS-CoV2 RNA infection and should not be usedas the sole basis for patient management decisions. Negativeresults should be considered in the context of a patient'srecent exposures, history and the presence of clinical signsand symptoms consistent with COVID-19.This test has been authorized by the FDA under an EmergencyUse Authorization (EUA) for use by authorized laboratories.Testing performed on the [employer] ID NOW utilizing [employer]. 04/16/2023 7:10 PM EDT 04/16/2023 7:34 PM EDT [facility] Exter nal Provider LAB MOLECULAR DIAGNOSTICS ORDERABLES Final Result Performing Organization Address [facility] Co de Phone Number [facility] [address] [place] [address] [phone] * Urinalysis with reflex microscopic (08/21/2022 7:21 AM EST) Color Urine Yellow [facility] Appearance Urine Clear [facility] PH 5.5 5.0 - 9.0 [facility] Glucose Urine UA Negative Negative mg/dL [facility] Urine Blood Negative Negative [facility] Specific [place] - Urine 1.015 1.005 - 1.025 [facility] Urine Protein Negative Neg-Trace mg/dL [facility] Urine Ketones Negative Negative mg/dL [facility] Nitrite Urine Negative Negative [facility] Leukocyte Esterase Urine Negative Negative [facility] 08/21/2022 7:21 AM EST 08/21/2022 7:24 AM EST Narrative [facility] - 08/21/2022 7:31 AM EST [id number], Clean Catch [facility] External Provider LAB URI NE ORDERABLES Final Result Performing Organization Address [facility] Co de Phone Number [facility] [address] [place] [phone] * HCG, Qualitative, Urine (08/21/2022 7:20 AM EST) Urine NEGATIVE NEGATIVE [facility] Comment:This test was develo ped to detect early . Falsenegative results may occur after the 5th - 7th week ofpregnancy when using this test method. If clinicallyindicated, consider a serum hCG. 08/21/2022 7:20 AM EST 08/21/2022 7:24 AM EST [facility] External Provider LAB URI NE ORDERABLES Final Result Performing Organization Address [facility] Co de Phone Number [facility] [address] [place] [phone] * Lipase (08/21/2022 7:15 AM EST) Lipase 29 8 - 78 U/L [facility] 08/21/2022 7:15 AM EST 08/21/2022 7:24 AM EST [facility] External Provider LAB BLO OD ORDERABLES Final Result Performing Organization Address [facility] Co de Phone Number [facility] [address] [place] [phone] * (ABNORMAL) Hepatic Function Panel (08/21/2022 7:15 AM EST) Bilirubin, Total 0.3 0.0 - 1.0 mg/dL [facility] Bilirubin, Direct <0.2 0.0 - 0.5 mg/dL [facility] Aspartate Amino Transferase 36(H) 5 - 31 U/L [facility] Alanine Aminotransferase 61(H) 0 - 31 U/L [facility] Total Protein 6.0(L) 6.5 - 8.0 g/dL [facility] Albumin Level 3.7 3.5 - 5.0 g/dL [facility] Alkaline Phosphatase 70 39 - 117 U/L [facility] 08/21/2022 7:15 AM EST 08/21/2022 7:24 AM EST [facility] External Provider LAB BLO OD ORDERABLES Final Result Performing Organization Address [facility] Co de Phone Number [facility] [address] [place] [phone] * Basic Metabolic Panel (08/21/2022 7:15 AM EST) Sodium 141 135 - 145 mmol/L [facility] Potassium 4.0 3.3 - 5.1 mmol/L [facility] Chloride 105 96 - 108 mmol/L [facility] Carbon Dioxide 28 22 - 29 mmol/L [facility] Anion Gap 12 12 - 20 [facility] Urea Nitrogen (BUN) 9 9 - 16 mg/dL [facility] Creatinine, Serum 0.64 0.5 - 1.4 mg/dL [facility] Creatinine Clr Calc Pharmacy 115.5 [facility] Comment:Provided height and weight: 162.56 cm,79.379 kg.eGFR (calculated from the MDRD study equation) and eCrCl(calculated from the Cockcroft-Gault equation) are based ondifferent parameters and may not yield comparable results.If eCrCl result is absurd, please check patient'sheight/weight. Estimated Glomerular Filt Rate >60 [facility] Comment:NOTE: For -Am erican individuals, multiply the result by 1.210.Chronic Kidney Disease: Estimated GFR < 60 mL/min/[id number] Kidney Disease: Estimated GFR < 15 mL/min/1.73m2 Glucose 95 60 - 115 mg/dL [facility] Calcium 8.9 8.4 - 10.2 mg/dL [facility] 08/21/2022 7:15 AM EST 08/21/2022 7:24 AM EST us [facility] External Provider LAB BLO OD ORDERABLES Final Result [facility] [address] [place], [place] [phone] * (ABNORMAL) CBC auto differential (08/21/2022 7:15 AM EST) White Blood Count 5.5 4.8 - 10.8 X10*3/uL [facility] Red Blood Count 4.13(L) 4.20 - 5.50 X10*6/uL [facility] Hemoglobin 12.6 12.0 - 16.0 g/dl [facility] Hematocrit 36.7(L) 37.0 - 47.0 % [facility] Mean Corpuscular Volume 88.9 80.0 - 98.0 fL [facility] Mean Corpuscular Hemoglobin 30.5 27.0 - 33.0 pg [facility] Mean Corpuscular HGB Conc 34.3 31.0 - 35.0 g/dl [facility] Red Cell Distribution Width 12.1 11.0 - 16.0 % [facility] Platelet Count 191 160 - 400 X10*3/uL [facility] Mean Platelet Volume 7.9(L) 9.4 - 12.3 fL [facility] Neutrophils Percent Auto 52.3 45 - 73 % [facility] Imm Gran Pct Auto 0.5(H) 0.0 - 0.4 % [facility] Lymphocytes Percent Auto 37.1 20 - 40 % [facility] Monocytes Percent Auto 8.5 2 - 11 % [facility] Eosinophils Percent Auto 1.1 0 - 4 % [facility] Basophils Percent Auto 0.5 0 - 2 % [facility] NRBC Pct Auto 0.0 0.0 - 0.2 /100WBC [facility] Neutrophils Absolute Auto 2.9 2.0 - 8.3 x10*3/uL [facility] Imm Gran Abs Auto 0.03 0.00 - 0.03 X10*3/uL [facility] Lymphocytes Absolute Auto 2.1 1.2 - 4.9 X10*3/uL [facility] Monocytes Absolute Auto 0.5 0.1 - 1.2 X10*3/uL [facility] Eosinophils Absolute Auto 0.1 0.0 - 0.4 X10*3/uL [facility] Basophils Absolute Auto 0.0 0.0 - 0.2 X10*3/uL [facility] NRBC Abs Auto 0.000 0.0 - 0.012 X10*3/uL [facility] 08/21/2022 7:15 AM EST 08/21/2022 7:24 AM EST [facility] External Provider LAB BLO OD ORDERABLES Final Result [facility] [address] [place] [phone] documented in this encounter Visit Diagnoses Not on filedocumented in this encounter Care Teams Nurseryman Assistant Relationship Specialty Start Date End Date Rachel Eden MD [address] [place] [address] PCP - General Family Medicine 02/10/20 Bela Pugh Community Health Worker 12/12/23 02/17/24 Rebeka Schultz RN [address] [place] [address] Department Coordinator 12/24/23 02/17/24 Jurgen Graham Cue WorkerSolar Energy Systems Designer 04/16/24 documented as of this encounter
--- OUTSIDE RECORDS SUMMARY | 2024-08-14 16:45 | XMS_ITS | Encounter Summary ---
Author Organization [employer] Address [address] [facility] 7t [place] [address] Care Team Providers Care Asset Protection Specialist Name Role Phone Rachel Eden MD Primary Care Provider + Reason for Visit * Reason Comments Med Refill Encounter Details Date Type Department Care Team ([facility] st Contact Info) Description 03/07/[address] [facility] MEDICINE [address] [place] [address] Rachel Eden MD [address] [place] [address] Social History Tobacco Use Types Packs/Day Years [...] Description 08/20/2024 2:00 PM EST Office Visit [facility] OPTOMETRY [address] [place] [address] Larry, Gloria, OD [address] [place] [address] 09/04/2024 10:00 AM EST Office Visit [facility] MEDICINE [address] [place] [address] Rachel Eden MD [address] [place] [address] 09/29/2024 11:00 AM EDT Office Visit [facility] MEDICINE [address] [place] [address] documented as of this encounter Visit Diagnoses Not on filedocumented in this encounter Additional Health Concerns Assessment Noted Time PHQ-9 Depression Total Score: 6 04/11/20 23 9:59 AM EDT documented as of this encounter Care Teams Asset Protection Specialist Relationship Specialty Start Date End Date Rachel Eden MD [address] [place] [id number] PCP - General Family Medicine 02/10/20 Jurgen Graham Social Sciences ProfessorPickle Solution Maker 04/16/24 documented as of this encounter
--- OUTSIDE RECORDS SUMMARY | 2024-08-14 16:45 | XMS_ITS | Encounter Summary ---
Demographics Address [address] [place] [address] [address] [place] [address] Home Phone Work Phone Mobile Phone Email Address Preferred Language es Marital Status Unknown Yazdanism Affiliation Unknown Race White Ethnic Group or Author Organization [employer] Address [address] [place] [address] 7t [place] [address] Care Team Providers Care Certified Executive Chef Name Role Phone Rachel Eden MD Primary Care Provider + Reason for Visit * Reason Onset Date Comments Med Refill 08/07/2024 Encounter Details Date Type Department Care Team (Late st Contact Info) Description 08/07/2024 Refill [facility] MEDICINE [address] [place] [address] Rachel Eden MD [address] [place] [address] Chronic bilateral low back pain without sciatica Social History Tobacco Use Types Packs/Day Years [...] the past 12 months, has t he [employer], gas, oil or water [employer] threatened to shut off services in your [...] * Telephone Encounter - Yazmin Naranjo - 08/07/2024 9:47 AM EST TC from pt requesting medication refill. Medications needing refill : gabapentin (Neurontin) 400 MG capsule To be sent to: [facility] - [place], [place] - [address] [place] [address] documented in this encounter Plan of Treatment Upcoming Encounters Date Type Department Care Team ([facility] st Contact Info) Description 08/20/2024 2:00 PM EST Office Visit [facility] OPTOMETRY [address] [place] [address] Gloria Juarez, OD [address] [place] [address] 09/04/2024 10:00 AM EST Office Visit [facility] MEDICINE [address] [place] [address] Rachel Eden MD [address] [place] [address] 09/29/2024 11:00 AM EDT Office Visit [facility] MEDICINE [address] [place] [address] documented as of this encounter Visit Diagnoses Diagnosis Chronic bilateral low back pain without sciatica documented in this encounter Additional Health Concerns Assessment Noted Time PHQ-9 Depression Total Score: 6 04/11/20 23 9:59 AM EDT documented as of this encounter Care Teams Certified Executive Chef Relationship Specialty Start Date End Date Rachel Eden MD [address] [place] [address] PCP - General Family Medicine 02/10/20 Jurgen Graham Fireman HelperSet Key Driver 04/16/24 documented as of this encounter
--- OUTSIDE RECORDS SUMMARY | 2024-08-14 16:45 | XMS_ITS | Encounter Summary ---
Author Organization [employer] Address [address] [facility] 7t [place] [address] Care Team Providers Care General Operator Name Role Phone Rachel Eden MD Primary Care Provider + Reason for Visit * Reason Onset Date Comments Med Refill 08/06/2024 Encounter Details Date Type Department Care Team (Late st Contact Info) Description 08/06/2024 Refill [facility] MED & PEDS [address] [place] [address] Rachel Eden MD [address] [place] [address] Pain in left foot Social History Tobacco [...] the past 12 months, has t he [employer], gas, oil or water [employer] threatened to shut off services in your [...] as of this encounter Miscellaneous Notes * Addendum Note - Diane Snyder RN - 08/06/2024 11:49 AM ESTAddended by: DIANE SNYDER on: 08/06/2024 11:49 AM Modules accepted: Orders * Telephone Encounter - Poppy Pendleton LPN - 08/06/2024 10:25 AM EST Received request on oxyCODONE-acetaminophen (Percocet) 5-325 MG tablet documented in this encounter Plan of Treatment Upcoming Encounters Date Type Department Care Team (Late st Contact Info) Description 08/20/2024 2:00 PM EST Office Visit [facility] OPTOMETRY [address] [place], [place] [phone] Gloria Juarez, OD [address] [place] [address] 09/04/2024 10:00 AM EST Office Visit [facility] MEDICINE [address] [place], [place] [phone] Rachel Eden MD [address] [place] [address] 09/29/2024 11:00 AM EDT Office Visit [facility] MEDICINE [address] [place] [address] documented as of this encounter Visit Diagnoses Diagnosis Pain in left foot Pain in soft tissues of limb documented in this encounter Additional Health Concerns Assessment Noted Time PHQ-9 Depression Total Score: 6 04/11/20 23 9:59 AM EDT documented as of this encounter Care Teams General Operator Relationship Specialty Start Date End Date Rachel Eden MD [address] [place] [address] PCP - General Family Medicine 02/10/20 Jurgen Graham Stations SuperintendentFinancial Systems Manager 04/16/24 documented as of this encounter
--- OUTSIDE RECORDS SUMMARY | 2024-08-14 16:45 | XMS_ITS | Encounter Summary ---
Author Organization [facility] Address [address] [place] [address] [address] [place] [address] Care Team Providers Care Reclaimer Name Role Phone Rachel Eden MD Primary Care Provider + Bela Pugh Unavailable Unavailable Rebeka Schultz RN Unavailable [phone] Reason for Visit * Reason Comments Pre-visit Planning SDOH tobacco screeni ng complete Encounter Details Date Type Department Care Team (Late Contact Info) Description 03/08/2023 Abstract [facility] MEDICINE [address] [place] [address] Rachel Eden MD [address] [place] [address] Social History Tobacco Use Types Packs/Day Years [...] Description 08/20/2024 2:00 PM EST Office Visit [facility] OPTOMETRY [address] [place] [address] Gloria Juarez, OD [address] [place] [address] 09/04/2024 10:00 AM EST Office Visit [address] [phone] Rachel Eden MD [address] [place] [address] 09/29/2024 11:00 AM EDT Office Visit [address] [address] documented as of this encounter Visit Diagnoses Not on filedocumented in this encounter Care Teams Reclaimer Relationship Specialty Start Date End Date Rachel Eden MD [address] [place] [address] PCP - General Family Medicine 02/10/20 Bela Pugh Community Health Worker 12/12/23 02/17/24 Rebeka Schultz, SHASHA [address] [place] [address] Streaming Media Specialist 12/24/23 02/17/24 Jurgen Graham Diazo TechnicianLaser Printing Operator 04/16/24 documented as of this encounter
--- OUTSIDE RECORDS SUMMARY | 2024-08-14 16:45 | XMS_ITS | Encounter Summary ---
Author Organization [employer] Address [address] [facility] 7 [place] [address] Care Team Providers Care Oracle Technical Architect Name Role Phone Rachel Eden MD Primary Care Provider + Reason for Visit * Reason Onset Date Comments September recall 07/24/2024 Encounter Details Date Type Department Care Team ([facility] st Contact Info) Description 07/24/2024 Telephone [facility] MEDICINE [address] [place] [address] Rachel Eden MD [address] [place] [address] September recall Social History Tobacco Use Types Packs/Day Years [...] Encounter - Melissa Ortiz MA - 07/24/2024 9:31 AM EST Tc to pt to schedule PE recall appt. Appt has been scheduled for 09/04/24 at 10:00 am. Pt stated [facility] has not delivered CPAP machine, and pt received letter stating [facility] cancelled CPAP has we didn't send document over. I called [facility] to f/u on CPAP rx, Lvm with call back number. Per FISH accounts manager, OK to process new script through [employer]. documented in this encounter Plan of Treatment Upcoming Encounters Date Type Department Care Team (Late st Contact Info) Description 08/20/2024 2:00 PM EST Office Visit [facility] OPTOMETRY [address] [place] [address] Gloria Juarez, OD [address] [place] [address] 09/04/2024 10:00 AM EST Office Visit [facility] MEDICINE [address] [place] [address] Rachel Eden MD [address] [place] [address] 09/29/2024 11:00 AM EDT Office Visit [facility] MEDICINE [address] [place] [address] documented as of this encounter Visit Diagnoses Not on filedocumented in this encounter Additional Health Concerns Assessment Noted Time PHQ-9 Depression Total Score: 6 04/11/20 23 9:59 AM EDT documented as of this encounter Care Teams Oracle Technical Architect Relationship Specialty Start Date End Date Rachel Eden MD [address] [place] [address] PCP - General Family Medicine 02/10/20 Jurgen Graham Woods WardenWrapper Opener 04/16/24 documented as of this encounter
--- OUTSIDE RECORDS SUMMARY | 2024-08-14 16:45 | XMS_ITS | Encounter Summary ---
Author Organization [employer] Address [address] [facility] 7t [place] [address] Care Team Providers Care Dough Raiser Name Role Phone Rachel Eden MD Primary Care Provider + Encounter Details Date Type Department Care Team (Latest Contact Info) Description 08/04/2024 Travel Social History Tobacco Use Types Packs/Day Years [...] Description 08/20/2024 2:00 PM EST Office Visit [facility] OPTOMETRY [address] [place] [address] Larry, Gloria, OD [address] [place] [address] 09/04/2024 10:00 AM EST Office Visit [facility] MEDICINE [address] [place] [address] Rachel Eden MD [address] [place] [address] 09/29/2024 11:00 AM EDT Office Visit [facility] MEDICINE [address] [place] [address] documented as of this encounter Visit Diagnoses Not on filedocumented in this encounter Additional Health Concerns Assessment Noted Time PHQ-9 Depression Total Score: 6 04/11/20 23 9:59 AM EDT documented as of this encounter Care Teams Dough Raiser Relationship Specialty Start Date End Date Rachel Eden MD [address] [place] [address] PCP - General Family Medicine 02/10/20 Jurgen Graham End PolisherPublic Message Service Supervisor 04/16/24 documented as of this encounter
--- OUTSIDE RECORDS SUMMARY | 2024-08-14 16:45 | XMS_ITS | Encounter Summary ---
Author Organization [employer] Address [address] [place] [address] 7t [place] [address] Care Team Providers Care Electric Locomotive Crane Operator Name Role Phone Rachel Eden MD Primary Care Provider + Bela Pugh Unavailable Unavailable Rebeka Schultz RN Unavailable Reason for Visit * Reason Comments Med Refill Encounter Details Date Type Department Care Team ([facility] Contact Info) Description 10/03/2022 Refill [facility] MED & PEDS [address] [place] [address] Maria Teresa Hill MD [address] [place] [address] Pain in left foot Social History Tobacco [...] suspected to have Coronavirus/COVID-19? No / Unsure 10/03/2022 9:23 AM EDT documented as of this encounter Plan of Treatment Upcoming Encounters Date Type Department Care Team ([facility] Contact Info) Description 08/20/2024 2:00 PM EST Office Visit [facility] OPTOMETRY [address] [place] [address] Larry, Gloria, OD [address] [place] [address] 09/04/2024 10:00 AM EST Office Visit [facility] MEDICINE [address] [place] [address] Rachel Eden MD [address] [place] [address] 09/29/2024 11:00 AM EDT Office Visit [facility] MEDICINE [address] [place] [address] documented as of this encounter Visit Diagnoses Diagnosis Pain in left foot Pain in soft tissues of limb documented in this encounter Care Teams Electric Locomotive Crane Operator Relationship Specialty Start Date End Date Rachel Eden MD [address] [place] [address] PCP - General Family Medicine 02/10/20 Bela Pugh Community Health Worker 12/12/23 02/17/24 Rebeka Schultz, SHASHA [address] [place] [phone] Thread Winder Automatic 12/24/23 02/17/24 Jurgen Graham Mechanic ChiefCryptography Teacher 04/16/24 documented as of this encounter
--- OUTSIDE RECORDS SUMMARY | 2024-08-14 16:46 | XMS_ITS | Clinical Summary ---
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 023 Active DULoxetine (Cymbalta) [address] capsule Take 60 mg by mouth in the morning. 023 Active loratadine (Claritin) 10 MG tabletIndicatio ns:Chronic rhinitis TAKE 1 TABLET BY MOUTH EVERY MORNING 90 tablet 024 Active tiZANidine (Zanaflex) 2 MG tabletIndicatio ns:Low back pain radiating to left lower extremity TAKE 1 TABLET BY MOUTH EVERY 6 HOURS NEEDED FOR MUSCLE SPASMS 30 tablet 024 Active Additional Information Patient not taking.Reported on 04/07/2024 Diclofenac Sodium 1 % gelIndications: Low back pain radiating to left lower extremity APPLY 2 GRAMS TOPICALLY TO AFFECTED AREA(S) TWICE DAILY 100 g 1 024 Active Additional Information Patient not taking.Reported on 04/07/2024 GaviLyte-G 236 g solution MIX WITH WATER DIRECTED AND DRINK 240 ML (8 OUNCES) BY MOUTH EVERY 10 MINUTES UNTIL FECAL EFFLUENT IS CLEAR FOR COLONOSCOPY, FOLLOW INSTRUCTION SHEET GIVEN TO YOU AT YOUR DOCTOR'S OFFICE DIRECTED. Active topiramate (Topamax) 50 MG tablet Take 50 mg by mouth at bedtime. DC gabapentin 90 tablet 3 Active Magnesium 400 MG capsule Take 1 tablet by mouth Once per day. 30 capsule 2 Active Ventolin HFA 108 (90 Base) MCG/ACT inhaler INHALE 2 PUFFS BY MOUTH EVERY 4 TO 6 HOURS NEEDED 18 g 3 Active ergocalciferol (Vitamin D2) 1.25 MG (45560 UT) capsule TAKE 1 CAPSULE BY MOUTH EVERY WEEK 12 capsule 1 024 Active ferrous gluconate (Fergon) 324 (38 Fe) MG tablet TAKE 1 TABLET BY MOUTH EVERY DAY AT BEDTIME 90 tablet Active magnesium oxide (Mag-Ox) 400 MG tablet TAKE 1 TABLET BY MOUTH EVERY DAY 30 tablet 2 024 Active fluticasone furoate (Arnuity Ellipta) 100 MCG/ACT inhalerIndicati ons:Mild intermittent asthma without complication INHALE 1 PUFF EVERY DAY RINSE MOUTH AFTER USING. 30 each 5 024 Active lidocaine (Lidoderm) 5 % patch APPLY 1 PATCH TOPICALLY TO SKIN, LEAVE ON FOR 12 HOURS AND OFF FOR 12 HOURS DIRECTED 30 patch 3 Active oxyCODONE-aceta minophen (Percocet) 5-325 MG tabletIndicatio ns:Pain in left foot Take 1 tablet by mouth every 12 (twelve) hours if needed for severe pain for up to 28 days. 56 tablet 025 2024 Active gabapentin (Neurontin) 400 MG capsuleIndicati ons:Chronic bilateral low back pain without sciatica Take 1 capsule (400 mg) by mouth 2 times daily. 180 capsule 3 025 2025 Active gabapentin (Neurontin) 400 MG capsuleIndicati ons:Chronic bilateral low back pain without sciatica Take 1 capsule (400 mg) by mouth 2 times daily. 180 capsule 3 024 2024 Discontinued(R eorder (will not trigger notification to Pharmacy)) lidocaine (Lidoderm) 5 % patch APPLY 1 PATCH TOPICALLY TO SKIN, LEAVE ON FOR 12 HOURS AND OFF FOR 12 HOURS DIRECTED 30 patch 3 024 2024 Discontinued oxyCODONE-aceta minophen (Percocet) 5-325 MG tabletIndicatio ns:Pain in left foot Take 1 tablet by mouth every 12 (twelve) hours if needed for severe pain for up to 28 days. 56 tablet 024 2024 Discontinued(R eorder (will not trigger notification to Pharmacy)) Active Problems Problem Noted Date Diagnosed Date Chronic back pain 04/07/2024 Overview (04/14/2024): -XR lumbar 09/2023 : Again seen are very mild degenerative changes in the lumbar spine with mild endplate changes and some minimal disc space narrowing, most marked at L4-L5. No bony destructive lesions are seen. Some mild degenerative changes are also seen in the lower thoracic spine. Assessment & Plan (08/04/2024 6:23 PM EST): -Good engagement and participation with Group Medical Visit model -Encouraged multifactorial approach to pain control including pharm and non- pharm modalities Assessment & Plan (04/14/2024 8:28 PM EDT): -Good engagement and participation with Group Medical Visit model -Encouraged multifactorial approach to pain control including pharm and non- pharm modalities -UTOX as expected, pill count borderline. See solderer. Assessment & Plan (04/07/2024 8:26 PM EDT): -XR lumbar 09/2023 : Again seen are very mild degenerative changes in the lumbar spine with mild endplate changes and some minimal disc space narrowing, most marked at L4-L5. No bony destructive lesions are seen. Some mild degenerative changes are also seen in the lower thoracic spine. -naproxen BID prn and lidoderm patch -Pain management for chronicity of symptoms-referred today -advised to f w PT -- gave today information to pt to call for apt from previously referred by PCP this year -if no better w above tx will need to consider MRI back -hold now w no obvious neuro compromise on exam -acupunture for AG and lowe back advised Abnormal diaphysis of bone 03/18/2024 Acute asthma exacerbation 03/18/2024 Arthralgia 03/18/2024 Contusion 03/18/2024 GERD (gastroesophageal reflux disease) Fatty liver 03/18/2024 Hepatomegaly 03/18/2024 Left tibial fracture 03/18/2024 Encounter for colorectal cancer screening 2023 Migraine without aura and wi thout status migrainosus, not intractable 02/26/2024 Assessment & Plan (04/14/2024 8:25 PM EDT): -Cont Topirmate 50mg nightly -Cont magnesium 400mg nightly -Consider acupuncture -f/up with PCP as scheduled Assessment & Plan (04/07/2024 8:25 PM EDT): -Start PO mag to see if can help for migraine AG -F w PCP apt already schedule for 04/15/2024 to f up migraine AG -acupunture for AG and lowe back advised -apt w opthalmolgoist 08/20/2024 Assessment & Plan (02/26/2024 4:39 PM EDT): Exacerbated by worsening anxiety, see above. 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 I reminded her the importance of using CPAP every night, once she gets it, in order to decrease morbidity and mortality. Assessment & Plan (01/16/2024 2:36 PM EDT): In addition, her recent sleep study on 01/06/2024 showed ZACKERY,needs CPAP 5-20cm H2O. We discussed importance of using CPA every night, will also improve pain, headaches and cardiovascular morbidity. Vitamin D deficiency 01/09/2024 Assessment & Plan (01/09/2024 11:03 AM EDT): Take Vit D x 6 mo. Advised re outdoor activity daily Decreased vision in both eyes 12/18/2023 Photophobia of both eyes 12/18/2023 Assessment & Plan (12/18/2023 2:41 PM EDT): Advised to use sunglasses Refer to optometry. Abnormal movement of lower extremity 12/18/2023 Assessment & Plan (01/09/2024 11:10 AM EDT): Result sleep study pending Continue Iron for now Assessment & Plan (12/18/2023 2:43 PM EDT): Restless leg syndrome? Start Ferrous sulfate even though recent ferritin is normal. Refer to sleep medicine. High liver transaminase level 04/11/2023 Assessment & Plan (06/10/2023 5:24 PM EST): Most likely fatty liver Order liver ultrasound to rule out liver abnormality Refer to GI for further e-adria Real Estate Agent/Broker regarding weight reduction Real Estate Agent/Broker to avoid illicit drugs or alcohol Offer Hep B vaccine, she wants to wait until her next appt with me Assessment & Plan (04/11/2023 11:07 AM EDT): Repeat LFT's Skin tag 04/11/2023 Assessment & Plan (04/11/2023 11:06 AM EDT): Will resect next visit. Encounter for preventive health examination 03/23 Assessment & Plan (04/11/2023 11:08 AM EDT): Discussed with patient re increase fresh fruit and vegetable intake. Counseled re moderate exercise as tolerated, up to 20min/d Patient feels safe at home. PAP smear Up to date, next one due 2026 Mammogram To be ordered Eye exam Will refer Labs To be ordered Lipids/FBS To be ordered Vaccinations Will have PCV 20 today. Declining PNA or Covid IZ. Screening mammogram for breast cancer 04/11/2023 Assessment & Plan (04/11/2023 10:47 AM EDT): Will order mammogram FU next month Adjustment disorder with anxious mood 02/04/2023 Adjustment disorder with depressed mood 02/05/20 23 Assessment & Plan (04/11/2023 10:49 AM EDT): She says she's doing slightly better and able to deal with conflicted situation with daughter. No recent crisis events., Continue FU with mental health team (Galo MCNAIR) Pt feels safe at home and is able to reach out for help. Plantar callosity 02/04/2023 Non-allergic rhinitis 02/04/2023 Neck pain 02/04/2023 Moderate persistent asthma without complication 02/04/2023 Assessment & Plan (02/26/2024 4:31 PM EDT): Keep sxs dairy and fu next month Continue albuterol prn Consider adding inh steroid IFG (impaired fasting glucose) 02/04/2023 Assessment & Plan (04/11/2023 10:48 AM EDT): Will order A1c and FBS. Counseled re more frequent low calorie/carb meals. Encouraged physical activity as tolerated. FU in next months. Generalized anxiety disorder 02/04/2023 Assessment & Plan (02/26/2024 4:33 PM EDT): Continue close fu with therapist at psych, I told her to address with them issues re current situation with her daughter. Continue Duloxetine + Abilify She's able to reach out for safety, I told her to report threats to the police so that she can get a protection order or discuss it with her grand daughter's DCF worker. Disorder of joint of spine 02/04/2023 Assessment & Plan (06/10/2023 5:29 PM EST): Patient has DJD/DDD Takes oxycodone BID I told her to use other medications or measure to control different types of pain instead of increasing oxycodone. She is due for refills on 06/12, I will send refills after she comes for [facility]SD appt We have done [employer] education re opiate side effects including dizziness, somnolence, constipation, urinary retention, dependence, etc. Patient is aware of the importance of avoiding any activity that requires vigilance while taking these meds including driving. We have discussed re avoiding diversion of medication, including giving pills to relatives. Patient is to keep medications in a safe place and is aware that rx will not be replaced if lost or stolen. Foot pain 02/04/2023 Carpal tunnel syndrome 02/04/2023 Low back pain radiating to left lower extremity 02/04/2023 Assessment & Plan (04/01/2024 12:41 PM EDT): - she has DJD of the lumbar spine which is treated with chronic narcotics - pain is probably exacerbated at the time due to DUB and hip OA - continue percocet as prescribed, pt is aware medication will not be increased at the time - use Ibuprofen 200-400 mg in the morning for menouria and post coital pain and bleeding, she will f/u with ELEMENTARY SCHOOL MUSIC TEACHER - advised to restart Topamax 50 mg at bedtime and f/u with me next month - advised to f/u with rheumatology for hip injection Assessment & Plan (02/26/2024 4:35 PM EDT): DC gabapentin and start Topamax , which will also help with Migraine Continue percocet and chronic pain rx groups + Clinic for steroid injection D/w her the importance of MH rx to decrease pain as well, I recc'd her to come to acupuncture clinic. Fu with me in 4w, continue Percocet same dose Assessment & Plan (01/16/2024 2:41 PM EDT): Advised to continue at home exercises and medication. Will start Gabapentin 400 mG. Toradol injection today, it can be repeated daily. She agreed to have trigger point injections on SI area. She declined referral to pain clinic and will continue acupuncture. Continue same dose of Percocet, due for refill next week. Assessment & Plan (06/27/2023 10:53 AM EST): Patient here with acute on chronic low back pain, exam suggestive of sciatica. Hx of DDD, hs of receiving steroid injection in the past per her report on a COT contract with Dr Eden her PCP Plan: Add topical NSAIDS, Muscle relaxant and PT. Will obtain new plain films of her LS spine , left hip and left knee which is where she is most bothered today Follow up with PCP in 4 weeks, pending on initial work up further interventions might be needed Chronic ankle pain 02/04/2023 Assessment & Plan (12/20/2023 8:48 AM EDT): Patient participated in her first chronic pain group Utox as expected, pill count not obtained Diclofenac gel and lidocaine patches prescribed per pt request for trial as adjuvant pain modalities Continue supportive therapies Followup in 1-2 months for next chronic pain group Assessment & Plan (12/18/2023 2:43 PM EDT): ? Sarcoid vs other inflammatory arthritis as she had good response to PRD. Continue fu with chronic pain clinic. Refer to rheumatology. Tendinitis 02/04/2023 Suspected 2019-nCoV infection 02/04/2023 Pelvic pain 08/31/2022 Assessment & Plan (08/31/2022 1:15 PM EST): Most likely ovulation vs IBS. Recommended to take a symptom diary and take ibuprofen PRN or Bentyl. Increase water consumption, decrease fat and carbohydrate intake, increase post-prandial exercise. Order BV swab and Fu PRN. DUB (dysfunctional uterine bleeding) 08/13/2022 Assessment & Plan (04/01/2024 12:39 PM EDT): - recurrent, advised to f/u closely with Crotch Breaker, has appointment coming up Assessment & Plan (01/09/2024 2:17 PM EDT): Likely perimenopause, ro endometrial pathology. She will see ELEMENTARY SCHOOL MUSIC TEACHER on 01/2024. Order STI testing and treat prn. Assessment & Plan (12/18/2023 2:42 PM EDT): Amenorrhea x 3mo, likely perimenopause vs endometrial hyperplasia (abn think endometrium) She has been referred to ELEMENTARY SCHOOL MUSIC TEACHER Assessment & Plan (06/10/2023 5:21 PM EST): Seems to have normalized menstrual period Discussed to patient about PMS symptoms F/u PRN Assessment & Plan (04/11/2023 11:06 AM EDT): Pt will keep a menstrual calender FU with me next visit Assessment & Plan (08/13/2022 4:27 PM EST): r/o STI/vaginitis. -order vaginal swab and UA. Vaginal discharge 08/13/2022 Assessment & Plan (01/09/2024 2:34 PM EDT): It is most likely DUB. Order STI testing. Assessment & Plan (08/13/2022 4:28 PM EST): Most likely VB. -Flagyl x7 days. -Avoid vaginal douches and FU test results. Resolved Problems Problem Noted Date Diagnosed Date Resolved Date Nicotine dependence 02/04/2023 01/09/20 24 Assessment & Plan (04/11/2023 11:05 AM EDT): Pt quit a year ago, I congratulated her. Chill 02/04/2023 01/09/2024 Chronic lower back pain 08/13/202203/23 Assessment & Plan (02/11/2024 2:08 PM EDT): -Good engagement and participation with Group Medical Visit model -Encouraged multifactorial approach to pain control including pharm and non- pharm modalities -UTOX as expected, pill count OFF (RN sent message to PCP) Assessment & Plan (01/14/2024 2:23 PM EDT): -Good engagement and participation with Group Medical Visit model -Encouraged multifactorial approach to pain control including pharm and non- pharm modalities -UTOX as expected, pill count OFF (RN sent message to PCP) Assessment & Plan (01/09/2024 2:35 PM EDT): Continue chronic pain management clinic, very happy with it. Continue percocet same dose. Assessment & Plan (10/09/2023 3:12 PM EDT): - Pt has know DJD of the spine, likely has L4,5 nerve compromise. - Recommended stretching exercises at home and refer to PT. -Counseled to come to the walk-in accupuncture clinic. -Continue oxycodone same dose + Tizanidine. -Refer to in-house chronic pain management. -Follow up in 3 months. Assessment & Plan (08/31/2022 1:12 PM EST): Seems to be stable. Pt has underlying DJD of the spine. Takes Percocet 2-3 times per day, tolerates well. We have done [employer] education re opiate side effects including dizziness, somnolence, constipation, urinary retention, dependance, etc. Patient is aware of the importance of avoiding any activity that requires vigilance while taking these meds including driving. We have discussed re avoiding diversion of medication, including giving pills to relatives. Patient is to keep medications in a safe place and is aware that rx will not be replaced if lost or stolen. Assessment & Plan (08/13/2022 4:27 PM EST): Counseled pt to take tylenol only for pain, avoid increasing dose of percocet. -Pain is most likely related to acute pelvic issue at this time. Encounters Date Type Department Care Team Description 08/07/2024 Refill [facility] [address] [place] [address] Rachel Eden MD Chronic bilateral low back pain without sciatica 08/06/2024 Refill [facility] [address] [place] [address] Rachel Eden MD Pain in left foot 08/04/2024 11:00 AM EST Office Visit [facility] [address] [place] [address] Fiona Church, LESVIA Chronic low back pain with right-sided sciatica, unspecified back pain laterality (Primary Dx); penitentiary current use of opiate analgesic 08/04/2024 Travel 07/29/2024 Refill [facility] [address] [place] [address] Rachel Eden MD 07/24/2024 Telephone [facility] [address] [place] [phone] Rachel Eden MD Durable Medical Equipment 07/24/2024 Telephone [facility] [address] [place] [phone] Rachel Eden MD September07/07/2024 Refill [facility] [address] [place] [address] Rachel Eden MD Pain in left foot 07/01/2024 Refill [facility] [address] [place] [address] Rachel Eden MD Mild intermittent asthma without complication 07/01/2024 Refill [facility] [address] [place] [address] Saige Beasley MD Mild intermittent asthma without complication 06/30/2024 Telephone [facility] [address] [place] [address] Rachel Eden MD Durable Medical Equipment 06/30/[address] [address] Rachel Eden MD Durable Medical Equipment 06/23/[address] [address] ChapismicaelaMelissa FISH Chart prep 06/23/2024 Refill [facility] [address] [place] [phone] Rachel Eden MD 06/17/2024 Refill [facility] [address] [place] [phone] Rachel Eden MD 06/10/2024 Patient Outreach [address] [address] Rachel Eden MD Pre-visit Planning (SDOH screening completed on 12/12/2023) 06/10/[address] [address] Rachel Eden MD Durable Medical Equipment 06/08/[address] [address] Rachel Eden MD Pain in left foot 05/29/2024 Orders Only GENERIC EXTERNAL DATA DEPARTMENT Provider, Generic External Data 05/28/[address] [address] Rachel Eden MD Durable Medical Equipment (CPAP/RMV placard) 05/20/2024 Telephone [facility] [address] [place] [address] Rachel Eden MD Chronic pain group 05/20/2024 Travel 05/19/2024 Telephone [facility] [address] [place] [address] Rachel Eden MD Durable Medical Equipment 05/15/2024 Orders Only GENERIC EXTERNAL DATA DEPARTMENT Provider, Generic External Data 05/14/[address] [address] Rachel Eden MD 05/14/2024 Telephone [facility] [address] [place] [address] Rachel Eden MD 05/14/2024 Telephone [facility] [address] [place] [address] Rachel Eden MD No Show from Last 3 Months Immunizations Name Administration Dates Next Due Influenza injectable quadrivalent preservative f ree 05/03/2020 Pneumococcal Conjugate PCV 20 04/11/2023 TD (adult), 2 Lf tetanus tox oid, preservative free, adsorbed 09/22/2018 Social History Tobacco Use Types Packs/Day Years Used Date Smoking Tobacco: Former Cigarettes Q uit: 01/03/2022 Passive Smoke Exposure: Past Smokeless Tobacco: Never Tobacco Cessation:Counseling Given: Not Answered Alcohol Use Standard Drinks/Week Comments Never 0 [...] Orientation Straight 05/21/2022 10 :29 AM EDT Last Filed Vital Signs Vital Sign Reading Time Taken Comments Blood Pressure 110/70 04/07/2024 3:24 PM EDT Pulse 100 04/07/2024 3:24 PM EDT Temperature 36.2 ??C (97.1 ??F) 04/07/2024 3:24 PM ED T Respiratory Rate 20 04/07/2024 3:24 PM EDT Oxygen Saturation 98% 04/07/2024 3:24 PM EDT Inhaled Oxygen Concentration - - Weight 95 kg (209 lb 6.4 oz) 04/07/2024 3:24 PM EDT Height 162.6 cm (5' 4 ) 04/07/2024 3:24 PM EDT Body Mass Index 35.94 04/07/2024 3:24 PM EDT Plan of Treatment Upcoming Encounters Date Type Department Care Team (Late st Contact Info) Description 08/20/2024 2:00 PM EST Office Visit [facility] [address] [place] [address] Gloria Juarez, OD [address] [place] [address] 09/04/2024 10:00 AM EST Office Visit [facility] [address] [place] [phone] Rachel Eden MD [address] [place] [address] 09/29/2024 11:00 AM EDT Office Visit [facility] [address] [place] [phone] Health Maintenance Due Date Last Done Comments CT Colonography 1978 Colonoscopy 1978 Colorectal Cancer Screening 1978 FIT DNA/Cologuard 1978 FIT 1978 FOBT 1978 Sigmoidoscopy 1978 Alcohol/Substance Use Screening 1990 Family Planning (PISQ) 1993 Hepatitis A Vaccines (1 of 2 - Risk 2-dose series) 1997 Hepatitis B Vaccines (1 of 3 - 19+ 3-dose series) 1997 DTaP/Tdap/Td Vaccines (1 - Tdap) 09/23/2018 09/22/2018 COVID-19 Vaccine (1 - 2023-2 5 season) 2024 Influenza Vaccine (#1) 2024 05/03/2020 Depression Screening 04/11/2024 04/11/2023, 04/11/2023 SDOH Screening 12/11/2024 12/12/2023 Tobacco Screening 04/07/2025 04/07/2024 Mammogram 05/12/2025 05/12/2024, 05/08/2023, 02/10/2018 Cervical Cancer Screening 05/16/2026 HPV/Cotest 05/16/2026 05/16/2023, 04/09/2022, 01/29/2018 Pap Smear 05/16/2026 05/16/2023, 04/09/2022 Zoster Vaccines (1 of 2) 2028 RSV Patients and Patients Aged 60 years or older (1 - 1-dose 75+ series) 2053 Pneumococcal Vaccine: Pediatrics (0 to 5 Years) and At-Risk Patients (6 to 64 Years) Completed 04/11/2023 HIV Screening Completed 05/24/2023 Hepatitis C Screening Completed 05/24/2023 HIB Vaccines Aged Out No longer eligi ble based on patient's age to complete this topic HPV Vaccines Aged Out No longer eligi ble based on patient's age to complete this topic IPV Vaccines Aged Out No longer eligi ble based on patient's age to complete this topic Meningococcal Vaccine Aged Out No jennifer darek eligible based on patient's age to complete this topic RSV under 20 months Aged Out No longe r eligible based on patient's age to complete this topic Rotavirus Vaccines Aged Out No longer eligible based on patient's age to complete this topic Procedures Procedure Name Priority Date/Time Associated Diagnosis Comments POCT PARAMJIT-14 URINE DRUG SCREEN Routine 08/04/2024 1:37 PM EST Chronic low back pain with right-sided sciatica, unspecified back pain laterality penitentiary current use of opiate analgesic HEMOGLOBIN A1C Routine 05/29/2024 3:44 PM EST LIPID PANEL, STANDARD Routine 05/29/2024 3:44 PM EST COMPREHENSIVE METABOLIC PANEL Routine 05/29/2024 3:44 PM EST PROTHROMBIN TIME-INR Routine 05/29/2024 3:44 PM EST CBC Routine 05/29/2024 3:44 PM EST HEMATOXYLIN AND EOSIN STAIN Routine 05/15/2024 9:44 AM EDT HCG, QL, URINE Routine 05/15/2024 7:33 AM EDT BI MAMMOGRAM SCREENING TOMOSYNTHESIS BILATERAL Routine 05/12/2024 2:10 PM EDT HEPATITIS PANEL, GENERAL Routine 05/24/2023 10:30 AM EDT High liver transaminase level HIV 1/2 ANTIGEN/ANTIBODY, FOURTH GENERATION W/RFL Routine 05/24/2023 10:30 AM EDT High liver transaminase level HPV MRNA E6/E7 REFLEX TO HPV 16, 18/45 Routine 05/16/2023 10:48 AM EDT PAP SMEAR Routine 05/16/2023 10:48 AM EDT from Last 3 Months or Most Recently Relevant to Health Maintenance Results * POCT PARAMJIT-14 Urine Drug Screen (08/04/2024 1:37 PM EST) THC Positive TCA, Urine Positive Oxycodone Screen, Urine Positive Urine Urine specimen obtained by clean catch procedure / Unknown 08/04/2024 1:37 PM EST Fiona Church SHIPYARD HELPER POINT OF CARE TEST ENTER/EDIT ORDERABLES Final Result * (ABNORMAL) Prothrombin Time-INR (05/29/2024 3:44 PM EST) Pathologist [facility] Prothrombin Time 10.3(L) 10.9 - 12.4 SEC [facility] INTERNATIONAL NORM RATIO 0.9 0.9 - 1.1 [facility] Comment:INTERNATIONAL NORMAL IZED RATIO (INR) REFERENCE RANGES Reference RangeFor patients not on anticoagulant therapy: 0.9 - 1.1INR ranges for oral anticoagulanttherapy:For prevention and treatment of venous thrombosis and pulmonary embolism: 2.0 - 3.0For acute myocardial infarction with aspirin therapy: 2.0 - 3.0For acute myocardial infarction without aspirin therapy: 3.0 - 4.0For patients with mechanical prosthetic heart valves: 2.5 - 3.5 05/29/2024 3:44 PM EST 05/29/2024 3:44 PM EST Generic External Data Provider LAB BLOOD ORDERAB LES Final Result Performing Organization Address City/State/[facility] Co de Phone Number [facility] [address] [place] [phone] * (ABNORMAL) CBC (05/29/2024 3:44 PM EST) [facility] White Blood Count 7.2 4.8 - 10.8 X10*3/uL [facility] Red Blood Count 4.21 4.20 - 5.50 X10*6/uL [facility] Hemoglobin 12.1 12.0 - 16.0 g/dl [facility] Hematocrit 35.2(L) 37.0 - 47.0 % [facility] Mean Corpuscular Volume 83.6 80.0 - 98.0 fL [facility] Mean Corpuscular Hemoglobin 28.7 27.0 - 33.0 pg [facility] Mean Corpuscular HGB Conc 34.4 31.0 - 35.0 g/dl [facility] Red Cell Distribution Width 14.0 11.0 - 16.0 % [facility] Platelet Count 201 160 - 400 X10*3/uL [facility] Mean Platelet Volume 8.5(L) 9.4 - 12.3 fL [facility] NRBC Pct Auto 0.0 0.0 - 0.2 /100WBC [facility] NRBC Abs Auto 0.000 0.0 - 0.012 X10*3/uL [facility] 05/29/2024 3:44 PM EST 05/29/2024 3:44 PM EST Generic External Data Provider LAB BLOOD ORDERAB LES Final Result Performing Organization Address [facility] Co de Phone Number [facility] [address] [place] [address] [phone] * Hemoglobin A1c (05/29/2024 3:44 PM EST) Hemoglobin A1c 5.1 <6.0 % [facility] Comment:Hemoglobin A1C Refer ence Range Adults: 4.8 - 6.0 % Non diabetic: < 6.0 % Goal: < 7.0 %Additional Action Suggested: > 8.0 %Note: Hemoglobin A1c results are invalid for patients with abnormal amounts of HbF. Blood transfusions may impact the HbA1c concentration in the patient sample. Estimated Average Glucose 100 mg/dL [facility] Comment:eAG = Estimated ave rage glucose which is %A1C expressed asaverage glucose, using the formula of the V1L-AohikdfLosbrnr Glucose study (ADAG), Diabetes Care, Vol.31,#8,Feb. 2007 05/29/2024 3:44 PM EST 05/29/2024 3:44 PM EST Generic External Data Provider LAB BLOOD ORDERAB LES Final Result Performing Organization Address [facility] Co de Phone Number [facility] [address] [place] [phone] * (ABNORMAL) Lipid Panel, Standard (05/29/2024 3:44 PM EST) Triglycerides 216(H) <150 mg/dL [facility] Comment:Desirable Triglyceri de: less than 150 mg/dLBorderline High Triglyceride 150-199 mg/dLHigh Triglyceride: 200-499 mg/dLVery High Triglyceride: greater than or equal to 5OO mg/dL Cholesterol 188 <200 mg/dL [facility] Comment:Desirable Cholestero l: less than 200 mg/dLBorderline High Cholesterol: 200-239 mg/dLHigh Cholesterol: greater than 239 mg/dL LDL Cholesterol Calculated 90 <100 mg/dL [facility] Comment:Desirable LDL: less than 100 mg/dLNear Optimal/Above Optimal LDL: 110- 129 mg/dLBorderline High LDL: 130-159 mg/dLHigh LDL: 160-189 mg/dLVery High LDL: greater than or equal to 190 mg/dL HDL Cholesterol 55 >40 mg/dL [facility] Comment:Desirable HDL: great er than 40 mg/dL Note: This HDL assay may give artificially low results in patients with liver disease. 05/29/2024 3:44 PM EST 05/29/2024 3:44 PM EST us Generic External Data Provider LAB BLOOD ORDERAB LES Final Result [facility] [address] [place] [address] [phone] * (ABNORMAL) Comprehensive Metabolic Panel (05/29/2024 3:44 PM EST) Sodium 140 135 - 145 mmol/L [facility] Potassium 4.0 3.3 - 5.1 mmol/L [facility] Chloride 107 96 - 108 mmol/L [facility] Carbon Dioxide 24 22 - 29 mmol/L [facility] Anion Gap 13 12 - 20 [facility] Urea Nitrogen (BUN) 12 9 - 16 mg/dL [facility] Creatinine, Serum 0.76 0.5 - 1.4 mg/dL [facility] Estimated Glomerular Filt Rate >60 [facility] Comment:NOTE: For -Am erican individuals, multiply the result by 1.210.Chronic Kidney Disease: Estimated GFR < 60 mL/min/1.26m6Fgholl Kidney Disease: Estimated GFR < 15 mL/min/1.73m2 Glucose 110 60 - 115 mg/dL [facility] Calcium 9.1 8.4 - 10.2 mg/dL [facility] Bilirubin, Total 0.3 0.0 - 1.0 mg/dL [facility] Aspartate Amino Transferase 56(H) 5 - 31 U/L [facility] Alanine Aminotransferase 71(H) 0 - 31 U/L [facility] Total Protein 7.1 6.5 - 8.0 g/dL [facility] Albumin Level 4.1 3.5 - 5.0 g/dL [facility] Alkaline Phosphatase 73 39 - 117 U/L [facility] 05/29/2024 3:44 PM EST 05/29/2024 3:44 PM EST us Generic External Data Provider LAB BLOOD ORDERAB LES Final Result Performing Organization Address City/State/[facility] Co de Phone Number [facility] [address] [place] [address] [phone] * Hematoxylin and Eosin Stain (05/15/2024 9:44 AM EDT) 05/15/2024 9:44 AM EDT 05/15/2024 10:06 AM EDT Narrative [facility] - 05/19/2024 11:16 AM EDT ----- ------- Name: Melania Ryan ?Age/Sex: 43/F ? : 1980 Unit#: [id number] ?? Attend Dr: Medardo Becmkan MD ?Re05/15/24 ?Status: DEP SDC ? Location: HO.SSS ?Disch: ? ----- ------- SPEC : [id number] ? RECD: 05/15/24-1006 ? STATUS: ??SOUT ? REQ NUM: [id number] ? CHRISTOPHER: 05/15/24-0944 ? SUBM DR: Medardo Beckman MD ? ENTERED: ??05/15/24-1016 ?SP TYPE: Surgical ? OTHR DR: Rachel Eden MD ? ORDERED: ??HE Stain/2, Gross Micro L4 ? Diagnosis ?? Endometrium, curettage: ??Disordered weakly proliferative endometrium; no atypia or ?? hyperplasia identified. ?Clinical History Pre-Op Dx: ??Abnormal uterine and vaginal bleeding Post-Op Dx: Normal endometrial cavity ?Microscopic Description Microscopic sections reviewed. ? Material Received ?? EMC ? Gross Description Received in formalin labeled ?EMC? on blood-stained Telfa are multiple bhatia-pink and red- maroon irregular tissue fragments with scant mucus and blood aggregating 4.5 x 3.5 x 0.5-1.0 cm. the specimen is submitted in toto in cassettes A1-A5. CEDS Copies To: ?? Rachel Eden MD ?? [facility] ?? [address] ?? [place] [address] ?? [phone] ?? Medardo Beckman MD ?? [facility] ?? [address] ?? [place] [address] ?? [phone] ----- ------- Signed (signature on file) Theodore Anguiano MD 05/19/241115 ? ----- ------- ? END OF REPORT ? us Generic External Data Provider LAB BLOOD ORDERAB LES Final Result [facility] [address] [place], [place] [phone] * HCG, Qualitative, Urine (05/15/2024 7:33 AM EDT) Urine NEGATIVE NEGATIVE [facility] Comment:This test was develo ped to detect early . Falsenegative results may occur after the 5th - 7th week ofpregnancy when using this test method. If clinicallyindicated, consider a serum hCG. 05/15/2024 7:33 AM EDT 05/15/2024 8:07 AM EDT us Generic External Data Provider LAB URINE ORDERAB LES Final Result [facility] [address] [place] [phone] * BI Mammogram Screening Tomosynthesis Bilateral (05/12/2024 2:10 PM EDT) Anatomical Region Laterality Modality Breast Bilateral Mammography 05/12/2024 2:10 PM EDT Narrative 05/25/2024 3:50 PM EST ? [facility] [place] ? [address] ?[place] [address] ? Mammography Report ? Signed ? Patient: Melania Ryan ?MR#: ?? [id number] ? : 1980 ?Acct:[id number] ? Age/Sex: 43 / F ?ADM Date: 10//24 ? Loc: HO.MAMMO ? Attending Dr: Rachel Eden MD ? Ordering Physician: Rachel Eden MD ?Results: 1Ne ?? gative ? Date of Service: 05/12/24 ?Follow Up: 1 Year From Orig ?? inal Mammogram ? Procedure(s): MM tomosynthesis screening BI ?? Accession Number(s): [id number] ? cc: Rachel Eden MD ? EXAMINATION: ?? MM SCREENING DIGITAL BREAST TOMOSYNTHESIS, BILATERAL ? CLINICAL INFORMATION: ? Screening. Asymptomatic. ? COMPARISON: ?? Mammography: Comparison is made with available priors ? TECHNIQUE: ?? Digital breast mammography with tomosynthesis is performed in both the ?? craniocaudal and mediolateral oblique views along with computer-aided ?? detection (CAD). ? FINDINGS: ?? The breasts are heterogeneously dense, which may obscure small masses ?? (ACR BI-RADS breast composition Category c). ? There are no significant masses, abnormal calcifications, or other ?? abnormalities. ? MM/MM tomosynthesis screening BI ?? IMPRESSION: ?? No mammographic evidence of malignancy. ? ASSESSMENT: ? BI-RADS BI-RADS 1 - Negative ? RECOMMENDATION: ?? Routine annual mammography screening. ? 1 year F/U ? This examination should not preclude the clinical evaluation of a ?? suspicious palpable abnormality. ? This patient's information was entered into a reminder system with a ?? target due date for their next mammogram. ? Electronically signed by: ??Funmilayo Shannaamador DO ??05/25/2024 03:46 PM EST ?? RP ? Dictated By: ?Funmilayo Diallo DO ? Signed By: ?<Electronically signed by Funmilayo Diallo, DO in OV> ? 05/25/24 1546 ? DD/ 1410 ? TD/TT: 05/12/24 1430 ? Track Repair Laborer: ? Procedure Note Roberto, Image - 05/25/2024 [facility] [address] [place] [address] Dr. [place], [place] [address] Mammography Report Signed Patient: Melania RyanMR#: [id number] : 1980Acct:[id number] Age/Sex: 43 / FADM Date: 05/12/24 Loc: HO.MAMMO Attending Dr: Rachel Eden MD Ordering Physician: Rachel Eden MDResults: 1Ne gative Date of Service: 05/12/24Follow Up: 1 Year From Orig inal Mammogram Procedure(s): MM tomosynthesis screening BI Accession Number(s): [id number] cc: Rachel Eden MD EXAMINATION: MM SCREENING DIGITAL BREAST TOMOSYNTHESIS, BILATERAL CLINICAL INFORMATION: Screening. Asymptomatic. COMPARISON: Mammography: Comparison is made with available priors TECHNIQUE: Digital breast mammography with tomosynthesis is performed in both the craniocaudal and mediolateral oblique views along with computer-aided detection (CAD). FINDINGS: The breasts are heterogeneously dense, which may obscure small masses (ACR BI-RADS breast composition Category c). There are no significant masses, abnormal calcifications, or other abnormalities. MM/MM tomosynthesis screening BI IMPRESSION: No mammographic evidence of malignancy. ASSESSMENT: BI-RADS BI-RADS 1 - Negative RECOMMENDATION: Routine annual mammography screening. 1 year F/U This examination should not preclude the clinical evaluation of a suspicious palpable abnormality. This patient's information was entered into a reminder system with a target due date for their next mammogram. Electronically signed by: Funmilayo Diallo DO 05/25/2024 03:46 PM EST Dictated By: Funmilayo Diallo DO Signed By: <Electronically signed by Funmilayo Diallo DO in OV> 05/25/24 1546 DD/ 1410 TD/TT: 05/12/24 1430 Track Repair Laborer: Rachel Eden MD IMG BI PROCEDURES Edited Result - Final * Hepatitis Panel, General (05/24/2023 10:30 AM EDT) Hepatitis A IgM Nonreactive Nonreactive [facility] Comment:IgM antibodies to AG V not detected; does not exclude earlyacute or recovered HAV infection. ~Hepatitis B Surface Antibody NONREACTIVE Nonreactive [facility] Comment:Nonreactive: < 8.00 mIU/mL Hepatitis B Core Antibody Nonreactive Nonreactive [facility] Hepatitis C Antibody Nonreactive Nonreactive [facility] Comment:Antibodies to HCV no t detected; does not exclude early acuteHCV infection. Hepatitis B Surface Ag Negative Negative [facility] Blood 05/24/2023 10:3 0 AM EDT 05/24/2023 1:03 PM EDT us Rachel Eden MD LAB BLOOD ORDERABLES Fin al Result [facility] [address] [place] [phone] * HIV-1/2 Antigen and Antibodies, Fourth Generation, with Reflexes (05/24/2023 10:30 AM EDT) Pathologist [facility] HIV AB/AG Nonreactive Nonreactive [facility] Comment:HIV-1 p24 Ag and/or HIV-1/HIV-2 Ab not detected.A test result that is nonreactive does not exclude thepossibility of exposure to or infection with HIV-1 and/orHIV-2. Nonreactive results in this assay for individualswith prior exposure to HIV-1 and/or HIV-2 may be due toantigen and antibody levels that are below the limit ofdetection of this assay.The [employer] HIV Ag/Ab Combo assay result andsupplemental assay results should be interpreted inconjunction with the patient's clinical presentation,history and other laboratory results. If the results areinconsistent with clinical evidence, additional testing issuggested to confirm the result. Blood Venous blood specimen / Unknown 05/24/2023 10:30 AM EDT 05/24/2023 1:03 PM EDT us Rachel Eden MD LAB BLOOD ORDERABLES Fin al Result Performing Organization Address [facility]/ZIP Co de Phone Number [facility] [address] [place] [phone] * HPV mRNA E6/E7 w/Reflex to HPV Genotypes 16, 18/45 (05/16/2023 10:48 AM EDT) HPV nRNA E6/E7 Not Detected Not Detected [facility] Comment:Methodology: Transcr iption-Mediated AmplificationThis assay detects E6/E7 viral messenger RNA (mRNA) from 14high-risk HPV types (16,18,31,33,35,39,45,51,52,56,58,59,66,68).Cervical sources are required for HPV testing.If a vaginal source from a patient who has had atotal hysterectomy with removal of cervix wassubmitted, please contact the testing laboratoryfor alternative testing options.For additional information, please refer tohttp://education.[employer]/faq/OFB734m1(This link if provided for information/educational purposes only.)THIS TEST WAS PERFORMED AT:[facility] [place] [phone] ARROYO MD HPV mRNA E6/E7 [facility] HPV 16 RNA [facility] HPV 18/45 RNA [facility] 05/16/2023 10:4 8 AM EDT 05/17/2023 6:30 AM EDT Rodríg[facility] CYTOLOGY ORDERABLES F inal Result Performing Organization Address [facility]/ZIP Co de Phone Number [facility] [address] [place] [phone] * Pap Smear (05/16/2023 10:48 AM EDT) 05/16/2023 10:4 8 AM EDT 05/17/2023 6:30 AM EDT Narrative [facility] - 05/22/2023 12:50 PM EDT ----- ------- Name: Melania Ryan ?Age/Sex: 42/F ? : 1980 Unit#: [id number] ?? Attend : RODRÍGUEZ WHELAN CNM ?Re05/16/23 ?Status: DEP REF ? [facility] ? Disch: ? ----- ------- SPEC : [id number] ?RECD: 05/17/23 ? STATUS: ??SOUT ? REQ NUM: [id number] ? CHRISTOPHER: 05/16/23-3149 ? SUBM DR: RODRÍGUEZ WHELAN CNM ? ENTERED: ??05/17/235 ?SP TYPE: Pap Smr ?OTHR : ? ORDERED: ??Pap Smear ? Interpretation ?? Satisfactory for evaluation. ?? Negative for intraepithelial lesion or malignancy. ?HPV mRNA E6/E7: ?NOT DETECTED ? This assay detects E6/E7 viral messenger RNA (mRNA) from 14 high-risk HPV types (16, 18, ?? 31, 33, 35, 39, 45, 51, 52, 56, 58, 59, 66, 68) ?? HPV testing performed by [facility], [place], [place]. ??See reference laboratory ?? pion of the EMR for entire report. ?Clinical Information LMP: Unknown date Previous PAP test: Unknown date, WNL Other history: Previous pap preceded by ASCUS/HPV positive ? Material Received ?? ThinPrep-Cervical ----- ------- Signed (signature on file) JOVITA Huff (ASCP) 05/22/23 1250 ? ----- ------- ? END OF REPORT ? us Rodríguez Whelan CNM LAB CYTOLOGY ORDERABLES F inal Result [facility] [address] [place] [phone] from Last 3 Months or Most Recently Relevant to Health Maintenance Insurance [facility] DUAL COMPLETE Care Teams Photogrammetry Airplane Pilot Relationship Specialty Start Date End Date Rachel Eden MD [address] [place] [phone] PCP - General Family Medicine 02/10/20 Jurgen Graham Parts InspectorEmail Marketing Intern 04/16/24
== END 2024-08-14 16:28 | disposition home or self-care (01) ==
LOC: HO.MRI 16:27
PROVIDERS: PCP Internal Medicine; Visit Provider Registered Nurse Emergency
DX: M54.16 Radiculopathy, lumbar region (principal)
CPT/HCPCS: 72148

== ENCOUNTER → 2024-08-14 16:34 | Outpatient (BNV) | payer MEDICAID, SELFPAY | PROVIDERS: PCP Internal Medicine; Visit Provider Radiology Diagnostic Radiology | DX: R59.0 Localized enlarged lymph nodes (principal) | CPT/HCPCS: 72148 ==

== ENCOUNTER 2024-09-29 14:04 | Outpatient (REF) | payer MEDICAID, SELFPAY ==
[2024-09-29 15:43] LABS: Oxycodone Screen Urine Positive (Not Detect)
--- OUTSIDE RECORDS SUMMARY | 2024-09-29 17:14 | XMS_ITS | Encounter Summary ---
Author Organization [employer] Address [address] [facility] [address] [facility] [address] [place] [address] Care Team Providers Care Polarity Tester Name Role Phone Rachel Eden MD Primary Care Provider + Reason for Visit * Reason Onset Date Comments Med Refill 09/28/2024 Encounter Details Date Type Department Care Team (Late st Contact Info) Description 09/28/2024 Refill [facility] [address] [place] [address] Rachel Eden MD [address] [place] [address] Pain in left foot Social History Tobacco [...] housing situation today? I have shamir melton 08/25/[address] you li ve. Do you have problems with any of the following? None of the above 08/25/2024 Food Insecurity Answer Date Recorded Within the [...] Recorded Patient Health Questionnaire-2 Score 2 04/11/2023 Internet Access Answer Date Recorded Internet Access Q1 Yes 08/25/2024 Internet Access Q2 Not on file 08/25/2024 Comments No Sex and Gender Information Value Date Recorded Sex Assigned at Female 05/21/2022 10:29 AM EDT Legal Sex Female 10:29 AM EDT Gender Identity Female 05/21/2022 10:29 AM EDT Sexual Orientation Straight 05/21/2022 10 :29 AM EDT documented as of this encounter Miscellaneous Notes * Addendum Note - Diane Snyder RN - 09/28/2024 9:25 AM EDTAddended by: DIANE SNYDER on: 09/28/2024 09:25 AM Modules accepted: Orders * Telephone Encounter - Poppy Pendleton LPN - 09/28/2024 8:29 AM EDT Received request on oxyCODONE-acetaminophen (Percocet) 5-325 MG tablet documented in this encounter Plan of Treatment Upcoming Encounters Date Type Department Care Team (Late st Contact Info) Description 10/30/2024 10:45 AM EDT Office Visit [facility] [address] [place] [address] Rachel Eden MD [address] [place] [address] documented as of this encounter Visit Diagnoses Diagnosis Pain in left foot Pain in soft tissues of limb documented in this encounter Additional Health Concerns Assessment Noted Time PHQ-9 Depression Total Score: 6 04/11/20 23 9:59 AM EDT documented as of this encounter Care Teams Polarity Tester Relationship Specialty Start Date End Date Rachel Eden MD [address] [place] [phone] PCP - General Family Medicine 02/10/20 [employer] Spanish TeacherPilot Plant Supervisor 04/16/24 documented as of this encounter
--- OUTSIDE RECORDS SUMMARY | 2024-09-29 17:14 | XMS_ITS | Encounter Summary ---
Author Organization [facility] Address [address] [place] [address] [address] [place] [address] Care Team Providers Care Director Of Epidemiology Name Role Phone Rachel Eden MD Primary Care Provider + Bela Pugh Unavailable Unavailable Rebeka Schultz RN Unavailable [phone] Encounter Details Date Type Department Care Team (Late Contact Info) Description 08/01/2022 Orders Only [facility] [address] [place] [phone] Poppy Pendleton LPN Social History Tobacco Use [...] Department Care Team (Late Contact Info) Description 10/30/2024 10:45 AM EDT Office Visit [facility] [address] [place] [address] [phone] Rachel Eden MD [address] [place] [address] documented as of this encounter Procedures Procedure [...] 10:30 AM EDT) Syphilis Screen Nonreactive Nonreactive [facility] 05/24/2023 10:3 0 AM EDT 05/24/2023 1:03 PM EDT us Rachel Eden MD LAB BLOOD ORDERABLES Fin al Result [facility] [address] [place] [phone] * Pap Smear (05/16/2023 10:48 AM EDT) 05/16/2023 10:4 8 AM EDT 05/17/2023 6:30 AM EDT [facility] - 05/22/2023 12:50 PM EDT ----- ------- Name: Melania Ryan ?Age/Sex: 42/F ? : 1980 Unit#: [id number] ?? Attend Dr: RAQUEL WHELAN CNM ?Re05/16/23 ?Status: DEP REF ? Location: HO.HHCLNP ? Disch: ? ----- ------- SPEC : [id number] ?RECD: 05/17/23 ? STATUS: ??SOUT ? REQ NUM: [id number] ? CHRISTOPHER: 05/16/23-1047 ? SUBM DR: RAQUEL WHELANM ? ENTERED: ??05/17/23-5 ?SP TYPE: Pap Smr ?OTHR : ? ORDERED: ??Pap Smear ? Interpretation ?? Satisfactory for evaluation. ?? Negative for intraepithelial lesion or malignancy. ?HPV mRNA E6/E7: ?NOT DETECTED ? This assay detects E6/E7 viral messenger RNA (mRNA) from 14 high-risk HPV types (16, 18, ?? 31, 33, 35, 39, 45, 51, 52, 56, 58, 59, 66, 68) ?? HPV testing performed by [facility], [place], [place]. ??See reference laboratory ?? pion of the EMR for entire report. ?Clinical Information LMP: Unknown date Previous PAP test: Unknown date, WNL Other history: Previous pap preceded by ASCUS/HPV positive ? Material Received ?? ThinPrep-Cervical ----- ------- Signed (signature on file) JOVITA Huff (ASCP) 05/22/23 1250 ? ----- ------- ? END OF REPORT ? Raquel Whelan [facility] CYTOLOGY ORDERABLES F inal Result [facility] [address] [place] [address] [phone] * HPV mRNA E6/E7 w/Reflex to HPV Genotypes 16, 18/45 (05/16/2023 10:48 AM EDT) HPV nRNA E6/E7 Not Detected Not Detected [facility] Comment:Methodology: Transcr iption-Mediated AmplificationThis assay detects E6/E7 viral messenger RNA (mRNA) from 14high-risk HPV types (16,18,31,33,35,39,45,51,52,56,58,59,66,68).Cervical sources are required for HPV testing.If a vaginal source from a patient who has had atotal hysterectomy with removal of cervix wassubmitted, please contact the testing laboratoryfor alternative testing options.For additional information, please refer [email or web address]/HYJ800y8(This link if provided for information/educational purposes only.)THIS TEST WAS PERFORMED AT:[employer] [place] [id number] ARROYO MD HPV mRNA E6/E7 NMP [facility] HPV 16 RNA [facility] HPV 18/45 RNA [facility] 05/16/2023 10:4 8 AM EDT 05/17/2023 6:30 AM EDT us Raquel Jacinto CNM LAB CYTOLOGY ORDERABLES F inal Result Performing Organization Address [facility]/ZIP Co de Phone Number [facility] [address] [place] [address] [phone] * (ABNORMAL) COVID-19 ID NOW (RUIZ) (04/16/2023 7:10 PM EDT) IDNOW SERIAL# [id number] [facility] COVID-19 TEST Positive (A) Negative [facility] COVID-19 NOTE See Note [facility] Comment: Results are for the identification of SARS-CoV2 RNA. TheSARS-CoV2 RNA is generally detectable in respiratory samplesduring the acute phase of infection. Positive results areindicative of the presence of SARS-CoV-2 RNA; clinicalcorrelation with patient history and other diagnosticinformation is necessary to determine patient infectionstatus. Positive results do not rule out bacterial infectionor co- infection with other viruses.Testing facilities within the [facility] and itsterritories are required to report all positive results [...] use by authorized laboratories.Testing performed on the Ruiz ID NOW utilizing NAAT. 04/16/2023 7:10 PM EDT 04/16/2023 7:34 PM EDT [facility] Exter nal Provider LAB MOLECULAR DIAGNOSTICS ORDERABLES Final Result Performing Organization Address [facility]/ZIP Co de Phone Number [facility] [address] [place] [address] [phone] * Urinalysis with reflex microscopic (08/21/2022 7:21 AM EST) Pathologist [facility] Color Urine Yellow [facility] Appearance Urine Clear [facility] PH 5.5 5.0 - 9.0 [facility] Glucose Urine UA Negative Negative mg/dL [facility] Urine Blood Negative Negative [facility] Specific [place] - Urine 1.015 1.005 - 1.025 [facility] Urine Protein Negative Neg-Trace mg/dL [facility] Urine Ketones Negative Negative mg/dL [facility] Nitrite Urine Negative Negative [facility] Leukocyte Esterase Urine Negative Negative [facility] 08/21/2022 7:21 AM EST 08/21/2022 7:24 AM EST Narrative [facility] - 08/21/2022 7:31 AM EST [id number], Clean Catch [facility] External Provider LAB URI NE ORDERABLES Final Result Performing Organization Address [facility] Co de Phone Number [facility] [address] [place] [phone] * HCG, Qualitative, Urine (08/21/2022 7:20 AM EST) [facility] Urine NEGATIVE NEGATIVE [facility] Comment:This test was develo ped to detect early . Falsenegative results may occur after the 5th - 7th week ofpregnancy when using this test method. If clinicallyindicated, consider a serum hCG. 08/21/2022 7:20 AM EST 08/21/2022 7:24 AM EST [facility] External Provider LAB URI NE ORDERABLES Final Result Performing Organization Address [facility]/ZIP Co de Phone Number [facility] [address] [place] [phone] * Lipase (08/21/2022 7:15 AM EST) Lipase 29 8 - 78 U/L [facility] 08/21/2022 7:15 AM EST 08/21/2022 7:24 AM EST [facility] External Provider LAB BLO OD ORDERABLES Final Result Performing Organization Address City/[facility] Co de Phone Number [facility] [address] [place] [phone] * (ABNORMAL) Hepatic Function Panel (08/21/2022 7:15 AM EST) Pathologist [facility] Bilirubin, Total 0.3 0.0 - 1.0 mg/dL [facility] Bilirubin, Direct <0.2 0.0 - 0.5 mg/dL [facility] Aspartate Amino Transferase 36(H) 5 - 31 U/L [facility] Alanine Aminotransferase 61(H) 0 - 31 U/L [facility] Total Protein 6.0(L) 6.5 - 8.0 g/dL [facility] Albumin Level 3.7 3.5 - 5.0 g/dL [facility] Alkaline Phosphatase 70 39 - 117 U/L [facility] 08/21/2022 7:15 AM EST 08/21/2022 7:24 AM EST [facility] External Provider LAB BLO OD ORDERABLES Final Result Performing Organization Address City/[facility]/ZIP Co de Phone Number [facility] [address] [place] [phone] * Basic Metabolic Panel (08/21/2022 7:15 AM EST) Sodium 141 135 - 145 mmol/L [facility] Potassium 4.0 3.3 - 5.1 mmol/L [facility] Chloride 105 96 - 108 mmol/L [facility] Carbon Dioxide 28 22 - 29 mmol/L [facility] Anion Gap 12 12 - 20 [facility] Urea Nitrogen (BUN) 9 9 - 16 mg/dL [facility] Creatinine, Serum 0.64 0.5 - 1.4 mg/dL [facility] Creatinine Clr Calc Pharmacy 115.5 [facility] Comment:Provided height and weight: 162.56 cm,79.379 kg.eGFR (calculated from the MDRD study equation) and eCrCl(calculated from the Cockcroft-Gault equation) are based ondifferent parameters and may not yield comparable results.If eCrCl result is absurd, please check patient'sheight/weight. Estimated Glomerular Filt Rate >60 [facility] Comment:NOTE: For -Am erican individuals, multiply the result by 1.210.Chronic Kidney Disease: Estimated GFR < 60 mL/min/1.43g1Doqrrt Kidney Disease: Estimated GFR < 15 mL/min/1.73m2 Glucose 95 60 - 115 mg/dL [facility] Calcium 8.9 8.4 - 10.2 mg/dL [facility] 08/21/2022 7:15 AM EST 08/21/2022 7:24 AM EST us [facility] External Provider LAB BLO OD ORDERABLES Final Result [facility] [address] [place] [phone] * (ABNORMAL) CBC auto differential (08/21/2022 7:15 AM EST) White Blood Count 5.5 4.8 - 10.8 X10*3/uL [facility] Red Blood Count 4.13(L) 4.20 - 5.50 X10*6/uL [facility] Hemoglobin 12.6 12.0 - 16.0 g/dl [facility] Hematocrit 36.7(L) 37.0 - 47.0 % [facility] Mean Corpuscular Volume 88.9 80.0 - 98.0 fL [facility] Mean Corpuscular Hemoglobin 30.5 27.0 - 33.0 pg [facility] Mean Corpuscular HGB Conc 34.3 31.0 - 35.0 g/dl [facility] Red Cell Distribution Width 12.1 11.0 - 16.0 % [facility] Platelet Count 191 160 - 400 X10*3/uL [facility] Mean Platelet Volume 7.9(L) 9.4 - 12.3 fL [facility] Neutrophils Percent Auto 52.3 45 - 73 % [facility] Imm Gran Pct Auto 0.5(H) 0.0 - 0.4 % [facility] Lymphocytes Percent Auto 37.1 20 - 40 % [facility] Monocytes Percent Auto 8.5 2 - 11 % [facility] Eosinophils Percent Auto 1.1 0 - 4 % [facility] Basophils Percent Auto 0.5 0 - 2 % [facility] NRBC Pct Auto 0.0 0.0 - 0.2 /100WBC [facility] Neutrophils Absolute Auto 2.9 2.0 - 8.3 x10*3/uL [facility] Imm Gran Abs Auto 0.03 0.00 - 0.03 X10*3/uL [facility] Lymphocytes Absolute Auto 2.1 1.2 - 4.9 X10*3/uL [facility] Monocytes Absolute Auto 0.5 0.1 - 1.2 X10*3/uL [facility] Eosinophils Absolute Auto 0.1 0.0 - 0.4 X10*3/uL [facility] Basophils Absolute Auto 0.0 0.0 - 0.2 X10*3/uL [facility] NRBC Abs Auto 0.000 0.0 - 0.012 X10*3/uL [facility] 08/21/2022 7:15 AM EST 08/21/2022 7:24 AM EST us [facility] External Provider LAB BLO OD ORDERABLES Final Result [facility] [address] [place] [phone] documented in this encounter Visit Diagnoses Not on filedocumented in this encounter Care Teams Director Of Epidemiology Relationship Specialty Start Date End Date Rachel Eden MD [address] [place] [address] PCP - General Family Medicine 02/10/20 Bela Pugh Community Health Worker 12/12/23 02/17/24 Rebeka Schultz RN [address] [place] [address] Fur Finisher Tailor 12/24/23 02/17/24 Jurgen Graham Gutter Mouth CutterPattern Developer 04/16/24 documented as of this encounter
--- OUTSIDE RECORDS SUMMARY | 2024-09-29 17:14 | XMS_ITS | Encounter Summary ---
Author Organization [facility] Address [address] [place] [address] 7t [place] [address] Care Team Providers Care Hospital Receiving Clerk Name Role Phone Rachel Eden MD Primary Care Provider + Bela Pugh Unavailable Unavailable Rebeka Schultz RN Unavailable [phone] Reason for Visit * Reason Comments Med Refill Encounter Details Date Type Department Care Team ([facility] Contact Info) Description 11/27/[address] [facility] [address] [place] [address] Rachel Eden MD [address] [place] [address] Pain in left foot Social History Tobacco [...] ([facility] Contact Info) Description 10/30/2024 10:45 AM EDT Office Visit [facility] [address] [place] [address] Rachel Eden MD [address] [place], [place] [phone] documented as of this encounter Visit Diagnoses Diagnosis Pain in left foot Pain in soft tissues of limb documented in this encounter Care Teams Hospital Receiving Clerk Relationship Specialty Start Date End Date Rachel Eden MD [address] [place] [address] PCP - General Family Medicine 02/10/20 Bela Pugh Community Health Worker 12/12/23 02/17/24 Rebeka Schultz, SHASHA [address] [place] [phone] Manager Risk Management 12/24/23 02/17/24 Jurgen Graham Rn Maternal ChildFirewall Administrator 04/16/24 documented as of this encounter
--- OUTSIDE RECORDS SUMMARY | 2024-09-29 17:14 | XMS_ITS | Encounter Summary ---
Author Organization [employer] Address [address] [facility] 7t [place] [address] Care Team Providers Care Utility Aide Name Role Phone Rachel Eden MD Primary Care Provider + Bela Pugh Unavailable Unavailable Rebeka Schultz RN Unavailable [phone] Reason for Visit * Reason Onset Date Comments Med Refill 01/22/2024 Encounter Details Date Type Department Care Team (Late st Contact Info) Description 01/22/2024 Telephone [facility] [address] [place] [address] Rachel Eden MD [address] [place] [address] Med Refill Social History Tobacco Use Types [...] 5-325 MG tablet To be sent to: [facility] - [place], [place] - [address] [place] [address] documented in this encounter Plan of Treatment Upcoming Encounters Date Type Department Care Team (Late st Contact Info) Description 10/30/2024 10:45 AM EDT Office Visit [facility] [address] [place] [address] Rachel Eden MD [address] [place] [address] documented as of this encounter Visit Diagnoses Not on filedocumented in this encounter Additional Health Concerns Assessment Noted Time PHQ-9 Depression Total Score: 6 04/11/20 9:59 AM EDT documented as of this encounter Care Teams Utility Aide Relationship Specialty Start Date End Date Rachel Eden MD [address] [place] [address] PCP - General Family Medicine 02/10/20 Bela Pugh Community Health Worker 12/12/23 02/17/24 Rebeka Schultz RN [address] [place] [phone] Blender Laborer 12/24/23 02/17/24 Jurgen Graham Concrete Form SetterMagnetizer 04/16/24 documented as of this encounter
--- OUTSIDE RECORDS SUMMARY | 2024-09-29 17:14 | XMS_ITS | Encounter Summary ---
Author Organization [employer] Address [address] [facility] 7t [place] [address] Care Team Providers Care Human Resource Professional Name Role Phone Rachel Eden MD Primary Care Provider + Encounter Details Date Type Department Care Team (Latest Contact Info) Description 09/29/2024 Travel Social History Tobacco Use Types Packs/Day [...] Description 10/30/2024 10:45 AM EDT Office Visit [facility] [address] [place] [phone] Rachel Eden MD [address] [place] [address] documented as of this encounter Visit Diagnoses Not on filedocumented in this encounter Additional Health Concerns Assessment Noted Time PHQ-9 Depression Total Score: 6 04/11/20 23 9:59 AM EDT documented as of this encounter Care Teams Human Resource Professional Relationship Specialty Start Date End Date Rachel Eden MD [address] [place] [phone] PCP - General Family Medicine 02/10/20 Jurgen Graham Financial ExaminerAnimal Killer 04/16/24 documented as of this encounter
--- OUTSIDE RECORDS SUMMARY | 2024-09-29 17:14 | XMS_ITS | Encounter Summary ---
Author Organization [employer] Address [address] [facility] 7t [place] [address] Care Team Providers Care Procurement Consultant Name Role Phone Rachel Eden MD Primary Care Provider + Reason for Visit * Reason Comments Med Refill Encounter Details Date Type Department Care Team ([facility] st Contact Info) Description 09/25/2024 Refill [facility] [address] [place] [address] Rachel Eden MD [address] [place] [address] Social History Tobacco Use Types Packs/Day Years [...] encounter Miscellaneous Notes * Telephone Encounter - Jesenia Payan RN - 09/28/2024 10:33 AM EDT Pt. Presented in person, given message below and states there is no reason why she needs to continue on the magnesium at this time, agreeable to discontinuing it. Please discontinue in med list, thank you! * Telephone Encounter - Jesenia Payan RN - 09/28/2024 10:10 AM EDT TC returned to [phone], no answer, left another VM. Will reattempt in pm if no c/b * Telephone Encounter - Benton Davis - 09/28/2024 10:02 AM EDT Tc from pt returning call to message prior. Please return call [phone] * Telephone Encounter - Jesenia Payan RN - 09/28/2024 9:49 AM EDT TC placed to pt. At [phone], no answer, left VM requesting call back to Red Team RN upon receipt of message. Nobody on HIPAA 11/05/23. Will reattempt in pm if no c/b * Telephone Encounter - Rachel Eden MD - 09/25/2024 2:17 PM EST Please reach out to patient re Mag Ox rx. It is not meant to be taken regularly except in few circumstances that I don't see in her profile. Please ask why is she taking it? Her Mg is fine, is it forpan? Does it improve significantly her back pain? documented in this encounter Plan of Treatment Upcoming Encounters Date Type Department Care Team (Late st Contact Info) Description 10/30/2024 10:45 AM EDT Office Visit [facility] [address] [place] [address] Rachel Eden MD [address] [place] [address] documented as of this encounter Visit Diagnoses Not on filedocumented in this encounter Additional Health Concerns Assessment Noted Time PHQ-9 Depression Total Score: 6 04/11/20 23 9:59 AM EDT documented as of this encounter Care Teams Procurement Consultant Relationship Specialty Start Date End Date Rachel Eden MD [address] [place], [place] [phone] PCP - General Family Medicine 02/10/20 Jurgen Graham Pediatric AudiologistAssistant Account Executive 04/16/24 documented as of this encounter
--- OUTSIDE RECORDS SUMMARY | 2024-09-29 17:14 | XMS_ITS | Encounter Summary ---
Author Organization [employer] [facility] Address [address] [place] [address] [address] [place] [address] Care Team Providers Care Assisted Living Coordinator Name Role Phone Rachel Eden MD Primary Care Provider + Bela Pugh Unavailable Unavailable Rebeka Schultz RN Unavailable Reason for Visit * Reason Comments Pre-visit Planning SDOH tobacco screeni ng complete Encounter Details Date Type Department Care Team (Late st Contact Info) Description 03/08/2023 Abstract [facility] [address] [place] [phone] Rachel Eden MD [address] [place], [place] [phone] Social History Tobacco Use Types Packs/Day Years [...] Description 10/30/2024 10:45 AM EDT Office Visit [facility] [address] [place] [phone] Rachel Eden MD [address] [place] [address] documented as of this encounter Visit Diagnoses Not on filedocumented in this encounter Care Teams Assisted Living Coordinator Relationship Specialty Start Date End Date Rachel Eden MD [address] [place] [address] PCP - General Family Medicine 02/10/20 Bela Pugh Community Health Worker 12/12/23 02/17/24 Rebeka Schultz, SHASHA [address] [place] [address] Pumping Plant Operator 12/24/23 02/17/24 Jurgen Graham Branch MechanicLight Fixture Servicer 04/16/24 documented as of this encounter
--- OUTSIDE RECORDS SUMMARY | 2024-09-29 17:14 | XMS_ITS | Encounter Summary ---
Author Organization [employer] Address [address] [facility] 7t [place] [address] Care Team Providers Care Computer Security Manager Name Role Phone Rachel Eden MD Primary Care Provider + Reason for Visit * Reason Onset Date Comments Med Refill 09/15/2024 Encounter Details Date Type Department Care Team (Late st Contact Info) Description 09/15/2024 Refill [facility] [address] [place] [address] Rachel Eden MD [address] [place] [address] Chronic rhinitis Social History Tobacco Use Types Packs/Day Years [...] encounter Miscellaneous Notes * Telephone Encounter - Elsie Grimm - 09/15/2024 10:24 AM EST TC from pt requesting medication refill. Medications needing refill : loratadine (Claritin) 10 MG tablet To be sent to: [facility] documented in this encounter Plan of Treatment Upcoming Encounters Date Type Department Care Team (Late st Contact Info) Description 10/30/2024 10:45 AM EDT Office Visit [facility] [address] [place] [address] Rachel Eden MD [address] [place] [address] documented as of this encounter Visit Diagnoses Diagnosis Chronic rhinitis documented in this encounter Additional Health Concerns Assessment Noted Time PHQ-9 Depression Total Score: 6 04/11/20 23 9:59 AM EDT documented as of this encounter Care Teams Computer Security Manager Relationship Specialty Start Date End Date Rachel Eden MD [address] [place] [address], [place] [address] PCP - General Family Medicine 02/10/20 Jurgen Graham Technology Education InstructorBehavioral Therapist 04/16/24 documented as of this encounter
--- OUTSIDE RECORDS SUMMARY | 2024-09-29 17:14 | XMS_ITS | Encounter Summary ---
Author Organization [employer] Address [address] [facility] 7t [place] [address] Care Team Providers Care Marketing Director Assisted Living Name Role Phone Rachel Eden MD Primary Care Provider + Reason for Visit * Reason Onset Date Comments Durable Medical Equipment 05/11/2024 Encounter Details Date Type Department Care Team ([facility] st Contact Info) Description 05/11/2024 Telephone [facility] [address] [place] [address] Rachel Eden MD [address] [place] [address] Durable Medical Equipment Social History Tobacco Use [...] requesting Cpap machine to be sent to [place] . [facility] also requesting sleep study notes documented in this encounter Plan of Treatment Upcoming Encounters Date Type Department Care Team (Late st Contact Info) Description 10/30/2024 10:45 AM EDT Office Visit [facility] [address] [place] [address] Rachel Eden MD [address] [place] [address] documented as of this encounter Visit Diagnoses Not on filedocumented in this encounter Additional Health Concerns Assessment Noted Time PHQ-9 Depression Total Score: 6 04/11/20 23 9:59 AM EDT documented as of this encounter Care Teams Marketing Director Assisted Living Relationship Specialty Start Date End Date Rachel Eden MD [address] [place] [address] PCP - General Family Medicine 02/10/20 Jurgen Graham Compliance Review OfficerHourly Manager 04/16/24 documented as of this encounter
--- OUTSIDE RECORDS SUMMARY | 2024-09-29 17:14 | XMS_ITS | Encounter Summary ---
Demographics Address [address] [place] [address] [address] [place] [address] Home Phone Work Phone Mobile Phone Email Address Preferred Language es Marital Status Unknown Shinto Affiliation Unknown Race White Ethnic Group or Author Organization [employer] Address [address] [facility] 7t [place] [address] Care Team Providers Care Director Of Teaching And Learning Name Role Phone Rachel Eden MD Primary Care Provider + Encounter Details Date Type Department Care Team ([facility] st Contact Info) Description 09/24/2024 4:00 PM EST Office Visit [facility] OPTOMETRY [address] [place] [address] Presbyopia (Primary Dx) Social History Tobacco Use Types Packs/Day Years [...] as of this encounter Progress Notes * Gloria Juarez OD - 09/24/2024 4:00 PM EST MH glasses were dispensed. documented in this encounter Plan of Treatment Upcoming Encounters Date Type Department Care Team (Late st Contact Info) Description 10/30/2024 10:45 AM EDT Office Visit [facility] MEDICINE [address] [place] [address] Rachel Eden MD [address] [place] [address] documented as of this encounter Visit Diagnoses Diagnosis Presbyopia- Primary documented in this encounter Additional Health Concerns Assessment Noted Time PHQ-9 Depression Total Score: 6 04/11/20 23 9:59 AM EDT documented as of this encounter Care Teams Director Of Teaching And Learning Relationship Specialty Start Date End Date Rachel Eden MD [address] [place] [address] PCP - General Family Medicine 02/10/20 Jurgen Graham Professor Of Communication ArtsCrt 04/16/24 documented as of this encounter
--- OUTSIDE RECORDS SUMMARY | 2024-09-29 17:14 | XMS_ITS | Encounter Summary ---
Author Organization [employer] Address [address] [facility] 7t [place] [address] Care Team Providers Care Grader Green Meat Name Role Phone Rachel Eden MD Primary Care Provider + Bela Pugh Unavailable Unavailable Rebeka Schultz RN Unavailable [phone] Reason for Visit * Reason Comments Med Refill Encounter Details Date Type Department Care Team ([facility] Contact Info) Description 10/03/[address] [facility] [address] [place] [address] Maria Teresa Hill MD [address] [place] [address] Pain in left foot Social History Tobacco [...] Department Care Team ([facility] Contact Info) Description 10/30/2024 10:45 AM EDT Office Visit [facility] MEDICINE [address] [place] [address] Rachel Eden MD [address] [place], [place] [phone] documented as of this encounter Visit Diagnoses Diagnosis Pain in left foot Pain in soft tissues of limb documented in this encounter Care Teams Grader Green Meat Relationship Specialty Start Date End Date Rachel Eden MD [address] [place] [address] PCP - General Family Medicine 02/10/20 Bela Pugh Community Health Worker 12/12/23 02/17/24 Rebeka Schultz, SHASHA [address] [place] [phone] Mallet And Die Cutter 12/24/23 02/17/24 Jurgen Graham Hand Box FolderDrilling Inspector 04/16/24 documented as of this encounter
--- OUTSIDE RECORDS SUMMARY | 2024-09-29 17:14 | XMS_ITS | Encounter Summary ---
Author Organization [employer] Address [address] [facility] 7t [place] [address] Care Team Providers Care Transit Planner Name Role Phone Rachel Eden MD Primary Care Provider + Reason for Visit * Reason Onset Date Comments Medication Question 09/28/2024 Encounter Details Date Type Department Care Team ([facility] st Contact Info) Description 09/28/2024 Telephone [facility] MEDICINE [address] [place] [address] Rachel Eden MD [address] [place] [address] Medication Question Social History Tobacco Use Types Packs/Day Years [...] encounter Miscellaneous Notes * Telephone Encounter - Rachel Eden MD - 09/29/2024 3:38 PM EDT Re percocet use more than rx'd, please remind patient that she's to use percocet as rx only. If there are additional factors that exacerbate her pain (I.e menstrual period or weather), please educatere using other meds for it, not percocet, please remind her that opiates are NOT to be used for alltypes of pain or even for exacerbations of the same pain. Please educate that she can bundle up herself, use heat patches or take extra tylenol for pain related to other conditions. She can also cometo [facility] prn . I wilt continue CS refill as usual * Telephone Encounter - Diane Snyder RN - 09/28/2024 2:26 PM EDT Return TC to patient, translation provided by staff member Meli Davis, reviewed with patient shelast picked up her percocet 09/03/24. Pt states she is using 3 doses a day. Reviewed with her the Percocet order, reminded her she's only supposed to use it 1 tablet every 12 hours if she takes 3 doses in a day, she will run out before her refill. Pt stated she's been having her menstrual period andits cold outside so she needs to take more of her Percocet. Again explained that she's over using it and we can't do an early refill. Will send message to PCP. * Telephone Encounter - Yariel Whitehead - 09/28/2024 2:05 PM EDT Tc from pt Stating that she doesn't have any more med oxyCODONE-acetaminophen (Percocet) 5-325 MG tablet. Pt is three days Early and on the script it doesn't say to fill until the 10/01/24 Contact pt at [phone] documented in this encounter Plan of Treatment Upcoming Encounters Date Type Department Care Team (Late st Contact Info) Description 10/30/2024 10:45 AM EDT Office Visit [facility] MEDICINE [address] [place] [address] Rachel Eden MD [address] [place] [address] documented as of this encounter Visit Diagnoses Not on filedocumented in this encounter Additional Health Concerns Assessment Noted Time PHQ-9 Depression Total Score: 6 04/11/20 23 9:59 AM EDT documented as of this encounter Care Teams Transit Planner Relationship Specialty Start Date End Date Rachel Eden MD [address] [place] [address] PCP - General Family Medicine 02/10/20 Jurgen Graham Quality Control DirectorBrick Molder Hand 04/16/24 documented as of this encounter
--- OUTSIDE RECORDS SUMMARY | 2024-09-29 17:14 | XMS_ITS | Encounter Summary ---
Author Organization [employer] Address [address] [facility] 7t [place] [address] Care Team Providers Care Human Resources District Manager Name Role Phone Rachel Eden MD Primary Care Provider + Encounter Details Date Type Department Care Team ([facility] st Contact Info) Description 09/29/2024 11:00 AM EDT Office Visit [facility] MEDICINE [address] [place] [address] Fiona Church, LESVIA [address] [place] [address] Chronic low back pain with right-sided sciatica, unspecified back pain laterality (Primary Dx); long-term current use of opiate analgesic Social History [...] this encounter Progress Notes * Fiona Church, ACOUSTICS TEACHER - 09/29/2024 11:00 AM EDT Subjective: Melania Villalpando is a 43 y.o. female w/ PMH mod persistent asthma, ZACKERY, chronic low back pain, and adjustment disorder, who presents to the office for - Chronic Pain Clinic Group visits. Initial Group visit: 12/17/23 Last ENGINEHOUSE BRAKEMAN Agreement: 05/12/24 Group Topic: physical therapy -Melania had to leave early for appt to discuss supports for food security. Reports that she had been using Percocet more frequently than prescribed due to menstrual cramps and weather changes. Reviewed to only take medication as prescribed and call with any worsening of pain for further evaluation. See loan documentation specialist. Chronic Pain History: Associated Diagnosis: Chronic ankle [...] Percocet 5-325 Q12H PRN, Duloxetine 60mg daily Non-pharm tx: topical treatments, purchases OTC lidocaine patches Related Specialists: Referred to Pain Medicine on 04/07/24 [facility] Rheum -referred November 2023 Physical therapy Other [...] Problem List Items Addressed This Visit Other long-term current use of opiate analgesic Overview Medication: Percocet 5-325mg Q12H PRN Indication: chronic low back pain w/ degenerative changes Last ENGINEHOUSE BRAKEMAN Agreement: 05/12/24 Current Assessment & Plan Timeline: - 08/04/24: Group - utox/pill count as expected - 09/29/24: Group - pill count less than expected, utox neg all substances Chronic back pain - Primary Overview -XR lumbar 09/2023 : Again seen are very mild degenerative changes in the lumbar spine with mild endplate changes and some minimal disc space narrowing, most marked at L4-L5. No bony destructive lesions are seen. Some mild degenerative changes are also seen in the lower thoracic spine. Relevant Medications lidocaine (Xylocaine) 5 % ointment Other Relevant Orders POCT PARAMJIT-14 Urine Drug Screen (Completed) Oxycodone Screen, Urine Follow up: 2-4 weeks for ENGINEHOUSE BRAKEMAN visit. Follow up with PCP as scheduled, sooner as needed. * Diane Snyder RN - 09/29/2024 11:00 AM EDT ENGINEHOUSE BRAKEMAN drywall contractor: PDMP reviewed today. Last fill date: 09/03/24 Percocet 5mg count was 0, anticipated 3 to be remaining. Pt called [facility] yesterday lookng for early refill of her percocet. Stated she was taking 3 doses a day d/t menstrual cramps and cold weather, and ran out early. Explained to patient that she needs to use only as ordered and likely no early refill. Forwarded yesterdays message to PCP. UTOX completed. Negative for all substances: AMP, BAR, BUP, BZO, MARGARITO, FTY, MDMA, MET, MOP, MTD, OXY, PCP, TCA, THC. UTOX as expected. 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 Timeline: - 08/04/24: Group - utox/pill count as expected - 09/29/24: Group - pill count less than expected, utox neg all substances documented in this encounter Plan of Treatment Upcoming Encounters Date Type Department Care Team (Late st Contact Info) Description 10/30/2024 10:45 AM EDT Office Visit [facility] MEDICINE [address] [place] [address] Rachel Eden MD [address] [place] [address] documented as of this encounter Procedures Procedure Name Priority Date/Time Associated Diagnosis Comments POCT PARAMJIT-14 URINE DRUG SCREEN Routine 09/29/2024 12:01 PM EDT Chronic low back pain with right-sided sciatica, unspecified back pain laterality OXYCODONE SCREEN, URINE Routine 09/29/2024 11:00 AM EDT Chronic low back pain with right-sided sciatica, unspecified back pain laterality documented in this encounter Results * (ABNORMAL) POCT PARAMJIT-14 Urine Drug Screen (09/29/2024 12:01 PM EDT) Oxycodone Screen, Urine Negative Urine Urine specimen obtained by clean catch procedure / Unknown 09/29/2024 12:01 PM EDT Narrative Diane Snyder RN - 09/29/2024 12:01 PM EDT UTOX cup Lot#[id number] Exp. 03/10/26 Internal Pass Control us Fiona Church ACOUSTICS TEACHER POINT OF CARE TEST ENTER/EDIT ORDERABLES Final Result * (ABNORMAL) Oxycodone Screen, Urine (09/29/2024 11:00 AM EDT) Oxycodone Urine Screen Positive( A) Not Detect ng/mL [facility] Comment:Oxycodone cut-off is 100 ng/mL.Positive results are unconfirmed and should not be used fornon-medical purposes. 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
--- OUTSIDE RECORDS SUMMARY | 2024-09-29 17:14 | XMS_ITS | Encounter Summary ---
Author Organization [employer] Address [address] [facility] 7t [place] [address] Care Team Providers Care Slasher Tender Name Role Phone Rachel Eden MD Primary Care Provider + Reason for Visit * Reason Comments Med Refill Encounter Details Date Type Department Care Team ([facility] st Contact Info) Description 09/29/[address] [facility] MED[facility]INE [address] [place] [address] Rachel Eden MD [address] [place] [address] Social History Tobacco Use Types Packs/Day Years [...] Description 10/30/2024 10:45 AM EDT Office Visit [facility] MED[facility] [address] [place] [phone] Rachel Eden MD [address] [place] [address] documented as of this encounter Visit Diagnoses Not on filedocumented in this encounter Additional Health Concerns Assessment Noted Time PHQ-9 Depression Total Score: 6 04/11/20 23 9:59 AM EDT documented as of this encounter Care Teams Slasher Tender Relationship Specialty Start Date End Date Rachel Eden MD [address] [place] [phone] PCP - General Family Medicine 02/10/20 Jurgen Graham Binder ChainstitchSleeping Car Conductor 04/16/24 documented as of this encounter
--- OUTSIDE RECORDS SUMMARY | 2024-09-29 17:14 | XMS_ITS | Encounter Summary ---
Author Organization [employer] Address [address] [facility] 7t [place] [address] Care Team Providers Care Exterior Work Helper Name Role Phone Rachel Eden MD Primary Care Provider + Reason for Visit * Reason Comments Med Refill Encounter Details Date Type Department Care Team ([facility] st Contact Info) Description 03/07/2024 Refill [facility] [address] [place] [address] Rachel Eden MD [address] [place] [address] Social History Tobacco Use Types Packs/Day Years [...] Description 10/30/2024 10:45 AM EDT Office Visit [facility] [address] [place] [address] Rachel Eden MD [address] [place] [address] documented as of this encounter Visit Diagnoses Not on filedocumented in this encounter Additional Health Concerns Assessment Noted Time PHQ-9 Depression Total Score: 6 04/11/20 23 9:59 AM EDT documented as of this encounter Care Teams Exterior Work Helper Relationship Specialty Start Date End Date Rachel Eden MD [address] [place] [id number] PCP - General Family Medicine 02/10/20 Jurgen Graham In Home Baby SitterVice Provost 04/16/24 documented as of this encounter
--- OUTSIDE RECORDS SUMMARY | 2024-09-29 17:15 | XMS_ITS | Encounter Summary ---
Demographics Address [address] [facility] [address] [place] [address] Home Phone Work Phone Mobile Phone Email Address Preferred Language es Marital Status Unknown Tenriism Affiliation Unknown Race White Ethnic Group or Author Organization [employer] Address [address] [facility] 7t [place] [address] Care Team Providers Care Creative Technologist Name Role Phone Rachel Eden MD Primary Care Provider + Bela Pugh Unavailable Unavailable Rebeka Schultz RN Unavailable Reason for Visit * Reason Comments Med Refill Encounter Details Date Type Department Care Team (Late st Contact Info) Description 06/11/2023 Refill [facility] [address] [place] [address] Rachel Eden MD [address] [place] [address] Pain in left foot Social History Tobacco [...] EDT Office Visit [facility] MEDICINE [address] [place] [phone] Rachel Eden MD [address] [place] [phone] documented as of this encounter Visit Diagnoses Diagnosis Pain in left foot Pain in soft tissues of limb documented in this encounter Additional Health Concerns Assessment Noted Time PHQ-9 Depression Total Score: 6 04/11/20 23 9:59 AM EDT documented as of this encounter Care Teams Creative Technologist Relationship Specialty Start Date End Date Rachel Eden MD [address] [place] [phone] PCP - General Family Medicine 02/10/20 Bela Pugh Community Health Worker 12/12/23 02/17/24 Rebeka Schultz RN [address] [place] [phone] Traffic Lieutenant 12/24/23 02/17/24 uJrgen Graham Intake CounselorChildren'S Minister 04/16/24 documented as of this encounter
--- OUTSIDE RECORDS SUMMARY | 2024-09-29 17:15 | XMS_ITS | Clinical Summary ---
Author Organization [employer] Address [address] [place] [address] [address] [place] [address] Care Team Providers Care Coffee Shop Manager Name Role Phone Rachel Eden MD [...] by mouth in the morning. 023 Active tiZANidine (Zanaflex) 2 MG tabletIndicatio ns:Low [...] TO YOU AT YOUR DOCTOR'S OFFICE DIRECTED. 024 Active topiramate (Topamax) 50 MG tablet Take 50 mg by mouth at bedtime. DC gabapentin 90 tablet 3 024 Active Magnesium 400 MG capsule Take 1 tablet by mouth Once per day. 30 capsule 2 024 Active ergocalciferol (Vitamin D2) 1.25 MG (16999 UT) capsule TAKE 1 CAPSULE BY MOUTH EVERY WEEK 12 capsule 1 024 Active ferrous gluconate (Fergon) 324 (38 Fe) MG tablet TAKE 1 TABLET BY MOUTH EVERY DAY AT BEDTIME 90 tablet 024 Active magnesium oxide (Mag-Ox) 400 MG tablet [...] FOR 12 HOURS DIRECTED 30 patch 3 025 Active gabapentin (Neurontin) 400 MG capsuleIndicati ons:Chronic bilateral low back pain without sciatica Take 1 capsule (400 mg) by mouth 2 times daily. 180 capsule 3 025 2025 Active amitriptyline (Elavil) 25 MG tablet Take 25 mg by mouth at bedtime. 025 Active esomeprazole (NexIUM) [address] capsule Take 1 capsule by mouth Once per day. 025 Active hydrOXYzine pamoate (Vistaril) 50 MG capsule take 1 capsule by mouth every night at bedtime as needed 025 Active loratadine (Claritin) 10 MG tabletIndicatio ns:Chronic rhinitis Take 1 tablet (10 mg) by mouth in the morning. 90 tablet 025 Active oxyCODONE-aceta minophen (Percocet) 5-325 MG tabletIndicatio ns:Pain in left foot Take 1 tablet by mouth every 12 (twelve) hours if needed for severe pain for up to 28 days. Do not start before October 01, 2024. 56 tablet 025 2024 Active Ventolin HFA 108 (90 Base) MCG/ACT inhaler INHALE 2 PUFFS BY MOUTH EVERY 4 TO 6 HOURS NEEDED 18 g 3 Active lidocaine (Xylocaine) 5 % ointmentIndicat ions:Chronic low back pain with right-sided sciatica, unspecified back pain laterality Apply topically if needed in the morning, at noon, and at bedtime (pain). 30 g 3 025 2025 Active loratadine (Claritin) 10 MG tabletIndicatio ns:Chronic rhinitis TAKE 1 TABLET BY MOUTH EVERY MORNING 90 tablet 024 2024 Discontinued(R eorder (will not trigger notification to Pharmacy)) Ventolin HFA 108 (90 Base) MCG/ACT inhaler INHALE 2 PUFFS BY MOUTH EVERY 4 TO 6 HOURS NEEDED 18 g 3 024 2024 Discontinued oxyCODONE-aceta minophen (Percocet) 5-325 MG tabletIndicatio ns:Pain in left foot Take 1 tablet by mouth every 12 (twelve) hours if needed for severe pain for up to 28 days. 56 tablet 025 2024 Discontinued(R eorder (will not trigger notification to Pharmacy)) oxyCODONE-aceta minophen (Percocet) 5-325 MG tabletIndicatio ns:Pain in left foot Take 1 tablet by mouth every 12 (twelve) hours if needed for severe pain for up to 28 days. Do not start before September 03, 2024. 56 tablet 025 2024 Discontinued(R eorder (will not trigger notification [...] -UTOX as expected, pill count borderline. See meteorological aide. 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 Overview (08/03/2024): Medication: Percocet 5-325mg Q12H PRN Indication: chronic low back pain w/ degenerative changes Last RIBBON LAPPER TENDER Agreement: 05/12/24 Assessment & Plan (09/29/2024 2:20 PM EDT): Timeline: - 08/04/24: Group - utox/pill count as expected - 09/29/24: Group - pill count less than expected, utox neg all substances Assessment & Plan (08/04/2024 6:24 PM EST): [...] 4:30 PM EDT): CPAP rx sent to [facility] on 02/04/24, I gave her infor so [...] abnormality Refer to GI for further e-adria Scene And Lighting Design Lecturer regarding weight reduction Scene And Lighting Design Lecturer to avoid illicit drugs or alcohol Offer [...] smear Up to date, next one due 2027 Mammogram To be ordered Eye exam Will [...] pain and bleeding, she will f/u with PARTS AND SERVICE MANAGER - advised to restart Topamax 50 mg [...] - recurrent, advised to f/u closely with Gettering Operator, has appointment coming up Assessment & Plan (01/09/2024 2:17 PM EDT): Likely perimenopause, ro endometrial pathology. She will see PARTS AND SERVICE MANAGER on 01/2024. Order STI testing and treat prn. Assessment & Plan (12/18/2023 2:42 PM EDT): Amenorrhea x 3mo, likely perimenopause vs endometrial hyperplasia (abn think endometrium) She has been referred to PARTS AND SERVICE MANAGER Assessment & Plan (06/10/2023 5:21 PM EST): [...] Chill 02/04/2023 01/09/2024 Chronic lower back pain 08/13/2022 09/2 10/2023 Assessment & Plan (02/11/2024 2:08 PM EDT): [...] Encounters Date Type Department Care Team Description 09/29/2024 11:00 AM EDT Office Visit [facility] [address] [place] [phone] Fiona Church FNP Chronic low back pain with right-sided sciatica, unspecified back pain laterality (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); 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 09/29/2024 Travel 09/29/2024 Refill [facility] [address] [place] [address] Rachel Eden MD 09/28/2024 Telephone [facility] [address] [place] [address] Rachel Eden MD Medication Question 09/28/2024 Refill [facility] [address] [place] [address] Rachel Eden MD Pain in left foot 09/25/2024 Refill [facility] [address] [place] [address] Rachel Eden MD 09/24/2024 4:00 PM EST Office Visit [facility] [address] [place] [address] Presbyopia (Primary Dx) 09/15/2024 Refill [facility] [address] [place] [phone] Rachel Eden MD Chronic rhinitis 09/03/2024 Telephone [facility] [address] [place] [phone] Rachel Eden MD Chart prep 09/02/2024 Refill [facility] [address] [place] [address] Rachel Eden MD Pain in left foot 09/02/2024 Telephone [facility] [address] [place] [phone] Rachel Eden MD [facility] (tubing, humidifier chamber, full face mask, pap headgear, disposable filter, humidifier heated used w/ cpap, and continuous airway pressure.) 08/28/2024 Telephone [facility] [address] [place] [phone] Rachel Eden MD Durable Medical Equipment ([employer] [facility] [employer]: CPAP) 08/25/2024 Patient Outreach [facility] [address] [place] [phone] Rachel Eden MD Care Coordination (CHW outreach for SDOH PT-1 and food needs-referral completed /) 08/25/2024 Patient Outreach [facility] [address] [place] [phone] Rachel Eden MD Pre-visit Planning (SDOH screening positive and Tobacco screening negative) 08/20/2024 2:00 PM EST Office Visit [facility] [address] [place] [address] Larry, Gloria, OD Dry eyes, bilateral (Primary Dx); Nevus of eyelid; Presbyopia 08/20/2024 Travel 08/14/2024 Orders Only [facility] External Provider, [facility] 08/07/2024 Refill [facility] [address] [place] [address] Rachel Eden MD Chronic bilateral low back pain without sciatica 08/06/2024 Refill [facility] [address] [place] [address] Rachel Eden MD Pain in left foot 08/04/2024 11:00 AM EST Office Visit [facility] [address] [place] [address] Fiona Church, REVIEW TRAINER Chronic low back pain with right-sided sciatica, unspecified back pain laterality (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); 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 08/04/2024 Travel 07/29/2024 Refill [facility] [address] [place] [address] Rachel Eden MD 07/24/2024 Telephone [facility] [address] [place] [address] Rachel Eden MD Durable Medical Equipment 07/24/2024 Telephone [facility] [address] [place] [address] Rachel Eden MD September07/07/2024 Refill [facility] [address] [place] [address] Rachel Eden MD Pain in left foot 07/01/2024 Refill [facility] [address] [place] [address] Rachel Eden MD Mild intermittent asthma without complication 07/01/2024 Refill [facility] [address] [place] [address] Saige Beasley MD Mild intermittent asthma without complication from Last 3 Months Immunizations Name Administration [...] Description 10/30/2024 10:45 AM EDT Office Visit [facility] [address] [place] [address] Rachel Eden MD [address] [place] [address] Health Maintenance Due Date Last Done Comments [...] (1 - Tdap) 09/23/2018 09/22/2018 COVID-19 Vaccine ( - 2023-2 5 season) 2024 Influenza Vaccine (#1) 2024 05/03/2020 Depression Screening 04/11/2024 04/11/2023, 04/11/2023 Mammogram 05/12/2025 05/12/2024, 05/08/2023, 02/10/2018 SDOH Screening 08/25/2025 08/25/2024 Tobacco Screening 09/09/2025 09/09/2024 Cervical Cancer Screening 05/16/2026 HPV/Cotest 05/16/2026 05/16/2023, 04/09/2022, 01/29/2018 Pap Smear 05/16/2026 05/16/2023, 04/09/2022 Zoster Vaccines (1 of 2) 2028 RSV Patients and Patients Aged 60 years or older (1 - 1-dose 75+ series) 2053 Pneumococcal Vaccine: Pediatrics (0 to 5 Years) and At-Risk Patients (6 to 49) Years) Completed 04/11/2023 HIV Screening Completed 05/24/2023 [...] with right-sided sciatica, unspecified back pain laterality MR LUMBAR SPINE WO CONTRAST Routine 08/14/2024 4:35 PM EST POCT PARAMJIT-14 URINE DRUG SCREEN Routine 08/04/2024 1:37 PM EST Chronic low back pain with right-sided sciatica, unspecified back pain laterality senior living current use of opiate analgesic BI MAMMOGRAM SCREENING TOMOSYNTHESIS BILATERAL Routine 05/12/2024 [...] Recently Relevant to Health Maintenance Results * (ABNORMAL) POCT PARAMJIT-14 Urine Drug Screen (09/29/2024 12:01 PM EDT) Only the most recent of2 resultswithin the time period is included. Oxycodone Screen, Urine Negative Urine Urine specimen obtained by clean catch procedure / Unknown 09/29/2024 12:01 PM EDT Narrative Diane Snyder RN - 09/29/2024 12:01 PM EDT UTOX cup Lot#[id number] Exp. 03/10/26 Internal Pass Control us Fiona LAKHANI POINT OF CARE TEST ENTER/EDIT ORDERABLES Final Result * (ABNORMAL) Oxycodone Screen, Urine (09/29/2024 11:00 AM EDT) Oxycodone Urine Screen Positive( A) Not Detect ng/mL [facility] Comment:Oxycodone cut-off is 100 ng/mL.Positive results are unconfirmed and should not be used fornon-medical purposes. Urine 09/29/2024 11:0 0 AM EDT 09/29/2024 2:05 PM EDT us Rachel Eden MD LAB URINE ORDERABLES Fin al Result [facility] [address] [place] [address] [phone] * MR Lumbar Spine w/o Contrast (08/14/2024 4:35 PM EST) Anatomical Region Laterality Modality Spine, L-spine Magnetic Resonan ce 08/14/2024 4:35 PM EST Narrative 08/17/2024 10:21 AM EST ? [facility] ?[address] ?[place] [address] ? Magnetic Resonance Report ? Signed ? Patient: Sarah Villalpando,Melania ?MR#: ?? [id number] ? : 1980 ?Acct:[id number] ? Age/Sex: 43 / F ?ADM Date: 08/14/24 ? Loc: HO.MRI ? Attending Dr: Zaria Mauro APRN, CNP ? Ordering Physician: Zaria Mauro APRN, CNP ?? Date of Service: 08/14/24 ?? Procedure(s): MR lumbar spine wo con ?? Accession Number(s): [id number] ? cc: Rachel Eden MD; Zaria Mauro APRN, CNP ? Workstation: [email or web address] ? EXAMINATION: ??MR LUMBAR SPINE WITHOUT IV CONTRAST ? History: M54.16 - Radiculopathy, lumbar region ? Technique: Sagittal T1, T2 and STIR, and axial T1 and T2 weighted ?? images of the lumbar spine were obtained per departmental protocol. ? Comparison: Correlation is made to plain films of the lumbar spine ?? dated 10/09/2023. ? Findings: ?? The examination is limited by patient motion. The vertebral bodies ?? maintain normal height, alignment, and marrow signal intensity. There ?? is mild degenerative change at the L3-4 and L4-5 levels with disc ?? desiccation and slight loss of disc height. ? At T12-L1,there is no evidence of disc herniation, central spinal ?? stenosis, or neural foraminal narrowing. ? At L1-2, there is no evidence of disc herniation, central spinal ?? stenosis, or neural foraminal narrowing. ? At L2-3, there is no evidence of disc herniation, central spinal ?? stenosis, or neural foraminal narrowing. ? At L3-4, there is no evidence of disc herniation, central spinal ?? stenosis, or neural foraminal narrowing. ? At L4-5, there is no evidence of disc herniation, central spinal ?? stenosis, or neural foraminal narrowing. ? At L5-S1, there is no evidence of disc herniation, central spinal ?? stenosis, or neural foraminal narrowing. ? The conus terminates at the T12-L1 level and demonstrates normal signal ?? intensity. Evaluation of the paraspinal soft tissues demonstrates ?? enlarged common iliac lymph nodes measuring up to 1.5 cm on the right ?? and 1.8 cm on the left. Enlarged external iliac lymph nodes measure up ?? to 3.2 cm on the right and 1.9 cm on the left. ? MR/MR lumbar spine wo con ?? Impression: ? 1. Minimal degenerative changes at L3-4 and L4-5. ? 2. Bilateral common and external iliac lymphadenopathy as described. ?? Clinical correlation is recommended. CT of the abdomen and pelvis ?? should be considered. ? Electronically signed by: ??Jaden Torres MD ??08/17/2024 10:17 AM EST ?? RP ? Dictated By: ?Jaden Torres MD ? Signed By: ?<Electronically signed by Jaden Torres MD in OV> ?08/17/24 1017 ? DD/ 1635 ? TD/TT: 08/14/24 1700 ? Assault Amphibious Vehicle Officer: ? Procedure Note Roberto, Image - 08/17/[address] [address] Magnetic Resonance Report Signed Patient: Melania RyanMR#: [id number] : 1980Acct:[id number] Age/Sex: 43 / FADM Date: 08/14/24 Loc: HO.MRI Attending Dr: Zaria Mauro APRN, EXERCISE SCIENCE INSTRUCTOR Ordering Physician: Zaria Mauro APRN, MEMO Date of Service: 08/14/24 Procedure(s): MR lumbar spine wo con Accession Number(s): [id number] cc: Rachel Eden MD; Zaria Mauro APRN, EXERCISE SCIENCE INSTRUCTOR Workstation: [id number] EXAMINATION: MR LUMBAR SPINE WITHOUT IV CONTRAST History: M54.16 - Radiculopathy, lumbar region Technique: Sagittal T1, T2 and STIR, and axial T1 and T2 weighted images of the lumbar spine were obtained per departmental protocol. Comparison: Correlation is made to plain films of the lumbar spine dated 10/09/2023. Findings: The examination is limited by patient motion. The vertebral bodies maintain normal height, alignment, and marrow signal intensity. There is mild degenerative change at the L3-4 and L4-5 levels with disc desiccation and slight loss of disc height. At T12-L1,there is no evidence of disc herniation, central spinal stenosis, or neural foraminal narrowing. At L1-2, there is no evidence of disc herniation, central spinal stenosis, or neural foraminal narrowing. At L2-3, there is no evidence of disc herniation, central spinal stenosis, or neural foraminal narrowing. At L3-4, there is no evidence of disc herniation, central spinal stenosis, or neural foraminal narrowing. At L4-5, there is no evidence of disc herniation, central spinal stenosis, or neural foraminal narrowing. At L5-S1, there is no evidence of disc herniation, central spinal stenosis, or neural foraminal narrowing. The conus terminates at the T12-L1 level and demonstrates normal signal intensity. Evaluation of the paraspinal soft tissues demonstrates enlarged common iliac lymph nodes measuring up to 1.5 cm on the right and 1.8 cm on the left. Enlarged external iliac lymph nodes measure up to 3.2 cm on the right and 1.9 cm on the left. MR/MR lumbar spine wo con Impression: 1. Minimal degenerative changes at L3-4 and L4-5. 2. Bilateral common and external iliac lymphadenopathy as described. Clinical correlation is recommended. CT of the abdomen and pelvis should be considered. Electronically signed by: Jaden Torres MD 08/17/2024 10:17 AM EST Dictated By: Jaden Torres MD Signed By: <Electronically signed by Jaden Torres MD in OV> 08/17/24 1017 DD/ 1635 TD/TT: 08/14/24 1700 Assault Amphibious Vehicle Officer: us [facility] External Provider IMG MRI PROCEDURES Edited Result - Final * BI Mammogram Screening Tomosynthesis Bilateral (05/12/2024 2:10 PM EDT) Anatomical Region Laterality Modality Breast Bilateral Mammography 05/12/2024 2:10 PM EDT Narrative 05/25/2024 3:50 PM EST ? [facility] ? [address] ?[place] [address] ? Mammography Report ? Signed ? Patient: Melania Ryan ?MR#: ?? [id number] ? : 1980 ?Acct:[id number] ? Age/Sex: 43 / F ?ADM Date: 05/12/24 ? Loc: HO.MAMMO ? Attending Dr: Rachel Eden MD ? Ordering Physician: Rachel Eden MD ?Results: 1Ne ?? gative ? Date of Service: 05/12/24 ?Follow Up: 1 Year From Orig ?? inal Mammogram ? Procedure(s): MM tomosynthesis screening BI ?? Accession Number(s): [id number] ? cc: Rachel Eden MD ? EXAMINATION: [...] next mammogram. ? Electronically signed by: ??Funmilayo Diallo DO ??05/25/2024 03:46 PM EST ? Dictated By: ?Funmilayo Diallo DO ? Signed By: ?<Electronically signed by Funmilayo Diallo, DO in OV> ? 05/25/24 1546 ? DD/ 1410 ? TD/TT: 05/12/24 1430 ? Assault Amphibious Vehicle Officer: ? Procedure Note Donjpter, Image - 05/25/2024 [facility] [address] [place] [address] [place] [address] Mammography Report Signed Patient: Melania Ryan#: [id number] : 1980Acct:[id number] Age/Sex: 43 / FADM Date: 05/12/24 Loc: HO.TARAO Attending Dr: Rachel Eden MD Ordering Physician: Rachel Edenults: 1Ne gative Date of Service: 05/12/24Follow Up: 1 Year From Orig inal Mammogram Procedure(s): MM tomosynthesis screening BI Accession Number(s): [id number] cc: Rachel Eden MD EXAMINATION: MM SCREENING [...] by: Funmilayo Diallo DO 05/25/2024 03:46 PM [facility] Dictated By: Funmilayo Diallo DO Signed By: <Electronically signed by Funmilayo Diallo DO in OV> 05/25/24 1546 DD/ 1410 TD/TT: 05/12/24 1430 Assault Amphibious Vehicle Officer: Rachel Eden MD IM BI PROCEDURES Edited Result - Final * Hepatitis Panel, General (05/24/2023 10:30 AM EDT) Hepatitis A IgM Nonreactive Nonreactive [facility] Comment:IgM antibodies to AG V not detected; does not exclude earlyacute or recovered HAV infection. ~Hepatitis B Surface Antibody NONREACTIVE Nonreactive [facility] Comment:Nonreactive: < 8.00 mIU/mL Hepatitis B Core Antibody Nonreactive Nonreactive [facility] Hepatitis C Antibody Nonreactive Nonreactive [facility] Comment:Antibodies to HCV no t detected; does not exclude early acuteHCV infection. Hepatitis B Surface Ag Negative Negative [facility] Blood 05/24/2023 10:3 0 AM EDT 05/24/2023 1:03 PM EDT Rachel Eden MD LAB BLOOD ORDERABLES Fin al Result Performing Organization Address [facility] Co de Phone Number [facility] [address] [place] [phone] * HIV-1/2 Antigen and Antibodies, Fourth Generation, with Reflexes (05/24/2023 10:30 AM EDT) Pathologist [facility] HIV AB/AG Nonreactive Nonreactive [facility] Comment:HIV-1 p24 Ag and/or HIV-1/HIV-2 Ab not detected.A test result that is nonreactive does not exclude thepossibility of exposure to or infection with HIV-1 and/orHIV-2. Nonreactive results in this assay for individualswith prior exposure to HIV-1 and/or HIV-2 may be due toantigen and antibody levels that are below the limit ofdetection of this assay.The [employer] HIV Ag/Ab Combo assay result andsupplemental assay results should be interpreted inconjunction with the patient's clinical presentation,history and other laboratory results. If the results areinconsistent with clinical evidence, additional testing issuggested to confirm the result. Blood Venous blood specimen / Unknown 05/24/2023 10:30 AM EDT 05/24/2023 1:03 PM EDT Rachel Eden MD LAB BLOOD ORDERABLES Fin al Result Performing Organization Address [facility] Co de Phone Number [facility] [address] [place] [phone] * HPV mRNA E6/E7 w/Reflex to HPV Genotypes 16, 18/45 (05/16/2023 10:48 AM EDT) Pathologist [facility] HPV nRNA E6/E7 Not Detected Not Detected [facility] Comment:Methodology: Transcr iption-Mediated AmplificationThis assay detects E6/E7 viral messenger RNA (mRNA) from 14high-risk HPV types (16,18,31,33,35,39,45,51,52,56,58,59,66,68).Cervical sources are required for HPV testing.If a vaginal source from a patient who has had atotal hysterectomy with removal of cervix wassubmitted, please contact the testing laboratoryfor alternative testing options.For additional information, please refer tohttp://education.Envoy/faq/KKR693i5(This link if provided for information/educational purposes only.)THIS TEST WAS PERFORMED AT:[facility] [place] [phone] ARROYO MD HPV mRNA E6/E7 TNP [facility] HPV 16 RNA TNP [facility] HPV 18/45 RNA [facility] 05/16/2023 10:4 8 AM EDT 05/17/2023 6:30 AM EDT us Rodríguez Whelan [facility] CYTOLOGY ORDERABLES F inal Result [facility] [address] [place] [address] [phone] * Pap Smear (05/16/2023 10:48 AM EDT) 05/16/2023 10:4 8 AM EDT 05/17/2023 6:30 AM EDT Tamir [facility] - 05/22/2023 12:50 PM EDT ----- ------- Name: Melania Ryan ?Age/Sex: 42/F ? : 1980 Unit#: [id number] ?? Attend Dr: RODRÍGUEZ WHELAN CNM ?Re05/16/23 ?Status: DEP REF ? Location[facility] ? Disch: ? ----- ------- SPEC : [id number] ?RECD: 05/17/23 ? STATUS: ??SOUT ? REQ NUM: [id number] ? CHRISTOPHER: 05/16/238 ? SUBM DR: RODRÍGUEZ WHELAN CNM ? ENTERED: ??05/17/235 ?SP TYPE: Pap Smr ?OTHR DR: ? ORDERED: ??Pap Smear ? Interpretation ?? Satisfactory for evaluation. ?? Negative for intraepithelial lesion or malignancy. ?HPV mRNA E6/E7: ?NOT DETECTED ? This assay detects E6/E7 viral messenger RNA (mRNA) from 14 high-risk HPV types (16, 18, ?? 31, 33, 35, 39, 45, 51, 52, 56, 58, 59, 66, 68) ?? HPV testing performed by [employer] [place]. ??See reference laboratory ?? pion of the EMR for entire report. ?Clinical Information LMP: Unknown date Previous PAP test: Unknown date, WNL Other history: Previous pap preceded by ASCUS/HPV positive ? Material Received ?? ThinPrep-Cervical ----- ------- Signed (signature on file) JOVITA Huff (ASCP) 05/22/23 1250 ? ----- ------- ? END OF REPORT ? us Rodríguez Whelan [facility] CYTOLOGY ORDERABLES F inal Result [facility] [address] [place] [address] [phone] from Last 3 Months or Most Recently Relevant to Health Maintenance Insurance [facility] [address] [place] [phone] [place] [id number] Care Teams Coffee Shop Manager Relationship Specialty Start Date End Date Rachel Eden MD [address] [place] [phone] PCP - General Family Medicine 02/10/20 Jurgen Graham Machine Tool RebuilderAccount Director 04/16/24
--- OUTSIDE RECORDS SUMMARY | 2024-09-29 17:15 | XMS_ITS | Encounter Summary ---
Author Organization [employer] Address [address] [facility] [address] [place] [address] Care Team Providers Care Cage Maker Name Role Phone Rachel Eden MD Primary Care Provider + Reason for Visit * Reason Onset Date Comments [facility] 09/02/2024 tubing, humidifi er chamber, full face mask, pap headgear, disposable filter, humidifier heated used w/ cpap, and continuous airway pressure. Encounter Details Date Type Department Care Team (Late st Contact Info) Description 09/02/2024 Telephone [facility] MEDICINE [address] [place], [place] [phone] Rachel Eden MD [address] [place] [address] [facility] (tubing, humidifier chamber, full face mask, pap headgear, disposable filter, humidifier heated used w/ cpap, and continuous airway pressure.) Social History Tobacco Use Types Packs/Day Years [...] encounter Miscellaneous Notes * Telephone Encounter - Odilia Mcneal - 09/02/2024 2:30 PM EST Call received from [facility]. Machine Gunner consulted w/DME specialist Jeanine who confirmed order in progress with [facility]; [facility] to cancel rx received through . Message relayed to [facility]. * Telephone Encounter - Rocky Dominguez MA - 09/02/2024 10:09 AM EST Received medical necessity form from [facility] for tubing, humidifier chamber, full face mask, pap headgear, disposable filter, humidifier heated used w/ cpap, and continuous airway pressure. Form has been placed on PCP's desk for their signature. documented in this encounter Plan of Treatment Upcoming Encounters Date Type Department Care Team (Late st Contact Info) Description 10/30/2024 10:45 AM EDT Office Visit [facility] MEDICINE [address] [place] [address] Rachel Eden MD [address] [place] [address] documented as of this encounter Visit Diagnoses Not on filedocumented in this encounter Additional Health Concerns Assessment Noted Time PHQ-9 Depression Total Score: 6 04/11/20 23 9:59 AM EDT documented as of this encounter Care Teams Cage Maker Relationship Specialty Start Date End Date Rachel Eden MD [address] [place] [id number] PCP - General Family Medicine 02/10/20 Jurgen Graham Can ReconditionerWater Maintenance Supervisor 04/16/24 documented as of this encounter
--- OUTSIDE RECORDS SUMMARY | 2024-09-29 17:15 | XMS_ITS | Encounter Summary ---
Author Organization [employer] Address [address] [facility] [address] [place] [address] Care Team Providers Care Fruit Dryer Name Role Phone Rachel Eden MD Primary Care Provider + Reason for Visit * Reason Onset Date Comments Chart prep 09/03/2024 Encounter Details Date Type Department Care Team ([facility] st Contact Info) Description 09/03/2024 Telephone [facility] MEDICINE [address] [place] [address] Rachel Eden MD [address] [place] [address] Chart prep Social History Tobacco Use Types Packs/Day Years [...] Telephone Encounter - Melissa Ortiz MA - 09/03/2024 2:28 PM EST Chart Prep Labs: done Images: done Vaccines due: yes Referrals: pending appt Screenings: colonoscopy Overdue care gaps: PHQ-9 documented in this encounter Plan of Treatment Upcoming Encounters Date Type Department Care Team (Late st Contact Info) Description 10/30/2024 10:45 AM EDT Office Visit [facility] MEDICINE [address] [place] [address] Rachel Eden MD [address] [place] [address] documented as of this encounter Visit Diagnoses Not on filedocumented in this encounter Additional Health Concerns Assessment Noted Time PHQ-9 Depression Total Score: 6 04/11/20 23 9:59 AM EDT documented as of this encounter Care Teams Fruit Dryer Relationship Specialty Start Date End Date Rachel Eden MD [address] [place] [address] PCP - General Family Medicine 02/10/20 Jurgen Graham Manager DocumentationAuto Phone Installer 04/16/24 documented as of this encounter
--- OUTSIDE RECORDS SUMMARY | 2024-09-29 17:15 | XMS_ITS | Encounter Summary ---
Author Organization [employer] Address [address] [place] [address] [address] [place] [address] Care Team Providers Care Tube Former Operator Name Role Phone Rachel Eden MD Primary Care Provider + Reason for Visit * Reason Onset Date Comments Durable Medical Equipment 08/28/2024 [facility]: CPAP Encounter Details Date Type Department Care Team ([facility] st Contact Info) Description 08/28/2024 Telephone [facility] MEDICINE [address] [place] [address] Rachel Eden MD [address] [place] [address] Durable Medical Equipment ([facility]: CPAP) Social History Tobacco Use Types Packs/Day Years [...] encounter Miscellaneous Notes * Telephone Encounter - Jeanine Smyth - 09/03/2024 9:21 AM EST General prescription form for CPAP signed and faxed to [facility] . Confirmation received and sent to scan. If patient calls to check status on above, please advise them to contact [facility] at . * Telephone Encounter - Jeanine Smyth - 08/28/2024 3:23 PM EST Confirmation of order for CPAP from [facility] placed on PCP desk for signature. documented in this encounter Plan of Treatment Upcoming Encounters Date Type Department Care Team (Late st Contact Info) Description 10/30/2024 10:45 AM EDT Office Visit [facility] MEDICINE [address] [place] [address] Rachel Eden MD [address] [place], [place] [phone] documented as of this encounter Visit Diagnoses Not on filedocumented in this encounter Additional Health Concerns Assessment Noted Time PHQ-9 Depression Total Score: 6 04/11/20 23 9:59 AM EDT documented as of this encounter Care Teams Tube Former Operator Relationship Specialty Start Date End Date Rachel Eden MD [address] [place] [address] [place] [address] PCP - General Family Medicine 02/10/20 Jurgen Graham Modeling AnalystDry Cleaning Attendant 04/16/24 documented as of this encounter
--- OUTSIDE RECORDS SUMMARY | 2024-09-29 17:15 | XMS_ITS | Encounter Summary ---
Author Organization [employer] Address [address] [facility] 7t [place] [address] Care Team Providers Care Pharmaceutical Representative Name Role Phone Rachel Eden MD Primary Care Provider + Reason for Visit * Reason Onset Date Comments Med Refill 09/02/2024 Encounter Details Date Type Department Care Team (Late st Contact Info) Description 09/02/2024 Refill [facility] MED & PEDS [address] [place] [address] Rachel Eden MD [address] [place] [address] Pain in left foot Social History Tobacco [...] Addendum Note - Diane Snyder RN - 09/02/2024 2:59 PM ESTAddended by: DIANE SNYDER on: 09/02/2024 02:59 PM Modules accepted: Orders * Telephone Encounter - Poppy Pendleton LPN - 09/02/2024 2:46 PM EST Received request on oxyCODONE-acetaminophen (Percocet) 5-325 MG tablet documented in this encounter Plan of Treatment Upcoming Encounters Date Type Department Care Team (Late st Contact Info) Description 10/30/2024 10:45 AM EDT Office Visit [facility] MEDICINE [address] [place] [address] Rachel Eden MD [address] [place] [address] documented as of this encounter Visit Diagnoses Diagnosis Pain in left foot Pain in soft tissues of limb documented in this encounter Additional Health Concerns Assessment Noted Time PHQ-9 Depression Total Score: 6 04/11/20 23 9:59 AM EDT documented as of this encounter Care Teams Pharmaceutical Representative Relationship Specialty Start Date End Date Rachel Eden MD [address] [place] [address] PCP - General Family Medicine 02/10/20 Jurgen Graham Camp AssistantDialysis Social Worker 04/16/24 documented as of this encounter
== END 2024-09-29 14:05 | disposition home or self-care (01) ==
LOC: HO.HHCLNP 14:04
PROVIDERS: Visit Provider Internal Medicine
DX: M54.41 Lumbago with sciatica, right side (principal); G89.29 Other chronic pain
CPT/HCPCS: 80307

== ENCOUNTER 2024-10-19 15:09 | Outpatient (AMB) | payer MEDICAID, SELFPAY ==
--- NOTE | 2024-10-19 15:10 | MHC.OFFVIS ---
Intake Visit Reasons: Medication follow up Spaghetti Machine Operator Required: Yes Spaghetti Machine Operator Language: Healthcare Sales Representative Services: Spaghetti Machine Operator Present (in person) Spaghetti Machine Operator Name: Caryl QUINONEZ Information Interpreted: non-clinical & clinical Allergies No Known Allergies Allergy (Verified 10/19/24 15:11) HPI Comments Details: The patient scheduled a telehealth visit for follow-up regarding Provera. Has been taking Provera 10 mg p.o. q.d. day 15-24 cyclicly, menstrual cycles are regular and light. The patient is interested in a refill [facility] Medical History GERD (gastroesophageal reflux disease) Fatty liver Anxiety Chronic back pain Asthma Surgical History History of esophagogastroduodenoscopy (EGD) H/O colonoscopy Hx of tubal ligation History of surgery on arm History of surgery on lower extremity Family History Mother HTN (hypertension) Maternal Grandmother Diabetes Social History Household Members: Spouse and Children Household Members Other:: and grandchild Housing: Apartment Are you a primary day care home mother to a significant other at home: No Do you presently have visiting nurse or other home services: No Alcohol intake: former Patient Tobacco Use Status: Former Tobacco user Years Smoked: 8 years Current occupational status: disabled Sexual orientation: Straight/Heterosexual Gender identity: Female Review of Systems Const All systems reviewed & are unremarkable except as noted in HPI and below Reports as per HPI and Reports no additional complaints GI Reports no additional complaints Reports no additional complaints Telehealth Telehealth Telehealth Platform: Telephone Location of provider rendering services: practice address Location of patient: address on file Patient Identification confirmed using: Name, : Yes Telehealth method: video Patient verbally consented to treatment: Yes Patient verbally consented to billing insurance company: Yes Patient informed of any privacy concerns related to visit: Yes Minutes spent on Phone/Video with Pt.: 3 Assessment & Plan Assessment & Plan (1) Abnormal uterine bleeding (AUB): Code(s): N93.9 - Abnormal uterine and vaginal bleeding, unspecified Category: Medical Plan: Provera 10 mg p.o. q.d. day 15-24 refill sent to the patient's pharmacy. Instructions given the patient to schedule next mammogram in 05/15 and to call with any abnormal uterine bleeding. All questions answered, the patient verbalized understanding. I spent a total of 20 minutes reviewing the chart, talking to the patient via video and documenting in the medical record. Medications: Refilled medroxyprogesterone (Provera) start Provera 1 tablet daily from day 15-24 cyclically every months, day 1 being 1st day of menses 10 mg PO DAILY 10 days 30 tabs 3RF Coding Level of Care Code Tele Est Pt Level 3 (84861) Diagnoses Abnormal uterine bleeding (AUB) N93.9
--- OUTSIDE RECORDS SUMMARY | 2024-10-19 17:06 | XMS_ITS | Encounter Summary ---
Author Organization [employer] [facility] Address [address] [place] [address] [address] [place] [address] Care Team Providers Care Customer Experience Retail Clerk Name Role Phone Rachel Eden MD Primary Care Provider + Bela Pugh Unavailable Unavailable Rebeka Schultz RN Unavailable [phone] Reason for Visit * Reason Comments Pre-visit Planning SDOH tobacco screeni ng complete Encounter Details Date Type Department Care Team (Late st Contact Info) Description 03/08/2023 Abstract [facility] MEDICINE [address] [place] [phone] Rachel Eden MD [address] [place], [place] [phone] Social History Tobacco Use Types Packs/Day Years [...] 10/30/2024 10:45 AM EDT Office Visit [facility] MEDICINE [address] [place] [address] Rachel Eden MD [address] [place] [address] 11/10/2024 11:00 AM EDT Office Visit [facility] MEDICINE [address] [place] [address] documented as of this encounter Visit Diagnoses Not on filedocumented in this encounter Care Teams Customer Experience Retail Clerk Relationship Specialty Start Date End Date Rachel Eden MD [address] [place] [address] PCP - General Family Medicine 02/10/20 Bela Pugh Community Health Worker 12/12/23 02/17/24 Rebeka Schultz RN [address] [place] [id number] Science Instructor 12/24/23 02/17/24 Jurgen Graham WallpapererEngineering Surveyor 04/16/24 documented as of this encounter
--- OUTSIDE RECORDS SUMMARY | 2024-10-19 17:06 | XMS_ITS | Encounter Summary ---
Author Organization [employer] Address [address] [facility] 7t [place] [address] Care Team Providers Care Pillowcase Sewer Name Role Phone Rachel Eden MD Primary Care Provider + Bela Pugh Unavailable Unavailable Rebeka Schultz RN Unavailable [phone] Reason for Visit * Reason Comments Med Refill Encounter Details Date Type Department Care Team ([facility] Contact Info) Description 10/03/2022 Refill [facility] CH[facility] MED & PEDS [address] [place] [address] Maria Teresa Hill MD [address] [place] [address] Pain in left foot Social History Tobacco [...] Upcoming Encounters Date Type Department Care Team ([facility] Contact Info) Description 10/30/2024 10:45 AM EDT Office Visit [facility] MEDICINE [address] [place] [address] Rachel Eden MD [address] [place] [address] 11/10/2024 11:00 AM EDT Office Visit [address] [address] documented as of this encounter Visit Diagnoses Diagnosis Pain in left foot Pain in soft tissues of limb documented in this encounter Care Teams Pillowcase Sewer Relationship Specialty Start Date End Date Rachel Eden MD [address] [place] [address] PCP - General Family Medicine 02/10/20 Bela Pugh Community Health Worker 12/12/23 02/17/24 Rebeka Schultz RN [address] [place] [address] Driver Lifter Of Sanitation Truck 12/24/23 02/17/24 Jurgen Graham Hotel HousekeeperTraffic Control Officer 04/16/24 documented as of this encounter
--- OUTSIDE RECORDS SUMMARY | 2024-10-19 17:06 | XMS_ITS | Encounter Summary ---
Author Organization [employer] Address [address] [facility] [address]t [place] [address] Care Team Providers Care Dump Operator Name Role Phone Rachel Eden MD Primary Care Provider + Reason for Visit * Reason Comments Med Refill Encounter Details Date Type Department Care Team ([facility] st Contact Info) Description 03/07/2024 Refill [facility] MEDICINE [address] [place] [address] Rachel Eden MD [address] [place] [address] Social History Tobacco Use Types Packs/Day Years [...] 10/30/2024 10:45 AM EDT Office Visit [facility] MEDICINE [address] [place] [address] Rachel Eden MD [address] [place] [address] 11/10/2024 11:00 AM EDT Office Visit [address] [address] documented as of this encounter Visit Diagnoses Not on filedocumented in this encounter Additional Health Concerns Assessment Noted Time PHQ-9 Depression Total Score: 6 04/11/20 23 9:59 AM EDT documented as of this encounter Care Teams Dump Operator Relationship Specialty Start Date End Date Rachel Eden MD [address] [place] [address] PCP - General Family Medicine 02/10/20 Jurgen Graham Probation And Patrol AgentTeam Otr Truck Driver 04/16/24 documented as of this encounter
--- OUTSIDE RECORDS SUMMARY | 2024-10-19 17:06 | XMS_ITS | Clinical Summary ---
Author Organization [employer] Address [address] [place] [address] 7t [place] [address] Care Team Providers Care Retoucher Name Role Phone Rachel Eden MD Primary [...] 024 Active ergocalciferol (Vitamin D2) 1.25 MG (90132 UT) capsule TAKE 1 CAPSULE BY MOUTH [...] TO 6 HOURS NEEDED 18 g 3 025 Active lidocaine (Xylocaine) 5 % ointmentIndicat ions:Chronic low back pain with right-sided sciatica, unspecified back pain laterality Apply topically if needed in the morning, at noon, and at bedtime (pain). 30 g 3 025 2025 Active Ventolin HFA 108 (90 Base) MCG/ACT [...] -UTOX as expected, pill count borderline. See pole frame construction worker. 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 2023 Overview (08/03/2024): Medication: Percocet 5-325mg Q12H PRN Indication: chronic low back pain w/ degenerative changes Last FIELD GAUGER Agreement: 05/12/24 Assessment & Plan (09/29/2024 2:20 [...] 4:30 PM EDT): CPAP rx sent to [facility] on 02/04/24, I gave her infor so [...] abnormality Refer to GI for further e-adria Geophysical Prospecting Permit Agent regarding weight reduction Geophysical Prospecting Permit Agent to avoid illicit drugs or alcohol Offer [...] will send refills after she comes for [facility] appt We have done Pharmaco education re [...] pain and bleeding, she will f/u with VETERINARY INSPECTOR - advised to restart Topamax 50 mg [...] - recurrent, advised to f/u closely with Marine Habitat Resource Specialist, has appointment coming up Assessment & Plan (01/09/2024 2:17 PM EDT): Likely perimenopause, ro endometrial pathology. She will see VETERINARY INSPECTOR on 01/2024. Order STI testing and treat prn. Assessment & Plan (12/18/2023 2:42 PM EDT): Amenorrhea x 3mo, likely perimenopause vs endometrial hyperplasia (abn think endometrium) She has been referred to VETERINARY INSPECTOR Assessment & Plan (06/10/2023 5:21 PM EST): [...] Encounters Date Type Department Care Team Description 10/15/2024 11:30 AM EDT Clinical Support [facility] [address] [place] [address] Matthew Palomares RN Low back pain radiating to left lower extremity 10/15/2024 Travel 09/29/2024 11:00 AM EDT Office Visit [facility] [address] [place] [address] Fiona Church, DOOR PATCHER Chronic low back pain with right-sided sciatica, unspecified back pain laterality (Primary Dx); jail current use of opiate analgesic 09/29/2024 Travel 09/29/2024 Refill [facility] [address] [place] [address] Rachel Eden MD 09/28/2024 Telephone [facility] [address] [place] [address] Rachel Eden MD Medication Question 09/28/2024 Refill [facility] MED & PEDS [address] [place], [place] [phone] Rachel Eden MD Pain in left foot 09/25/2024 Refill [facility] [address] [place] [address] Rachel Eden MD 09/24/2024 4:00 PM EST Office Visit [facility] OPTOMETRY [address] [place] [phone] Presbyopia (Primary Dx) 09/15/[address] [address] Rachel Eden MD Chronic rhinitis 09/03/[address] [address] Rachel Eden MD Chart prep 09/02/2024 Refill [facility] PEDS [address] [place], [place] [phone] Rachel Eden MD Pain in left foot 09/02/[address] [address] Rachel Eden MD [facility] (tubing, humidifier chamber, full face mask, pap headgear, disposable filter, humidifier heated used w/ cpap, and continuous airway pressure.) 08/28/[address] [address] Rachel Eden MD Durable Medical Equipment ([facility]: CPAP) 08/25/2024 Patient Outreach [address] [address] Rachel Eden MD Care Coordination (CHW outreach for SDOH PT-1 and food needs-referral completed /) 08/25/2024 Patient Outreach [address] [phone] Rachel Eden MD Pre-visit Planning (SDOH screening positive and Tobacco screening negative) 08/20/2024 2:00 PM EST Office Visit [facility] OPTOMETRY [address] [place] [address] [phone] Larry, Gloria, OD Dry eyes, bilateral (Primary Dx); Nevus of eyelid; Presbyopia 08/20/2024 Travel 08/14/2024 Orders Only [facility] External Provider, [facility] 08/07/2024 Refill [facility] [address] [place] [address] Rachel Eden MD Chronic bilateral low back pain without sciatica 08/06/2024 Refill [facility] & PEDS [address] [place] [address] Rachel Eden MD Pain in left foot 08/04/2024 11:00 AM EST Office Visit [facility] [address] [place] [address] Fiona Church, DOOR PATCHER Chronic low back pain with right-sided sciatica, unspecified back pain laterality (Primary Dx); jail current use of opiate analgesic 08/04/2024 Travel 07/29/2024 Refill [facility] [address] [place] [address] Rachel Eden MD 07/24/[address] [address] Rachel Eden MD Durable Medical Equipment 07/24/2024 Telephone [facility] [address], [place] [phone] Rachel Eden MD September recall from Last 3 Months Immunizations Name Administration [...] Office Visit [facility] [address] [place] [address] Rachel Eden MD [address] [place] [address] 11/10/2024 11:00 AM EDT Office Visit [facility] [address] [place] [address] Health Maintenance Due Date Last Done Comments [...] Comments POCT PARAMJIT-14 URINE DRUG SCREEN Routine 10/15/2024 12:25 PM EDT Low back pain radiating to left lower extremity POCT PARAMJIT-14 URINE DRUG SCREEN Routine 09/29/2024 [...] with right-sided sciatica, unspecified back pain laterality jail current use of opiate analgesic BI MAMMOGRAM [...] Results * POCT PARAMJIT-14 Urine Drug Screen (10/15/2024 12:25 PM EDT) Only the most recent of3 resultswithin the time period is included. THC Negative Cocaine Screen, Urine Negative Opiate Screen, Urine Negative Methamphetamine Screen Urine Negative Amphetamine Screen, Urine Negative Benzodiazepines Screen, Urine Negative Barbiturate Screen, Urine Negative Methadone Screen, Urine Negative Buprenophine Screen, Urine Negative TCA, Urine Positive MDMA Urine Negative ng/mL Oxycodone Screen, Urine Positive Phencyclidine (PCP), Urine Negative Propoxyphene, Urine Negative Fentanyl, Urine Negative QC Media Lot # [id number] Lot# Expiration Date Urine Urine specimen obtained by clean catch procedure / Unknown 10/15/2024 12:25 PM EDT Rachel Eden MD POINT OF CARE TEST ENTER /EDIT ORDERABLES Final Result * (ABNORMAL) Oxycodone Screen, Urine (09/29/2024 11:00 AM EDT) Oxycodone Urine Screen Positive( A) Not Detect ng/mL [facility] Comment:Oxycodone cut-off is 100 ng/mL.Positive results are unconfirmed and should not be used fornon-medical purposes. Urine 09/29/2024 11:0 0 AM EDT 09/29/2024 2:05 PM EDT Rachel Eden MD LAB URINE ORDERABLES Fin al Result [facility] [address] [place] [phone] * MR Lumbar Spine w/o Contrast (08/14/2024 4:35 PM EST) Anatomical Region Laterality Modality Spine, L-spine Magnetic Resonan ce 08/14/2024 4:35 PM EST Narrative 08/17/2024 10:21 AM EST ? [facility] ?[address] ?[place] [address] ? Magnetic Resonance Report ? Signed ? Patient: Sarah Villalpando,Melania ?MR#: ?? [id number] ? : 1980 ?Acct:[id number] ? Age/Sex: 43 / F ?ADM Date: 08/14/24 ? Loc: HO.MRI ? Attending Dr: Zaria Mauro APRN, ACQUISITION EDITOR ? Ordering Physician: Zaria Mauro APRN, ACQUISITION EDITOR ?? Date of Service: 08/14/24 ?? Procedure(s): MR lumbar spine wo con ?? Accession Number(s): [id number] ? cc: Rachel Eden MD; Zaria Mauro APRN, ACQUISITION EDITOR ? Workstation: [employer] ? EXAMINATION: ??MR LUMBAR SPINE WITHOUT IV [...] DD/ 1635 ? TD/TT: 08/14/24 1700 ? Cutter Operator Helper: ? Procedure Note Roberto, Image - 08/17/2024 [place] [address] Magnetic Resonance Report Signed Patient: Melania RyanMR#: [id number] : 1980Acct:[id number] Age/Sex: 43 / FADM Date: 08/14/24 Loc: HO.MRI Attending Dr: Zaria Mauro APRN, CNP Ordering Physician: Zaria Mauro APRN, CNP Date of Service: 08/14/24 Procedure(s): MR lumbar spine wo con Accession Number(s): [id number] cc: Rachel Eden MD; Zaria Mauro APRN, CNP Workstation: [email or web address] EXAMINATION: MR LUMBAR SPINE WITHOUT IV CONTRAST [...] by: Jaden Torres MD 08/17/2024 10:17 AM [facility] Dictated By: Jaden Torres MD Signed By: <Electronically signed by Jaden Torres MD in OV> 08/17/24 1017 DD/ 1635 TD/TT: 08/14/24 1700 Cutter Operator Helper: [facility] External Provider IMG MRI PROCEDURES Edited Result - Final * BI Mammogram Screening Tomosynthesis Bilateral (05/12/2024 2:10 PM EDT) Anatomical Region Laterality Modality Breast Bilateral Mammography 05/12/2024 2:10 PM EDT Narrative 05/25/2024 3:50 PM EST ? [facility] ? [address] ?[place], [place] [address] ? Mammography Report ? Signed ? Patient: Sarah Villalpando,Melania ?MR#: ?? [id number] ? : 1980 ?Acct:[id number] ? Age/Sex: 43 / F ?ADM Date: 05/12/24 ? Loc: HO.MAMMO ? Attending Dr: Rachel Eden MD ? Ordering Physician: Rachel Eden MD ?Results: 1Ne ?? gative ? Date of Service: 05/12/24 ?Follow Up: 1 Year From Orig ?? inal Mammogram ? Procedure(s): MM tomosynthesis screening BI ?? Accession Number(s): [id number] ? cc: Rachel Eden MD ? EXAMINATION: [...] ??Funmilayo Diallo DO ??05/25/2024 03:46 PM EST ?? RP ? Dictated By: ?Funmilayo Diallo DO ? Signed By: ?<Electronically signed by Funmilayo Diallo, DO in OV> ? 05/25/24 1546 ? DD/ 1410 ? TD/TT: 05/12/24 1430 ? Cutter Operator Helper: ? Procedure Note Roberto, Image - 05/25/2024 [facility] [address] [place], [place] [address] Mammography Report Signed Patient: Violeta Ryan#: [id number] : 1980Acct:[id number] Age/Sex: 43 / FADM Date: 05/12/24 Loc: HO.MAMMO Attending Dr: Rachel Eden MD Ordering Physician: Rachel Eden MDResults: 1Ne gative Date of Service: 05/12/24Follow Up: 1 Year From Orig inal Mammogram Procedure(s): MM tomosynthesis screening BI Accession Number(s): [id number] cc: Racehl Eden MD EXAMINATION: MM SCREENING DIGITAL BREAST [...] 05/25/24 1546 DD/ 1410 TD/TT: 05/12/24 1430 Cutter Operator Helper: Rachel Eden MD IMG BI PROCEDURES Edited Result - Final * Hepatitis Panel, General (05/24/2023 10:30 AM EDT) Hepatitis A IgM Nonreactive Nonreactive [facility] Comment:IgM antibodies to AG V not detected; does not exclude earlyacute or recovered HAV infection. ~Hepatitis B Surface Antibody NONREACTIVE Nonreactive [facility] Comment:Nonreactive: < 8.00 mIU/mL Hepatitis B Core Antibody Nonreactive Nonreactive [facility] Hepatitis C Antibody Nonreactive Nonreactive [facility] Comment:Antibodies to HCV no t detected; does not exclude early acuteHCV infection. Hepatitis B Surface Ag Negative Negative [facility] Blood 05/24/2023 10:3 0 AM EDT 05/24/2023 1:03 PM EDT Rachel Eden MD LAB BLOOD ORDERABLES Fin al Result [facility] [address] [place] [phone] * HIV-1/2 Antigen and Antibodies, Fourth Generation, with Reflexes (05/24/2023 10:30 AM EDT) HIV AB/AG Nonreactive Nonreactive [facility] Comment:HIV-1 p24 Ag and/or HIV-1/HIV-2 Ab not detected.A test result that is nonreactive does not exclude thepossibility of exposure to or infection with HIV-1 and/orHIV-2. Nonreactive results in this assay for individualswith prior exposure to HIV-1 and/or HIV-2 may be due toantigen and antibody levels that are below the limit ofdetection of this assay.The [employer] HIV Ag/Ab Combo assay result andsupplemental assay results should be interpreted inconjunction with the patient's clinical presentation,history and other laboratory results. If the results areinconsistent with clinical evidence, additional testing issuggested to confirm the result. Blood Venous blood specimen / Unknown 05/24/2023 10:30 AM EDT 05/24/2023 1:03 PM EDT us Rachel Eden MD LAB BLOOD ORDERABLES Fin al Result [facility] [address] [place] [phone] * HPV mRNA E6/E7 w/Reflex to HPV Genotypes 16, 18/45 (05/16/2023 10:48 AM EDT) Pathologist [facility] HPV nRNA E6/E7 Not Detected Not Detected [facility] Comment:Methodology: Transcr iption-Mediated AmplificationThis assay detects E6/E7 viral messenger RNA (mRNA) from 14high-risk HPV types (16,18,31,33,35,39,45,51,52,56,58,59,66,68).Cervical sources are required for HPV testing.If a vaginal source from a patient who has had atotal hysterectomy with removal of cervix wassubmitted, please contact the testing laboratoryfor alternative testing options.For additional information, please refer tohttp://education.MADS/faq/JVB190e0(This link if provided for information/educational purposes only.)THIS TEST WAS PERFORMED AT:[facility] [place] [phone] ARROYO MD HPV mRNA E6/E7 TNP [facility] HPV 16 RNA TNP [facility] HPV 18/45 RNA TNP [facility] 05/16/2023 10:4 8 AM EDT 05/17/2023 6:30 AM EDT Rodríguez Whelan CNM LAB CYTOLOGY ORDERABLES F inal Result [facility] [address] [place] [phone] [phone] * Pap Smear (05/16/2023 10:48 AM EDT) 05/16/2023 10:4 8 AM EDT 05/17/2023 6:30 AM EDT Narrative [facility] - 05/22/2023 12:50 PM EDT ----- ------- Name: Mealnia Ryan ?Age/Sex: 42/F ? : 1980 Unit#: [id number] ?? Attend Dr: RODRÍGUEZ WHELAN CNM ?Re05/16/23 ?Status: DEP REF ? Location: HO.HHCLNP ? Disch: ? ----- ------- SPEC : [id number] ?RECD: 05/17/23 ? STATUS: ??SOUT ? REQ NUM: [id number] ? CHRISTOPHER: 05/16/231 ? SUBM DR: RODRÍGUEZ WHELAN CNM ? [...] 66, 68) ?? HPV testing performed by [facility], [place], [place]. ??See reference laboratory ?? pion of the EMR for entire report. ?Clinical Information LMP: Unknown date Previous PAP test: Unknown date, WNL Other history: Previous pap preceded by ASCUS/HPV positive ? Material Received ?? ThinPrep-Cervical ----- ------- Signed (signature on file) JOVITA Huff (ASCP) 05/22/23 1250 ? ----- ------- ? END OF REPORT ? us Rodríguez Whelan [facility] LAB CYTOLOGY ORDERABLES F inal Result [facility] [address] [place] [address] [phone] from Last 3 Months or Most Recently Relevant to Health Maintenance Insurance [facility] C3 Care Teams Retoucher Relationship Specialty Start Date End Date Rachel Eden MD [address] [place] [phone] PCP - General Family Medicine 02/10/20 Jurgen Graham Optical FabricatorCrm Developer 04/16/24
--- OUTSIDE RECORDS SUMMARY | 2024-10-19 17:06 | XMS_ITS | Encounter Summary ---
Demographics Address [address] [place] [address] Home Phone Work Phone Mobile Phone Email Address Preferred Language es Marital Status Unknown Orthodoxy Affiliation Unknown Race White Ethnic Group or Author Organization [employer] Address [address] [facility] [address] 7t [place] [address] Care Team Providers Care Shingle Inspector Name Role Phone Rachel Eden MD Primary Care Provider + Bela Pugh Unavailable Unavailable Rebeka Schultz RN Unavailable [phone] Reason for Visit * Reason Comments Med Refill Encounter Details Date Type Department Care Team (Late st Contact Info) Description 06/11/2023 Refill [facility] & PEDS [address] [place] [address] Rachel Eden MD [address] [place] [address] Pain in left foot Social History Tobacco [...] EDT Office Visit [facility] [address] [place] [address] Rachel Eden MD [address] [place] [address] 11/10/2024 11:00 AM EDT Office Visit [facility] [address] [place] [address] documented as of this encounter Visit Diagnoses Diagnosis Pain in left foot Pain in soft tissues of limb documented in this encounter Additional Health Concerns Assessment Noted Time PHQ-9 Depression Total Score: 6 04/11/20 23 9:59 AM EDT documented as of this encounter Care Teams Shingle Inspector Relationship Specialty Start Date End Date Rachel Eden MD [address] [place] [phone] PCP - General Family Medicine 02/10/20 Bela Pugh Community Health Worker 12/12/23 02/17/24 Rebeka Schultz RN [address] [place] [address] Support Representative 12/24/23 02/17/24 Jurgen Graham Whip SawyerOrthopedic Technician 04/16/24 documented as of this encounter
--- OUTSIDE RECORDS SUMMARY | 2024-10-19 17:06 | XMS_ITS | Encounter Summary ---
Author Organization [employer] Address [address] [facility] 7t [place] [address] Care Team Providers Care Health Systems Analyst Name Role Phone Rachel Eden MD Primary Care Provider + Reason for Visit * Reason Onset Date Comments Durable Medical Equipment 05/11/2024 Encounter Details Date Type Department Care Team ([facility] st Contact Info) Description 05/11/2024 Telephone [facility] [address] [place] [address] Rachel Eden MD [address] [place] [address] Durable Medical Equipment Social History Tobacco Use [...] requesting Cpap machine to be sent to [facility] . [facility] also requesting sleep study notes documented in this encounter Plan of Treatment Upcoming Encounters Date Type Department Care Team (Late st Contact Info) Description 10/30/2024 10:45 AM EDT Office Visit [facility] [address] [place] [address] Rachel Eden MD [address] [place] [address] 11/10/2024 11:00 AM EDT Office Visit [facility] [address] [place] [address] documented as of this encounter Visit Diagnoses Not on filedocumented in this encounter Additional Health Concerns Assessment Noted Time PHQ-9 Depression Total Score: 6 04/11/20 9:59 AM EDT documented as of this encounter Care Teams Health Systems Analyst Relationship Specialty Start Date End Date Rachel Eden MD [address] [place] [address] PCP - General Family Medicine 02/10/20 Jurgen Graham Process Manufacturing EngineerClient Success Manager 04/16/24 documented as of this encounter
--- OUTSIDE RECORDS SUMMARY | 2024-10-19 17:06 | XMS_ITS | Encounter Summary ---
Author Organization [employer] Address [address] [facility] 7t [place] [address] Care Team Providers Care Death Surveys Coder Name Role Phone Rachel Eden MD Primary Care Provider + Encounter Details Date Type Department Care Team (Latest Contact Info) Description 10/15/2024 Travel Social History Tobacco Use Types Packs/Day [...] 10:45 AM EDT Office Visit [facility] [address] [place] [address] Rachel Eden MD [address] [place] [phone] 11/10/2024 11:00 AM EDT Office Visit [address] [address] documented as of this encounter Visit Diagnoses Not on filedocumented in this encounter Additional Health Concerns Assessment Noted Time PHQ-9 Depression Total Score: 6 04/11/20 23 9:59 AM EDT documented as of this encounter Care Teams Death Surveys Coder Relationship Specialty Start Date End Date Rachel Eden MD [address] [place] [phone] PCP - General Family Medicine 02/10/20 Jurgen Graham Senior OfficerWarehouse Unloader 04/16/24 documented as of this encounter
--- OUTSIDE RECORDS SUMMARY | 2024-10-19 17:06 | XMS_ITS | Encounter Summary ---
Author Organization [employer] Address [address] [facility] [address]t [place] [address] Care Team Providers Care Wood Inspector Name Role Phone Rachel Eden MD Primary Care Provider + Bela Pugh Unavailable Unavailable Rebeka Schultz RN Unavailable [phone] Reason for Visit * Reason Onset Date Comments Med Refill 01/22/2024 Encounter Details Date Type Department Care Team (Late st Contact Info) Description 01/22/2024 Telephone [facility] [address] [place] [address] Rachel Eden MD [address] [place] [address] Med Refill Social History Tobacco Use Types [...] 5-325 MG tablet To be sent to: [facility] [place], [place] - [address] [place] [address] documented in this encounter Plan of Treatment Upcoming Encounters Date Type Department Care Team (Late st Contact Info) Description 10/30/2024 10:45 AM EDT Office Visit [facility] [address] [place] [address] Rachel Eden MD [address] [place] [phone] 11/10/2024 11:00 AM EDT Office Visit [facility] [address] [place] [address] documented as of this encounter Visit Diagnoses Not on filedocumented in this encounter Additional Health Concerns Assessment Noted Time PHQ-9 Depression Total Score: 6 04/11/20 23 9:59 AM EDT documented as of this encounter Care Teams Wood Inspector Relationship Specialty Start Date End Date Rachel Eden MD [address] [place] [address] PCP - General Family Medicine 02/10/20 Bela Pugh Community Health Worker 12/12/23 02/17/24 Rebeka Schultz, SHASHA [address] [place] [address] Helicopter Dispatcher 12/24/23 02/17/24 Jurgen Graham Grade SetterAudio Visual Facilities Engineer 04/16/24 documented as of this encounter
--- OUTSIDE RECORDS SUMMARY | 2024-10-19 17:06 | XMS_ITS | Encounter Summary ---
Author Organization [employer] [facility] Address [address] [place] [address] 7t [place] [address] Care Team Providers Care Service Rig Operator Name Role Phone Rachel Eden MD Primary Care Provider + Bela Pugh Unavailable Unavailable Rebeka Schultz RN Unavailable Reason for Visit * Reason Comments Med Refill Encounter Details Date Type Department Care Team ([facility] Contact Info) Description 11/27/2022 Refill [facility] [address] [place] [address] Rachel Eedn MD [address] [place] [address] Pain in left foot Social History Tobacco [...] Upcoming Encounters Date Type Department Care Team ([facility] Contact Info) Description 10/30/2024 10:45 AM EDT Office Visit [facility] [address] [place] [address] Rachel Eden MD [address] [place] [address] 11/10/2024 11:00 AM EDT Office Visit [address] [address] documented as of this encounter Visit Diagnoses Diagnosis Pain in left foot Pain in soft tissues of limb documented in this encounter Care Teams Service Rig Operator Relationship Specialty Start Date End Date Rachel Eden MD [address] [place] [address] PCP - General Family Medicine 02/10/20 Bela Pugh Community Health Worker 12/12/23 02/17/24 Rebeka Schultz RN [address] [place] [address] Senior Analyst Developer 12/24/23 02/17/24 Jurgen Graham Medication AssistantWorkforce Planner 04/16/24 documented as of this encounter
--- OUTSIDE RECORDS SUMMARY | 2024-10-19 17:06 | XMS_ITS | Encounter Summary ---
Author Organization [facility] Address [address] [place] [address] [address] [place] [address] Care Team Providers Care Automotive Service Assistant Name Role Phone Rachel Eden MD Primary Care Provider + Bela Pugh Unavailable Unavailable Rebeka Schultz RN Unavailable [phone] Encounter Details Date Type Department Care Team (Late Contact Info) Description 08/01/2022 Orders Only [facility] MEDICINE [address] [place] [phone] Poppy Pendleton LPN Social History Tobacco Use [...] Description 10/30/2024 10:45 AM EDT Office Visit [facility] MEDICINE [address] [place] [address] [phone] Rachel Eden MD [address] [facility] [place] [address] 11/10/2024 11:00 AM EDT Office Visit [facility] [place] [address] documented as of this encounter Procedures Procedure [...] 10:30 AM EDT) Syphilis Screen Nonreactive Nonreactive [facility] 05/24/2023 10:3 0 AM EDT 05/24/2023 1:03 PM EDT Rachel Eden MD LAB BLOOD ORDERABLES Fin al Result [facility] [address] [place] [address] [phone] * Pap Smear (05/16/2023 10:48 AM EDT) 05/16/2023 10:4 8 AM EDT 05/17/2023 6:30 AM EDT Narrative [facility] - 05/22/2023 12:50 PM EDT ----- ------- Name: Melania Ryan ?Age/Sex: 42/F ? : 1980 Unit#: [id number] ?? Attend Dr: RAQUEL WHELAN CNM ?Re05/16/23 ?Status: DEP REF ? Location: HO.HHCLNP ? Disch: ? ----- ------- SPEC : [id number] ?RECD: 05/17/23 ? STATUS: ??SOUT ? REQ NUM: [id number] ? CHRISTOPHER: 05/16/231 ? SUBM DR: RAQUEL WHELAN CNM ? ENTERED: ??05/17/23 ?SP TYPE: Pap Smr [...] 66, 68) ?? HPV testing performed by [facility], [place], [place]. ??See reference laboratory ?? pion of the EMR for entire report. ?Clinical Information LMP: Unknown date Previous PAP test: Unknown date, WNL Other history: Previous pap preceded by ASCUS/HPV positive ? Material Received ?? ThinPrep-Cervical ----- ------- Signed (signature on file) JOVITA Huff (ASCP) 05/22/23 1250 ? ----- ------- ? END OF REPORT ? us Raquel Whelan [facility] CYTOLOGY ORDERABLES F inal Result [facility] [address] [place] [phone] * HPV mRNA E6/E7 w/Reflex to HPV Genotypes 16, 18/45 (05/16/2023 10:48 AM EDT) HPV nRNA E6/E7 Not Detected Not Detected [facility] Comment:Methodology: Transcr iption-Mediated AmplificationThis assay detects E6/E7 viral messenger RNA (mRNA) from 14high-risk HPV types (16,18,31,33,35,39,45,51,52,56,58,59,66,68).Cervical sources are required for HPV testing.If a vaginal source from a patient who has had atotal hysterectomy with removal of cervix wassubmitted, please contact the testing laboratoryfor alternative testing options.For additional information, please refer [email or web address]/[email or web address](This link if provided for information/educational purposes only.)THIS TEST WAS PERFORMED AT:[email or web address] [place] [id number] ARROYO MD HPV mRNA E6/E7 TNP [facility] HPV 16 RNA [facility] HPV 18/45 RNA [facility] 05/16/2023 10:4 8 AM EDT 05/17/2023 6:30 AM EDT Raquel Whelan CN LAB CYTOLOGY ORDERABLES F inal Result [facility] [address] [place] [address] [phone] * (ABNORMAL) COVID-19 ID NOW (RUIZ) (04/16/2023 7:10 PM EDT) IDNOW SERIAL# [id number] [facility] COVID-19 TEST Positive (A) Negative [facility] COVID-19 NOTE See Note [facility] Comment: Results are for the identification of SARS-CoV2 RNA. TheSARS-CoV2 RNA is generally detectable in respiratory samplesduring the acute phase of infection. Positive results areindicative of the presence of SARS-CoV-2 RNA; clinicalcorrelation with patient history and other diagnosticinformation is necessary to determine patient infectionstatus. Positive results do not rule out bacterial infectionor co- infection with other viruses.Testing facilities within the [facility] and [facility] are required to report all positive results [...] 7:10 PM EDT 04/16/2023 7:34 PM EDT [facility] Exter nal Provider LAB MOLECULAR DIAGNOSTICS ORDERABLES Final Result [facility] [address] [place] [phone] [phone] * Urinalysis with reflex microscopic (08/21/2022 7:21 AM EST) Color Urine Yellow [facility] Appearance Urine Clear [facility] PH 5.5 5.0 - 9.0 [facility] Glucose Urine UA Negative Negative mg/dL [facility] Urine Blood Negative Negative [facility] Specific [place] - Urine 1.015 1.005 - 1.025 [facility] Urine Protein Negative Neg-Trace mg/dL [facility] Urine Ketones Negative Negative mg/dL [facility] Nitrite Urine Negative Negative [facility] Leukocyte Esterase Urine Negative Negative [facility] 08/21/2022 7:21 AM EST 08/21/2022 7:24 AM EST Narrative [facility] - 08/21/2022 7:31 AM EST [id number], Clean Catch [facility] External Provider LAB URI NE ORDERABLES Final Result Performing Organization Address [facility] de Phone Number [facility] [address] [place] [phone] * HCG, Qualitative, Urine (08/21/2022 7:20 AM EST) Urine NEGATIVE NEGATIVE [facility] Comment:This test was develo ped to detect early . Falsenegative results may occur after the 5th - 7th week ofpregnancy when using this test method. If clinicallyindicated, consider a serum hCG. 08/21/2022 7:20 AM EST 08/21/2022 7:24 AM EST [facility] External Provider LAB URI NE ORDERABLES Final Result Performing Organization Address [facility] Co de Phone Number [facility] [address] [place] [phone] * Lipase (08/21/2022 7:15 AM EST) Pathologist [facility] Lipase 29 8 - 78 U/L [facility] 08/21/2022 7:15 AM EST 08/21/2022 7:24 AM EST [facility] External Provider LAB BLO OD ORDERABLES Final Result Performing Organization Address [facility]/ZIP Co de Phone Number [facility] [address] [place] [address] [phone] * (ABNORMAL) Hepatic Function Panel (08/21/2022 7:15 AM EST) Pathologist [facility] Bilirubin, Total 0.3 0.0 - 1.0 mg/dL [facility] Bilirubin, Direct <0.2 0.0 - 0.5 mg/dL [facility] Aspartate Amino Transferase 36(H) 5 - 31 U/L [facility] Alanine Aminotransferase 61(H) 0 - 31 U/L [facility] Total Protein 6.0(L) 6.5 - 8.0 g/dL [facility] Albumin Level 3.7 3.5 - 5.0 g/dL [facility] Alkaline Phosphatase 70 39 - 117 U/L [facility] 08/21/2022 7:15 AM EST 08/21/2022 7:24 AM EST [facility] External Provider LAB BLO OD ORDERABLES Final Result Performing Organization Address [facility]/ZIP Co de Phone Number [facility] [address] [place] [address] [phone] * Basic Metabolic Panel (08/21/2022 7:15 AM EST) Pathologist [facility] Sodium 141 135 - 145 mmol/L [facility] Potassium 4.0 3.3 - 5.1 mmol/L [facility] Chloride 105 96 - 108 mmol/L [facility] Carbon Dioxide 28 22 - 29 mmol/L [facility] Anion Gap 12 12 - 20 [facility] Urea Nitrogen (BUN) 9 9 - 16 mg/dL [facility] Creatinine, Serum 0.64 0.5 - 1.4 mg/dL [facility] Creatinine Clr Calc Pharmacy 115.5 [facility] Comment:Provided height and weight: 162.56 cm,79.379 kg.eGFR (calculated from the MDRD study equation) and eCrCl(calculated from the Cockcroft-Gault equation) are based ondifferent parameters and may not yield comparable results.If eCrCl result is absurd, please check patient'sheight/weight. Estimated Glomerular Filt Rate >60 [facility] Comment:NOTE: For -Am erican individuals, multiply the result by 1.210.Chronic Kidney Disease: Estimated GFR < 60 mL/min/1.41y4Nfomsb Kidney Disease: Estimated GFR < 15 mL/min/1.73m2 Glucose 95 60 - 115 mg/dL [facility] Calcium 8.9 8.4 - 10.2 mg/dL [facility] 08/21/2022 7:15 AM EST 08/21/2022 7:24 AM EST [facility] External Provider LAB BLO OD ORDERABLES Final Result [facility] [address] [place] [phone] * (ABNORMAL) CBC auto differential (08/21/2022 7:15 AM EST) White Blood Count 5.5 4.8 - 10.8 X10*3/uL [facility] Red Blood Count 4.13(L) 4.20 - 5.50 X10*6/uL [facility] Hemoglobin 12.6 12.0 - 16.0 g/dl [facility] Hematocrit 36.7(L) 37.0 - 47.0 % [facility] Mean Corpuscular Volume 88.9 80.0 - 98.0 fL [facility] Mean Corpuscular Hemoglobin 30.5 27.0 - 33.0 pg [facility] Mean Corpuscular HGB Conc 34.3 31.0 - 35.0 g/dl [facility] Red Cell Distribution Width 12.1 11.0 - 16.0 % [facility] Platelet Count 191 160 - 400 X10*3/uL [facility] Mean Platelet Volume 7.9(L) 9.4 - 12.3 fL [facility] Neutrophils Percent Auto 52.3 45 - 73 % [facility] Imm Gran Pct Auto 0.5(H) 0.0 - 0.4 % [facility] Lymphocytes Percent Auto 37.1 20 - 40 % [facility] Monocytes Percent Auto 8.5 2 - 11 % [facility] Eosinophils Percent Auto 1.1 0 - 4 % [facility] Basophils Percent Auto 0.5 0 - 2 % [facility] NRBC Pct Auto 0.0 0.0 - 0.2 /100WBC [facility] Neutrophils Absolute Auto 2.9 2.0 - 8.3 x10*3/uL [facility] Imm Gran Abs Auto 0.03 0.00 - 0.03 X10*3/uL [facility] Lymphocytes Absolute Auto 2.1 1.2 - 4.9 X10*3/uL [facility] Monocytes Absolute Auto 0.5 0.1 - 1.2 X10*3/uL [facility] Eosinophils Absolute Auto 0.1 0.0 - 0.4 X10*3/uL [facility] Basophils Absolute Auto 0.0 0.0 - 0.2 X10*3/uL [facility] NRBC Abs Auto 0.000 0.0 - 0.012 X10*3/uL [facility] 08/21/2022 7:15 AM EST 08/21/2022 7:24 AM EST us [facility] External Provider LAB BLO OD ORDERABLES Final Result [facility] [address] [place] [address] [phone] documented in this encounter Visit Diagnoses Not on filedocumented in this encounter Care Teams Automotive Service Assistant Relationship Specialty Start Date End Date Rachel Eden MD [address] [place] [address] PCP - General Family Medicine 02/10/20 Bela Pugh Community Health Worker 12/12/23 02/17/24 Rebeka Schultz RN [address] [place] [phone] Agency Service Representative 12/24/23 02/17/24 Jurgen Graham JigsawyerBench Worker Helper 04/16/24 documented as of this encounter
--- OUTSIDE RECORDS SUMMARY | 2024-10-19 17:06 | XMS_ITS | Encounter Summary ---
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 ARIPiprazole (Abilify) 10 MG tablet Take 10 mg by mouth in the morning. Diclofenac Sodium 1 % gel APPLY 2 GRAMS TOPICALLY TO AFFECTED AREA(S) TWICE DAILY (Patient not taking: Reported on 04/07/2024) 100 g 1 DULoxetine (Cymbalta) [address] capsule Take 60 mg by mouth in the morning. ergocalciferol (Vitamin D2) 1.25 MG (85947 UT) capsule TAKE 1 CAPSULE BY MOUTH EVERY WEEK 12 capsule 1 esomeprazole (NexIUM) [address] capsule Take 1 capsule by mouth Once per day. ferrous gluconate (Fergon) 324 (38 Fe) MG tablet TAKE 1 TABLET BY MOUTH EVERY DAY AT BEDTIME 90 tablet 0 fluticasone furoate (Arnuity Ellipta) 100 MCG/ACT inhaler INHALE 1 PUFF EVERY DAY RINSE MOUTH AFTERUSING. 30 each 5 gabapentin (Neurontin) 400 MG capsule Take 1 capsule (400 mg) by mouth 2 times daily. 180 capsule 3 GaviLyte-G 236 g solution MIX WITH WATER DIRECTED AND DRINK 240 ML (8 OUNCES) BY MOUTH EVERY 10 MINUTES UNTIL FECAL EFFLUENT IS CLEAR FOR COLONOSCOPY, FOLLOW INSTRUCTION SHEET GIVEN TO YOU AT YOURDOCTOR'S OFFICE DIRECTED. hydrOXYzine pamoate (Vistaril) 50 MG capsule take 1 capsule by mouth every night at bedtime as needed lidocaine (Lidoderm) 5 % patch APPLY 1 PATCH TOPICALLY TO SKIN, LEAVE ON FOR 12 HOURS AND OFF FOR 12 HOURS DIRECTED 30 patch 3 lidocaine (Xylocaine) 5 % ointment Apply topically if needed in the morning, at noon, and at bedtime (pain). 30 g 3 loratadine (Claritin) 10 MG tablet Take 1 tablet (10 mg) by mouth in the morning. 90 tablet 0 Magnesium 400 MG capsule Take 1 tablet by mouth Once per day. 30 capsule 2 magnesium oxide (Mag-Ox) 400 MG tablet TAKE 1 TABLET BY MOUTH EVERY DAY 30 tablet 2 omeprazole (PriLOSEC) [address] capsule TAKE 1 CAPSULE BY MOUTH EVERY DAY 90 capsule 1 oxyCODONE-acetaminophen (Percocet) 5-325 MG tablet Take 1 tablet by mouth every 12 (twelve) hours if needed for severe pain for up to 28 days. Do not start before October 01, 2024. 56 tablet 0 tiZANidine (Zanaflex) 2 MG tablet TAKE 1 TABLET BY MOUTH EVERY 6 HOURS NEEDED FOR MUSCLE SPASMS (Patient not taking: Reported on 04/07/2024) 30 tablet 0 topiramate (Topamax) 50 MG tablet Take 50 mg by mouth at bedtime. DC gabapentin 90 tablet 3 Ventolin HFA 108 (90 Base) MCG/ACT inhaler INHALE 2 PUFFS BY MOUTH EVERY 4 TO 6 HOURS NEEDED 18 g 3 No current facility-administered medications for this visit. Patient Active Problem List Diagnosis Date Noted Chronic back pain 04/07/2024 Abnormal diaphysis of bone 03/18/2024 Acute asthma exacerbation 03/18/2024 Arthralgia 03/18/2024 Contusion 03/18/2024 GERD (gastroesophageal reflux disease) 03/18/2024 Fatty liver 03/18/2024 Hepatomegaly 03/18/2024 Left tibial fracture 03/18/2024 Encounter for colorectal cancer screening 03/18/2024 Migraine without aura and without status migrainosus, not intractable 02/26/2024 rn long term care current use of opiate analgesic 02/11/2024 ZACKERY (obstructive sleep apnea) 01/16/2024 Vitamin D deficiency 01/09/2024 Decreased vision in both eyes 12/18/2023 Photophobia of both eyes 12/18/2023 Abnormal movement of lower extremity 12/18/2023 High liver transaminase level 04/11/2023 Skin tag 04/11/2023 Adjustment disorder with anxious mood 02/04/2023 Adjustment disorder with depressed mood 02/04/2023 Plantar callosity 02/04/2023 Non-allergic rhinitis 02/04/2023 Neck pain 02/04/2023 Moderate persistent asthma without complication 02/04/2023 IFG (impaired fasting glucose) 02/04/2023 Generalized anxiety disorder 02/04/2023 Disorder of joint of spine 02/04/2023 Foot pain 02/04/2023 Carpal tunnel syndrome 02/04/2023 Low back pain radiating to left lower extremity 02/04/2023 Chronic ankle pain 02/04/2023 Tendinitis 02/04/2023 Suspected 2019-nCoV infection 02/04/2023 Encounter for preventive health examination 04/11/2023 Screening mammogram for breast cancer 04/11/2023 Pelvic pain 08/31/2022 DUB (dysfunctional uterine bleeding) 08/13/2022 Vaginal discharge 08/13/2022 Melania Smith Villalpando does report adherence to medication listed above, Percocet 5/325 mg BID PO last refilled on 09/30/2024 for quantity of 56 tabs for 28 days. The patient last took the prescribed dose on: 10/15/24. Pain score: 6 Medication is: 50% % effective at alleviating pain. Current pain site: back ORDER BUILDER Tier: 4 BPI completed on: 10/15/24 BLANCA completed on 10/15/24 Opioid risk tool 10/15/24 Social History Tobacco Use Smoking Status Former Current packs/day: 0.00 Types: Cigarettes Quit date: 01/03/2022 Years since quittin.7 Passive exposure: Past Smokeless Tobacco Never Social History Substance and Sexual Activity Drug Use Never Social History Substance and Sexual Activity Alcohol Use Never OBJECTIVE: SHOP GIRL checked: 10/15/24 Pill count completed, Melania Villalpando has 29 tablets, and should have 27. No data recorded Lab Results Component Value Date POCTHC Negative 10/15/2024 POCDOAUR Negative 10/15/2024 POCDOAUR Negative 10/15/2024 POCDOAUR Negative 10/15/2024 POCDOAUR Negative 10/15/2024 POCDOAUR Negative 10/15/2024 DOAUR Positive 10/15/2024 DOAUR Negative 10/15/2024 POCAMPHETAMI Negative 10/15/2024 POCBARBSCRN Negative 10/15/2024 POCBUPSCRN Negative 10/15/2024 POCMDMAUR Negative 10/15/2024 POCOXYCODONE Positive 10/15/2024 PROPOXUR Negative 10/15/2024 FENTANYLURIN Negative 10/15/2024 ASSESSMENT: Chronic opioid use related to pain Chronic benzo use related to anxiety PLAN: ORDER BUILDER contract reviewed and signed. A copy was given to the patient and the PCP was made aware. Melania Villalpando will continue taking medications as prescribed. Next ORDER BUILDER appointment will [facility] 11[facility]10/[facility] Future Appointments Date Time Provider Department Center 10/30/2024 10:45 AM Rachel Eden MD MEDICINE [facility] 11/10/2024 11:00 AM [facility] CHRONIC PAIN CLINIC MEDICINE [facility] Matthew Palomares RN documented in this encounter Plan of Treatment Upcoming Encounters Date Type Department Care Team (Late st Contact Info) Description 10/30/2024 10:45 AM EDT Office Visit [address] [address] Rachel Eden MD [address] [place] [phone] 11/10/2024 11:00 AM EDT Office Visit [address] [address] documented as of this encounter Procedures Procedure Name Priority Date/Time Associated Diagnosis Comments POCT PARAMJIT-14 URINE DRUG SCREEN Routine 10/15/2024 12:25 PM EDT Low back pain radiating to left lower extremity documented in this encounter Results * POCT PARAMJIT-14 Urine Drug Screen (10/15/2024 12:25 PM EDT) THC Negative Cocaine Screen, Urine Negative Opiate Screen, Urine Negative Methamphetamine Screen Urine Negative Amphetamine Screen, Urine Negative Benzodiazepines Screen, Urine Negative Barbiturate Screen, Urine Negative Methadone Screen, Urine Negative Buprenophine Screen, Urine Negative TCA, Urine Positive MDMA Urine Negative ng/mL Oxycodone Screen, Urine Positive Phencyclidine (PCP), Urine Negative Propoxyphene, Urine Negative Fentanyl, Urine Negative QC Media Lot # [id number] Lot# Expiration Date Urine Urine specimen obtained by clean catch procedure / Unknown 10/15/2024 12:25 PM EDT Rachel Eden MD POINT OF CARE TEST ENTER /EDIT ORDERABLES Final Result documented in this encounter Visit Diagnoses Diagnosis Low back pain radiating to left lower extremity documented in this encounter Additional Health Concerns Assessment Noted Time PHQ-9 Depression Total Score: 6 04/11/20 23 9:59 AM EDT documented as of this encounter Care Teams Manager Product Management Relationship Specialty Start Date End Date Rachel Eden MD [address] [place] [address] PCP - General Family Medicine 02/10/20 Jurgen Graham Accountant ManagerLithographic Printing Machinist 04/16/24 documented as of this encounter
== END 2024-10-19 15:48 | disposition home or self-care (01) ==
LOC: HO.HWS 15:09
PROVIDERS: PCP Internal Medicine; Visit Provider Obstetrics & Gynecology
DX: N93.9 Abnormal uterine and vaginal bleeding, unspecified (principal)
CPT/HCPCS: 99213

== ENCOUNTER 2025-03-03 11:37 | Outpatient (REF) | payer MEDICAID, SELFPAY ==
--- OUTSIDE RECORDS SUMMARY | 2025-03-03 12:34 | XMS_ITS | Encounter Summary ---
Author Organization [employer] Address [address] [place] [address] [address] [place] [address] Care Team Providers Care Energy Economist Name Role Phone Rachel Eden MD Primary Care Provider + Bela Pugh Unavailable Rebeka Schultz RN Unavailable [phone] Encounter Details Date Type Department Care Team (Late Contact Info) Description 08/01/2022 Orders Only [facility] [address] [place] [address] [phone] Poppy Pendleton LPN Social History Tobacco Use [...] Department Care Team (Late Contact Info) Description 03/08/2025 2:15 PM EDT Office Visit [facility] [address] [place], [place] [phone] Rachel Eden MD [address] [facility] [place] [address] 06/02/2025 11:30 AM EST Clinical Support [facility] [address] [place] [address] Diane Snyder RN documented as of this encounter Procedures Procedure [...] 10:30 AM EDT) Syphilis Screen Nonreactive Nonreactive [facility] 05/24/2023 10:3 0 AM EDT 05/24/2023 1:03 PM EDT Rachel Eden MD LAB BLOOD ORDERABLES Fin al Result [facility] [address] [place] [phone] [phone] * Pap Smear (05/16/2023 10:48 AM EDT) 05/16/2023 10:4 8 AM EDT 05/17/2023 6:30 AM EDT Tamir [facility] - 05/22/2023 12:50 PM EDT ----- ------- Name: Melania Ryan Age/Sex: 42/F : 1980 Unit#: [id number] Attend Dr: RAQUEL WHELAN CNM Re05/16/23 Status: [facility] [place] Disch: ----- ------- SPEC : [id number] RECD: 05/17/23 STATUS: ELVI CANALES NUM: [id number] CHRISTOPHER: 05/16/23-8 [facility] DR: RAQUEL WHELAN CNM ENTERED: 05/17/23-1015 SP TYPE: Pap Smr OT DR: ORDERED: Pap Smear Interpretation Satisfactory for evaluation. Negative for intraepithelial lesion or malignancy. HPV mRNA E6/E7: NOT DETECTED This assay detects E6/E7 viral messenger RNA (mRNA) from 14 high-risk HPV types (16, 18, 31, 33, 35, 39, 45, 51, 52, 56, 58, 59, 66, 68) HPV testing performed by [facility], [place], [place]. See reference laboratory pion of the EMR for entire report. Clinical Information LMP: Unknown date Previous PAP test: Unknown date, WNL Other history: Previous pap preceded by ASCUS/HPV positive Material Received ThinPrep-Cervical ----- ------- Signed (signature on file) JOVITA Huff (ASCP) 05/22/23 1250 ----- ------- END OF REPORT Raquel Whelan [facility] CYTOLOGY ORDERABLES F inal Result [facility] [address] [place] [phone] * HPV mRNA E6/E7 w/Reflex to HPV Genotypes 16, 18/45 (05/16/2023 10:48 AM EDT) HPV nRNA E6/E7 Not Detected Not Detected [facility] Comment:Methodology: Transcr iption-Mediated AmplificationThis assay detects E6/E7 viral messenger RNA (mRNA) from 14high-risk HPV types (16,18,31,33,35,39,45,51,52,56,58,59,66,68).Cervical sources are required for HPV testing.If a vaginal source from a patient who has had atotal hysterectomy with removal of cervix wassubmitted, please contact the testing laboratoryfor alternative testing options.For additional information, please refer [email or web address].TCAS Online/faq/CMH514b4(This link if provided for information/educational purposes only.)THIS TEST WAS PERFORMED AT:[employer] [place] [id number] ARROYO MD HPV mRNA E6/E7 [facility] HPV 16 RNA [facility] HPV 18/45 RNA [facility] 05/16/2023 10:4 8 AM EDT 05/17/2023 6:30 AM EDT Raquel Whelan [facility] CYTOLOGY ORDERABLES F inal Result [facility] [address] [place] [address] [phone] * (ABNORMAL) COVID-19 ID NOW (RUIZ) (04/16/2023 7:10 PM EDT) IDNOW SERIAL# [id number] [facility] COVID-19 TEST Positive (A) Negative [facility] COVID-19 NOTE See Note [facility] Comment: Results are for the identification of SARS-CoV2 RNA. TheSARS-CoV2 RNA is generally detectable in respiratory samplesduring the acute phase of infection. Positive results areindicative of the presence of SARS-CoV-2 RNA; clinicalcorrelation with patient history and other diagnosticinformation is necessary to determine patient infectionstatus. Positive results do not rule out bacterial infectionor co- infection with other viruses.Testing facilities within the [facility] and itsterritories are required to [...] use by authorized laboratories.Testing performed on the [employer] ID NOW utilizing NAAT. 04/16/2023 7:10 PM EDT 04/16/2023 7:34 PM EDT [facility] Exter nal Provider LAB MOLECULAR DIAGNOSTICS ORDERABLES Final Result Performing Organization Address [facility]/ZIP Co de Phone Number [facility] [address] [place] [phone] * Urinalysis with reflex microscopic (08/21/2022 7:21 AM EST) Color Urine Yellow [facility] Appearance Urine Clear [facility] PH 5.5 5.0 - 9.0 [facility] Glucose Urine UA Negative Negative mg/dL [facility] Urine Blood Negative Negative [facility] Specific [place] - Urine 1.015 1.005 - 1.025 [facility] Urine Protein Negative Neg-Trace mg/dL [facility] Urine Ketones Negative Negative mg/dL [facility] Nitrite Urine Negative Negative [facility] Leukocyte Esterase Urine Negative Negative [facility] 08/21/2022 7:21 AM EST 08/21/2022 7:24 AM EST Narrative [facility] - 08/21/2022 7:31 AM EST [id number], Clean Catch [facility] External Provider LAB URI NE ORDERABLES Final Result Performing Organization Address [facility] Co de Phone Number [facility] [address] [place] [phone] * HCG, Qualitative, Urine (08/21/2022 7:20 AM EST) Urine NEGATIVE NEGATIVE [facility] Comment:This test was develo ped to detect early . Falsenegative results may occur after the 5th - 7th week ofpregnancy when using this test method. If clinicallyindicated, consider a serum hCG. 08/21/2022 7:20 AM EST 08/21/2022 7:24 AM EST [facility] External Provider LAB URI NE ORDERABLES Final Result Performing Organization Address City/[facility]/ZIP Co de Phone Number [facility] [address] [place] [phone] * Lipase (08/21/2022 7:15 AM EST) Pathologist [facility] Lipase 29 8 - 78 U/L [facility] 08/21/2022 7:15 AM EST 08/21/2022 7:24 AM EST [facility] External Provider LAB BLO OD ORDERABLES Final Result Performing Organization Address City/[facility] Co de Phone Number [facility] [address] [place] [phone] * (ABNORMAL) Hepatic Function Panel (08/21/2022 7:15 AM EST) Bilirubin, Total 0.3 0.0 - 1.0 mg/dL [facility] Bilirubin, Direct <0.2 0.0 - 0.5 mg/dL [facility] Aspartate Amino Transferase 36(H) 5 - 31 U/L [facility] Alanine Aminotransferase 61(H) 0 - 31 U/L [facility] Total Protein 6.0(L) 6.5 - 8.0 g/dL [facility] Albumin Level 3.7 3.5 - 5.0 g/dL [facility] Alkaline Phosphatase 70 39 - 117 U/L [facility] 08/21/2022 7:15 AM EST 08/21/2022 7:24 AM EST [facility] External Provider LAB BLO OD ORDERABLES Final Result Performing Organization Address City/[facility]/ZIP Co de Phone Number [facility] [address] [place] [phone] * Basic Metabolic Panel (08/21/2022 7:15 AM EST) Sodium 141 135 - 145 mmol/L [facility] Potassium 4.0 3.3 - 5.1 mmol/L [facility] Chloride 105 96 - 108 mmol/L [facility] Carbon Dioxide 28 22 - 29 mmol/L [facility] Anion Gap 12 12 - 20 [facility] Urea Nitrogen (BUN) 9 9 - 16 mg/dL [facility] Creatinine, Serum 0.64 0.5 - 1.4 mg/dL [facility] Creatinine Clr Calc Pharmacy 115.5 [facility] Comment:Provided height and weight: 162.56 cm,79.379 kg.eGFR (calculated from the MDRD study equation) and eCrCl(calculated from the Cockcroft-Gault equation) are based ondifferent parameters and may not yield comparable results.If eCrCl result is absurd, please check patient'sheight/weight. Estimated Glomerular Filt Rate >60 [facility] Comment:NOTE: For -Am erican individuals, multiply the result by 1.210.Chronic Kidney Disease: Estimated GFR < 60 mL/min/1.20f6Hizsbf Kidney Disease: Estimated GFR < 15 mL/min/1.73m2 Glucose 95 60 - 115 mg/dL [facility] Calcium 8.9 8.4 - 10.2 mg/dL [facility] 08/21/2022 7:15 AM EST 08/21/2022 7:24 AM EST [facility] External Provider LAB BLO OD ORDERABLES Final Result Performing Organization Address City/[facility]/ZIP Co de Phone Number [facility] [address] [place] [phone] * (ABNORMAL) CBC auto differential (08/21/2022 7:15 AM EST) White Blood Count 5.5 4.8 - 10.8 X10*3/uL [facility] Red Blood Count 4.13(L) 4.20 - 5.50 X10*6/uL [facility] Hemoglobin 12.6 12.0 - 16.0 g/dl [facility] Hematocrit 36.7(L) 37.0 - 47.0 % [facility] Mean Corpuscular Volume 88.9 80.0 - 98.0 fL [facility] Mean Corpuscular Hemoglobin 30.5 27.0 - 33.0 pg [facility] Mean Corpuscular HGB Conc 34.3 31.0 - 35.0 g/dl [facility] Red Cell Distribution Width 12.1 11.0 - 16.0 % [facility] Platelet Count 191 160 - 400 X10*3/uL [facility] Mean Platelet Volume 7.9(L) 9.4 - 12.3 fL [facility] Neutrophils Percent Auto 52.3 45 - 73 % [facility] Imm Gran Pct Auto 0.5(H) 0.0 - 0.4 % [facility] Lymphocytes Percent Auto 37.1 20 - 40 % [facility] Monocytes Percent Auto 8.5 2 - 11 % [facility] Eosinophils Percent Auto 1.1 0 - 4 % [facility] Basophils Percent Auto 0.5 0 - 2 % [facility] NRBC Pct Auto 0.0 0.0 - 0.2 /100WBC [facility] Neutrophils Absolute Auto 2.9 2.0 - 8.3 x10*3/uL [facility] Imm Gran Abs Auto 0.03 0.00 - 0.03 X10*3/uL [facility] Lymphocytes Absolute Auto 2.1 1.2 - 4.9 X10*3/uL [facility] Monocytes Absolute Auto 0.5 0.1 - 1.2 X10*3/uL [facility] Eosinophils Absolute Auto 0.1 0.0 - 0.4 X10*3/uL [facility] Basophils Absolute Auto 0.0 0.0 - 0.2 X10*3/uL [facility] NRBC Abs Auto 0.000 0.0 - 0.012 X10*3/uL [facility] 08/21/2022 7:15 AM EST 08/21/2022 7:24 AM EST us [facility] External Provider LAB BLO OD ORDERABLES Final Result [facility] [address] [place] [phone] documented in this encounter Visit Diagnoses Not on filedocumented in this encounter Care Teams Energy Economist Relationship Specialty Start Date End Date Rachel Eden MD [address] [place] [phone] PCP - General Family Medicine 02/10/20 Bela Pugh Community Health Worker 12/12/2302/16 Rebeka Schultz RN [address] [place] [address] Charm Filter Operator Helper 12/24/23 02/17/24 Jurgen Graham Surgeon AssistantInstructional Design Technologist 04/16/24 documented as of this encounter
[2025-03-03 13:58] LABS: Hemoglobin A1C 86.2750 umol/L; Total Hemoglobin (HGBA1C) 2772.2333 umol/L
[2025-03-03 14:13] LABS: Anion Gap 11 (12-20); Blood Urea Nitrogen 13 mg/dL (9-16); Calcium 8.8 mg/dL (8.4-10.2); Carbon Dioxide 25 mmol/L (22-29); Chloride 109 mmol/L (96-108); Estimated Glomerular Filt Rate > 60; Potassium 3.9 mmol/L (3.3-5.1); Sodium 141 mmol/L (135-145)
== END 2025-03-03 11:38 | disposition home or self-care (01) ==
LOC: HO.HHCL 11:37
PROVIDERS: PCP Internal Medicine; Visit Provider Internal Medicine
DX: E66.812 Obesity, class 2 (principal); Z68.37 Body mass index [BMI] 37.0-37.9, adult
CPT/HCPCS: 36415; 80048; 83036; 84443

== ENCOUNTER 2025-04-15 10:02 | Emergency (ER) | payer OTHER, SELFPAY ==
--- NOTE | ~2025-04-15 | XR_ITS ---
EXAMINATION: XR SHOULDER 2 OR MORE VIEWS LEFT HISTORY: pain, injury COMPARISON: There are no prior studies available for comparison. FINDINGS: Three views of the left shoulder are submitted. Osseous mineralization is normal. A portion of a sideplate and multiple orthopedic screws are noted along the proximal humerus. There is no acute fracture or dislocation. The glenohumeral and acromioclavicular joint spaces are preserved. The soft tissues are unremarkable. XR/XR shoulder LT min 2V IMPRESSION: Unremarkable examination of the left shoulder. Electronically signed by: Jaden Torres MD 04/15/2025 12:42 PM EDT
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
--- NOTE | ~2025-04-15 | XR_ITS ---
EXAMINATION: XR KNEE 4 OR MORE VIEWS RIGHT HISTORY: pain, injury COMPARISON: There are no prior studies available for comparison. FINDINGS: Six views of the right knee are submitted. Osseous mineralization is normal. There is no fracture or dislocation. The joint spaces are preserved. The soft tissues are unremarkable. There is no joint effusion. XR/XR knee RT 4V IMPRESSION: Unremarkable examination of the right knee. Electronically signed by: Jaden Torres MD 04/15/2025 12:43 PM EDT
--- NOTE | ~2025-04-15 | XR_ITS ---
EXAMINATION: XR WRIST, LEFT CLINICAL INFORMATION: pain, injury COMPARISON: None available. TECHNIQUE: PA, lateral, oblique, and scaphoid views of the left wrist. FINDINGS: There is no joint diastases. No degenerative changes are evident. There is cystic change in the ulnar aspect of the scaphoid at the junction of the waist and tuberosity. There is also cystic change in the ulnar base of the lunate. There is also subtle corticated lucency in the proximal articular surface of the second metacarpal. Lucency involving the base of the lunate on the PA view is projectional in nature. No fracture is identified. XR/XR wrist LT min 3V IMPRESSION: No acute abnormalities. Multifocal cystlike lucencies are of uncertain etiology. Correlate for signs symptoms of inflammatory arthropathy such as rheumatoid arthritis. Electronically signed by: Jaswinder Burgos MD 04/15/2025 12:42 PM EDT
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
[2025-04-15 10:09] VITALS: BP 136/82; BP 98/32; PULSE 79; PULSE 81; RESP 18; TEMP 36.6; O2SAT 97; BMI 36.1
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
[2025-04-15 10:39] VITALS: BP 136/76; PULSE 78; RESP 20; TEMP 36.6; O2SAT 98
[2025-04-15 13:06] VITALS: BP 136/76; PULSE 78; RESP 20; TEMP 36.6; O2SAT 98
== END 2025-04-15 13:07 | disposition home or self-care (01) ==
PROVIDERS: Emergency Provider Emergency Medicine; PCP Internal Medicine
DX: S19.9XXA Unspecified injury of neck, initial encounter (principal); S49.92XA Unspecified injury of left shoulder and upper arm, initial encounter; M54.2 Cervicalgia; R51.9 Headache, unspecified; R07.89 Other chest pain; M79.602 Pain in left arm; M25.561 Pain in right knee; V49.40XA Driver injured in collision with unspecified motor vehicles in traffic accident, initial encounter; Y93.9 Activity, unspecified; Y92.410 Unspecified street and highway as the place of occurrence of the external cause; Y99.8 Other external cause status; Z79.899 Other long term (current) drug therapy
CPT/HCPCS: 70450; 71046; 72125; 73030; 73080; 73110; 73564; 93005; 99284

== ENCOUNTER → 2025-04-15 10:14 | Outpatient (BNV) | payer OTHER, SELFPAY | PROVIDERS: Emergency Provider Emergency Medicine; PCP Internal Medicine; Visit Provider Internal Medicine Cardiovascular Disease | DX: Z04.3 Encounter for examination and observation following other accident (principal) | CPT/HCPCS: 93010 ==

== ENCOUNTER → 2025-04-15 10:34 | Outpatient (BNV) | payer OTHER, SELFPAY | PROVIDERS: PCP Internal Medicine; Visit Provider Radiology Diagnostic Radiology | DX: M54.2 Cervicalgia (principal); S09.90XA Unspecified injury of head, initial encounter; M25.561 Pain in right knee; R07.9 Chest pain, unspecified; M25.512 Pain in left shoulder; M25.522 Pain in left elbow; M25.532 Pain in left wrist | CPT/HCPCS: 70450; 71046; 72125; 73030; 73080; 73110; 73564 ==

== ENCOUNTER → 2025-04-20 00:05 | Outpatient (BNV) | payer MEDICAID, SELFPAY | PROVIDERS: PCP Internal Medicine; Visit Provider Radiology Diagnostic Radiology | DX: R07.89 Other chest pain (principal) | CPT/HCPCS: 71046 ==

== ENCOUNTER 2025-04-20 23:36 | Emergency (ER) | payer OTHER, SELFPAY ==
--- NOTE | ~2025-04-20 | XR_ITS ---
CLINICAL HISTORY: cp 2 view chest x-ray Comparison: 04/15/2025 12:14 PM EDT Findings: Lungs are clear without acute infiltrates. No pneumothorax. Heart size normal. No acute bony abnormalities. Impression: No acute processes This document has been electronically signed by: Edmond Whitman MD on 04/21/2025 00:34:56
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
[2025-04-20 23:41] VITALS: BP 146/80; PULSE 76; RESP 16; TEMP 36.8; O2SAT 98; BMI 35.0
--- NOTE | 2025-04-20 23:45 | ECG_ITS ---
Test Reason : VHEST PAIN Blood Pressure : */* mmHG Vent. Rate : 70 BPM Atrial Rate : 70 BPM P-R Int : 142 ms QRS Dur : 92 ms QT Int : 400 ms P-R-T Axes : 53 2 4 degrees QTcB Int : 432 ms Normal sinus rhythm Normal ECG When compared with ECG of 15-Apr-2025 10:20, No significant change was found Referred By: Generic ED Physician Electronically Signed By: RICH RENEE
[2025-04-21 00:40] LABS: MANUAL DIFF FLAG NO
[2025-04-21 00:41] LABS: Hematocrit 32.9 % (37.0-47.0); Hemoglobin 10.7 g/dl (12.0-16.0); Imm Gran Pct Auto 1.3 % (0.0-0.4); Mean Corpuscular HGB Conc 32.5 g/dl (31.0-35.0); Mean Corpuscular Hemoglobin 25.4 pg (27.0-33.0); Mean Corpuscular Volume 78.0 fL (80.0-98.0); Platelet Count 240 X10*3/uL (160-400); Red Blood Count 4.22 X10*6/uL (4.20-5.50); White Blood Count 6.8 X10*3/uL (4.8-10.8)
[2025-04-21 00:42] LABS: Imm Gran Abs Auto 0.09 X10*3/uL (0.00-0.03); Lymphocytes Absolute Auto 1.8 X10*3/uL (1.2-4.9); NRBC Abs Auto 0.000 X10*3/uL (0.0-0.012); NRBC Pct Auto 0.0 /100WBC (0.0-0.2)
[2025-04-21 01:05] LABS: Alanine Aminotransferase 30 U/L (0-31); Albumin Level 4.3 g/dL (3.5-5.0); Alkaline Phosphatase 93 U/L (39-117); Anion Gap 11 (12-20); Aspartate Amino Transferase 30 U/L (5-31); Blood Urea Nitrogen 14 mg/dL (9-16); Calcium 9.0 mg/dL (8.4-10.2); Carbon Dioxide 24 mmol/L (22-29); Chloride 111 mmol/L (96-108); Creatinine Clr Calc Pharmacy 112.3; Estimated Glomerular Filt Rate > 60; Magnesium 2.1 mg/dL (1.6-2.6); Potassium 3.5 mmol/L (3.3-5.1); Sodium 142 mmol/L (135-145); Total Protein 7.2 g/dL (6.5-8.0); Troponin-I High Sensitivity < 2.7 ng/L (<3.5-17.0)
--- OUTSIDE RECORDS SUMMARY | 2025-04-21 01:30 | XMS_ITS | Encounter Summary ---
Demographics Address [address] [place] [address] [address] [place] [address] Home Phone Work Phone Mobile Phone Email Address [email or web address] Preferred Language es Marital Status Unknown Congregation Affiliation Unknown Race White Ethnic Group Unknown Author Organization [employer] Address [address] [place] [address] [address] [place] [address] Care Team Providers Care Gate Watchman Name Role Phone Rachel Eden MD Primary Care Provider + Bela Pugh Unavailable Rebeka Schultz RN Unavailable [phone] Jaguar Pugh RN Unavailable [phone] Lori Alvarez Unavailable Reason for Visit * Reason Comments Pre-visit Planning SDOH tobacco screeni ng complete Encounter Details Date Type Department Care Team (Late Contact Info) Description 03/08/[address] [id number] Rachel Eden MD [address] [place], [place] [phone] Social History Tobacco Use Types Packs/Day Years [...] Department Care Team (Late Contact Info) Description 06/02/2025 11:30 AM EST Clinical Support [facility] [address] [place] [address] Diane Snyder, RN documented as of this encounter Visit Diagnoses Not on filedocumented in this encounter Care Teams Gate Watchman Relationship Specialty Start Date End Date Rachel Eden MD [address] [place] [address] PCP - General Family Medicine 02/10/20 Bela Pugh Community Health Worker 12/12/2302/16 Rebeka Schultz RN [address] [place] [address] Woods Overseer 12/24/23 02/17/24 Jaguar Pugh RN [address] [place] [address] Registered Nurse Family Medicine 04/16/25 Lori Alvarez 04/16/25 Jurgen Graham Events SpecialistDrilling And Production Superintendent 04/16/24 documented as of this encounter
--- OUTSIDE RECORDS SUMMARY | 2025-04-21 01:30 | XMS_ITS | Encounter Summary ---
Author Organization [employer] Address [address] [facility] [address] [place] [address] Care Team Providers Care Issue Clerk Name Role Phone Rachel Eden MD Primary Care Provider + Jaguar Pugh RN Unavailable [phone] Lori Alvarez Unavailable Encounter Details Date Type Department Care Team (Latest Contact Info) Description 04/20/2025 Travel Social History Tobacco Use Types Packs/Day [...] Description 06/02/2025 11:30 AM EST Clinical Support [facility] [address] [place] [address] Diane Snyder, SHASHA documented as of this encounter Visit Diagnoses Not on filedocumented in this encounter Additional Health Concerns Assessment Noted Time PHQ-9 Depression Total Score: 8 12/31/19 25 10:30 AM EDT documented as of this encounter Care Teams Issue Clerk Relationship Specialty Start Date End Date Rachel Eden MD [address] [place] [address] PCP - General Family Medicine 02/10/20 Jaguar Pugh, SHASHA [address] [place] [address] Registered Nurse Family Medicine 04/16/25 Lori Alvarez 04/16/25 Jurgen Graham Gum RemoverNurse Aide Evaluator 04/16/24 documented as of this encounter
--- OUTSIDE RECORDS SUMMARY | 2025-04-21 01:30 | XMS_ITS | Encounter Summary ---
Author Organization [employer] Address [address] [place] [address] 7t [place] [address] Care Team Providers Care Synchronizer Name Role Phone Rachel Eden MD Primary Care Provider + Bela Pugh Unavailable Rebeka Schultz RN Unavailable [phone] Jaguar Pugh RN Unavailable [phone] Lori Alvarez Unavailable Encounter Details Date Type Department Care Team (Late st Contact Info) Description 08/01/2022 Orders Only [facility] MED[facility]INE [address] [place] [address] Poppy Pendleton LPN Social History Tobacco Use [...] Description 06/02/2025 11:30 AM EST Clinical Support [facility]INE [address] [place] [address] Diane Snyder RN documented as of this [...] 10:30 AM EDT) Syphilis Screen Nonreactive Nonreactive [facility] 05/24/2023 10:3 0 AM EDT 05/24/2023 1:03 PM EDT us Rachel Eden MD LAB BLOOD ORDERABLES Fin al Result [facility] [address] [place] [address] [phone] * Pap Smear (05/16/2023 10:48 AM EDT) 05/16/2023 10:4 8 AM EDT 05/17/2023 6:30 AM EDT [facility] - 05/22/2023 12:50 PM EDT ----- ------- Name: Melania Ryan Age/Sex: 42/F : 1980 Unit#: [id number] Attend Dr: RAQUEL WHELAN CNM Re05/16/23 Status: DEP REF Location: [place].HHCLNP Disch: ----- ------- SPEC : [id number] RECD: 05/17/23 STATUS: ELVI CANALES NUM: [id number] CHRISTOPHER: 05/16/23-1048 [facility] DR: RAQUEL WHELAN CNM ENTERED: 05/17/23-1015 SP TYPE: Pap Smr OT DR: ORDERED: Pap Smear Interpretation Satisfactory for evaluation. Negative for intraepithelial lesion or malignancy. HPV mRNA E6/E7: NOT DETECTED This assay detects E6/E7 viral messenger RNA (mRNA) from 14 high-risk HPV types (16, 18, 31, 33, 35, 39, 45, 51, 52, 56, 58, 59, 66, 68) HPV testing performed by [facility], [place], [place]. See reference laboratory pion of the EMR for entire report. Clinical Information LMP: Unknown date Previous PAP test: Unknown date, WNL Other history: Previous pap preceded by ASCUS/HPV positive Material Received ThinPrep-Cervical ----- ------- Signed (signature on file) JOVITA Huff (ASCP) 05/22/23 1250 ----- ------- END OF REPORT Raquel Whelan [facility] CYTOLOGY ORDERABLES F inal Result [facility] [address] [place] [phone] * HPV mRNA E6/E7 w/Reflex to HPV Genotypes 16, 18/45 (05/16/2023 10:48 AM EDT) HPV nRNA E6/E7 Not Detected Not Detected [facility] Comment:Methodology: Transcr iption-Mediated AmplificationThis assay detects E6/E7 viral messenger RNA (mRNA) from 14high-risk HPV types (16,18,31,33,35,39,45,51,52,56,58,59,66,68).Cervical sources are required for HPV testing.If a vaginal source from a patient who has had atotal hysterectomy with removal of cervix wassubmitted, please contact the testing laboratoryfor alternative testing options.For additional information, please refer [email or web address]/faq/[email or web address](This link if provided for information/educational purposes only.)THIS TEST WAS PERFORMED AT:[employer] [place] [id number] ARROYO MD HPV mRNA E6/E7 TNP [facility] HPV 16 RNA TNP [facility] HPV 18/45 RNA [facility] 05/16/2023 10:4 8 AM EDT 05/17/2023 6:30 AM EDT us Raquel Whelan [facility] CYTOLOGY ORDERABLES F inal Result [facility] [address] [place] [address] [phone] * (ABNORMAL) COVID-19 ID NOW ([facility]) (04/16/2023 7:10 PM EDT) IDNOW SERIAL# [id number] [facility] COVID-19 TEST Positive (A) Negative [facility] COVID-19 NOTE See Note [facility] Comment: Results are for the identification of SARS-CoV2 RNA. TheSARS-CoV2 RNA is generally detectable in respiratory samplesduring the acute phase of infection. Positive results areindicative of the presence of SARS-CoV-2 RNA; clinicalcorrelation with patient history and other diagnosticinformation is necessary to determine patient infectionstatus. Positive results do not rule out bacterial infectionor co- infection with other viruses.Testing facilities within the [facility] and itsterritories are required to report all [...] use by authorized laboratories.Testing performed on the [employer] ID NOW utilizing NAAT. 04/16/2023 7:10 PM EDT 04/16/2023 7:34 PM EDT [facility] Exter nal Provider LAB MOLECULAR DIAGNOSTICS ORDERABLES Final Result Performing Organization Address City/[facility] Co de Phone Number [facility] [address] [place] [phone] * Urinalysis with reflex microscopic (08/21/2022 7:21 AM EST) Color Urine Yellow [facility] Appearance Urine Clear [facility] PH 5.5 5.0 - 9.0 [facility] Glucose Urine UA Negative Negative mg/dL [facility] Urine Blood Negative Negative [facility] Specific [place] - Urine 1.015 1.005 - 1.025 [facility] Urine Protein Negative Neg-Trace mg/dL [facility] Urine Ketones Negative Negative mg/dL [facility] Nitrite Urine Negative Negative [facility] Leukocyte Esterase Urine Negative Negative [facility] 08/21/2022 7:21 AM EST 08/21/2022 7:24 AM EST Narrative [facility] - 08/21/2022 7:31 AM EST [id number], Clean Catch [facility] External Provider LAB URI NE ORDERABLES Final Result Performing Organization Address [facility] de Phone Number [facility] [address] [place] [phone] * HCG, Qualitative, Urine (08/21/2022 7:20 AM EST) Urine NEGATIVE NEGATIVE [facility] Comment:This test was develo ped to detect early . Falsenegative results may occur after the 5th - 7th week ofpregnancy when using this test method. If clinicallyindicated, consider a serum hCG. 08/21/2022 7:20 AM EST 08/21/2022 7:24 AM EST [facility] External Provider LAB URI NE ORDERABLES Final Result Performing Organization Address [facility] Co de Phone Number [facility] [address] [place] [phone] * Lipase (08/21/2022 7:15 AM EST) Lipase 29 8 - 78 U/L [facility] 08/21/2022 7:15 AM EST 08/21/2022 7:24 AM EST [facility] External Provider LAB BLO OD ORDERABLES Final Result Performing Organization Address [facility] de Phone Number [facility] [address] [place] [phone] * (ABNORMAL) Hepatic Function Panel (08/21/2022 7:15 AM EST) Bilirubin, Total 0.3 0.0 - 1.0 mg/dL [facility] Bilirubin, Direct <0.2 0.0 - 0.5 mg/dL [facility] Aspartate Amino Transferase 36(H) 5 - 31 U/L [facility] Alanine Aminotransferase 61(H) 0 - 31 U/L [facility] Total Protein 6.0(L) 6.5 - 8.0 g/dL [facility] Albumin Level 3.7 3.5 - 5.0 g/dL [facility] Alkaline Phosphatase 70 39 - 117 U/L [facility] 08/21/2022 7:15 AM EST 08/21/2022 7:24 AM EST [facility] External Provider LAB BLO OD ORDERABLES Final Result Performing Organization Address City/[facility]/ZIP Co de Phone Number [facility] [address] [place] [address] [phone] * Basic Metabolic Panel (08/21/2022 7:15 AM EST) Sodium 141 135 - 145 mmol/L [facility] Potassium 4.0 3.3 - 5.1 mmol/L [facility] Chloride 105 96 - 108 mmol/L [facility] Carbon Dioxide 28 22 - 29 mmol/L [facility] Anion Gap 12 12 - 20 [facility] Urea Nitrogen (BUN) 9 9 - 16 mg/dL [facility] Creatinine, Serum 0.64 0.5 - 1.4 mg/dL [facility] Creatinine Clr Calc Pharmacy 115.5 [facility] Comment:Provided height and weight: 162.56 cm,79.379 kg.eGFR (calculated from the MDRD study equation) and eCrCl(calculated from the Cockcroft-Gault equation) are based ondifferent parameters and may not yield comparable results.If eCrCl result is absurd, please check patient'sheight/weight. Estimated Glomerular Filt Rate >60 [facility] Comment:NOTE: For -Am erican individuals, multiply the result by 1.210.Chronic Kidney Disease: Estimated GFR < 60 mL/min/1.63v0Jceejp Kidney Disease: Estimated GFR < 15 mL/min/1.73m2 Glucose 95 60 - 115 mg/dL [facility] Calcium 8.9 8.4 - 10.2 mg/dL [facility] 08/21/2022 7:15 AM EST 08/21/2022 7:24 AM EST us [facility] External Provider LAB BLO OD ORDERABLES Final Result Performing Organization Address City/[facility]/ZIP Co de Phone Number [facility] [address] [place] [address] [phone] * (ABNORMAL) CBC auto differential (08/21/2022 7:15 AM EST) White Blood Count 5.5 4.8 - 10.8 X10*3/uL [facility] Red Blood Count 4.13(L) 4.20 - 5.50 X10*6/uL [facility] Hemoglobin 12.6 12.0 - 16.0 g/dl [facility] Hematocrit 36.7(L) 37.0 - 47.0 % [facility] Mean Corpuscular Volume 88.9 80.0 - 98.0 fL [facility] Mean Corpuscular Hemoglobin 30.5 27.0 - 33.0 pg [facility] Mean Corpuscular HGB Conc 34.3 31.0 - 35.0 g/dl [facility] Red Cell Distribution Width 12.1 11.0 - 16.0 % [facility] Platelet Count 191 160 - 400 X10*3/uL [facility] Mean Platelet Volume 7.9(L) 9.4 - 12.3 fL [facility] Neutrophils Percent Auto 52.3 45 - 73 % [facility] Imm Gran Pct Auto 0.5(H) 0.0 - 0.4 % [facility] Lymphocytes Percent Auto 37.1 20 - 40 % [facility] Monocytes Percent Auto 8.5 2 - 11 % [facility] Eosinophils Percent Auto 1.1 0 - 4 % [facility] Basophils Percent Auto 0.5 0 - 2 % [facility] NRBC Pct Auto 0.0 0.0 - 0.2 /100WBC [facility] Neutrophils Absolute Auto 2.9 2.0 - 8.3 x10*3/uL [facility] Imm Gran Abs Auto 0.03 0.00 - 0.03 X10*3/uL [facility] Lymphocytes Absolute Auto 2.1 1.2 - 4.9 X10*3/uL [facility] Monocytes Absolute Auto 0.5 0.1 - 1.2 X10*3/uL [facility] Eosinophils Absolute Auto 0.1 0.0 - 0.4 X10*3/uL [facility] Basophils Absolute Auto 0.0 0.0 - 0.2 X10*3/uL [facility] NRBC Abs Auto 0.000 0.0 - 0.012 X10*3/uL [facility] 08/21/2022 7:15 AM EST 08/21/2022 7:24 AM EST us [facility] External Provider LAB BLO OD ORDERABLES Final Result [facility] [address] [place] [phone] [phone] documented in this encounter Visit Diagnoses Not on filedocumented in this encounter Care Teams Synchronizer Relationship Specialty Start Date End Date Rachel Eden MD [address] [place] [phone] PCP - General Family Medicine 02/10/20 Bela Pugh Community Health Worker 12/12/2302/16 Rebeka Schultz RN [address] [place] [address] Model Maker Scale 12/24/23 02/17/24 Jaguar Pugh RN [address] [place] [address] Registered Nurse Family Medicine 04/16/25 Lori Alvarez 04/16/25 Jurgen Graham Milled Rubber TenderStraw Hat Presser 04/16/24 documented as of this encounter
--- OUTSIDE RECORDS SUMMARY | 2025-04-21 01:30 | XMS_ITS | Encounter Summary ---
Demographics Address [address] [place] [address] [address] [place] [address] Home Phone Work Phone Mobile Phone Email Address .[employer] Preferred Language es Marital Status Unknown Restoration Affiliation Unknown Race White Ethnic Group Unknown Author Organization [employer] Address [address] [place] [address] 7[address] [place] [address] Care Team Providers Care Analytical Scientist Name Role Phone Rachel Eden MD Primary Care Provider + Bela Pugh Unavailable Rebeka Schultz RN Unavailable [phone] Jaguar Pugh RN Unavailable [phone] Lori Alvarez Unavailable Reason for Visit * Reason Onset Date Comments Med Refill 01/22/2024 Encounter Details Date Type Department Care Team (Late st Contact Info) Description 01/22/2024 Telephone [facility] [address] [place], [place] [phone] Rachel Eden MD [address] [place], [place] [phone] Med Refill Social History Tobacco Use Types [...] 5-325 MG tablet To be sent to: [facility] - [place], [place] - [address] [place] [address] documented in this encounter Plan of Treatment Upcoming Encounters Date Type Department Care Team (Late st Contact Info) Description 06/02/2025 11:30 AM EST Clinical Support [facility] [address] [place] [address] Diane Snyder, RN documented as of this encounter Visit Diagnoses Not on filedocumented in this encounter Additional Health Concerns Assessment Noted Time PHQ-9 Depression Total Score: 6 04/11/20 23 9:59 AM EDT documented as of this encounter Care Teams Analytical Scientist Relationship Specialty Start Date End Date Rachel Eden MD [address] [place] [address] PCP - General Family Medicine 02/10/20 Bela Pugh Community Health Worker 12/12/2302/16 Rebeka Schultz, SHASHA [address] [place] [address] Post Secondary Professional 12/24/23 02/17/24 Jaguar Pugh RN [address] [place] [address] Registered Nurse Family Medicine 04/16/25 Lori Alvarez 04/16/25 Jurgen Graham Early Childhood Aide ClassroomProfessor Of Communication Arts 04/16/24 documented as of this encounter
--- OUTSIDE RECORDS SUMMARY | 2025-04-21 01:30 | XMS_ITS | Encounter Summary ---
Author Organization [employer] Address [address] [place] [address] 7t [place] [address] Care Team Providers Care Food Service Representative Name Role Phone Rachel Eden MD Primary Care Provider + Bela Pugh Unavailable Rebeka Schultz RN Unavailable [phone] Jaguar Pugh RN Unavailable [phone] Lori Alvarez Unavailable Reason for Visit * Reason Comments Med Refill Encounter Details Date Type Department Care Team (Late st Contact Info) Description 10/03/2022 Refill [facility] [address] [place], [place] [phone] Maria Teresa Hill MD [address] [place] [address] Pain in left foot Social History Tobacco [...] Description 06/02/2025 11:30 AM EST Clinical Support [facility] [address] [place] [address] Diane Snyder, SHASHA documented as of this encounter Visit Diagnoses Diagnosis Pain in left foot Pain in soft tissues of limb documented in this encounter Care Teams Food Service Representative Relationship Specialty Start Date End Date Rachel Eden MD [address] [place] [address] PCP - General Family Medicine 02/10/20 Bela [facility] Community Health Worker 12/12/2302/16 Rebeka Schultz, SHASHA [address] [place] [address] Roof Painter 12/24/23 02/17/24 Jaguar Pugh, SHASHA [address] [place] [address] Registered Nurse Family Medicine 04/16/25 Lori Alvarez 04/16/25 Jurgen Graham Senior Software AnalystNode Js Developer 04/16/24 documented as of this encounter
--- OUTSIDE RECORDS SUMMARY | 2025-04-21 01:30 | XMS_ITS | Encounter Summary ---
Author Organization [employer] Address [address] [place] [address] 7t [place] [address] Care Team Providers Care Structural Mill Supervisor Name Role Phone Rachel Eden MD Primary Care Provider + Jgauar Pugh RN Unavailable [phone] Lori Alvarez Unavailable Reason for Visit * Reason Comments Care Coordination [facility] Encounter Details Date Type Department Care Team (Latest Contact Info) Description 04/16/2025 Patient Outreach [facility]INE [address] [place] [address] Rachel Eden MD [address] [place] [address] Care Coordination (C3 LADONNA Alvarez chart review) Social History Tobacco Use Types Packs/Day Years [...] as of this encounter Progress Notes * Lori Alvarez - 04/16/2025 8:49 AM EDT BRENDA Pugh RN, performed chart review, in anticipation of initial assessment with patient, as patient has stratified for C3 Adult Complex Care through the ADT feed. Specialists include Behavioral Health, Nutrition, PT, Pain Medicine, Rheumatology, Sleep Medicine, and [facility] OBGYN. ED visits within the last 12 months include [facility] ED 04/15/25. Last appointment in PCP office on 03/08/25. Next appointment scheduled for 06/02/25 at 11:30am for RN visit- GOVERNMENT AFFAIRS SPECIALIST RV. NORAH Alvarez reviewed chart review completed by BRENDA pugh RN documented in this encounter Plan of Treatment Upcoming Encounters Date Type Department Care Team (Late st Contact Info) Description 06/02/2025 11:30 AM EST Clinical Support [facility] [address] [place] [address] Diane Snyder, RN documented as of this encounter Visit Diagnoses Not on filedocumented in this encounter Additional Health Concerns Assessment Noted Time PHQ-9 Depression Total Score: 8 12/31/19 25 10:30 AM EDT documented as of this encounter Care Teams Structural Mill Supervisor Relationship Specialty Start Date End Date Rachel Eden MD [address] [place] [address] PCP - General Family Medicine 02/10/20 Jaguar Pugh, SHASHA [address] [place] [address] Registered Nurse Family Medicine 04/16/25 Lori Alvarez 04/16/25 Jurgen Graham Planning SupervisorBrineyard Supervisor 04/16/24 documented as of this encounter
--- OUTSIDE RECORDS SUMMARY | 2025-04-21 01:30 | XMS_ITS | Encounter Summary ---
Author Organization [employer] Address [address] [facility] 7t [place] [address] Care Team Providers Care Tracer Bullet Section Supervisor Name Role Phone Rachel Eden MD Primary Care Provider + Jaguar Pugh RN Unavailable [phone] Lori Alvarez Unavailable Reason for Visit * Reason Comments Med Refill Encounter Details Date Type Department Care Team (Late st Contact Info) Description 03/16/2025 Refill [facility] P[facility] [address] [place] [address] Rachel Eden MD [address] [place] [address] Pain in left foot Social History Tobacco [...] Description 06/02/2025 11:30 AM EST Clinical Support [facility]INE [address] [place] [address] Diane Snyder RN documented as of this encounter Visit Diagnoses Diagnosis Pain in left foot Pain in soft tissues of limb documented in this encounter Additional Health Concerns Assessment Noted Time PHQ-9 Depression Total Score: 8 12/31/19 25 10:30 AM EDT documented as of this encounter Care Teams Tracer Bullet Section Supervisor Relationship Specialty Start Date End Date Rachel Eden MD [address] [place] [address] PCP - General Family Medicine 02/10/20 Jaguar Pugh RN [address] [place] [address] Registered Nurse Family Medicine 04/16/25 Lroi Alvarez 04/16/25 Jurgen Graham Fire Hose CurerVarious Exceptionalities Teacher 04/16/24 documented as of this encounter
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
--- OUTSIDE RECORDS SUMMARY | 2025-04-21 01:30 | XMS_ITS | Encounter Summary ---
Author Organization [employer] Address [address] [place] [address] [address] [place] [address] Care Team Providers Care Textile Pin Worker Name Role Phone Rachel Eden MD Primary Care Provider + Bela Pugh Unavailable Rebeka Schultz RN Unavailable [phone] Jaguar Pugh RN Unavailable [phone] Lori Alvarez Unavailable Reason for Visit * Reason Comments Med Refill Encounter Details Date Type Department Care Team (Late st Contact Info) Description 11/27/2022 Refill [facility] [address] [place], [place] [phone] Rachel Eden MD [address] [place], [place] [phone] Pain in left foot Social History Tobacco [...] Description 06/02/2025 11:30 AM EST Clinical Support [facility] [address] [place] [address] Diane Snyder, SHASHA documented as of this encounter Visit Diagnoses Diagnosis Pain in left foot Pain in soft tissues of limb documented in this encounter Care Teams Textile Pin Worker Relationship Specialty Start Date End Date Rachel Eden MD [address] [place] [address] PCP - General Family Medicine 02/10/20 Bela Pugh Community Health Worker 12/12/2302/16 Rebeka Schultz RN [address] [place] [address] Clocksmith 12/24/23 02/17/24 Jaguar Pugh, SHASHA [address] [place] [address] Registered Nurse Family Medicine 04/16/25 Lori Alvarez 04/16/25 Jurgen Graham Vice President LendingElder Counselor 04/16/24 documented as of this encounter
--- OUTSIDE RECORDS SUMMARY | 2025-04-21 01:30 | XMS_ITS | Encounter Summary ---
Demographics Address [address] [facility] [address] [place] [address] Home Phone Work Phone Mobile Phone Email Address Preferred Language es Marital Status Unknown Hinduism Affiliation Unknown Race White Ethnic Group Unknown Author Organization [employer] Address [address] [place] [address] [address] [place] [address] Care Team Providers Care Wood Scaler Name Role Phone Rachel Eden MD Primary Care Provider + Jaguar uPgh RN Unavailable [phone] Lori Alvarez Unavailable Reason for Visit * Reason Comments Med Refill Encounter Details Date Type Department Care Team (Late st Contact Info) Description 03/15/2025 Refill [facility] [address] [place] [address] Rachel Eden MD [address] [place] [address] Chronic low back pain with right-sided sciatica, unspecified back pain laterality Social History Tobacco Use Types Packs/Day Years [...] 06/02/2025 11:30 AM EST Clinical Support [facility] [address] [place] [address] Diane Snyder RN documented as of this encounter Visit Diagnoses Diagnosis Chronic low back pain with right-sided sciatica, unspecified back pain laterality documented in this encounter Additional Health Concerns Assessment Noted Time PHQ-9 Depression Total Score: 8 12/31/19 25 10:30 AM EDT documented as of this encounter Care Teams Wood Scaler Relationship Specialty Start Date End Date Rachel Eden MD [address] [place] [id number] PCP - General Family Medicine 02/10/20 Jaguar Pugh RN [address] [place] [address] Registered Nurse Family Medicine 04/16/25 Lori Alvarez 04/16/25 Jurgen Graham Health Club ManagerNegative Retoucher 04/16/24 documented as of this encounter
--- OUTSIDE RECORDS SUMMARY | 2025-04-21 01:31 | XMS_ITS | Encounter Summary ---
Author Organization [employer] Address [address] [place] [address] [address] [place] [address] Care Team Providers Care Senior Consumer Insights Consultant Name Role Phone Rachel Eden MD Primary Care Provider + Jaguar Pugh RN Unavailable [phone] Lori Alvarez Unavailable Reason for Visit * Reason Comments Care Management C3- chart review Encounter Details Date Type Department Care Team (Late st Contact Info) Description 04/16/2025 Patient Outreach [facility] [address] [place] [address] Rachel Eden MD [address] [place] [address] Care Management (C3- chart review) Social History Tobacco Use Types [...] as of this encounter Progress Notes * Jaguar Pugh RN - 04/16/2025 8:12 AM EDT BRENDA Pugh RN, performed chart review, in anticipation of initial assessment with patient, as patient has stratified for C3 Adult Complex Care through the ADT feed. History significant for pelvic pain, adjustment disorder with anxious and depressed mood, plantar callosity, neck pain, asthma,IFG, BLANCA, disorder of joint of spine, foot pain, carpal tunnel syndrome, low back pain radiating tothe left lower extremity, chronic ankle pain, tendinitis, skin tag, photophobia of both eyes, ZACKERY, vitamin D deficiency, senior care current use of opiate analgesic, migraine without aura, arthralgia, GERD, fatty liver, hepatomegaly, chronic back pain, and cervical radiculopathy. Specialists include Behavioral Health, Nutrition, PT, Pain Medicine, Rheumatology, Sleep Medicine, and [facility]. ED visits within the last 12 months include [facility] ED 04/15/25. Last appointment in PCP office on 03/08/25. Next appointment scheduled for 06/02/25 at 11:30am for RN visit- [employer]. documented in this encounter Plan of Treatment Upcoming Encounters Date Type Department Care Team (Late st Contact Info) Description 06/02/2025 11:30 AM EST Clinical Support [facility] [address] [place] [address] Diane Snyder RN documented as of this encounter Visit Diagnoses Not on filedocumented in this encounter Additional Health Concerns Assessment Noted Time PHQ-9 Depression Total Score: 8 12/31/19 10:30 AM EDT documented as of this encounter Care Teams Senior Consumer Insights Consultant Relationship Specialty Start Date End Date Rachel Eden MD [address] [place] [address] PCP - General Family Medicine 02/10/20 Jaguar Pugh RN [address] [place] [address] Registered Nurse Family Medicine 04/16/25 Lori Alvarez 04/16/25 Jurgen Graham Disc JockeyLife Consultant 04/16/24 documented as of this encounter
--- OUTSIDE RECORDS SUMMARY | 2025-04-21 01:31 | XMS_ITS | Clinical Summary ---
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 omeprazole (PriLOSEC) [address] capsuleIndicati ons:Heartburn TAKE 1 CAPSULE BY MOUTH EVERY DAY 90 capsule 1 08/01/19 23 Active albuterol (2.5 MG/3ML) 0.083% nebulizer solution inhale 3 milliliter by nebulization route 3 times every day prn SOB/asthma 07/04/20 21 Active ARIPiprazole (Abilify) 10 MG tablet Take 10 mg by mouth in the morning. 03/19/20 23 Active DULoxetine (Cymbalta) [address] capsule Take 60 mg by mouth in the morning. 03/19/20 23 Active GaviLyte-G 236 g solution MIX WITH WATER DIRECTED AND DRINK 240 ML (8 OUNCES) BY MOUTH EVERY 10 MINUTES UNTIL FECAL EFFLUENT IS CLEAR FOR COLONOSCOPY, FOLLOW INSTRUCTION SHEET GIVEN TO YOU AT YOUR DOCTOR'S OFFICE DIRECTED. 12/09/19 24 Active ferrous gluconate (Fergon) 324 (38 Fe) MG tablet TAKE 1 TABLET BY MOUTH EVERY DAY AT BEDTIME 90 tablet 06/24/20 24 Active magnesium oxide (Mag-Ox) 400 MG tablet TAKE 1 TABLET BY MOUTH EVERY DAY 30 tablet 2 07/03/20 24 Active amitriptyline (Elavil) 25 MG tablet Take 25 mg by mouth at bedtime. 08/28/19 25 Active esomeprazole (NexIUM) [address] capsule Take 1 capsule by mouth Once per day. 08/04/19 25 Active hydrOXYzine pamoate (Vistaril) 50 MG capsule take 1 capsule by mouth every night at bedtime as needed 09/02/19 25 Active loratadine (Claritin) 10 MG tabletIndicatio ns:Chronic rhinitis Take 1 tablet (10 mg) by mouth in the morning. 90 tablet 09/15/19 25 Active Ventolin HFA 108 (90 Base) MCG/ACT inhaler INHALE 2 PUFFS BY MOUTH EVERY 4 TO 6 HOURS NEEDED 18 g 3 09/30/19 25 Active ergocalciferol (Vitamin D2) 1.25 MG (31872 UT) capsule TAKE 1 CAPSULE BY MOUTH EVERY WEEK 12 capsule 1 12/12/19 25 Active lidocaine (Xylocaine) 5 % ointmentIndicat ions:Chronic low back pain with right-sided sciatica, unspecified back pain laterality APPLY TOPICALLY TO THE AFFECTED AREA(S) THREE TIMES DAILY IN THE MORNING, AT NOON, AND AT BEDTIME NEEDED FOR PAIN 30 g 3 12/29/19 25 Active Blood Pressure Monitoring (Blood Pressure Cuff) [facility] Use daily as prescribed 1 each 12/31/19 25 Active lidocaine (Lidoderm) 5 % patch APPLY 1 PATCH TOPICALLY TO SKIN, LEAVE ON FOR 12 HOURS AND OFF FOR 12 HOURS DIRECTED 30 patch 3 01/12/20 25 Active fluticasone furoate (Arnuity Ellipta) 100 MCG/ACT inhalerIndicati ons:Mild intermittent asthma without complication INHALE 1 PUFF BY MOUTH EVERY DAY AT THE SAME TIME RINSE MOUTH AFTER USING. RINSE MOUTH AFTER USING. 30 each 5 01/12/20 25 Active naloxone (Narcan) 4 mg/0.1 mL nasal sprayIndication s:intermediate current use of opiate analgesic Administer 1 spray (4 mg) into affected nostril(s) if needed for opioid reversal. May repeat every 2-3 minutes if needed, alternating nostrils, until medical assistance becomes available. 2 each 3 03/08/20 25 2025 Active topiramate (Topamax) 50 MG tablet Take 1 tablet (50 mg) by mouth 2 times daily. DC gabapentin 180 tablet 3 03/08/20 25 2024 Active cyclobenzaprine (Flexeril) 10 MG tablet TAKE 1 TABLET BY MOUTH EVERY DAY AT BEDTIME FOR 10 DAYS 10 tablet 03/16/20 25 Active meloxicam (Mobic) 15 MG tablet TAKE 1 TABLET BY MOUTH EVERY DAY 30 tablet 04/13/20 25 Active oxyCODONE-aceta minophen (Percocet) 5-325 MG tabletIndicatio ns:Pain in left foot TAKE 1 TABLET BY MOUTH EVERY TWELVE HOURS NEEDED FOR SEVERE PAIN 56 tablet 04/14/20 25 Active cyclobenzaprine (Flexeril) 10 MG tabletIndicatio ns:Muscle spasm Take 1 tablet (10 mg) by mouth 3 times daily for 10 days. 30 tablet 04/20/20 25 2024 Active lidocaine (Lidoderm) 5 % patchIndication s:Muscle spasm Apply 1 patch topically Once per day. Remove & discard patch within 12 hours or as directed by MD. 30 patch 1 04/20/20 25 Active meloxicam (Mobic) 15 MG tablet TAKE 1 TABLET BY MOUTH EVERY DAY 30 tablet 03/16/20 25 2024 Discontinued oxyCODONE-aceta minophen (Percocet) 5-325 MG tabletIndicatio ns:Pain in left foot Take 1 tablet by mouth every 12 (twelve) hours if needed for severe pain for up to 28 days. 56 tablet 03/16/20 25 2024 Discontinued Active Problems Problem Noted Date Diagnosed Date Muscle spasm 04/20/2025 Assessment & Plan (04/20/2025 12:25 PM EDT): Apply heat on affected area Apply lidocaine patch on affected area I prescribed for patient short course of Flexeril she is aware she cannot mix this medication with her oxycodone or other medications that causes somnolence she is aware that she cannot drive while taking this medication or do activities that requires her concentration Acute pain of right knee 04/20/2025 Assessment & Plan (04/20/2025 12:25 PM EDT): Continue with same oxycodone dose I referred patient for physical therapy Obesity (BMI 35.0-39.9 without comorbidity) 02/19 Assessment & Plan (03/10/2025 1:56 PM EDT): Discussed re weight reduction options including exercise, life style modifications, diet. Recommended to decrease soda and sugary beverage consumption, increase protein intake with meals (at least 1 portion of protein with each meal) to assist with satiety, increase dietary fiber Recommended at least 150 min/week of moderate intensity exercise. Increase Topamax (started for pain management and mood stabilizer) to 50mg bid (100mg at bedtime if she doesn't tolerate bid Will refer to in house earthmoving labourer Cervical radiculopathy 03/08/2025 Assessment & Plan (03/10/2025 2:02 PM EDT): See neck pain Right shoulder tendinitis 12/30/2024 Assessment & Plan (12/30/2024 3:25 PM EDT): Agreed to start physical therapy Start meloxicam daily x 5 to 7 days + Tylenol twice daily breakthrough pain + cyclobenzaprine nightly Advised to apply heat to affected area Follow-up with me in 3 months Elevated blood pressure reading 12/30/2024 Assessment & Plan (04/20/2025 12:26 PM EDT): Advise low-sodium diet monitor blood pressure at home and follow-up with PCP Assessment & Plan (12/30/2024 3:31 PM EDT): Advised to check BP at home and follow-up in 3 months or earlier as needed if is persistently above 145/90 Counseled re low salt diet/increase moderate physical activity. Check home BP BIW and prn CP/AG/XIE Chronic back pain 04/07/2024 Overview (12/15/2024): -XR lumbar 09/2023 : Again seen are very mild degenerative changes in the lumbar spine with mild endplate changes and some minimal disc space narrowing, most marked at L4-L5. No bony destructive lesions are seen. Some mild degenerative changes are also seen in the lower thoracic spine. -Lumbar MRI Jul 2024 demonstrated minimal degenerative changes at L3-4, and L4-5 Assessment & Plan (12/15/2024 7:08 PM EDT): -Good engagement and participation with Group Medical Visit model -Encouraged multifactorial approach to pain control including pharm and non- pharm modalities -Utox and pill count as expected Assessment & Plan (08/04/2024 6:23 PM EST): -Good engagement and participation with Group Medical Visit model -Encouraged multifactorial approach to pain control including pharm and non- pharm modalities Assessment & Plan (04/14/2024 8:28 PM EDT): -Good engagement and participation with Group Medical Visit model -Encouraged multifactorial approach to pain control including pharm and non- pharm modalities -UTOX as expected, pill count borderline. See brake drum molder. Assessment & Plan (04/07/2024 8:26 PM EDT): [...] Topamax 25mg bid and fu in 4w intermediate current use of opiate analgesic 2023 Overview (08/03/2024): Medication: Percocet 5-325mg Q12H PRN Indication: chronic low back pain w/ degenerative changes Last SOLAR ENERGY CONSULTANT AND DESIGNER Agreement: 05/12/24 Assessment & Plan (12/30/2024 3:22 PM EDT): Patient using Percocet 5/325 twice daily as needed, struggles at times with recurrent pain. We have done Pharmaco education re opiate [...] not be replaced if lost or stolen. Patient will follow-up with SOLAR ENERGY CONSULTANT AND DESIGNER program, she does not want to follow-up with chronic pain clinic group, advised her to let them know at upcoming appointment so they do not schedule follow-ups but she is aware that she needs to follow-up with the SOLAR ENERGY CONSULTANT AND DESIGNER nurse. SOLAR ENERGY CONSULTANT AND DESIGNER agreement up-to-date 05/12/2024 Assessment & Plan (09/29/2024 2:20 PM EDT): [...] 6 mo. Advised re outdoor activity daily Photophobia of both eyes 12/18/2023 Assessment & [...] abnormality Refer to GI for further e-adria Vessel Ordinary Seaman regarding weight reduction Vessel Ordinary Seaman to avoid illicit drugs or alcohol Offer Hep B vaccine, she wants to wait until her next appt with me Assessment & Plan (04/11/2023 11:07 AM EDT): Repeat LFT's Skin tag 04/11/2023 Assessment & Plan (03/10/2025 2:09 PM EDT): 4 skin tags around the neck area + 1 on left inner thigh area were removed, see procedure note Will fu in 3 mo and do additional rx as needed We'll discuss with dermatology for removal of a bigger skin tag on nipple area Assessment & Plan (04/11/2023 11:06 AM EDT): Will resect next visit. Encounter for preventive health examination 03/23 Assessment & Plan (12/30/2024 3:20 PM EDT): Discussed with patient re increase fresh fruit and vegetable intake. Counseled re moderate exercise as tolerated, up to 20min/d Patient feels safe at home. PAP smear Up to date, next one is probably due on 2027, will confirm with LIGHTING EQUIPMENT OPERATOR ([facility]) Mammogram UTD, next 1 due 04/2025 Eye exam: UTD, next 1 due 09/2026 labs: UTD, next 1 due 06/10/2026, will order labs today for specific medical issues Vaccinations: We discussed about hep B VAX at next visit, she will need Tdap at the earliest convenience. Assessment & Plan (04/11/2023 11:08 AM EDT): [...] 02/04/2023 Non-allergic rhinitis 02/04/2023 Neck pain 02/04/2023 Assessment & Plan (03/10/2025 2:02 PM EDT): Has worsening muscle spasm most likely from overuse (house chores, care to a 3 yo etc) and anxiety + she has underlying DDD spine. Agreed to do PT, I recommended to return to acupuncture clinic Continue Oxycodone as rx, use flexeril and lidocaine patch prn. Moderate persistent asthma without complication 02/04/2023 Assessment & Plan (12/30/2024 3:25 PM EDT): Fairly well-controlled, continue albuterol as needed only Assessment & Plan (02/26/2024 4:31 PM EDT): Keep sxs dairy and fu next month Continue albuterol prn Consider adding inh steroid IFG (impaired fasting glucose) 02/04/2023 Assessment & Plan (04/11/2023 10:48 AM EDT): Will order A1c and FBS. Counseled re more frequent low calorie/carb meals. Encouraged physical activity as tolerated. FU in next months. Generalized anxiety disorder 02/04/2023 Assessment & Plan (12/30/2024 3:24 PM EDT): Significantly improved with psychotherapy and duloxetine initially which she is not taking for few months now. I told her to address medication issues with her psychiatrist at [facility]. 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 She is able to reach out for safety, she has crisis number and she is aware that she can come to our walk-in center. Assessment & Plan (02/26/2024 4:33 PM EDT): Continue close fu with therapist at [facility], I told her to address with them [...] will send refills after she comes for [facility] appt We have done [employer] education re [...] left lower extremity 02/04/2023 Assessment & Plan (12/30/2024 3:27 PM EDT): She has DJD of the lumbar spine which she is treated with Percocet twice daily, she follows up with SOLAR ENERGY CONSULTANT AND DESIGNER as above We had discussed importance of not taking narcotics for breakthrough pain, I will start her on Topamax nightly and follow-up with her in 3 months (she does not want to be on gabapentin) We have discussed about using ibuprofen or Tylenol as needed breakthrough pain and call back as needed for trigger point injections Assessment & Plan (04/01/2024 12:41 PM EDT): [...] pain and bleeding, she will f/u with LIGHTING EQUIPMENT OPERATOR - advised to restart Topamax 50 mg [...] exercise. Order BV swab and Fu PRN. Vaginal discharge 08/13/2022 Assessment & Plan (01/09/2024 2:34 PM EDT): It is most likely DUB. Order STI testing. Assessment & Plan (08/13/2022 4:28 PM EST): Most likely VB. -Flagyl x7 days. -Avoid vaginal douches and FU test results. Resolved Problems Problem Noted Date Diagnosed Date Resolved Date Class 2 severe obesity due t o excess calories with serious comorbidity and body mass index (BMI) of 37.0 to 37.9 in adult 12/30/2024 Assessment & Plan (12/30/2024 3:11 PM EDT): Discussed re weight reduction options including exercise, life style modifications, diet. Recommended to decrease soda and sugary beverage consumption, increase protein intake with meals (at least 1 portion of protein with each meal) to assist with satiety, increase dietary fiber Recommended at least 150 min/week of moderate intensity exercise. Agreed to a referral to dietitian, will follow-up in 2 or 3 months on consider medications. Decreased vision in both eyes 12/18/2023 12/30/2024 Nicotine dependence 02/04/2023 01/09/20 Assessment & Plan (04/11/2023 11:05 AM EDT): [...] to acute pelvic issue at this time. DUB (dysfunctional uterine bleeding) 08/13/2022 12/30/2024 Assessment & Plan (04/01/2024 12:39 PM EDT): - recurrent, advised to f/u closely with Salad Chef, has appointment coming up Assessment & Plan (01/09/2024 2:17 PM EDT): Likely perimenopause, ro endometrial pathology. She will see LIGHTING EQUIPMENT OPERATOR on 01/2024. Order STI testing and treat prn. Assessment & Plan (12/18/2023 2:42 PM EDT): Amenorrhea x 3mo, likely perimenopause vs endometrial hyperplasia (abn think endometrium) She has been referred to LIGHTING EQUIPMENT OPERATOR Assessment & Plan (06/10/2023 5:21 PM EST): Seems to have normalized menstrual period Discussed to patient about PMS symptoms F/u PRN Assessment & Plan (04/11/2023 11:06 AM EDT): Pt will keep a menstrual calender FU with me next visit Assessment & Plan (08/13/2022 4:27 PM EST): r/o STI/vaginitis. -order vaginal swab and UA. Encounters Date Type Department Care Team Description 04/20/2025 11:15 AM EDT Office Visit [address] [address] Saige Esteves MD Elevated blood pressure reading (Primary Dx); Muscle spasm; Acute pain of right knee 04/20/2025 Travel 04/16/2025 Telephone [facility] [address] [place] [phone] Rachel Eden MD 04/16/2025 Patient Outreach [address] [address] Rachel Eden MD Care Coordination ([facility]3 [facility] Lori Alvarez chart review) 04/16/2025 Patient Outreach [address] [address] Rachel Eden MD Care Management (C3CM- chart review) 04/16/2025 Patient Outreach [address] [address] Rachel Eden MD 04/15/2025 Orders Only [facility] External Provider, [facility] 04/12/[address] [facility] [address] [place] [address] Sheyla Go DO Pain in left foot 03/16/[address] [facility] [address] [place] [address] Rachel Eden MD Pain in left foot 03/15/[address] [address] Rachel Eden MD Chronic low back pain with right-sided sciatica, unspecified back pain laterality 03/12/[address] [facility] [address] [place] [address] Rachel Eden MD Pain in left foot 03/08/2025 2:15 PM EDT Office Visit [address] [address] Rachel Eden MD Skin tag (Primary Dx); Neck pain; Cervical radiculopathy; Obesity (BMI 35.0-39.9 without comorbidity) 03/08/2025 Travel 03/05/[address] [address] Rachel Eden MD Chart Prep 03/03/2025 11:30 AM EDT Clinical Support [address] [address] Diane Snyder, SHASHA intermediate current use of opiate analgesic (Primary Dx) 03/03/2025 Refill [facility] [address] [place] [phone] Diane Snyder RN technician terminal and repeater current use of opiate analgesic (Primary Dx) 03/03/2025 Travel 02/15/2025 Refill [facility] [address] [place], [place] [phone] Rachel Eden MD Pain in left foot 02/11/2025 Refill [facility] [address] [place] [phone] Rachel Eden MD Pain in left foot 02/05/[address] [address] Rachel Eden MD ICP Meeting 01/19/[address] [phone] Rachel Eden MD Med Refill from Last 3 Months Immunizations Immunization Administration Dates Next Due Influenza injectable quadrivalent [...] Q2 Not on file 08/25/2024 Comments No Intention Date Recorded No desire to become (finding) 0 12/30/2024 Sex and Gender Information Value Date Recorded [...] Mass Index 35.05 04/20/2025 11:09 AM EDT Plan of Treatment Upcoming Encounters Date Type Department Care Team (Late st Contact Info) Description 06/02/2025 11:30 AM EST Clinical Support [address] [phone] Diane Snyder, RN Health Maintenance Due Date Last Done Comments CT Colonography 1978 FIT DNA/Cologuard 1978 FIT 1978 FOBT 1978 Sigmoidoscopy 1978 Alcohol/Substance Use Screening 1990 Hepatitis A Vaccines (1 of 2 - Risk 2-dose series) 1997 Hepatitis B Vaccines (1 of 3 - 19+ 3-dose series) 1997 DTaP/Tdap/Td Vaccines (1 - Tdap) 09/23/2018 09/22/2018 COVID-19 Vaccine (1 - 2023-2 5 season) 2025 Influenza Vaccine (#1) 2025 05/03/2020 Mammogram 05/12/2025 05/12/2024, 05/08/2023, 02/10/2018 SDOH Screening 08/25/2025 08/25/2024 Depression Screening 12/30/2025 12/30/2024, 12/30/2024 Disability Screening 12/30/2025 12/30/2024 Family Planning (PISQ) 12/30/2025 12/30/2024 Tobacco Screening 04/20/2026 04/20/2025 Cervical Cancer Screening 05/16/2026 HPV/Cotest 05/16/2026 05/16/2023, 04/09/2022, 01/29/2018 Pap Smear 05/16/2026 05/16/2023, 04/09/2022 Zoster Vaccines (1 of 2) 2028 Lipid Panel 05/29/2029 05/29/2024, 05/24/2023, 05/10/2020 Colonoscopy 05/15/2034 05/15/2024 Colorectal Cancer Screening 05/15/2034 RSV Patients and Patients Aged 60 years or older (1 - 1-dose 75+ series) 2053 Pneumococcal Vaccine: Pediatrics (0 to 5 Years) and At-Risk Patients (6 to 49) Years Completed 04/11/2023 HIV Screening Completed 05/24/2023 Hepatitis C Screening Completed 05/24/2023 HIB Vaccines Aged Out No longer eligi ble based on patient's age to complete this topic HPV Vaccines Aged Out No longer eligi ble based on patient's age to complete this topic IPV Vaccines Aged Out No longer eligi ble based on patient's age to complete this topic Meningococcal B Vaccine Aged Out No l onger eligible based on patient's age to complete [...] Procedure Name Priority Date/Time Associated Diagnosis Comments XR WRIST 3+ VIEWS LEFT Routine 04/15/2025 12:26 PM EDT XR ELBOW 3+ VIEWS LEFT Routine 04/15/2025 12:23 PM EDT XR SHOULDER 2+ VIEWS LEFT Routine 04/15/2025 12:19 PM EDT XR KNEE 4+ VIEWS RIGHT Routine 04/15/2025 12:10 PM EDT XR CHEST 2 VIEWS Routine 04/15/2025 12:[address] CERVICAL SPINE WO CONTRAST Routine 04/15/2025 10:[address] HEAD WO CONTRAST Routine 04/15/2025 1 0:44 AM EDT HEMOGLOBIN A1C Routine 03/03/2025 11:42 AM EDT Class 2 severe obesity due to excess calories with serious comorbidity and body mass index (BMI) of 37.0 to 37.9 in adult ([facility]) BASIC METABOLIC PANEL Routine 03/03/2025 11:42 AM EDT Class 2 severe obesity due to excess calories with serious comorbidity and body mass index (BMI) of 37.0 to 37.9 in adult (CMS/HCC) TSH W/REFLEX TO FT4 Routine 03/03/2025 1 1:42 AM EDT Class 2 severe obesity due to excess calories with serious comorbidity and body mass index (BMI) of 37.0 to 37.9 in adult (CMS/HCC) POCT PARAMJIT-14 URINE DRUG SCREEN Routine 03/03/2025 11:37 AM EDT technician terminal and repeater current use of opiate analgesic LIPID PANEL, STANDARD Routine 05/29/2024 3:44 PM EST HM COLONOSCOPY Routine 05/15/2024 BI MAMMOGRAM SCREENING TOMOSYNTHESIS BILATERAL Routine 05/12/2024 [...] Recently Relevant to Health Maintenance Results * XR Wrist 3+ Views Left (04/15/2025 12:26 PM EDT) Anatomical Region Laterality Modality Upper Extremities, Wrist Left Radiogr aphic Imaging 04/15/2025 12:2 6 PM EDT Narrative 04/15/2025 12:44 PM EDT [address] [address] XRay Report Signed Patient: Melania Ryan MR#: [id number] : 1980 Acct:[id number] Age/Sex: 44 / F ADM Date: 04/15/25 Loc: HO.ED Attending Dr: Ordering Physician: Mildred Crooks Date of Service: 04/15/25 Procedure(s): XR wrist LT min 3V Accession Number(s): [id number] cc: Rachel Eden MD; Mildred Crooks Reason for Exam: pain, injury EXAMINATION: XR WRIST, LEFT CLINICAL INFORMATION: pain, injury COMPARISON: None available. TECHNIQUE: PA, lateral, oblique, and scaphoid views of the left wrist. FINDINGS: There is no joint diastases. No degenerative changes are evident. There is cystic change in the ulnar aspect of the scaphoid at the junction of the waist and tuberosity. There is also cystic change in the ulnar base of the lunate. There is also subtle corticated lucency in the proximal articular surface of the second metacarpal. Lucency involving the base of the lunate on the PA view is projectional in nature. No fracture is identified. XR/XR wrist LT min 3V IMPRESSION: No acute abnormalities. Multifocal cystlike lucencies are of uncertain etiology. Correlate for signs symptoms of inflammatory arthropathy such as rheumatoid arthritis. Electronically signed by: Jaswinder Burgos MD 04/15/2025 12:42 PM EDT RP Dictated By: Jaswinder Burgos MD Signed By: <Electronically signed by Jaswinder Burgos MD in OV> 04/15/25 1242 DD/ 1226 TD/TT: 04/15/25 1230 Narcotics Investigator: Procedure Note Donotuseinterpreter, Image - 04/15/[address] [address] XRay Report Signed Patient: Melania RyanMR#: [id number] : 1980Acct:[id number] Age/Sex: 44 / FADM Date: 04/15/25 Loc: HO.ED Attending Dr: Ordering Physician: Mildred Crooks Date of Service: 04/15/25 Procedure(s): XR wrist LT min 3V Accession Number(s): [id number] cc: Rachel Eden MD; Mildred Crooks Reason for Exam: pain, injury EXAMINATION: XR WRIST, LEFT CLINICAL INFORMATION: pain, injury COMPARISON: None available. TECHNIQUE: PA, lateral, oblique, and scaphoid views of the left wrist. FINDINGS: There is no joint diastases. No degenerative changes are evident. There is cystic change in the ulnar aspect of the scaphoid at the junction of the waist and tuberosity. There is also cystic change in the ulnar base of the lunate. There is also subtle corticated lucency in the proximal articular surface of the second metacarpal. Lucency involving the base of the lunate on the PA view is projectional in nature. No fracture is identified. XR/XR wrist LT min 3V IMPRESSION: No acute abnormalities. Multifocal cystlike lucencies are of uncertain etiology. Correlate for signs symptoms of inflammatory arthropathy such as rheumatoid arthritis. Electronically signed by: Jaswinder Burgos MD 04/15/2025 12:42 PM EDT Dictated By: Jaswinder Burgos MD Signed By: <Electronically signed by Jaswinder Burgos MD in OV> 04/15/25 1242 DD/ 1226 TD/TT: 04/15/25 1230 Narcotics Investigator: [facility] External Provider IMG XR PROCEDURES Final Result * XR Elbow 3+ Views Left (04/15/2025 12:23 PM EDT) Anatomical Region Laterality Modality Upper Extremities, Elbow Left Radiogr aphic Imaging 04/15/2025 12:2 3 PM EDT Narrative 04/15/2025 12:42 PM EDT [address] [address] XRay Report Signed Patient: Melania Ryan MR#: [id number] : 1980 Acct:[id number] Age/Sex: 44 / F ADM Date: 04/15/25 Loc: HO.ED Attending Dr: Ordering Physician: Mildred Crooks Date of Service: 04/15/25 Procedure(s): XR elbow LT min 3V Accession Number(s): [id number] cc: Rachel Eden MD; Mildred Crooks Reason for Exam: pain, injury EXAMINATION: XR ELBOW 3 VIEWS LEFT HISTORY: pain, injury COMPARISON: There are no prior studies available for comparison. FINDINGS: Three views of the left elbow are submitted. Osseous mineralization is normal. A portion of a side plate is seen along the distal humerus. There is no acute fracture or dislocation. The joint spaces are preserved. The soft tissues are unremarkable. There is no joint effusion. XR/XR elbow LT min 3V IMPRESSION: No evidence of acute fracture of the left elbow. Electronically signed by: Jaden Torres MD 04/15/2025 12:39 PM EDT RP Dictated By: Jaden Torres MD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 not exclude thepossibility of exposure to or infection with HIV-1 and/orHIV-2. Nonreactive results in this assay for individualswith prior exposure to HIV-1 and/or HIV-2 may be due toantigen and antibody levels that are below the limit ofdetection of this assay.The [place] HIV Ag/Ab Combo assay result andsupplemental assay results should be interpreted inconjunction with the patient's clinical presentation,history and other laboratory results. If the results areinconsistent with clinical evidence, additional testing issuggested to confirm the result. Blood Venous blood specimen / Unknown 05/24/2023 10:30 AM EDT 05/24/2023 1:03 PM EDT us Rachel Eden MD LAB BLOOD ORDERABLES Fin al Result Performing Organization Address City/[facility]/ZIP Co de Phone Number [facility] [address] [place] [address] [phone] * HPV mRNA E6/E7 w/Reflex to HPV Genotypes 16, 18/45 (05/16/2023 10:48 AM EDT) HPV nRNA E6/E7 Not Detected Not Detected [facility] Comment:Methodology: Transcr iption-Mediated AmplificationThis assay detects E6/E7 viral messenger RNA (mRNA) from 14high-risk HPV types (16,18,31,33,35,39,45,51,52,56,58,59,66,68).Cervical sources are required for HPV testing.If a vaginal source from a patient who has had atotal hysterectomy with removal of cervix wassubmitted, please contact the testing laboratoryfor alternative testing options.For additional information, please refer tohttp://education.eTapestry/faq/XEB231h5(This link if provided for information/educational purposes only.)THIS TEST WAS PERFORMED AT:[facility] [place] [phone] ARROYO MD HPV mRNA E6/E7 [facility] HPV 16 RNA [facility] HPV 18/45 RNA [facility] 05/16/2023 10:4 8 AM EDT 05/17/2023 6:30 AM EDT Rod[facility] CYTOLOGY ORDERABLES F inal Result [facility] [address] [place] [phone] * Pap Smear (05/16/2023 10:48 AM EDT) 05/16/2023 10:4 8 AM EDT 05/17/2023 6:30 AM EDT Narrative [facility] - 05/22/2023 12:50 PM EDT ----- ------- Name: Melania Ryan Age/Sex: 42/F [facility] 1980 [id number]#: [id number] Attend Dr: RODRÍGUEZ WHELAN Betzy Re05/16/23 Status: DEP [facility] Dis[facility] ----- ------- SPEC : [id number] RECD: 05/17/23 STATUS: ELVI CANALES NUM: [id number] CHRISTOPHER: 05/16/23-[address] [facility] [address]: RODRÍGUEZ WHELAN ENTERED: 05/17/23-1015 SP TYPE: Pap Smr OTHR : ORDERED: Pap Smear Interpretation Satisfactory for evaluation. Negative for intraepithelial lesion or malignancy. HPV mRNA E6/E7: NOT DETECTED This assay detects E6/E7 viral messenger RNA (mRNA) from 14 high-risk HPV types (16, 18, 31, 33, 35, 39, 45, 51, 52, 56, 58, 59, 66, 68) HPV testing performed by [employer] [facility], [place], [place]. See reference laboratory pion of the EMR for entire report. Clinical Information LMP: Unknown date Previous PAP test: Unknown date, WNL Other history: Previous pap preceded by ASCUS/HPV positive Material Received ThinPrep-Cervical ----- ------- Signed (signature on file) JOVITA Huff ([facility]) 05/22/23 1250 ----- ------- END OF REPORT Rodríguez Whelan [facility] CYTOLOGY ORDERABLES F inal Result [facility] [address] [place] [phone] from Last 3 Months or Most Recently Relevant to Health Maintenance [facility] Care Teams Transitional Kindergarten Teacher Relationship Specialty Start Date End Date Rachel Eden MD [address] [place] [phone] PCP - General Family Medicine 02/10/20 Jaguar Pugh RN [address] [place] [phone] Registered Nurse Family Medicine 04/16/25 Lori Alvarez 04/16/25 Jurgen Graham Campaign CoordinatorSlip Filler 04/16/24
--- OUTSIDE RECORDS SUMMARY | 2025-04-21 01:31 | XMS_ITS | Encounter Summary ---
Author Organization [employer] Address [address] [place] [address] 7t [place] [address] Care Team Providers Care Courtesy Clerk Name Role Phone Rachel Eden MD Primary Care Provider + Jaguar Pugh RN Unavailable [phone] Lori Alvarez Unavailable Encounter Details Date Type Department Care Team (Late st Contact Info) Description 04/16/2025 Patient Outreach [facility] [address] [place] [address] Rachel Eden MD [address] [place], [place] [phone] Social History Tobacco Use Types Packs/Day Years [...] Description 06/02/2025 11:30 AM EST Clinical Support [facility] [address] [place] [address] Diane Snyder RN documented as of this encounter Visit Diagnoses Not on filedocumented in this encounter Additional Health Concerns Assessment Noted Time PHQ-9 Depression Total Score: 8 12/31/19 25 10:30 AM EDT documented as of this encounter Care Teams Courtesy Clerk Relationship Specialty Start Date End Date Rachel Eden MD [address] [place] [address] PCP - General Family Medicine 02/10/20 Jaguar Pugh, SHASHA [address] [place] [phone] Registered Nurse Family Medicine 04/16/25 Lori Alvarez 04/16/25 Jurgen Graham Coding CoordinatorPan Devulcanizer 04/16/24 documented as of this encounter
--- OUTSIDE RECORDS SUMMARY | 2025-04-21 01:31 | XMS_ITS | Encounter Summary ---
Author Organization [employer] Address [address] [place] [address] 7t [place] [address] Care Team Providers Care Counselor At Law Name Role Phone Rachel Eden MD Primary Care Provider + Jaguar Pugh RN Unavailable [phone] Lori Alvarez Unavailable Reason for Visit * Reason Comments Med Refill Encounter Details Date Type Department Care Team (Late st Contact Info) Description 12/08/2024 Refill [facility] [address] [place], [place] [phone] Rachel Eden MD [address] [place], [place] [phone] Social History Tobacco Use Types Packs/Day Years [...] Description 06/02/2025 11:30 AM EST Clinical Support [facility] [address] [place] [address] Diane Snyder RN documented as of this encounter Visit Diagnoses Not on filedocumented in this encounter Additional Health Concerns Assessment Noted Time PHQ-9 Depression Total Score: 6 04/11/20 23 9:59 AM EDT documented as of this encounter Care Teams Counselor At Law Relationship Specialty Start Date End Date Rachel Eden MD [address] [place] [address] PCP - General Family Medicine 02/10/20 Jaguar Pugh, SHASHA [address] [place] [phone] Registered Nurse Family Medicine 04/16/25 Lori Alvarez 04/16/25 Jurgen Graham Dental Hygiene ProfessorHerb Digger 04/16/24 documented as of this encounter
--- OUTSIDE RECORDS SUMMARY | 2025-04-21 01:31 | XMS_ITS ---
Author Organization [employer] Address [address] [place] [address] [address] Care Team Providers Care Teacher Education Director Name Role Phone Rachel Eden MD Primary Care Provider + Jaguar Pugh RN Unavailable [phone] Lori Alvarez Unavailable CM Complex Status:Identified (Enrolling) Start date:04/16/2025 Enrollment reason:ADT Feed Overview ED- Pt went to [facility] ED on 04/15/25. Case Team Name Relationship Phone Jaguar Pugh RN(Responsible Staff) Registered Nurse [phone] Continued Care and Services Coordination
--- OUTSIDE RECORDS SUMMARY | 2025-04-21 01:31 | XMS_ITS | Encounter Summary ---
Author Organization [employer] Address [address] [facility] 7t [place] [address] Care Team Providers Care Structural Architect Name Role Phone Rachel Eden MD Primary Care Provider + Bela Pugh Unavailable Rebeka Schultz RN Unavailable [phone] Jaguar Pugh RN Unavailable [phone] Lori Alvarez Unavailable Reason for Visit * Reason Comments Med Refill Encounter Details Date Type Department Care Team (Late st Contact Info) Description 06/11/2023 Refill [facility] [address] [place], [place] [phone] Rachel Eden MD [address] [place] [address] Pain in left foot Social History Tobacco [...] Description 06/02/2025 11:30 AM EST Clinical Support [facility] [address] [place] [address] Diane Snyder RN documented as of this encounter Visit Diagnoses Diagnosis Pain in left foot Pain in soft tissues of limb documented in this encounter Additional Health Concerns Assessment Noted Time PHQ-9 Depression Total Score: 6 04/11/20 23 9:59 AM EDT documented as of this encounter Care Teams Structural Architect Relationship Specialty Start Date End Date Rachel Eden MD [address] [place] [address] PCP - General Family Medicine 02/10/20 Bela Pugh Community Health Worker 12/12/2302/16 Rebeka Schultz RN [address] [place] [address] Word Processing Supervisor 12/24/23 02/17/24 Jaguar Pugh RN [address] [place] [address] Registered Nurse Family Medicine 04/16/25 Lori Alvarez 04/16/25 Jurgen Graham Gleason Gear GeneratorHotel Front Office Manager 04/16/24 documented as of this encounter
--- OUTSIDE RECORDS SUMMARY | 2025-04-21 01:31 | XMS_ITS | Encounter Summary ---
Demographics Address [address] [facility] [address] [place] [address] Home Phone Work Phone Mobile Phone Email Address Preferred Language es Marital Status Unknown Adventism Affiliation Unknown Race White Ethnic Group Unknown Author Organization [employer] Address [address] [facility] 7t [place] [address] Care Team Providers Care Automobile Insurance Claim Examiner Name Role Phone Rachel Eden MD Primary Care Provider + Jaguar Pugh RN Unavailable [phone] Lori Alvarez Unavailable Reason for Visit * Reason Comments Med Refill Encounter Details Date Type Department Care Team (Late st Contact Info) Description 03/07/2024 Refill [facility] [address] [place], [place] [phone] Rachel Eden MD [address] [place], [place] [phone] Social History Tobacco Use Types Packs/Day Years [...] Description 06/02/2025 11:30 AM EST Clinical Support [facility] [address] [place] [address] Diane Snyder RN documented as of this encounter Visit Diagnoses Not on filedocumented in this encounter Additional Health Concerns Assessment Noted Time PHQ-9 Depression Total Score: 6 04/11/20 23 9:59 AM EDT documented as of this encounter Care Teams Automobile Insurance Claim Examiner Relationship Specialty Start Date End Date Rachel Eden MD [address] [place] [address] PCP - General Family Medicine 02/10/20 Jaguar Pugh, SHASHA [address] [place] [address] Registered Nurse Family Medicine 04/16/25 Lori Alvarez 04/16/25 Jurgen Graham Model Home Sales GreeterAsw/Asuw Tactical Air Controller 04/16/24 documented as of this encounter
--- OUTSIDE RECORDS SUMMARY | 2025-04-21 01:31 | XMS_ITS ---
Author Organization [employer] Address [address] [place] [address], [place] [address] Care Team Providers Care Timber Feller Name Role Phone Rachel Eden MD Primary Care Provider + Jaguar Pugh RN Unavailable [phone] Lori Alvarez Unavailable CHW Complex Status:Identified (Enrolling) Start date:04/16/2025 Enrollment reason:ADT Feed Overview ED- Pt went to [facility] ED on 04/15/25. Please outreach for enrollment. Case Team Name Relationship Phone Lori Alvarez(Responsible Staff) [phone] Continued Care and Services Coordination
--- OUTSIDE RECORDS SUMMARY | 2025-04-21 01:31 | XMS_ITS | Encounter Summary ---
Author Organization [employer] Address [address] [place] [address] 7[address] [place] [address] Care Team Providers Care Food And Beverage Director Name Role Phone Rachel Eden MD Primary Care Provider + Jaguar Pugh RN Unavailable [phone] Lori Alvarez Unavailable Reason for Visit * Reason Onset Date Comments Nurse Triage 11/13/2024 Encounter Details Date Type Department Care Team (Late st Contact Info) Description 11/13/2024 Telephone [facility] [address] [place], [place] [phone] Rachel Eden MD [address] [place], [place] [phone] Nurse Triage Social History Tobacco Use Types Packs/Day Years [...] encounter Miscellaneous Notes * Telephone Encounter - Amanda Carr RN - 11/13/2024 4:16 PM EDT Triage call with [facility] Weight Reduction Specialist [place] [id number] Pt reports bilateral pedal edema. Pt reports this has occurred for last 2 weeks and is lasting longer than usual. Pt reports in AM the edema is much less but, develops over the day with standing and walking. Pt also reports some pain on bottom of feet. No edema to the knee only ankle/foot area. No shortness of breath noted. Pt reports slight redness at times. Pt is having difficulty with walking at times and is caring for grandchild at time of call. Pt is advised to keep feet elevated as much as possible during the day or when sitting down. May soak feet in cold water if possible. ASK apt with Dr. Mayer 11/20/24 @ 1045am. Pt agrees with this disposition. Insurance is verified as active prior to booking. Protocol Used: Leg Swelling and Edema (Adult) Protocol-Based Disposition: See in Office or Video Visit within 2 Weeks Video visit not offered Positive Triage Question: * Mild swelling of both ankles (i.e., pedal edema) and caused by hot weather * All higher-acuity triage questions were negative Care Advice Discussed: * Reasons To Call Back - Swelling becomes worse - Swelling becomes red or painful to the touch - Calf pain occurs and becomes constant - You become worse * Telephone Encounter - Yariel Fourniernandez - 11/13/2024 3:21 PM EDT Symptoms: Foot or Ankle Swelling, Foot or Ankle Pain - Not From Injury Outcome: Schedule an urgent appointment (within 1 hour) or talk to a nurse or provider soon Reason: Trouble walking The caller accepted this outcome. Contact pt at [phone] documented in this encounter Plan of Treatment Upcoming Encounters Date Type Department Care Team (Late st Contact Info) Description 06/02/2025 11:30 AM EST Clinical Support [facility] [address] [place] [address] Diane Snyder, SHASHA documented as of this encounter Visit Diagnoses Not on filedocumented in this encounter Additional Health Concerns Assessment Noted Time PHQ-9 Depression Total Score: 6 04/11/20 23 9:59 AM EDT documented as of this encounter Care Teams Food And Beverage Director Relationship Specialty Start Date End Date Rachel Eden MD [address] [place] [address] PCP - General Family Medicine 02/10/20 Jaguar Pugh, SHASHA [address] [place] [phone] Registered Nurse Family Medicine 04/16/25 Lori Alvarez 04/16/25 Jurgen Graham Corncob Pipes AssemblerPostal Transportation Clerk 04/16/24 documented as of this encounter
[2025-04-21 01:33] VITALS: BP 134/82; PULSE 67; RESP 12; TEMP 36.8; O2SAT 98
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
[2025-04-21 03:10] VITALS: BP 113/76; PULSE 67; RESP 16; TEMP 36.6; O2SAT 98
[2025-04-21 03:33] VITALS: BP 113/76; PULSE 67; RESP 16; TEMP 36.6; O2SAT 98
== END 2025-04-21 03:42 | disposition home or self-care (01) ==
PROVIDERS: Emergency Provider Emergency Medicine; PCP Internal Medicine
DX: S29.011A Strain of muscle and tendon of front wall of thorax, initial encounter (principal); V47.5XXA Car driver injured in collision with fixed or stationary object in traffic accident, initial encounter; Y93.9 Activity, unspecified; Y92.9 Unspecified place or not applicable; Y99.9 Unspecified external cause status; R07.9 Chest pain, unspecified; R06.00 Dyspnea, unspecified
CPT/HCPCS: 36415; 71046; 80053; 83735; 84484; 84702; 85025; 93005; 96372; 99284; 99285; J1885

== ENCOUNTER → 2025-04-20 23:45 | Outpatient (BNV) | payer MEDICAID, SELFPAY | PROVIDERS: Emergency Provider Emergency Medicine; PCP Internal Medicine; Visit Provider Internal Medicine | DX: R07.9 Chest pain, unspecified (principal) | CPT/HCPCS: 93010 ==

== ENCOUNTER 2025-05-31 14:42 | Outpatient (REF) | payer MEDICAID, SELFPAY ==
--- NOTE | ~2025-05-31 | CT_ITS ---
EXAMINATION: CT SOFT TISSUE NECK WITH CONTRAST CLINICAL INFORMATION: Multilevel cervical lymph nodes on CT cervical spine COMPARISON: CT cervical spine 04/15/2025 TECHNIQUE: Following the intravenous administration of 100 mL of Omnipaque 350 intravenous contrast, helical imaging was performed in the axial plane with generation of coronal and sagittal reformatted images. This CT examination was performed using dose optimization techniques as appropriate, variously including the following: *Automated exposure control *Adjustment of mA and/or kV according to patient size (this includes techniques or standardized protocols for targeted exams where dose is matched to indication/reason for exam; i.e. extremities or head) *Use of iterative reconstruction technique DLP: 1437 FINDINGS: Visualized brain parenchyma is unremarkable. Bilateral internal carotid and the basilar arteries are widely patent however small caliber. Bilateral optic globes, optic nerves and the periorbital soft tissues are normal. Bilateral parotid, submandibular glands and thyroid lobes are symmetrical and normal. Oropharyngeal, pharyngeal and tracheal airway is widely patent. There are bilateral prominent posterior cervical lymph nodes level 2, level 3, level 4. Largest level 3 lymph node measures 1.0 x 1.1 cm on axial image 50/2 and 45/5. The lung apices are clear. There is reversal of cervical lordosis without acute process. No lytic or sclerotic process seen. The prevertebral and paravertebral soft tissues appear normal. CT/CT soft tissue neck w IV con IMPRESSION: Borderline non-suspicious 1.1 cm bilateral posterior neck lymph nodes largest as mentioned above. These are nonspecific and could be secondary to nonspecific inflammatory or infectious etiology correlate with clinical exam Electronically signed by: Kavin Ozuna MD 05/31/2025 04:07 PM [facility]
[2025-05-31] MEDS: iohexoL 350 MG/ML 100 ML INFUS..BTL IV (15:44)
--- OUTSIDE RECORDS SUMMARY | 2025-05-31 17:00 | XMS_ITS | Encounter Summary ---
Demographics Address [address] [place] [address] [address] [place] [address] Home Phone Work Phone Mobile Phone Email Address Preferred Language es Marital Status Unknown Congregation Affiliation Unknown Race White Ethnic Group Unknown Author Organization [employer] Address [address] [place] [address] [address] [place] [address] Care Team Providers Care Handicraft Or Hobby Shop Manager Name Role Phone Rachel Eden MD Primary Care Provider + Bela Pugh Unavailable Rebeka Schultz RN Unavailable Unavailable Jaguar Pugh RN Unavailable Lori Alvarez Unavailable Anitha Hurtado RN Unavailable [phone] Reason for Visit * Reason Comments Med Refill Encounter Details Date Type Department Care Team (Late st Contact Info) Description 11/27/2022 Refill [facility] MEDICINE [address] [place] [address] Rachel Eden MD [address] [place], [place] [phone] Pain in left foot Social History Tobacco [...] Description 06/02/2025 11:30 AM EST Clinical Support [facility]INE [address] [place] [phone] Diane Snyder, SHASHA 06/04/2025 1:00 PM EST Nutrition [facility] DIABETES/NUTRITION [address] [place] [address] Cintia Duron, CARL [address] [place] [address] documented as of this encounter Visit Diagnoses Diagnosis Pain in left foot Pain in soft tissues of limb documented in this encounter Care Teams Handicraft Or Hobby Shop Manager Relationship Specialty Start Date End Date Rachel Eden MD [address] [place] [address] PCP - General Family Medicine 02/10/20 Bela Pugh Community Health Worker 12/12/2302/16 Rebeka Schultz, SHASHA Camera Engineer 12/24/23 02/17/24 Jaguar Pugh, RN [address] [place] [address] Registered Nurse Family Medicine 04/16/25 05/11/25 Lori Alvarez 04/16/25 Anitha Hurtado, SHASHA [address] [place] [address] Registered Nurse Family Medicine 05/11/25 Jurgen Graham Land Surveying ManagerCarton Marker Machine 04/16/24 documented as of this encounter
--- OUTSIDE RECORDS SUMMARY | 2025-05-31 17:00 | XMS_ITS ---
Author Organization [employer] Address [address] [place] [address] [address] [address] Care Team Providers Care School Principal Name Role Phone Rachel Eden MD Primary Care Provider + Lori Alvarez Unavailable Anitha Hurtado RN Unavailable [phone] [facility] Status:Enrolled (Active) Start date:04/16/2025 Enrollment date:05/07/2025 Enrollment reason:ADT Feed Overview ED- Pt went to [facility] ED on 04/15/25. Please outreach for enrollment. Case Team Name Relationship Phone Lori Alvarez(Responsible Staff) Continued Care and Services Coordination
--- OUTSIDE RECORDS SUMMARY | 2025-05-31 17:00 | XMS_ITS | Encounter Summary ---
Demographics Address [address] [place] [address] [address] [place] [address] Home Phone Work Phone Mobile Phone Email Address Preferred Language es Marital Status Unknown Buddhist Affiliation Unknown Race White Ethnic Group Unknown Author Organization [employer] Address [address] [place] [address] 7t [place] [address] Care Team Providers Care Landcare Facilitator Name Role Phone Rachel Eden MD Primary Care Provider + Jaguar Pugh RN Unavailable [phone] Lori Alvarez Unavailable Anitha Hurtado RN Unavailable [phone] Reason for Visit * Reason Comments Med Refill Encounter Details Date Type Department Care Team (Late st Contact Info) Description 03/15/2025 Refill [facility] MEDICINE [address] [place] [address] Rachel Eden MD [address] [place] [address] Chronic low back pain with right-sided sciatica, [...] Description 06/02/2025 11:30 AM EST Clinical Support [facility] MEDICINE [address] [place] [address] Diane Snyder RN 06/04/2025 1:00 PM EST Nutrition [facility] DIABETES/NUTRITION [address] [place] [address] [place] [address] documented as of this encounter Visit Diagnoses Diagnosis Chronic low back pain with right-sided sciatica, unspecified back pain laterality documented in this encounter Additional Health Concerns Assessment Noted Time PHQ-9 Depression Total Score: 8 12/31/19 25 10:30 AM EDT documented as of this encounter Care Teams Landcare Facilitator Relationship Specialty Start Date End Date Rachel Eden MD [address] [place] [address] PCP - General Family Medicine 02/10/20 Jaguar Pugh, SHASHA [address] [place] [address] Registered Nurse Family Medicine 04/16/25 05/11/25 Lori Alvarez 04/16/25 Anitha Hurtado, SHASHA [address] [place] [address] Registered Nurse Family Medicine 05/11/25 Jurgen Graham Technical Support CoordinatorHardening Machine Operator 04/16/24 documented as of this encounter
--- OUTSIDE RECORDS SUMMARY | 2025-05-31 17:00 | XMS_ITS | Encounter Summary ---
Demographics Address [address] [place] [address] [address] [place] [address] Home Phone Work Phone Mobile Phone Email Address [employer] Preferred Language es Marital Status Unknown Rastafarian Affiliation Unknown Race White Ethnic Group Unknown Author Organization [employer] Address [address] [place] [address] [address]t [place] [address] Care Team Providers Care Screen Examiner Name Role Phone Rachel Eden MD Primary Care Provider + Bela Pugh Unavailable Rebeka Schultz RN Unavailable Unavailable Jaguar Pugh RN Unavailable [phone] Lori Alvarez Unavailable Anitha Hurtado RN Unavailable [phone] Reason for Visit * Reason Onset Date Comments Med Refill 01/22/2024 Encounter Details Date Type Department Care Team (Late st Contact Info) Description 01/22/2024 Telephone [facility] MEDICINE [address] [place], [place] [phone] Rachel Eden MD [address] [place], [place] [phone] Med Refill Social History Tobacco Use Types [...] 5-325 MG tablet To be sent to: [facility] - [place], [place] - [address] [place] [address] documented in this encounter Plan of Treatment Upcoming Encounters Date Type Department Care Team ([facility] st Contact Info) Description 06/02/2025 11:30 AM EST Clinical Support [facility] MEDICINE [address] [place] [address] Diane Snyder RN 06/04/2025 1:00 PM EST Nutrition [facility] DIABETES/NUTRITION [address] [place] [address] Cintia Duron, CARL [address] [place] [address] documented as of this encounter Visit Diagnoses Not on filedocumented in this encounter Additional Health Concerns Assessment Noted Time PHQ-9 Depression Total Score: 6 04/11/20 23 9:59 AM EDT documented as of this encounter Care Teams Screen Examiner Relationship Specialty Start Date End Date Rachel Eden MD [address] [place] [address] PCP - General Family Medicine 02/10/20 Bela Pugh Community Health Worker 12/12/2302/16 Rebeka Schultz, SHASHA Host/Hostess Head 12/24/23 02/17/24 Jaguar Pugh, SHASHA [address] [place] [address] Registered Nurse Family Medicine 04/16/25 05/11/25 Lori Alvarez 04/16/25 Anitha Hurtado, RN [address] [place] [address] Registered Nurse Family Medicine 05/11/25 Jurgen Graham Rn On SiteBreaker Machine Tender 04/16/24 documented as of this encounter
--- OUTSIDE RECORDS SUMMARY | 2025-05-31 17:00 | XMS_ITS | Encounter Summary ---
Author Organization [employer] Address [address] [place] [address] 7t [place] [address] Care Team Providers Care Mechanic Welder Truck Driver Name Role Phone Rachel Eden MD Primary Care Provider + Lori Alvarez Unavailable Anitha Hurtado RN Unavailable [phone] Reason for Visit * Reason Comments Care Coordination [facility] Lori meyers telephone call outreach Encounter Details Date Type Department Care Team (Latest Contact Info) Description 05/26/2025 Patient Outreach [facility] MEDICINE [address] [place] [address] Rachel Eden MD [address] [place] [address] [facility] telephone call outreach) Social History Tobacco Use Types Packs/Day Years [...] shut off services in your home? No 05/07/2025 Depression Answer Date Recorded Patient Health Questionnaire-2 [...] encounter Progress Notes * Lori Alvarez - 05/26/2025 11:25 AM EST CHW Lori Alvarez placed outbound call to patient in regards to rescheduling missed initial assessment appointment on 05/12/25 for Adult Complex Care program services. Patient's name and were confirmed. Initial Assessment appointment scheduled for 05/26/25 at 10:30 AM. CHW will set up an appointment reminder and will notify CM. CHW provided contact information of [phone] any questions or concerns. documented in this encounter Plan of Treatment Upcoming Encounters Date Type Department Care Team ([facility] st Contact Info) Description 06/02/2025 11:30 AM EST Clinical Support [facility] MEDICINE [address] [place] [address] Diane Snyder, RN 06/04/2025 1:00 PM EST Nutrition [facility] DIABETES/NUTRITION [address] [place], [place] [phone] Cintia Duron, RD [address] [place] [address] documented as of this encounter Visit Diagnoses Not on filedocumented in this encounter Additional Health Concerns Assessment Noted Time PHQ-9 Depression Total Score: 8 12/31/19 10:30 AM EDT documented as of this encounter Care Teams Mechanic Welder Truck Driver Relationship Specialty Start Date End Date Rachel Eden MD [address] [place] [address] PCP - General Family Medicine 02/10/20 Lori Alvarez 04/16/25 Anitha Hurtado, RN [address] [place] [address] Registered Nurse Family Medicine 05/11/25 Jurgen Graham Geophysical Prospecting Permit AgentFront End Architect 04/16/24 documented as of this encounter
--- OUTSIDE RECORDS SUMMARY | 2025-05-31 17:00 | XMS_ITS | Clinical Summary ---
Author Organization [employer] Address [address] [facility] [address] [place] [address] Care Team Providers Care Brain Wave Technician Name Role Phone Rachel Eden MD Primary Care Provider + Lori Alvarez Unavailable Anitha Hurtado RN Unavailable [phone] Allergies No known active allergies Medications * This document contains information received from the source organization and may not represent a complete record from that organization. omeprazole (PriLOSEC) [address] capsuleIndicati ons:Heartburn TAKE 1 CAPSULE BY MOUTH EVERY DAY 90 capsule 1 08/01/19 23 Active Additional Information Patient not taking.Reported on 05/31/2025 albuterol (2.5 MG/3ML) 0.083% nebulizer solution inhale 3 milliliter by nebulization route 3 times every day prn SOB/asthma 07/04/20 21 Active ARIPiprazole (Abilify) 10 MG tablet Take 10 mg by mouth in the morning. 03/19/20 23 Active DULoxetine (Cymbalta) [address] capsule Take 60 mg by mouth Once per day. 03/19/20 23 Active GaviLyte-G 236 g solution MIX WITH WATER DIRECTED AND DRINK 240 ML (8 OUNCES) BY MOUTH EVERY 10 MINUTES UNTIL FECAL EFFLUENT IS CLEAR FOR COLONOSCOPY, FOLLOW INSTRUCTION SHEET GIVEN TO YOU AT YOUR DOCTOR'S OFFICE DIRECTED. 12/09/19 24 Active ferrous gluconate (Fergon) 324 (38 Fe) MG tablet TAKE 1 TABLET BY MOUTH EVERY DAY AT BEDTIME 90 tablet 12/04/20 24 Active Additional Information Patient not taking.Reported on 05/31/2025 magnesium oxide (Mag-Ox) 400 MG tablet TAKE 1 TABLET BY MOUTH EVERY DAY 30 tablet 2 07/03/20 Active Additional Information Patient not taking.Reported on 05/31/2025 amitriptyline (Elavil) 25 MG tablet Take 25 [...] mouth in the morning. 90 tablet 09/15/19 Active Additional Information Patient not taking.Reported on 05/31/2025 Ventolin HFA 108 (90 Base) MCG/ACT inhaler INHALE 2 PUFFS BY MOUTH EVERY 4 TO 6 HOURS NEEDED 18 g 3 09/30/19 25 Active Additional Information Patient not taking.Reported on 05/31/2025 lidocaine (Xylocaine) 5 % ointmentIndicat ions:Chronic low back pain with right-sided sciatica, unspecified back pain laterality APPLY TOPICALLY TO THE AFFECTED AREA(S) THREE TIMES DAILY IN THE MORNING, AT NOON, AND AT BEDTIME NEEDED FOR PAIN 30 g 3 12/29/19 25 Active Blood Pressure Monitoring (Blood Pressure Cuff) [facility] Use daily as prescribed 1 [...] naloxone (Narcan) 4 mg/0.1 mL nasal sprayIndication 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 30 tablet 04/20/20 25 Active lidocaine (Lidoderm) 5 % patchIndication s:Muscle spasm Apply 1 patch topically Once per day. Remove & discard patch within 12 hours or as directed by MD. 30 patch 1 04/20/20 25 Active oxyCODONE-aceta minophen (Percocet) 5-325 MG tabletIndicatio ns:Pain in left foot TAKE 1 TABLET BY MOUTH EVERY TWELVE HOURS NEEDED FOR SEVERE PAIN 56 tablet 05/12/20 25 Active meloxicam (Mobic) 15 MG tablet TAKE 1 TABLET BY MOUTH EVERY DAY 30 tablet 05/11/20 25 Active methocarbamol (Robaxin) 750 MG tabletIndicatio ns:Neck pain Take 1 tablet (750 mg) by mouth every 8 (eight) hours if needed for muscle spasms. 40 tablet 05/07/20 25 Active Additional Information Patient not taking.Reported on 05/31/2025 ergocalciferol (Vitamin D2) 1.25 MG (85141 UT) capsule TAKE 1 CAPSULE BY MOUTH ONCE A WEEK 12 capsule 1 05/19/20 25 Active ergocalciferol (Vitamin D2) 1.25 MG (78206 UT) capsule TAKE 1 CAPSULE BY MOUTH EVERY WEEK 12 capsule 1 12/12/19 25 2024 Discontinued meloxicam (Mobic) 15 MG tablet TAKE 1 TABLET BY MOUTH EVERY DAY 30 tablet 04/13/20 25 2024 Discontinued oxyCODONE-aceta minophen (Percocet) 5-325 MG tabletIndicatio ns:Pain in left foot TAKE 1 TABLET BY MOUTH EVERY TWELVE HOURS NEEDED FOR SEVERE PAIN 56 tablet 04/14/20 25 2024 Discontinued Active Problems Problem Noted [...] tolerate bid Will refer to in house powder core tester Cervical radiculopathy 03/08/2025 Assessment & Plan (03/10/2025 [...] -UTOX as expected, pill count borderline. See freezer laboratory technician. 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 Patient will follow-up with GATE SHEAR OPERATOR program, she does not want to follow-up with chronic pain clinic group, advised her to let them know at upcoming appointment so they do not schedule follow-ups but she is aware that she needs to follow-up with the GATE SHEAR OPERATOR nurse. GATE SHEAR OPERATOR agreement up-to-date 05/12/2024 Assessment & Plan (09/29/2024 [...] 4:30 PM EDT): CPAP rx sent to [facility] [place] on 02/04/24, I gave her infor so [...] abnormality Refer to GI for further e-adria Machine Room Engineer regarding weight reduction Machine Room Engineer to avoid illicit drugs or alcohol Offer Hep B vaccine, she wants to wait until her next appt with sc Assessment & Plan (04/11/2023 11:07 AM EDT): [...] probably due on 2027, will confirm with ON CALL PHARMACY TECHNICIAN ([facility]) Mammogram UTD, next 1 [...] address medication issues with her psychiatrist at [facility]. We discussed with the patient importance of close follow-up with psychotherapist ([facility] psychiatry) especially as she she will become [...] Percocet twice daily, she follows up with GATE SHEAR OPERATOR as above We had discussed importance of [...] pain and bleeding, she will f/u with ON CALL PHARMACY TECHNICIAN - advised to restart Topamax 50 mg [...] - recurrent, advised to f/u closely with Parts Analyst, has appointment coming up Assessment & Plan (01/09/2024 2:17 PM EDT): Likely perimenopause, ro endometrial pathology. She will see ON CALL PHARMACY TECHNICIAN on 01/2024. Order STI testing and treat prn. Assessment & Plan (12/18/2023 2:42 PM EDT): Amenorrhea x 3mo, likely perimenopause vs endometrial hyperplasia (abn think endometrium) She has been referred to ON CALL PHARMACY TECHNICIAN Assessment & Plan (06/10/2023 5:21 PM EST): Seems to have normalized menstrual period Discussed to patient about PMS symptoms F/u PRN Assessment & Plan (04/11/2023 11:06 AM EDT): Pt will keep a menstrual calender FU with me next visit Assessment & Plan (08/13/2022 4:27 PM EST): r/o STI/vaginitis. -order vaginal swab and UA. Encounters Date Type Department Care Team Description 05/31/2025 Plan of Care Documentation [address] [address] 05/31/2025 Plan of Care Documentation [address] [address] 05/31/2025 Patient Outreach [address] [address] Rachel Eden MD Care Management (C3CM COMPLEX INITIAL ASSESSMENT/ ENROLLMENT) 05/28/2025 Patient Outreach [address] [address] Rachel Eden MD Care Coordination (C3 CM-[facility] Lori Alvarez telephone call outreach) 05/26/2025 Patient Outreach [address] [address] Rachel Eden MD Care Coordination (C3 CM-[facility] Alvarez telephone call outreach) 05/19/[address] [address] BurrSuzette, RETREAD SUPERVISOR 05/12/2025 Patient Outreach [address] [address] Rachel Eden MD Care Management (C3CM COMPLEX INITIAL ASSESSMENT/ENROLLME NT- LVM) 05/11/2025 Patient Outreach [address] [address] Rachel Eden MD Care Coordination (C3 CM-[facility] Alvarez telephone call outreach) 05/07/2025 Patient Outreach [address] [address] Rachel Eden MD Care Coordination (C3 CM-[facility] Alvarez telephone call outreach) 05/07/2025 Refill [facility] [address] [place] [address] Rachel Eden MD Pain in left foot 05/04/2025 Refill [facility] [address] [place] [phone] Rachel Eden MD Neck pain 04/30/2025 Patient Outreach [address] [address] Rachel Eden MD Care Coordination (C3 CM-[facility] Alvarez telephone call outreach) 04/26/2025 Results Follow-Up [address] Cervical Spine w/o Contrast 04/23/2025 Patient Outreach [address] [address] Rachel Eden MD 04/20/2025 11:15 AM EDT Office Visit [address] [address] Saige Esteves MD Elevated blood pressure reading (Primary Dx); Muscle spasm; Acute pain of right knee 04/20/2025 Travel 04/16/[address] [address] Rachel Eden MD 04/16/2025 Patient Outreach [address] [address] Rachel Eden MD Care Coordination (C3 CM-[facility] Alvarez chart review) 04/16/2025 Patient Outreach [address] [address] Rachel Eden MD Care Management (C3- chart review) 04/16/2025 Patient Outreach [address] [address] Rachel Eden MD 04/15/2025 Orders Only [facility] External Provider, [facility] 04/12/2025 Refill [facility] [address] [place] [address] Sheyla Go DO Pain in left foot 03/16/2025 Refill [facility] [address] [place] [address] Rachel Eden MD Pain in left foot 03/15/[address] [address] Rachel Eden MD Chronic low back pain with right-sided sciatica, unspecified back pain laterality 03/12/2025 Refill [facility] [address] [place], [place] [id number] Rachel Eden MD Pain in left foot 03/08/2025 2:15 PM EDT Office Visit [address] [address] Rachel Eden MD Skin tag (Primary Dx); Neck pain; Cervical radiculopathy; Obesity (BMI 35.0-39.9 without comorbidity) 03/08/2025 Travel 03/05/[address] [address] Rachel Eden MD Chart Prep 03/03/2025 11:30 AM EDT Clinical Support [address] [address] Diane Snyder, RN 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 (Primary Dx) 03/03/[address] [address] Diane Snyder, RN 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 (Primary Dx) 03/03/2025 Travel from Last 3 Months Immunizations Immunization Administration [...] Answer Date Recorded Patient Health Questionnaire-9 Score 12 05/31/2025 Patient Health Questionnaire-9 Score 12 05/31/2025 Last PHQ-9: Questionnaire Data Not on file 1 07/31/2024 Housing Stability Answer Date Recorded What is [...] Date Recorded Patient Health Questionnaire-2 Score 2 05/31/2025 Internet Access Answer Date Recorded Internet Access [...] 11:30 AM EST Clinical Support [facility] [address] [place] [address] Diane Snyder, RN 06/04/2025 1:00 PM EST Nutrition [facility] DIABETES/NUTRITION [address] [place] [address] Cintia Duron, CARL [address] [place] [address] Health Maintenance Due Date Last Done Comments CT Colonography 1978 FIT DNA/Cologuard 1978 FIT 1978 FOBT 1978 Sigmoidoscopy 1978 Hepatitis A Vaccines (1 of 2 - Risk 2-dose series) 1997 Hepatitis B Vaccines (1 of 3 - 19+ 3-dose series) 1997 DTaP/Tdap/Td Vaccines (1 - Tdap) 09/23/2018 09/22/2018 COVID-19 Vaccine (1 - 2023-2 5 season) 2025 Influenza Vaccine (#1) 2025 05/03/2020 Mammogram 05/12/2025 05/12/2024, 05/08/2023, 02/10/2018 Depression Monitoring 11/28/2025 05/31/2025 , 05/31/2025 Disability Screening 12/30/2025 12/30/2024 Family Planning (PISQ) 12/30/2025 12/30/2024 Tobacco Screening 04/20/2026 04/20/2025 SDOH Screening 05/07/2026 05/07/2025 Cervical Cancer Screening 05/16/2026 HPV/Cotest 05/16/2026 05/16/2023, 04/09/2022, 01/29/2018 Pap Smear 05/16/2026 05/16/2023, 04/09/2022 Alcohol/Substance Use Screening 05/31/2026 05/31/2025 Zoster Vaccines (1 of 2) 2028 Lipid [...] Procedure Name Priority Date/Time Associated Diagnosis Comments CT SOFT TISSUE NECK W CONTRAST Routine 05/31/2025 3:27 PM EST Cervical adenopathy XR WRIST 3+ VIEWS LEFT Routine 04/15/2025 [...] (BMI) of 37.0 to 37.9 in adult ([facility]/HCC) BASIC METABOLIC PANEL Routine 03/03/2025 11:42 AM EDT Class 2 severe obesity due to excess calories with serious comorbidity and body mass index (BMI) of 37.0 to 37.9 in adult (CMS/HCC) TSH W/REFLEX TO FT4 Routine 03/03/2025 1 1:42 AM EDT Class 2 severe obesity due to excess calories with serious comorbidity and body mass index (BMI) of 37.0 to 37.9 in adult ([facility]/HCC) POCT PARAMJIT-14 URINE DRUG SCREEN Routine 03/03/2025 11:37 AM EDT 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 LIPID PANEL, [...] Recently Relevant to Health Maintenance Results * CT Soft Tissue Neck w/ Contrast (05/31/2025 3:27 PM EST) Anatomical Region Laterality Modality Head, Neck Computed Tomogra phy 05/31/2025 3:27 PM EST Narrative 05/31/2025 4:10 PM EST [place] [address] CT Scan Report Signed Patient: Melania Ryan MR#: [id number] : 1980 Acct:[id number] Age/Sex: 44 / F ADM Date: 05/31/25 Loc: HO.CT Attending Dr: Rachel Eden MD Ordering Physician: Rachel Eden MD Date of Service: 05/31/25 Procedure(s): CT soft tissue neck w IV con Accession Number(s): [id number] cc: Rachel Eden MD Report Number: [id number]: Total DLP = 410.00 mGy-cm Reason for Exam: Multiple cervical lymphadenopathy is on CT of C-spine EXAMINATION: CT SOFT TISSUE NECK WITH CONTRAST CLINICAL INFORMATION: Multilevel cervical lymph nodes on CT cervical spine COMPARISON: CT cervical spine 04/15/2025 TECHNIQUE: Following the intravenous administration of 100 mL of Omnipaque 350 intravenous contrast, helical imaging was performed in the axial plane with generation of coronal and sagittal reformatted images. This CT examination was performed using dose optimization techniques as appropriate, variously including the following: *Automated exposure control *Adjustment of mA and/or kV according to patient size (this includes techniques or standardized protocols for targeted exams where dose is matched to indication/reason for exam; i.e. extremities or head) *Use of iterative reconstruction technique DLP: 1437 FINDINGS: Visualized brain parenchyma is unremarkable. Bilateral internal carotid and the basilar arteries are widely patent however small caliber. Bilateral optic globes, optic nerves and the periorbital soft tissues are normal. Bilateral parotid, submandibular glands and thyroid lobes are symmetrical and normal. Oropharyngeal, pharyngeal and tracheal airway is widely patent. There are bilateral prominent posterior cervical lymph nodes level 2, level 3, level 4. Largest level 3 lymph node measures 1.0 x 1.1 cm on axial image 50/2 and 45/5. The lung apices are clear. There is reversal of cervical lordosis without acute process. No lytic or sclerotic process seen. The prevertebral and paravertebral soft tissues appear normal. CT/CT soft tissue neck w IV con IMPRESSION: Borderline non-suspicious 1.1 cm bilateral posterior neck lymph nodes largest as mentioned above. These are nonspecific and could be secondary to nonspecific inflammatory or infectious etiology correlate with clinical exam Electronically signed by: Kavin Ozuna MD 05/31/2025 04:07 PM [facility] [place] Dictated By: Kavin Ozuna MD Signed By: <Electronically signed by Kavin Ozuna MD in OV> 05/31/25 1607 DD/ 1527 TD/TT: 05/31/25 1545 Loading Dock Hand: [facility] Procedure Note Donotuseinterpreter, Image - 05/31/[address] [place] [address] [address] Scan Report Signed Patient: Melania RyanMR#: [id number] : 1980Acct:[id number] Age/Sex: 44 / FADM Date: 05/31/25 Loc: HO.CT Attending Dr: Rachel Eden MD Ordering Physician: Rachel Eden MD Date of Service: 05/31/25 Procedure(s): CT soft tissue neck w IV con Accession Number(s): [id number] cc: Rachel Eden MD Report Number: [id number]: Total DLP = 410.00 mGy-cm Reason for Exam: Multiple cervical lymphadenopathy is on CT of C-spine EXAMINATION: CT SOFT TISSUE NECK WITH CONTRAST CLINICAL INFORMATION: Multilevel cervical lymph nodes on CT cervical spine COMPARISON: CT cervical spine 04/15/2025 TECHNIQUE: Following the intravenous administration of 100 mL of Omnipaque 350 intravenous contrast, helical imaging was performed in the axial plane with generation of coronal and sagittal reformatted images. This CT examination was performed using dose optimization techniques as appropriate, variously including the following: *Automated exposure control *Adjustment of mA and/or kV according to patient size (this includes techniques or standardized protocols for targeted exams where dose is matched to indication/reason for exam; i.e. extremities or head) *Use of iterative reconstruction technique DLP: 1437 FINDINGS: Visualized brain parenchyma is unremarkable. Bilateral internal carotid and the basilar arteries are widely patent however small caliber. Bilateral optic globes, optic nerves and the periorbital soft tissues are normal. Bilateral parotid, submandibular glands and thyroid lobes are symmetrical and normal. Oropharyngeal, pharyngeal and tracheal airway is widely patent. There are bilateral prominent posterior cervical lymph nodes level 2, level 3, level 4. Largest level 3 lymph node measures 1.0 x 1.1 cm on axial image 50/2 and 45/5. The lung apices are clear. There is reversal of cervical lordosis without acute process. No lytic or sclerotic process seen. The prevertebral and paravertebral soft tissues appear normal. CT/CT soft tissue neck w IV con IMPRESSION: Borderline non-suspicious 1.1 cm bilateral posterior neck lymph nodes largest as mentioned above. These are nonspecific and could be secondary to nonspecific inflammatory or infectious etiology correlate with clinical exam Electronically signed by: Kavin Ozuna MD 05/31/2025 04:07 PM EST Dictated By: Kavin Ozuna MD Signed By: <Electronically signed by Kavin Ozuna MD in OV> 05/31/25 1607 DD/ 1527 TD/TT: 05/31/25 1545 Loading Dock Hand: JESENIA Rachel Eden MD IM CT PROCEDURES Edited Result - Final * XR Wrist 3+ Views Left (04/15/2025 12:26 PM EDT) Anatomical Region Laterality Modality Upper Extremities, Wrist Left Radiogr aphic Imaging 04/15/2025 12:2 6 PM EDT Narrative 04/15/2025 12:44 PM EDT [address] [address] XRay Report Signed Patient: Melania Ryan MR#: [id number] : 1980 Acct:[id number] Age/Sex: 44 / F ADM Date: 04/15/25 Loc: HO.ED Attending Dr: Ordering Physician: Mildred Crooks Date of Service: 04/15/25 Procedure(s): XR wrist LT min 3V Accession Number(s): [id number] cc: Rachel Eden MD; Mildred Crooks Reason [...] 04/15/25 1242 DD/ 1226 TD/TT: 04/15/25 1230 Loading Dock Hand: Procedure Note Donotuseinterpreter, Image - 04/15/[address] [address] XRay Report Signed Patient: Melania RyanMR#: [id number] : 1980Acct:[id number] Age/Sex: 44 / FADM Date: 04/15/25 Loc: HO.ED Attending Dr: Ordering Physician: Mildred Crooks Date of Service: 04/15/25 Procedure(s): XR wrist LT min 3V Accession Number(s): [id number] cc: Rachel Eden MD; Mildred Crooks Reason [...] 04/15/25 1242 DD/ 1226 TD/TT: 04/15/25 1230 Loading Dock Hand: [facility] External Provider IMG XR PROCEDURES Final Result * XR Elbow 3+ Views Left (04/15/2025 12:23 PM EDT) Anatomical Region Laterality Modality Upper Extremities, Elbow Left Radiogr aphic Imaging 04/15/2025 12:2 3 PM EDT Narrative 04/15/2025 12:42 PM EDT [address] [address] XRay Report Signed Patient: Melania Ryan MR#: [id number] : 1980 Acct:[id number] Age/Sex: 44 / F ADM Date: 04/15/25 Loc: HO.ED Attending Dr: Ordering Physician: Mildred Crooks Date of Service: 04/15/25 Procedure(s): XR elbow LT min 3V Accession Number(s): [id number] cc: Rachel Eden MD; Mildred Crooks Reason [...] Jaden Torres MD 04/15/2025 12:39 PM EDT Dictated By: Jaden Torres MD Signed By: <Electronically signed by Jaden Torres MD in OV> 04/15/25 1239 DD/ 1223 TD/TT: 04/15/25 1230 Loading Dock Hand: Procedure Note Donotuseinterpreter, Image - 04/15/[address] [address] XRay Report Signed Patient: Melania RyanMR#: [id number] : 1980Acct:[id number] Age/Sex: 44 / FADM Date: 04/15/25 Loc: HO.ED Attending Dr: Ordering Physician: Mildred Crooks Date of Service: 04/15/25 Procedure(s): XR elbow LT min 3V Accession Number(s): [id number] cc: Rachel Eden MD; Mildred Crooks Reason [...] 04/15/25 1239 DD/ 1223 TD/TT: 04/15/25 1230 Loading Dock Hand: [facility] External Provider IMG XR PROCEDURES Final Result * XR Shoulder 2+ Views Left (04/15/2025 12:19 PM EDT) Anatomical Region Laterality Modality Upper Extremities, Shoulder Left Radi ographic Imaging 04/15/2025 12:1 9 PM EDT Narrative 04/15/2025 12:44 PM EDT [place] [address] XRay Report Signed Patient: Melania Ryan MR#: [id number] : 1980 Acct:[id number] Age/Sex: 44 / F ADM Date: 04/15/25 Loc: HO.ED Attending Dr: Ordering Physician: Mildred Crooks Date of Service: 04/15/25 Procedure(s): XR shoulder LT min 2V Accession Number(s): [id number] cc: Rachel Eden MD; Mildred Crooks Reason [...] 04/15/25 1242 DD/ 1219 TD/TT: 04/15/25 1230 Loading Dock Hand: Procedure Note Donotuseinterpreter, Image - 04/15/2025 [place] [address] XRay Report Signed Patient: Melania RyanMR#: [id number] : 1980Acct:[id number] Age/Sex: 44 / FADM Date: 04/15/25 Loc: .ED Attending Dr: Ordering Physician: Mildred Crooks Date of Service: 04/15/25 Procedure(s): XR shoulder LT min 2V Accession Number(s): [id number] cc: Rachel Eden MD; Mildred Crooks Reason [...] 04/15/25 1242 DD/ 1219 TD/TT: 04/15/25 1230 Loading Dock Hand: [facility] External Provider IMG XR PROCEDURES Final Result * XR Knee 4+ Views Right (04/15/2025 12:10 PM EDT) Anatomical Region Laterality Modality Lower Extremities, Knee Right Radiogra phic Imaging 04/15/2025 12:1 0 PM EDT Narrative 04/15/2025 12:46 PM EDT [address] [address] XRay Report Signed Patient: Melania Ryan MR#: [id number] : 1980 Acct:[id number] Age/Sex: 44 / F ADM Date: 04/15/25 Loc: HO.ED Attending Dr: Ordering Physician: Mildred Crooks Date of Service: 04/15/25 Procedure(s): XR knee RT 4V Accession Number(s): [id number] cc: Rachel Eden MD; Mildred Crooks Reason [...] Jaden Torres MD 04/15/2025 12:43 PM EDT RP Dictated By: Jaden Torres MD Signed By: <Electronically signed by Jaden Torres MD in OV> 04/15/25 1243 DD/ 1210 TD/TT: 04/15/25 1230 Loading Dock Hand: Procedure Note Donotuseinterpreter, Image - 04/15/[address] [address] XRay Report Signed Patient: Melania RyanMR#: [id number] : 1980Acct:[id number] Age/Sex: 44 / FADM Date: 04/15/25 Loc: HO.ED Attending Dr: Ordering Physician: Mildred Crooks Date of Service: 04/15/25 Procedure(s): XR knee RT 4V Accession Number(s): [id number] cc: Rachel Eden MD; Mildred Crooks Reason [...] 04/15/25 1243 DD/ 1210 TD/TT: 04/15/25 1230 Loading Dock Hand: [facility] External Provider IMG XR PROCEDURES Final Result * XR Chest 2 Views (04/15/2025 12:10 PM EDT) Anatomical Region Laterality Modality Chest Radiographic Cinthya ging 04/15/2025 12:1 0 PM EDT Narrative 04/15/2025 12:43 PM EDT [address] [address] XRay Report Signed Patient: Melania Ryan MR#: [id number] : 1980 Acct:[id number] Age/Sex: 44 / F ADM Date: 04/15/25 Loc: HO.ED Attending Dr: Ordering Physician: Mildred Crooks Date of Service: 04/15/25 Procedure(s): XR chest 2V Accession Number(s): [id number] cc: Rachel Eden MD; Mildred Crooks Reason [...] 04/15/25 1241 DD/ 1210 TD/TT: 04/15/25 1230 Loading Dock Hand: Procedure Note Donotuseinterpreter, Image - 04/15/2025 [place] [address] XRay Report Signed Patient: Melania RyanMR#: [id number] : 1980Acct:[id number] Age/Sex: 44 / FADM Date: 04/15/25 Loc: .ED Attending Dr: Ordering Physician: Mildred Crooks Date of Service: 04/15/25 Procedure(s): XR chest 2V Accession Number(s): [id number] cc: Rachel Eden MD; Mildred Crooks Reason [...] 04/15/25 1241 DD/ 1210 TD/TT: 04/15/25 1230 Loading Dock Hand: [facility] External Provider IMG XR PROCEDURES Final Result * CT Cervical Spine w/o Contrast (04/15/2025 10:44 AM EDT) Anatomical Region Laterality Modality Spine, C-spine Computed Tomogra phy 04/15/2025 10:4 4 AM EDT Narrative 04/15/2025 11:34 AM EDT [place] [address] CT Scan Report Signed Patient: Melania Ryan MR#: [id number] : 1980 Acct:[id number] Age/Sex: 44 / F ADM Date: 04/15/25 Loc: .ED Attending Dr: Ordering Physician: Mildred Crooks Date of Service: 04/15/25 Procedure(s): CT cervical spine wo IV con Accession Number(s): [id number] cc: Rachel Eden MD; Mildred Crooks Report Number: [id number]: Total DLP = 0.00 mGy-cm Reason for [...] Torres MD Signed By: <Electronically signed by Jadne Torres MD in OV> 04/15/25 1131 DD/ 1044 TD/TT: 04/15/25 1118 Loading Dock Hand: Procedure Note Donotuseinterpreter, Image - 04/15/[address] [place] [address] [address] Scan Report Signed Patient: Melania RyanMR#: [id number] : 1980Acct:[id number] Age/Sex: 44 / FADM Date: 04/15/25 Loc: HO.ED Attending Dr: Ordering Physician: Mildred Crooks Date of Service: 04/15/25 Procedure(s): CT cervical spine wo IV con Accession Number(s): [id number] cc: Rachel Eden MD; Mildred Crooks Report Number: [id number]: Total DLP = 0.00 mGy-cm Reason for [...] 04/15/25 1131 DD/ 1044 TD/TT: 04/15/25 1118 Loading Dock Hand: [facility] External Provider IMG CT PROCEDURES Final Result * CT Head w/o Contrast (04/15/2025 10:44 AM EDT) Anatomical Region Laterality Modality Head, Neck Computed Tomogra phy 04/15/2025 10:4 4 AM EDT Narrative 04/15/2025 11:28 AM EDT [address] [address] [address] Scan Report Signed Patient: Melania Ryan MR#: [id number] : 1980 Acct:[id number] Age/Sex: 44 / F ADM Date: 04/15/25 Loc: HO.ED Attending Dr: Ordering Physician: Mildred Crooks Date of Service: 04/15/25 Procedure(s): CT head/brain wo IV con Accession Number(s): [id number] cc: Rachel Eden MD; Mildred Crooks Report Number: [id number]: Total DLP = 1437.00 mGy-cm Reason for [...] 04/15/25 1126 DD/ 1044 TD/TT: 04/15/25 1118 Loading Dock Hand: Procedure Note Donotuseinterpreter, Image - 04/15/[address] [address] [address] Scan Report Signed Patient: Melania RyanMR#: [id number] : 1980Acct:[id number] Age/Sex: 44 / FADM Date: 04/15/25 Loc: HO.ED Attending Dr: Ordering Physician: Mildred Crooks Date of Service: 04/15/25 Procedure(s): CT head/brain wo IV con Accession Number(s): [id number] cc: Rachel Eden MD; Mildred Crooks Report Number: [id number]: Total DLP = 1437.00 mGy-cm Reason for [...] 04/15/25 1126 DD/ 1044 TD/TT: 04/15/25 1118 Loading Dock Hand: [facility] External Provider IMG CT PROCEDURES Final Result * TSH with Reflex to Free T4 (03/03/2025 11:42 AM EDT) TSH reflex Free T4 2.17 0.32 - 4.0 uIU/mL [facility] Blood 03/03/2025 11:4 2 AM EDT 03/03/2025 1:15 PM EDT Result [facility] Rachel Eden MD LAB BLOOD ORDERABLES Fin al Result Performing Organization Address [facility] Co de Phone Number [facility] [address] [place] [phone] * Hemoglobin A1c (03/03/2025 11:42 AM EDT) Hemoglobin A1c 5.0 <6.0 % [facility] Comment:Hemoglobin A1C Refer ence Range Adults: 4.8 - 6.0 % Non diabetic: < 6.0 % Goal: < 7.0 %Additional Action Suggested: > 8.0 %Note: Hemoglobin A1c results are invalid for patients with abnormal amounts of HbF. Blood transfusions may impact the HbA1c concentration in the patient sample. Estimated Average Glucose 97 mg/dL [facility] Comment:eAG = Estimated ave rage glucose which is %A1C expressed asaverage glucose, using the formula of the T6L-TmccpxiYeupqia Glucose study (ADAG), Diabetes Care, Vol.31,#8,Feb. 2007 Blood Venous blood specimen / Unknown 03/03/2025 11:42 AM EDT 03/03/2025 1:15 PM EDT Result [facility] Rachel Eden MD LAB BLOOD ORDERABLES Fin al Result Performing Organization Address [facility] Co de Phone Number [facility] [address] [place] [phone] * (ABNORMAL) Basic Metabolic Panel (03/03/2025 11:42 AM EDT) Sodium 141 135 - 145 mmol/L [facility] Potassium 3.9 3.3 - 5.1 mmol/L [facility] Chloride 109(H) 96 - 108 mmol/L [facility] Carbon Dioxide 25 22 - 29 mmol/L [facility] Anion Gap 11(L) 12 - 20 [facility] Urea Nitrogen (BUN) 13 9 - 16 mg/dL [facility] Creatinine, Serum 0.58 0.5 - 1.4 mg/dL [facility] Estimated Glomerular Filt Rate >60 [facility] Comment:Chronic Kidney Disea se: Estimated GFR < 60 mL/min/1.26u2Mtpikw Kidney Disease: Estimated GFR < 15 mL/min/1.73m2 Glucose 94 60 - 115 mg/dL [facility] Calcium 8.8 8.4 - 10.2 mg/dL [facility] Blood Venous blood specimen / Unknown 03/03/2025 11:42 AM EDT 03/03/2025 1:15 PM EDT Rachel Eden MD LAB BLOOD ORDERABLES Fin al Result [facility] [address] [place] [phone] * POCT PARAMJIT-14 Urine Drug Screen [...] procedure / Unknown 03/03/2025 11:37 AM EDT Narrative LillianDiane loving, RN - 03/03/2025 11:37 AM EDT UTOX cup Lot#[id number] Exp. 04/27/26 Internal Pass Control us Rachel Eden MD POINT OF CARE TEST ENTER /EDIT ORDERABLES Final Result * (ABNORMAL) Lipid Panel, Standard (05/29/2024 3:44 PM EST) Triglycerides 216(H) <150 mg/dL [facility] Comment:Desirable Triglyceri de: less than 150 mg/dLBorderline High Triglyceride 150-199 mg/dLHigh Triglyceride: 200-499 mg/dLVery High Triglyceride: greater than or equal to 5OO mg/dL Cholesterol 188 <200 mg/dL [facility] Comment:Desirable Cholestero l: less than 200 mg/dLBorderline High Cholesterol: 200-239 mg/dLHigh Cholesterol: greater than 239 mg/dL LDL Cholesterol Calculated 90 <100 mg/dL [facility] Comment:Desirable LDL: less than 100 mg/dLNear Optimal/Above Optimal LDL: 110- 129 mg/dLBorderline High LDL: 130-159 mg/dLHigh LDL: 160-189 mg/dLVery High LDL: greater than or equal to 190 mg/dL HDL Cholesterol 55 >40 mg/dL [facility] Comment:Desirable HDL: great er than 40 mg/dL Note: This HDL assay may give artificially low results in patients with liver disease. 05/29/2024 3:44 PM EST 05/29/2024 3:44 PM EST us Generic External Data Provider LAB BLOOD ORDERAB LES Final Result [facility] [address] [place] [phone] * Hm Colonoscopy (05/15/2024) Colonoscopy Normal Normal [facility] us Rachel Eden MD HEALTH MAINTENANCE Final Result [facility] [address] [place] [phone] * BI Mammogram Screening Tomosynthesis Bilateral (05/12/2024 2:10 PM EDT) Anatomical Region Laterality Modality Breast Bilateral Mammography 05/12/2024 2:10 PM EDT Narrative 05/25/2024 3:50 PM EST [address] [place] [address] Mammography Report Signed Patient: Melania yRan MR#: [id number] : 1980 Acct:[id number] Age/Sex: 43 / F ADM Date: 05/12/24 Loc: HO.MAMMO Attending Dr: Rachel Eden MD Ordering Physician: Rachel Eden MD Results: 1Ne gative Date of Service: 05/12/24 Follow Up: 1 Year From Orig ina Mammogram Procedure(s): MM tomosynthesis screening BI Accession Number(s): [id number] cc: Rachel Eden MD EXAMINATION: MM SCREENING [...] for their next mammogram. Electronically signed by: Funimlayo Diallo DO 05/25/2024 03:46 PM EST Dictated By: Funmilayo Diallo DO Signed By: <Electronically signed by Funmilayo Diallo DO in OV> 05/25/24 1546 DD/ 1410 TD/TT: 05/12/24 1430 Loading Dock Hand: Procedure Note Donotuseinterpreter, Image - 05/25/2024 [facility] [address] [place], [place] [address] Mammography Report Signed Patient: Melania RyanMR#: [id number] : 1980Acct:[id number] Age/Sex: 43 / FADM Date: 05/12/24 Loc: HO.MAMMO Attending Dr: Rachel Eden MD Ordering Physician: Rachel Eden MDResults: 1Ne gative Date of Service: 05/12/24Follow Up: 1 Year From Orig inal Mammogram Procedure(s): MM tomosynthesis screening BI Accession Number(s): [id number] cc: Rachel Eden MD EXAMINATION: MM SCREENING [...] 05/25/24 1546 DD/ 1410 TD/TT: 05/12/24 1430 Loading Dock Hand: Rachel Eden MD IMG BI PROCEDURES Edited Result - Final * Hepatitis Panel, General (05/24/2023 10:30 AM EDT) Hepatitis A IgM Nonreactive Nonreactive [facility] Comment:IgM antibodies to AG V not detected; does not exclude earlyacute or recovered HAV infection. ~Hepatitis B Surface Antibody NONREACTIVE Nonreactive [facility] Comment:Nonreactive: < 8.00 mIU/mL Hepatitis B Core Antibody Nonreactive Nonreactive [facility] Hepatitis C Antibody Nonreactive Nonreactive [facility] Comment:Antibodies to HCV no t detected; does not exclude early acuteHCV infection. Hepatitis B Surface Ag Negative Negative [facility] Blood 05/24/2023 10:3 0 AM EDT 05/24/2023 1:03 PM EDT Rachel Eden MD LAB BLOOD ORDERABLES Fin al Result [facility] [address] [place] [phone] * HIV-1/2 Antigen and Antibodies, Fourth Generation, with Reflexes (05/24/2023 10:30 AM EDT) HIV AB/AG Nonreactive Nonreactive [facility] Comment:HIV-1 p24 Ag and/or HIV-1/HIV-2 Ab not detected.A test result that is nonreactive does not exclude thepossibility of exposure to or infection with HIV-1 and/orHIV-2. Nonreactive results in this assay for individualswith prior exposure to HIV-1 and/or HIV-2 may be due toantigen and antibody levels that are below the limit ofdetection of this assay.The Photomedex HIV Ag/Ab Combo assay result andsupplemental assay results should be interpreted inconjunction with the patient's clinical presentation,history and other laboratory results. If the results areinconsistent with clinical evidence, additional testing issuggested to confirm the result. Blood Venous blood specimen / Unknown 05/24/2023 10:30 AM EDT 05/24/2023 1:03 PM EDT us Rachel Eden MD LAB BLOOD ORDERABLES Fin al Result Performing Organization Address [facility]/ZIP Co de Phone Number [facility] [address] [place] [phone] * HPV mRNA E6/E7 w/Reflex to HPV Genotypes 16, 18/45 (05/16/2023 10:48 AM EDT) HPV nRNA E6/E7 Not Detected Not Detected [facility] Comment:Methodology: Transcr iption-Mediated AmplificationThis assay detects E6/E7 viral messenger RNA (mRNA) from 14high-risk HPV types (16,18,31,33,35,39,45,51,52,56,58,59,66,68).Cervical sources are required for HPV testing.If a vaginal source from a patient who has had atotal hysterectomy with removal of cervix wassubmitted, please contact the testing laboratoryfor alternative testing options.For additional information, please refer [email or web address].[email or web address]/BIH130r8(This link if provided for information/educational purposes only.)THIS TEST WAS PERFORMED AT:[facility] [place] [phone] ARROYO MD HPV mRNA E6/E7 [facility] HPV 16 RNA [facility] HPV 18/45 RNA [facility] 05/16/2023 10:4 8 AM EDT 05/17/2023 6:30 AM EDT us Rodríguez Whelan CNM LAB CYTOLOGY ORDERABLES F inal Result Performing Organization Address [facility]/ZIP Co de Phone Number [facility] [address] [place] [phone] * Pap Smear (05/16/2023 10:48 AM EDT) 05/16/2023 10:4 8 AM EDT 05/17/2023 6:30 AM EDT [facility] - 05/22/2023 12:50 PM EDT ----- ------- Name: Sarahrianna HamptonesMelania Age/Sex: 42/F : 1980 Unit#: [id number] Attend Dr: RODRÍGUEZ WHELAN CNM Re05/16/23 Status: [facility] Disch: ----- ------- SPEC : [id number] RECD: 05/17/23 STATUS: ELVI CANALES NUM: [id number] CHRISTOPHER: 05/16/23-[address] [facility] [address]: RODRÍGUEZ WHELAN CNM ENTERED: 05/17/23-1015 SP TYPE: Pap Smr [facility] DR: ORDERED: Pap Smear Interpretation Satisfactory for evaluation. Negative for intraepithelial lesion or malignancy. HPV mRNA E6/E7: NOT DETECTED This assay detects E6/E7 viral messenger RNA (mRNA) from 14 high-risk HPV types (16, 18, 31, 33, 35, 39, 45, 51, 52, 56, 58, 59, 66, 68) HPV testing performed by [facility], [place], [place]. See reference laboratory pion of the EMR for entire report. Clinical Information LMP: Unknown date Previous PAP test: Unknown date, WNL Other history: Previous pap preceded by ASCUS/HPV positive Material Received ThinPrep-Cervical ----- ------- Signed (signature on file) JOVITA Huff (ASCP) 05/22/23 1250 ----- ------- END OF REPORT Rodríguez Whelan [facility] CYTOLOGY ORDERABLES F inal Result [facility] [address] [place] [phone] from Last 3 Months or Most Recently Relevant to Health Maintenance [facility] [id number] [id number] , [place] [id number] Care Teams Brain Wave Technician Relationship Specialty Start Date End Date Rachel Eden MD [address] [place] [address] PCP - General Family Medicine 02/10/20 Lori Alvarez 04/16/25 Anitha Hurtado, SHASHA [address] [place] [address] Registered Nurse Family Medicine 05/11/25 Jurgen Graham Ice Resurfacing Machine OperatorsTank Worker 04/16/24
--- OUTSIDE RECORDS SUMMARY | 2025-05-31 17:00 | XMS_ITS | Encounter Summary ---
Author Organization [employer] Address [address] [facility] [address] [place] [address] Care Team Providers Care Billet Cutter Name Role Phone Rachel Eden MD Primary Care Provider + Jaguar Pugh RN Unavailable [phone] Lori Alvarez Unavailable Anitha Hurtado RN Unavailable [phone] Reason for Visit * Reason Comments Med Refill Encounter Details Date Type Department Care Team (Late st Contact Info) Description 12/08/2024 Refill [facility] [address] [place], [place] [phone] Rachel Eden MD [address] [place] [address] Social History Tobacco Use Types Packs/Day Years [...] Description 06/02/2025 11:30 AM EST Clinical Support [facility] [address] [place] [address] Diane Snyder RN 06/04/2025 1:00 PM EST Nutrition [facility] DIABETES/NUTRITION [address] [place] [address] [place] [address] documented as of this encounter Visit Diagnoses Not on filedocumented in this encounter Additional Health Concerns Assessment Noted Time PHQ-9 Depression Total Score: 6 04/11/20 23 9:59 AM EDT documented as of this encounter Care Teams Billet Cutter Relationship Specialty Start Date End Date Rachel Eden MD [address] [place] [address] PCP - General Family Medicine 02/10/20 Jaguar Pugh, RN [address] [place] [phone] Registered Nurse Family Medicine 04/16/25 05/11/25 Lori Alvarez 04/16/25 Anitha Hurtado RN [address] [place] [phone] Registered Nurse Family Medicine 05/11/25 Jurgen Graham Umbrella Tipper HandFinancial Internship 04/16/24 documented as of this encounter
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
--- OUTSIDE RECORDS SUMMARY | 2025-05-31 17:00 | XMS_ITS | Encounter Summary ---
Author Organization [facility] Address [address] [place] [address] 7t [place] [address] Care Team Providers Care Implementation Engineer Name Role Phone Rachel Eden MD Primary Care Provider + Bela Pugh Unavailable Rebeka Schultz RN Unavailable Unavailable Jaguar Pugh RN Unavailable [phone] Lori Alvarez Unavailable Anitha Hurtado RN Unavailable [phone] Reason for Visit * Reason Comments Pre-visit Planning SDOH tobacco screeni ng complete Encounter Details Date Type Department Care Team (Late Contact Info) Description 03/08/2023 Abstract [facility] MEDICINE [address] [place] [address] Rachel Eden MD [address] [place], [place] [phone] Social History Tobacco Use Types Packs/Day Years [...] 11:30 AM EST Clinical Support [facility] MEDICINE [address] [place] [address] Diane Snyder, RN 06/04/2025 1:00 PM EST Nutrition [facility] DIABETES/NUTRITION [address] [place], [place] [phone] Cintia Duron, RD [address] [place] [address] documented as of this encounter Visit Diagnoses Not on filedocumented in this encounter Care Teams Implementation Engineer Relationship Specialty Start Date End Date Rachel Eden MD [address] [place] [address] PCP - General Family Medicine 02/10/20 Bela Pugh Community Health Worker 12/12/2302/16 Rebeka Schultz, RN Appliance Painter And Refinisher 12/24/23 02/17/24 Jaguar Pugh, RN [address] [place] [address] Registered Nurse Family Medicine 04/16/25 05/11/25 Lori Alvarez 04/16/25 Anitha Hurtado, RN [address] [place] [address] Registered Nurse Family Medicine 05/11/25 Jurgen Graham Aircraft WorkerToolroom Helper 04/16/24 documented as of this encounter
--- OUTSIDE RECORDS SUMMARY | 2025-05-31 17:00 | XMS_ITS | Encounter Summary ---
Author Organization [employer] Address [address] [place] [address] 7t [place] [address] Care Team Providers Care Spaghetti Machine Operator Name Role Phone Rachel Eden MD Primary Care Provider + Bela Pugh Unavailable Rebeka Schultz RN Unavailable Unavailable Jaguar Pugh RN Unavailable [phone] Lori Alvarez Unavailable Anitha Hurtado RN Unavailable [phone] Reason for Visit * Reason Comments Med Refill Encounter Details Date Type Department Care Team (Late st Contact Info) Description 10/03/2022 Refill [facility] CHC MED & PEDS [address] [place], [place] [phone] Maria Teresa Hill MD [address] [place] [address] Pain in left foot Social History Tobacco [...] Description 06/02/2025 11:30 AM EST Clinical Support [facility] MEDICINE [address] [place] [address] Diane Snyder, SHASHA 06/04/2025 1:00 PM EST Nutrition [facility] DIABETES/NUTRITION [address] [place] [address] Cintia Duron, CRAL [address] [place] [address] documented as of this encounter Visit Diagnoses Diagnosis Pain in left foot Pain in soft tissues of limb documented in this encounter Care Teams Spaghetti Machine Operator Relationship Specialty Start Date End Date Rachel Eden MD [address] [place] [address] [phone] PCP - General Family Medicine 02/10/20 Bela Pugh Community Health Worker 12/12/2302/16 Rebeka Schultz, SHASHA Tank Builder Supervisor 12/24/23 02/17/24 Jaguar Pugh, RN [address] [place] [address] Registered Nurse Family Medicine 04/16/25 05/11/25 Lori Alvarez 04/16/25 Anitha Hurtado, SHASHA [address] [place] [address] Registered Nurse Family Medicine 05/11/25 Jurgen Graham Medical Lab DirectorKeyliner 04/16/24 documented as of this encounter
--- OUTSIDE RECORDS SUMMARY | 2025-05-31 17:00 | XMS_ITS | Encounter Summary ---
Author Organization [employer] Address [address] [facility] 7t [place] [address] Care Team Providers Care Barge Worker Name Role Phone Rachel Eden MD Primary Care Provider + Lori Alvarez Unavailable Anitha Hurtado RN Unavailable [phone] Encounter Details Date Type Department Care Team (Late st Contact Info) Description 05/31/2025 Plan of Care Documentation [facility] MEDICINE [address] [place] [address] Social History Tobacco Use Types Packs/Day Years [...] RN Trouble relaxing 2 05/31/2025 10:54 AM Anitha Verma RN Being so restless that it is hard to sit still 2 05/31/2025 10:54 AM Anitha Verma RN Becoming easily annoyed or irritable 2 05/31/2025 10:54 AM Anitha Verma RN Feeling afraid as if somethi ng awful might happen 2 05/31/2025 10:54 AM EST Anitha Hurtado, SHASHA BLANCA-7 Total Score 15 05/31/2025 10:54 AM EST Anitha Hurtado RN documented as of this encounter Plan of Treatment Upcoming Encounters Date Type Department Care Team (Late st Contact Info) Description 06/02/2025 11:30 AM EST Clinical Support [facility] MEDICINE [address] [place] [address] Diane Snyder RN 06/04/2025 1:00 PM EST Nutrition [facility] DIABETES/NUTRITION [address] [place] [address] [place] [address] documented as of this encounter Visit Diagnoses Not on filedocumented in this encounter Additional Health Concerns Assessment Noted Time PHQ-9 Depression Total Score: 12 025 10:52 AM EST documented as of this encounter Care Teams Barge Worker Relationship Specialty Start Date End Date Rachel Eden MD [address] [place] [address] PCP - General Family Medicine 02/10/20 Lori Alvarez 04/16/25 Anitha Hurtado RN [address] [place] [address] Registered Nurse Family Medicine 05/11/25 Jurgen Graham Cabinet ProfessionalTube Carrier 04/16/24 documented as of this encounter
--- OUTSIDE RECORDS SUMMARY | 2025-05-31 17:00 | XMS_ITS ---
Author Organization [employer] Address [address] [place] [address] [address], [place] [address] Care Team Providers Care Director Of Hospitality Name Role Phone Rachel Eden MD Primary Care Provider + Lori Alvarez Unavailable Anitha Hurtado RN Unavailable [phone] Complex Status:Enrolled (Active) Start date:04/16/2025 Enrollment date:05/31/2025 Enrollment reason:ADT Feed Overview ED- Pt went to [facility] on 04/15/25. Case Team Name Relationship Phone Anitha Hurtado RN(Responsible Staff) Registered Nurse Continued Care and Services Coordination
--- OUTSIDE RECORDS SUMMARY | 2025-05-31 17:00 | XMS_ITS | Encounter Summary ---
Author Organization [employer] Address [address] [facility] 7t [place] [address] Care Team Providers Care Knock Out Hand Name Role Phone Rachel Eden MD Primary Care Provider + Lori Alvarez Unavailable Anitha Hurtado RN Unavailable [phone] Encounter Details Date Type Department Care Team (Late st Contact Info) Description 05/31/2025 Plan of Care Documentation [facility] MEDICINE [address] [place] [address] Social History Tobacco Use Types Packs/Day Years [...] 06/02/2025 11:30 AM EST Clinical Support [facility] MEDICINE [address] [place] [address] Diane Snyder RN 06/04/2025 1:00 PM EST Nutrition [facility] DIABETES/NUTRITION [address] [place] [address] [place] [address] documented as of this encounter Visit Diagnoses Not on filedocumented in this encounter Additional Health Concerns Assessment Noted Time PHQ-9 Depression Total Score: 12 025 10:52 AM EST documented as of this encounter Care Teams Knock Out Hand Relationship Specialty Start Date End Date Rachel Eden MD 230 [place] [address] PCP - General Family Medicine 02/10/20 Lori Alvarez 04/16/25 Anitha Hurtado RN [address] [place] [address] Registered Nurse Family Medicine 05/11/25 Jurgen Graham Airflight Attendants SupervisorFlaker Tender 04/16/24 documented as of this encounter
--- OUTSIDE RECORDS SUMMARY | 2025-05-31 17:00 | XMS_ITS | Encounter Summary ---
Demographics Address [address] [place] [address] [address] [place] [address] Home Phone Work Phone Mobile Phone Email Address Preferred Language es Marital Status Unknown Pentecostal Affiliation Unknown Race White Ethnic Group Unknown Author Organization [employer] Address [address] [facility] 7t [place] [address] Care Team Providers Care Employee Development Specialist Name Role Phone Rachel Eden MD Primary Care Provider + Jaguar Pugh RN Unavailable [phone] Lori Alvarez Unavailable Anitha Hurtado RN Unavailable [phone] Reason for Visit * Reason Comments Med Refill Encounter Details Date Type Department Care Team (Late st Contact Info) Description 03/07/2024 Refill [facility] MEDICINE [address] [place], [place] [phone] Rachel Eden MD [address] [place] [address] Social History Tobacco Use Types Packs/Day Years [...] Description 06/02/2025 11:30 AM EST Clinical Support [facility] MEDICINE [address] [place] [address] Diane Snyder RN 06/04/2025 1:00 PM EST Nutrition [facility] DIABETES/NUTRITION [address] [place] [address] [place] [address] documented as of this encounter Visit Diagnoses Not on filedocumented in this encounter Additional Health Concerns Assessment Noted Time PHQ-9 Depression Total Score: 6 04/11/20 23 9:59 AM EDT documented as of this encounter Care Teams Employee Development Specialist Relationship Specialty Start Date End Date Rachel Eden MD [address] [place] [address] PCP - General Family Medicine 02/10/20 Jaguar Pugh, RN [address] [place] [address] Registered Nurse Family Medicine 04/16/25 05/11/25 Lori Alvarez 04/16/25 Anitha Hurtado RN [address] [place] [address] Registered Nurse Family Medicine 05/11/25 Jurgen Graham Sales TechnicianCommercial Driver 04/16/24 documented as of this encounter
--- OUTSIDE RECORDS SUMMARY | 2025-05-31 17:00 | XMS_ITS | Encounter Summary ---
Demographics Address [address] [facility] [address] [place] [address] Home Phone Work Phone Mobile Phone Email Address Preferred Language es Marital Status Unknown Spiritism Affiliation Unknown Race White Ethnic Group Unknown Author Organization [employer] Address [address] [place] [address] [address] [place] [address] Care Team Providers Care Bundle Sorter Name Role Phone Rachel Eden MD Primary Care Provider + Bela Pugh Unavailable Rebeka Schultz RN Unavailable Unavailable Jaguar Pugh RN Unavailable [phone] Lori Alvarez Unavailable Anitha Hurtado RN Unavailable [phone] Reason for Visit * Reason Comments Med Refill Encounter Details Date Type Department Care Team (Late st Contact Info) Description 06/11/2023 Refill [facility] CHC MED & PEDS [address] [place], [place] [phone] Rachel Eden MD [address] [place] [address] Pain in left foot Social History Tobacco [...] Description 06/02/2025 11:30 AM EST Clinical Support [facility] MEDICINE [address] [place] [address] Diane Snyder RN 06/04/2025 1:00 PM EST Nutrition [facility] DIABETES/NUTRITION [address] [place] [address] [place] [address] documented as of this encounter Visit Diagnoses Diagnosis Pain in left foot Pain in soft tissues of limb documented in this encounter Additional Health Concerns Assessment Noted Time PHQ-9 Depression Total Score: 6 04/11/20 23 9:59 AM EDT documented as of this encounter Care Teams Bundle Sorter Relationship Specialty Start Date End Date Rachel Eden MD [address] [place] [address] PCP - General Family Medicine 02/10/20 Bela Pugh Community Health Worker 12/12/2302/16 Rebeka Schultz, RN Bakery Decorator 12/24/23 02/17/24 Jaguar Pugh, RN [address] [place] [address] Registered Nurse Family Medicine 04/16/25 05/11/25 Lori Alvarez 04/16/25 Anitha Hurtado, SHASHA [address] [place] [address] Registered Nurse Family Medicine 05/11/25 Jurgen Grahma Jewel Blocker And SawyerStone Rigger 04/16/24 documented as of this encounter
--- OUTSIDE RECORDS SUMMARY | 2025-05-31 17:00 | XMS_ITS | Encounter Summary ---
Author Organization [employer] Address [address] [facility] 7t [place] [address] Care Team Providers Care Healthcare Administrator Name Role Phone Rachel Eden MD Primary Care Provider + Jaguar Pugh RN Unavailable [phone] Lori Alvarez Unavailable Anitha Hurtado RN Unavailable [phone] Reason for Visit * Reason Comments Med Refill Encounter Details Date Type Department Care Team (Late st Contact Info) Description 03/16/2025 Refill [facility] CHC MED & PEDS [address] [place], [place] [phone] Rachel Eden MD [address] [place] [address] Pain in left foot Social History Tobacco [...] your housing situation today? I have shamir sing 08/25/[address] you li [...] Clinical Support [facility] MEDICINE [address] [place] [address] Diane Snyder RN 06/04/2025 1:00 PM EST Nutrition [facility] DIABETES/NUTRITION [address] [place] [address] [place] [address] documented as of this encounter Visit Diagnoses Diagnosis Pain in left foot Pain in soft tissues of limb documented in this encounter Additional Health Concerns Assessment Noted Time PHQ-9 Depression Total Score: 8 12/31/19 25 10:30 AM EDT documented as of this encounter Care Teams Healthcare Administrator Relationship Specialty Start Date End Date Rachel Eden MD [address] [place] [address] PCP - General Family Medicine 02/10/20 Jaguar Pugh, RN [address] [place] [address] Registered Nurse Family Medicine 04/16/25 05/11/25 Lori Alvarez 04/16/25 Anitha Hurtado RN [address] [place] [address] Registered Nurse Family Medicine 05/11/25 Jurgen Graham Residential Recycle DriverSupport Services Specialist 04/16/24 documented as of this encounter
--- OUTSIDE RECORDS SUMMARY | 2025-05-31 17:00 | XMS_ITS | Encounter Summary ---
Author Organization [employer] Address [address] [place] [address] 7[address] [place] [address] Care Team Providers Care Media Consultant Outside Sales Name Role Phone Rachel Eden MD Primary Care Provider + Bela Pugh Unavailable Rebeka Schultz RN Unavailable Unavailable Jaguar Pugh RN Unavailable [phone] Lori Alvarez Unavailable Anitha Hurtado RN Unavailable [phone] Encounter Details Date Type Department Care Team (Late st Contact Info) Description 08/01/2022 Orders Only [facility] MEDICINE [address] [place] [address] Poppy Pendleton LPN Social History Tobacco Use [...] Miscellaneous Notes * Result Encounter Note - Rodríguez Whelan CNM - 08/01/2022 1:21 PM EST Please let Melania know her pap was normal. HPV neg. Repeat 3y. Thanks! documented in this encounter Plan of Treatment Upcoming Encounters Date Type Department Care Team (Late st Contact Info) Description 06/02/2025 11:30 AM EST Clinical Support [facility] MEDICINE [address] [place], [place] [phone] Diane Snyder RN 06/04/2025 1:00 PM EST Nutrition [facility] DIABETES/NUTRITION [address] [place] [address] Cintia Duron, CARL [address] [place] [address] documented as of this encounter Procedures Procedure [...] 10:30 AM EDT) Syphilis Screen Nonreactive Nonreactive [facility] 05/24/2023 10:3 0 AM EDT 05/24/2023 1:03 PM EDT us Rachel Eden MD LAB BLOOD ORDERABLES Fin al Result [facility] [address] [place] [phone] * Pap Smear (05/16/2023 10:48 AM EDT) 05/16/2023 10:4 8 AM EDT 05/17/2023 6:30 AM EDT Narrative [facility] - 05/22/2023 12:50 PM EDT ----- ------- Name: Melania Ryan Age/Sex: 42/F : 1980 Unit#: [id number] Attend Dr: RODRÍGUEZ WHELAN CNM Re05/16/23 Status: DEP REF Location: HO.HHCLNP Disch: ----- ------- SPEC : [id number] RECD: 05/17/23 STATUS: ELVI CANALES NUM: [id number] CHRISTOPHER: 05/16/23-[address]: RODRÍGUEZ WHELAN CNM ENTERED: 05/17/23-1015 SP TYPE: Pap Smr OTHR DR: ORDERED: Pap Smear Interpretation Satisfactory for evaluation. Negative for intraepithelial lesion or malignancy. HPV mRNA E6/E7: NOT DETECTED This assay detects E6/E7 viral messenger RNA (mRNA) from 14 high-risk HPV types (16, 18, 31, 33, 35, 39, 45, 51, 52, 56, 58, 59, 66, 68) HPV testing performed by [email or web address], [place], [place]. See reference laboratory pion of the EMR for entire report. Clinical Information LMP: Unknown date Previous PAP test: Unknown date, WNL Other history: Previous pap preceded by ASCUS/HPV positive Material Received ThinPrep-Cervical ----- ------- Signed (signature on file) JOVITA Huff (ASCP) 05/22/23 1250 ----- ------- END OF REPORT Rodríguez [facility] CYTOLOGY ORDERABLES F inal Result [facility] [address] [place] [address] [phone] * HPV mRNA E6/E7 w/Reflex to HPV Genotypes 16, 18/45 (05/16/2023 10:48 AM EDT) HPV nRNA E6/E7 Not Detected Not Detected [facility] Comment:Methodology: Transcr iption-Mediated AmplificationThis assay detects E6/E7 viral messenger RNA (mRNA) from 14high-risk HPV types (16,18,31,33,35,39,45,51,52,56,58,59,66,68).Cervical sources are required for HPV testing.If a vaginal source from a patient who has had atotal hysterectomy with removal of cervix wassubmitted, please contact the testing laboratoryfor alternative testing options.For additional information, please refer tohttp://education.ServiceNow/faq/BGK721w7(This link if provided for information/educational purposes only.)THIS TEST WAS PERFORMED AT:[facility] [facility] [employer] [place] [id number] ARROYO MD HPV mRNA E6/E7 [facility] HPV 16 RNA [facility] HPV 18/45 RNA [facility] 05/16/2023 10:4 8 AM EDT 05/17/2023 6:30 AM EDT Rodríugez Whelan [facility] CYTOLOGY ORDERABLES F inal Result [facility] [address] [place] [phone] * (ABNORMAL) COVID-19 ID NOW (RUIZ) (04/16/2023 7:10 PM EDT) IDNOW SERIAL# [id number] [facility] COVID-19 TEST Positive (A) Negative [facility] COVID-19 NOTE See Note [facility] Comment: Results are for the identification of SARS-CoV2 RNA. TheSARS-CoV2 RNA is generally detectable in respiratory samplesduring the acute phase of infection. Positive results areindicative of the presence of SARS-CoV-2 RNA; clinicalcorrelation with patient history and other diagnosticinformation is necessary to determine patient infectionstatus. Positive results do not rule out bacterial infectionor co- infection with other viruses.Testing facilities within the [facility] and itsterritories are required to report all [...] use by authorized laboratories.Testing performed on the [employer] NOW utilizing [employer]. 04/16/2023 7:10 PM EDT 04/16/2023 7:34 PM EDT [facility] Exter nal Provider LAB MOLECULAR DIAGNOSTICS ORDERABLES Final Result Performing Organization Address [facility] Co de Phone Number [facility] [address] [place] [phone] * Urinalysis with reflex microscopic (08/21/2022 7:21 AM EST) Color Urine Yellow [facility] Appearance Urine Clear [facility] PH 5.5 5.0 - 9.0 [facility] Glucose Urine UA Negative Negative mg/dL [facility] Urine Blood Negative Negative [facility] Specific [place] - Urine 1.015 1.005 - 1.025 [facility] Urine Protein Negative Neg-Trace mg/dL [facility] Urine Ketones Negative Negative mg/dL [facility] Nitrite Urine Negative Negative [facility] Leukocyte Esterase Urine Negative Negative [facility] 08/21/2022 7:21 AM EST 08/21/2022 7:24 AM EST Narrative [facility] - 08/21/2022 7:31 AM EST [id number], Clean Catch [facility] External Provider LAB URI NE ORDERABLES Final Result Performing Organization Address [facility]/ZIP Co de Phone Number [facility] [address] [place] [phone] * HCG, Qualitative, Urine (08/21/2022 7:20 AM EST) Pathologist [facility] Urine NEGATIVE NEGATIVE [facility] Comment:This test was develo ped to detect early . Falsenegative results may occur after the 5th - 7th week ofpregnancy when using this test method. If clinicallyindicated, consider a serum hCG. 08/21/2022 7:20 AM EST 08/21/2022 7:24 AM EST [facility] External Provider LAB URI NE ORDERABLES Final Result Performing Organization Address [facility]/ZIP Co de Phone Number [facility] [address] [place] [phone] * Lipase (08/21/2022 7:15 AM EST) [facility] Lipase 29 8 - 78 U/L [facility] 08/21/2022 7:15 AM EST 08/21/2022 7:24 AM EST [facility] External Provider LAB BLO OD ORDERABLES Final Result Performing Organization Address [facility]/ZIP Co de Phone Number [facility] [address] [place] [phone] * (ABNORMAL) Hepatic Function Panel (08/21/2022 7:15 AM EST) [facility] Bilirubin, Total 0.3 0.0 - 1.0 mg/dL [facility] Bilirubin, Direct <0.2 0.0 - 0.5 mg/dL [facility] Aspartate Amino Transferase 36(H) 5 - 31 U/L [facility] Alanine Aminotransferase 61(H) 0 - 31 U/L [facility] Total Protein 6.0(L) 6.5 - 8.0 g/dL [facility] Albumin Level 3.7 3.5 - 5.0 g/dL [facility] Alkaline Phosphatase 70 39 - 117 U/L [facility] 08/21/2022 7:15 AM EST 08/21/2022 7:24 AM EST [facility] External Provider LAB BLO OD ORDERABLES Final Result [facility] [address] [place] [address] [phone] * Basic Metabolic Panel (08/21/2022 7:15 AM EST) Sodium 141 135 - 145 mmol/L [facility] Potassium 4.0 3.3 - 5.1 mmol/L [facility] Chloride 105 96 - 108 mmol/L [facility] Carbon Dioxide 28 22 - 29 mmol/L [facility] Anion Gap 12 12 - 20 [facility] Urea Nitrogen (BUN) 9 9 - 16 mg/dL [facility] Creatinine, Serum 0.64 0.5 - 1.4 mg/dL [facility] Creatinine Clr Calc Pharmacy 115.5 [facility] Comment:Provided height and weight: 162.56 cm,79.379 kg.eGFR (calculated from the MDRD study equation) and eCrCl(calculated from the Cockcroft-Gault equation) are based ondifferent parameters and may not yield comparable results.If eCrCl result is absurd, please check patient'sheight/weight. Estimated Glomerular Filt Rate >60 [facility] Comment:NOTE: For -Am erican individuals, multiply the result by 1.210.Chronic Kidney Disease: Estimated GFR < 60 mL/min/1.81h7Rdyttr Kidney Disease: Estimated GFR < 15 mL/min/1.73m2 Glucose 95 60 - 115 mg/dL [facility] Calcium 8.9 8.4 - 10.2 mg/dL [facility] 08/21/2022 7:15 AM EST 08/21/2022 7:24 AM EST [facility] External Provider LAB BLO OD ORDERABLES Final Result [facility] [address] [place] [phone] * (ABNORMAL) CBC auto differential (08/21/2022 7:15 AM EST) White Blood Count 5.5 4.8 - 10.8 X10*3/uL [facility] Red Blood Count 4.13(L) 4.20 - 5.50 X10*6/uL [facility] Hemoglobin 12.6 12.0 - 16.0 g/dl [facility] Hematocrit 36.7(L) 37.0 - 47.0 % [facility] Mean Corpuscular Volume 88.9 80.0 - 98.0 fL [facility] Mean Corpuscular Hemoglobin 30.5 27.0 - 33.0 pg [facility] Mean Corpuscular HGB Conc 34.3 31.0 - 35.0 g/dl [facility] Red Cell Distribution Width 12.1 11.0 - 16.0 % [facility] Platelet Count 191 160 - 400 X10*3/uL [facility] Mean Platelet Volume 7.9(L) 9.4 - 12.3 fL [facility] Neutrophils Percent Auto 52.3 45 - 73 % [facility] Imm Gran Pct Auto 0.5(H) 0.0 - 0.4 % [facility] Lymphocytes Percent Auto 37.1 20 - 40 % [facility] Monocytes Percent Auto 8.5 2 - 11 % [facility] Eosinophils Percent Auto 1.1 0 - 4 % [facility] Basophils Percent Auto 0.5 0 - 2 % [facility] NRBC Pct Auto 0.0 0.0 - 0.2 /100WBC [facility] Neutrophils Absolute Auto 2.9 2.0 - 8.3 x10*3/uL [facility] Imm Gran Abs Auto 0.03 0.00 - 0.03 X10*3/uL [facility] Lymphocytes Absolute Auto 2.1 1.2 - 4.9 X10*3/uL [facility] Monocytes Absolute Auto 0.5 0.1 - 1.2 X10*3/uL [facility] Eosinophils Absolute Auto 0.1 0.0 - 0.4 X10*3/uL [facility] Basophils Absolute Auto 0.0 0.0 - 0.2 X10*3/uL [facility] NRBC Abs Auto 0.000 0.0 - 0.012 X10*3/uL [facility] 08/21/2022 7:15 AM EST 08/21/2022 7:24 AM EST us [facility] External Provider LAB BLO OD ORDERABLES Final Result Performing Organization Address City/State/[facility] Co de Phone Number [facility] [address] [place] [phone] documented in this encounter Visit Diagnoses Not on filedocumented in this encounter Care Teams Media Consultant Outside Sales Relationship Specialty Start Date End Date Rachel Eden MD [address] [place] [address] PCP - General Family Medicine 02/10/20 Bela Pugh Community Health Worker 12/12/2302/16 Rebeka Schultz RN Sand [place]rier 12/24/23 02/17/24 Jaguar Pugh, SHASHA [address] [place] [phone] Registered Nurse Family Medicine 04/16/25 05/11/25 Lori Alvarez 04/16/25 Anitha Hurtado, SHASHA [address] [place] [address] Registered Nurse Family Medicine 05/11/25 Jurgen Graham Electric Motor AnalystGeneral Ophthalmologist 04/16/24 documented as of this encounter
--- OUTSIDE RECORDS SUMMARY | 2025-05-31 17:00 | XMS_ITS | Encounter Summary ---
Author Organization [employer] Address [address] [place] [address] [address]t [place] [address] Care Team Providers Care Fish Header Name Role Phone Rachel Eden MD Primary Care Provider + Lori Alvarez Unavailable Anitha Hurtado RN Unavailable [phone] Reason for Visit * Reason Comments Care Coordination [facility] Lori meyers telephone call outreach Encounter Details Date Type Department Care Team (Latest Contact Info) Description 05/28/2025 Patient Outreach [facility] MEDICINE [address] [place] [address] Rachel Eden MD [address] [place] [address] [facility] call outreach) Social History Tobacco [...] encounter Progress Notes * Lori Alvarez - 05/28/2025 12:57 PM EST CHW Lori Alvarez placed outbound call to patient introducing herself from [facility] CM Department, in regards to remind patient of Adult Complex Care program initial assessment appt for tomorrow 05/31/25 @ 10:30 AM via telephone. Patient's name and was confirmed. Patient is aware andconfirmed will be available for call and has no barriers on attending call. Patient verbalized understanding and agrees with plan. documented in this encounter Plan of Treatment Upcoming Encounters Date Type Department Care Team (Late st Contact Info) Description 06/02/2025 11:30 AM EST Clinical Support [facility]ICINE [address] [place] [address] Diane Snyder, SHASHA 06/04/2025 1:00 PM EST Nutrition [facility] DIABETES/NUTRITION [address] [place] [address] Cintia Duron, RD [address] [place] [address] documented as of this encounter Visit Diagnoses Not on filedocumented in this encounter Additional Health Concerns Assessment Noted Time PHQ-9 Depression Total Score: 8 12/31/19 10:30 AM EDT documented as of this encounter Care Teams Fish Header Relationship Specialty Start Date End Date Rachel Eden MD [address] [place] [phone] PCP - General Family Medicine 02/10/20 Lori Alvarez 04/16/25 Anitha Hurtado, RN [address] [place] [phone] Registered Nurse Family Medicine 05/11/25 Jurgen Graham Respite WorkerRelease And Technical Records Clerk 04/16/24 documented as of this encounter
--- OUTSIDE RECORDS SUMMARY | 2025-05-31 17:00 | XMS_ITS | Encounter Summary ---
Author Organization [employer] Address [address] [facility] [address] [place] [address] Care Team Providers Care Infrastructure Tech Name Role Phone Rachel Eden MD Primary Care Provider + Jaguar Pugh RN Unavailable [phone] Lori Alvarez Unavailable Anitha Hurtado RN Unavailable [phone] Reason for Visit * Reason Onset Date Comments Nurse Triage 11/13/2024 Encounter Details Date Type Department Care Team (Late st Contact Info) Description 11/13/2024 Telephone [facility] MEDICINE [address] [place], [place] [phone] Rachel Eden MD [address] [place], [place] [phone] Nurse Triage Social History Tobacco Use Types [...] 11/13/2024 4:16 PM EDT Triage call with [facility] Pediatric Clinical Dietician [place] [id number] Pt reports bilateral pedal edema. Pt reports [...] become worse * Telephone Encounter - Yariel Whitehead - 11/13/2024 3:21 PM EDT Symptoms: Foot or Ankle Swelling, Foot or Ankle Pain - Not From Injury Outcome: Schedule an urgent appointment (within 1 hour) or talk to a nurse or provider soon Reason: Trouble walking The caller accepted this outcome. Contact pt at [phone] documented in this encounter Plan of Treatment Upcoming Encounters Date Type Department Care Team (Late st Contact Info) Description 06/02/2025 11:30 AM EST Clinical Support [facility] MEDICINE [address] [place] [phone] Diane Snyder RN 06/04/2025 1:00 PM EST Nutrition [facility] DIABETES/NUTRITION [address] [place] [phone] [place] [address] documented as of this encounter Visit Diagnoses Not on filedocumented in this encounter Additional Health Concerns Assessment Noted Time PHQ-9 Depression Total Score: 6 04/11/20 23 9:59 AM EDT documented as of this encounter Care Teams Infrastructure Tech Relationship Specialty Start Date End Date Rachel Eden MD [address] [place] [address] PCP - General Family Medicine 02/10/20 Jaguar Pugh RN [address] [place] [phone] Registered Nurse Family Medicine 04/16/25 05/11/25 Lori Alvarez 04/16/25 Anitha Hurtado RN [address] [place] [address] Registered Nurse Family Medicine 05/11/25 Jurgen Graham Fire Safety ManagerClinic Supervisor 04/16/24 documented as of this encounter
== END 2025-05-31 14:43 | disposition home or self-care (01) ==
LOC: HO.CT 14:42
PROVIDERS: PCP Internal Medicine; Visit Provider Internal Medicine
DX: R59.0 Localized enlarged lymph nodes (principal)
CPT/HCPCS: 70491; Q9967

== ENCOUNTER → 2025-05-31 14:44 | Outpatient (BNV) | payer MEDICAID, SELFPAY | PROVIDERS: PCP Internal Medicine; Visit Provider Radiology Diagnostic Radiology | DX: R59.0 Localized enlarged lymph nodes (principal) | CPT/HCPCS: 70491 ==

== ENCOUNTER 2025-06-29 11:34 | Outpatient (REF) | payer MEDICAID, SELFPAY ==
[2025-06-29 12:05] LABS: MANUAL DIFF FLAG NO
[2025-06-29 12:32] LABS: Hematocrit 27.7 % (37.0-47.0); Hemoglobin 8.1 g/dl (12.0-16.0); Imm Gran Abs Auto 0.02 X10*3/uL (0.00-0.03); Imm Gran Pct Auto 0.5 % (0.0-0.4); Lymphocytes Absolute Auto 1.2 X10*3/uL (1.2-4.9); Mean Corpuscular HGB Conc 29.2 g/dl (31.0-35.0); Mean Corpuscular Hemoglobin 22.4 pg (27.0-33.0); Mean Corpuscular Volume 76.5 fL (80.0-98.0); NRBC Abs Auto 0.000 X10*3/uL (0.0-0.012); NRBC Pct Auto 0.0 /100WBC (0.0-0.2); Platelet Count 207 X10*3/uL (160-400); Red Blood Count 3.62 X10*6/uL (4.20-5.50); White Blood Count 4.1 X10*3/uL (4.8-10.8)
[2025-06-29 13:12] LABS: Erythrocyte Sedimentation Rate 16 MM/HR (0-20)
[2025-06-30 04:42] LABS: HIV Num 1 0.07 S/CO (0.00-0.99)
[2025-06-30 06:01] LABS: Syphilis Screen Nonreactive (Nonreactive)
[2025-06-30 06:43] LABS: EBV-NA IgG Index 22.60 U/mL; EBV-VCA IgG Ab 124.00 U/mL; EBV-VCA IgM Ab <36.00 U/mL
[2025-07-02 11:23] LABS: TS Negative Control Passed; TS Panel A 0; TS Panel B 0; TS Positive Control Passed; TSpotTB Negative (Negative)
== END 2025-06-29 11:35 | disposition home or self-care (01) ==
LOC: HO.LAB 11:34
PROVIDERS: PCP Internal Medicine; Visit Provider Internal Medicine
DX: Z11.1 Encounter for screening for respiratory tuberculosis (principal); Z11.4 Encounter for screening for human immunodeficiency virus [HIV]; Z01.84 Encounter for antibody response examination; Z11.3 Encounter for screening for infections with a predominantly sexual mode of transmission; R59.0 Localized enlarged lymph nodes
CPT/HCPCS: 36415; 83615; 84445; 85025; 85652; 86376; 86481; 86644; 86645; 86664; 86665; 86777; 86778; 86780; 87389